=== PATIENT | female | born 1965 | race African-American/Black ===

== ENCOUNTER 2017-02-18 16:10 | Inpatient (IN) | payer OTHER ==
[~2017-02-18] VITALS: Ht 182.9 cm; Wt 123.4 kg
--- NOTE | 2017-02-18 16:27 | NUR ---
PT SETH FROM [facility]. PER REPORT, HD CATH MALFUNCTION. (BLEEDING) NOT DIALYZED TODAY. GOWNED AND PLACED ON MONITOR. STABLE VITALS. AWAITING MD CAPELLAN.
--- NOTE | 2017-02-18 16:28 | NUR ---
VENT DEPENDENT. TRACH, PORTEX 8. AC 12 TV 500 FI02 30% 5 PEEP.
--- NOTE | 2017-02-18 16:29 | NUR ---
DR CARRANZA AT BEDSIDE FOR EVAL.
[2017-02-18 16:41] VITALS: BP 117/63
[2017-02-18 16:52] LABS: BASOPHILS % (AUTO) 0.2 % (0.0-2.0); EOSINOPHILS # (AUTO) 0.3 /CMM (0.0-0.7); HEMATOCRIT 22 % (33-45); HEMOGLOBIN 7.1 g/dL (11.5-14.8); LYMPHOCYTES # (AUTO) 2.4 /CMM (0.8-4.8); LYMPHOCYTES % (AUTO) 14.7 % (20.0-44.0); MEAN CORPUSCULAR HEMOGLOBIN 28 PG (26.0-33.0); MEAN CORPUSCULAR HGB CONC 32 g/dl (31.0-36.0); MEAN CORPUSCULAR VOLUME 86 fL (82-100); MONOCYTES # (AUTO) 0.9 /CMM (0.1-1.30); MONOCYTES % (AUTO) 5.4 % (2.0-12.0); NEUTROPHILS # (AUTO) 12.9 /CMM (1.8-8.9); NEUTROPHILS % (AUTO) 77.7 % (43.0-81.0); PLATELET COUNT (AUTO) 456 /CMM (150-450); RDW COEFFICIENT OF VARIATION 16.2 (11.5-15.0); RED BLOOD CELL COUNT(AUTO) 2.56 MIL/uL (4.0-5.2); WHITE BLOOD COUNT (AUTO) 16.6 K/uL (4.3-11.0)
[2017-02-18] MEDS ORDERED: ASPI81TA2 GT (16:57)
[2017-02-18] MEDS ORDERED: FOLI0.8T23 GT (16:57)
[2017-02-18] MEDS ORDERED: HYDR-4076 GT (16:57)
[2017-02-18] MEDS ORDERED: ACET650S26 GT (16:57)
[2017-02-18] MEDS ORDERED: LORA0.5T GT (16:57)
[2017-02-18] MEDS ORDERED: INSU3INS6 SQ (16:57)
[2017-02-18] MEDS ORDERED: NUT.237L67 GT (16:57)
[2017-02-18] MEDS ORDERED: AMIN30LI4 GT (16:57)
[2017-02-18] MEDS ORDERED: FERR300L GT (16:57)
[2017-02-18] MEDS ORDERED: ERGO50003 GT (16:57)
[2017-02-18] MEDS ORDERED: HEPA10009 SQ (16:57)
[2017-02-18] MEDS ORDERED: LOSA25TA3 GT (16:57)
[2017-02-18] MEDS ORDERED: LORA10TA68 GT (16:57)
[2017-02-18] MEDS ORDERED: METO5SOL2 GT (16:57)
[2017-02-18] MEDS ORDERED: FAMO-131 GT (16:57)
[2017-02-18] MEDS ORDERED: IPRA3AMP IH ×2 (16:57)
[2017-02-18] MEDS ORDERED: INSU100V3 SQ (16:57)
[2017-02-18] MEDS ORDERED: EPOE1VIA7 SQ (16:57)
[2017-02-18] MEDS ORDERED: BLOO-668 IN (16:57)
[2017-02-18] MEDS ORDERED: CALC667T2 GT (16:58)
[2017-02-18 17:06] LABS: ALANINE AMINOTRANSFERASE 22 U/L (12-78); ALBUMIN 2.8 g/dL (3.4-5.0); ALKALINE PHOSPHATASE 111 U/L (46-116); ASPARTATE AMINOTRANSFERASE 15 U/L (15-37); BILIRUBIN,DIRECT 0.1 mg/dL (0.0-0.2); BILIRUBIN,TOTAL 0.3 mg/dL (0.2-1.0); CARBON DIOXIDE 26 mmol/L (21-32); CHLORIDE 97 mmol/L (98-107); CREATININE 3.4 mg/dL (0.6-1.3); GLUCOSE 84 mg/dL (74-106); SODIUM SERUM 133 mmol/L (136-145); TOTAL PROTEIN, SERUM 7.5 g/dL (6.4-8.2); UREA NITROGEN, BLOOD 49 mg/dL (7-18)
[2017-02-18 17:08] LABS: TROPONIN I < 0.017 ng/mL (0.00-0.056)
[2017-02-18 17:16] LABS: CALCIUM, SERUM 13.3 mg/dL (8.5-10.1)
[2017-02-18 17:48] LABS: INR 1.01 (0.87-1.13); PROTHROMBIN TIME 10.8 SECS (9.5-12.7)
[2017-02-18 17:49] LABS: PARTIAL THROMBOPLASTIN TIME > 170 SEC (23-34)
--- NOTE | 2017-02-18 18:08 | NUR ---
CALLED [facility], MANAGER OF MAINTENANCE WAS PAGED. DR CARRANZA ON THE PHONE WITH DR MURRAY.
--- NOTE | 2017-02-18 19:36 | NUR ---
REPORT GIVEN TO ANGELY. PT AWAITING TRANSFER TO FLOOR.
[2017-02-18 19:50] VITALS: BP 118/57
--- NOTE | 2017-02-18 19:50 | NUR ---
RN ADMITTING TEL NOTES PT IS A 51 YR OLD FEMALE ON VENT, AOX2, NONVERBAL, VENT SETTINGS OF AC12,T500, FI2 30% PEEP 5, WELL TOLERATED NO EPISODE OF DISTRESS NOTED, PRODUCTIVE WITH BROWNISH SECRETIONS, AFEBRIL, VS STABLE, DENIES ANY PAIN, WITH GTUBE IN PLACE, PATENT, NO RESIDUAL, WITH RH 20G PATENT FLUSHED UPON ASSESSMENT, WITH BM LARGE X2 YELLOW, KEPT CLEAN AND DRY, WITH MULTIPLE SACRAL AND THIGH PS, PHOTOS TAKEN, WOUND CONSUL ORDERED, WELL PENDING SALE TO [facility]. ALL PT NEEDS WELL SAFETY NEEDS MET UPON ADMISSION AND PROTOCOL FOLLOWED. REPOSITIONED Q2H QS.
[2017-02-18 20:00] VITALS: BP 118/57
[2017-02-18] MEDS ORDERED: RENAL NOVASOURCE 1,000 ML BOTTLE GT PRN (22:30)
[2017-02-19] VITALS (8 sets, daily range): BP systolic 96–118; BP diastolic 44–68
--- NOTE | 2017-02-19 03:21 | NUR ---
2110PM DR MCGREGOR NOTIFIED OF PT'S ADIMISSION, WITH ORDER TO CONT ALL MEDS AND TX FROM SNF WHERE PT CAME FROM AND START GTF ON NOVASOURCE 40ML/HR, PT ADMITTED FOR MALFUNCTION OF HD CATH.
[2017-02-19] MEDS ORDERED: INSULIN REGULAR, HUMAN 100 UNIT/ML 3 ML VIAL SQ PRN ×2 (04:30→09:30)
[2017-02-19] MEDS ORDERED: DEXTROSE 50%-WATER 50 ML DISP.SYRIN IV PRN (04:30)
[2017-02-19] MEDS ORDERED: IPRATROPIUM/ALBUTEROL INHALER NEB PRN (04:30)
[2017-02-19] MEDS ORDERED: IPRATROPIUM/ALBUTEROL INHALER IH PRN (04:30)
--- NOTE | 2017-02-19 06:18 | NUR ---
RN ADMITTING TELE CLOSING NOTES ENDORSED 51 YR OLD FEMALE ON VENT, AOX2, NONVERBAL, VENT SETTINGS OF AC12,T500, FI2 30% PEEP 5, WELL TOLERATED NO EPISODE OF DISTRESS NOTED, PRODUCTIVE WITH BROWNISH SECRETIONS, AFEBRIL, VS STABLE, DENIES ANY PAIN, WITH GTUBE IN PLACE, PATENT, NO RESIDUAL, WITH RH 20G PATENT FLUSHED UPON ASSESSMENT, WITH BM LARGE X2 YELLOW, KEPT CLEAN AND DRY, WITH MULTIPLE SACRAL AND THIGH PS, PHOTOS TAKEN, WOUND CONSUL ORDERED, WELL [employer] MATTRESS. ALL PT NEEDS WELL SAFETY NEEDS MET UPON ADMISSION AND PROTOCOL FOLLOWED. REPOSITIONED Q2H QS. WILL ENDORSE FOR AM CHARGE TO F/U ON EPISODE OF LOOSE STOOL, ADMITTED WITH LOOSE STOOL NO FOOL SMELL, AFEBRIL.
[2017-02-19] MEDS: BLOOD SUGAR DIAGNOSTIC 1 EACH STRIP IN SCH ×4 (06:37→21:06)
--- NOTE | 2017-02-19 07:45 | NUR ---
REPORT RECV'D FROM NOC RN. PT AWAKE. NONVERBAL. VENT SETTINGS AC 12, TV 5, FIO2 30%, PEEP 5. NON LABORED BREATHING. SUCTION NEEDED. HOB ELEVATED. MALFUNCTIONING HD CATH. TELE NSR 80'S. MULTIPLE SACRAL AND THIGH PRESSURE SORES SPECIALTY MATRESS ORDERED AND MEPILEX DRSGS CDI. WBC 11.6. WOUND CARE NURSE NOTIFIED. RH 20G IV PATENT. BED IN LOW LOCKED POSITION. WILL CONT TO MONITOR CLOSELY.
[2017-02-19] MEDS: ALBUTEROL FS 2.5 MG/0.5 ML VIAL.NEB NEB SCH ×3 (08:03→19:53)
[2017-02-19] MEDS: IPRATROPIUM NEB FS 0.5 MG/2.5 ML AMPUL.NEB NEB SCH ×3 (08:03→19:53)
[2017-02-19] MEDS ORDERED: NEPRO VAN 237 ML CAN GT SCH (09:30)
[2017-02-19] MEDS ORDERED: Medication Not On Formulary EA (Ipratropium/Albuterol Sulfate (Duoneb 2.5-0.5 Mg/3 Ml So IH PRN (09:30)
[2017-02-19] MEDS: FERROUS SULFATE UDC 300 MG/5 ML UDC GT SCH (11:13)
[2017-02-19] MEDS: LORATADINE 10 MG TABLET GT SCH (11:14)
[2017-02-19] MEDS: VIT B CMPLX 3/FA/VIT C/BIOTIN 1 TAB TABLET GT SCH (11:14)
[2017-02-19] MEDS: FAMOTIDINE (20 MG) 20 MG TABLET GT SCH (11:14)
[2017-02-19] MEDS: PROSOURCE / PROSTAT (PYXIS) 30 ML UDC GT SCH (11:15)
--- NOTE | 2017-02-19 12:00 | NUR ---
RN NOTES NO ACUTE EVENTS. TELE NSR. HOB ELEVATED. TF RUNNING 40ML/HR NO RESIDUALS. PLACED ON SPECIALTY MATRESS. LINEN CHANGE AND BED BATH PROVIDED. CONTINUE VENT SETTINGS. SUCTIONED X1 THICK YELLOW MODERATE AMT SECRETIONS. HEP SC TO BE ADMIN. BED IN LOW LOCKED POSITION. WILL CONT TO MONITOR CLOSELY.
[2017-02-19] MEDS: POTASSIUM CL. PREMIX PERIPHER. 50 ML IV SCH ×2 (12:56→13:20)
[2017-02-19] MEDS: HEPARIN SODIUM, PORCINE 5000 UNITS/1 ML VIAL SQ SCH ×2 (12:58→21:10)
[2017-02-19] MEDS ORDERED: CALCIUM ACETATE 667 MG TABLET GT SCH (13:00)
[2017-02-19] MEDS ORDERED: Medication Not On Formulary EA (Ipratropium/Albuterol Sulfate (Duoneb 2.5-0.5 Mg/3 Ml So IH SCH (13:30)
[2017-02-19] MEDS ORDERED: EPOETIN ALFA (10,000 UNIT) 10,000 UNIT/ML VIAL SQ PRN (15:00)
[2017-02-19] MEDS: hydrALAZINE HCL 25 MG TABLET GT SCH (16:51)
[2017-02-19] MEDS: LOSARTAN POTASSIUM 25 MG TABLET GT SCH (16:51)
[2017-02-19] MEDS: METOCLOPRAMIDE HCL 10 MG/10 ML UDC GT SCH (16:52)
--- NOTE | 2017-02-19 17:43 | NUR ---
RN NOTES NO CHANGE IN CONDITION SINCE LAST NOTE. TWO SMALL BM SMEARS ON MY SHIFT. TOLERATING TF 40ML/HR NO RESIDUALS. HOB ELEVATED. 3,400ML REMOVED BY DIALYSIS NURSE. HELD BP MEDS PATIENT DIPPED INTO LOW 90'S DURING DIALYSIS. BLOOD SUGARS HAVE BEEN STABLE NEAR 100. VENT SETTING REMAIN UNCHANGED AC 12 TV 5.0 FIO2 30% PEEP 5. POTASSIUM 3.0 REPLETED. TELE NSR. BED IN LOW LOCKED POSITION. WILL CONT TO MONITOR AND ENDORSE TO REPORT TO NOC RN.
--- NOTE | 2017-02-19 19:30 | NUR ---
RN NOTES RECEIVED PT ASLEEP ON BED RESPOMSIVE TO TACTILE STIMULI ABLE TO MOUTH WORDS. WITH TRACH PORTEX 8 CONNECTED TO VENT SETTING AC 12 TV 500 FIO2 30% PEEP 5 TOLERATED WELL SATING 100% TELE MONITOR REVEALS SR HR 80'S. WITH GTF NOVASOURCE RENAL @ 40 CC/HR TOLERATED WELL WITHOUT N.V.D NOTED. IV SITE ON RIGHT HAND G 20 INTACT AND PATENT AND RUC HD CATH INTACT WITH CLEANED DRESSING. WARMTH TO TOUCH SLIGHT FEVER NOTED TEMP 100 DEG. FAHRENHEIT COOLING MEASURES PROVIDED. KEPT PT CLEAN AND COMFORTABLE IN BED. OFFLOADED EXT WITH PILLOWS. REPOSITIONED PATIENT COMFORTABLE. WILL CONTINUE TO MONITOR.
[2017-02-19] MEDS ORDERED: BLOOD SUGAR DIAGNOSTIC 1 EACH STRIP IN SCH (21:00)
[2017-02-19] MEDS: INSULIN DETEMIR 100 UNIT/ML CARTRIDGE SQ SCH (21:19)
--- NOTE | 2017-02-19 21:19 | NUR ---
RN NOTES LEVEMIR 80 UNITS NOT ADMINISTERED DUE TO PATIENT HAD EPISODE OF DROPPING BS TO 80'S IN AM. CONTINUE WITH GTF TOLERATED WELL
[2017-02-20] VITALS (9 sets, daily range): BP systolic 95–127; BP diastolic 47–69
[2017-02-20] MEDS ORDERED: Z GUARD REMEDY 4 OZ OINT TP ONE (00:26)
[2017-02-20] MEDS: RENAL NOVASOURCE 1,000 ML BOTTLE GT PRN (01:55)
[2017-02-20] MEDS: Z GUARD REMEDY 4 OZ OINT TP SCH ×2 (02:00→08:57)
[2017-02-20] MEDS: HYDROGEL DRESSING 90 GM TUBE TP SCH ×2 (02:00→08:56)
[2017-02-20] MEDS: IPRATROPIUM NEB FS 0.5 MG/2.5 ML AMPUL.NEB NEB SCH ×4 (02:04→19:59)
[2017-02-20] MEDS: ALBUTEROL FS 2.5 MG/0.5 ML VIAL.NEB NEB SCH ×4 (02:04→19:59)
[2017-02-20] MEDS: ACETAMINOPHEN 650 MG/20.3 ML UDC GT PRN ×2 (05:34→17:00)
[2017-02-20] MEDS: HEPARIN SODIUM, PORCINE 5000 UNITS/1 ML VIAL SQ SCH ×3 (05:36→22:23)
[2017-02-20] MEDS: BLOOD SUGAR DIAGNOSTIC 1 EACH STRIP IN SCH ×4 (06:45→23:49)
--- NOTE | 2017-02-20 06:45 | NUR ---
RN NOTES PT TMAX 100 DEG FAHRENHEIT COOLING MEASURES RENDERED, PRN TYLENOL FOR MILD PAIN GIVEN ORDERED. ALL DUE MEDICINE GIVEN VIA GT WITHOUT N/V/D. TRACH AND VENT SETTING TOLERATED WELL. INCONTINENT CARE RENDERED. SKIN CARE DONE PHOTO TAKEN FOR ALL SKIN ISSUES. OFFLOADED EXT WITH PILLOWS. KEPT PT CLEAN AND DRY. WILL ENDORSED CONTINUITY OF CARE TO AM NURSE.
[2017-02-20 07:30] LABS: BASOPHILS % (AUTO) 0.2 % (0.0-2.0); EOSINOPHILS # (AUTO) 0.3 /CMM (0.0-0.7); EOSINOPHILS % (AUTO) 1.7 % (0.0-6.0); HEMATOCRIT 22 % (33-45); LYMPHOCYTES # (AUTO) 3.4 /CMM (0.8-4.8); LYMPHOCYTES % (AUTO) 22.3 % (20.0-44.0); MEAN CORPUSCULAR HEMOGLOBIN 28 PG (26.0-33.0); MEAN CORPUSCULAR HGB CONC 33 g/dl (31.0-36.0); MEAN CORPUSCULAR VOLUME 86 fL (82-100); MONOCYTES # (AUTO) 1.3 /CMM (0.1-1.30); MONOCYTES % (AUTO) 8.8 % (2.0-12.0); NEUTROPHILS # (AUTO) 10.1 /CMM (1.8-8.9); PLATELET COUNT (AUTO) 394 /CMM (150-450); RDW COEFFICIENT OF VARIATION 15.9 (11.5-15.0); RED BLOOD CELL COUNT(AUTO) 2.51 MIL/uL (4.0-5.2)
[2017-02-20 08:11] LABS: ALBUMIN 2.8 g/dL (3.4-5.0); BILIRUBIN,TOTAL 0.3 mg/dL (0.2-1.0); CALCIUM, SERUM 11.7 mg/dL (8.5-10.1); CREATININE 3.7 mg/dL (0.6-1.3); MAGNESIUM 2.2 mg/dL (1.8-2.4); PHOSPHORUS 2.3 mg/dL (2.5-4.9); POTASSIUM 3.4 mmol/L (3.5-5.1); TOTAL PROTEIN, SERUM 7.6 g/dL (6.4-8.2)
[2017-02-20] MEDS: hydrALAZINE HCL 25 MG TABLET GT SCH ×2 (08:54→16:54)
[2017-02-20] MEDS: LOSARTAN POTASSIUM 25 MG TABLET GT SCH ×2 (08:54→16:54)
[2017-02-20] MEDS: FERROUS SULFATE UDC 300 MG/5 ML UDC GT SCH (08:55)
[2017-02-20] MEDS: METOCLOPRAMIDE HCL 10 MG/10 ML UDC GT SCH ×2 (08:55→17:01)
[2017-02-20] MEDS: LORATADINE 10 MG TABLET GT SCH (08:56)
[2017-02-20] MEDS: FAMOTIDINE (20 MG) 20 MG TABLET GT SCH (08:56)
[2017-02-20] MEDS: ASPIRIN 81 MG TAB.CHEW GT SCH (08:56)
[2017-02-20] MEDS: VIT B CMPLX 3/FA/VIT C/BIOTIN 1 TAB TABLET GT SCH (08:56)
[2017-02-20] MEDS: PROSOURCE / PROSTAT (PYXIS) 30 ML UDC GT SCH (09:00)
[2017-02-20] MEDS ORDERED: ERGOCALCIFEROL (VITAMIN D 2) 50,000 UNIT CAPSULE GT SCH (09:00)
[2017-02-20] MEDS ORDERED: DEXTROSE 50%-WATER 50 ML DISP.SYRIN IV PRN (11:00)
[2017-02-20] MEDS ORDERED: BLOOD SUGAR DIAGNOSTIC 1 EACH STRIP IN SCH (12:00)
--- NOTE | 2017-02-20 13:45 | NUR ---
RN NOTES CALLED SISTER AND BROTHER AT [facility] [phone] TO OBTAIN CONSENT FOR BLOOD TRANSFUSION, LEFT A MSG NO ANSWER. CONSENT OBTAINED FROM PATIENT FOR BLOOD TRANSFUSION. UNABLE TO SIGN, WITNESSED BY 2 RNS. CHARGE NURSE SOON AWARE
--- NOTE | 2017-02-20 13:48 | NUR ---
WOUND CARE CONSULT: UNABLE TO DO SKIN ASSESSMENT DUE TO PT HAVING DIALYSIS AT THIS TIME. PT ON BARIATRIC BED (BARIMAX ETS AIR). ALL SKIN PROTECTION MEASURES IN PLACE AND DISCUSSED WITH NURSING STAFF. WILL SEE PT PT CONDITION PERMITS. RECOMMEND SURGICAL CONSULT. MD IN AGREEMENT WITH PLAN OF CARE. Addendum: 02/20/17 at 1407 by KARIN PAINTING WNDNU RECOMMENDATIONS FOR WOUND CARE MADE BASED ON PHOTO DOCUMENTATION. DISCUSSED WITH NURSING STAFF.
--- NOTE | 2017-02-20 15:12 | NUR ---
RN NOTES BLOOD TRANSFUSION STARTED WITH HEMODIALYSIS. VS STABLE. WILL CONT TO MONITOR CLOSELY FOR ANY POSSIBLE REACTION
--- NOTE | 2017-02-20 15:19 | NUR ---
RN NOTES SPOKE WITH JACOBS BROTHER, LORENZA GAVE CONSENT FOR BLOOD TRANSFUSION. BOSTON AWARE THAT PATIENT GAVE CONSENT FOR BLOOD TRANSFUSION WELL
[2017-02-20] MEDS ORDERED: ALTEPLASE CATHFLO 2 MG/VIAL IV ONE (15:30)
[2017-02-20] MEDS: INSULIN REGULAR, HUMAN 100 UNIT/ML 3 ML VIAL SQ PRN ×2 (17:35→23:48)
--- NOTE | 2017-02-20 19:59 | NUR ---
PT RCVD ON [facility] VENT WITH NOTED SETTINGS. VENT ALARM WORKING AND AUDIBLE, VENT PLUGGED INTO RED OUTLET. TRACH SECURE IN AND IN PROPER POSITION, CUFF CHECKED ECONOMIC DEVELOPMENT MANAGER. SXN MODERATE AMOUNT OF PALE YELLOW THICK SECRETIONS . BILATERAL BS NOTED. NO RESPIRATORY DISTRESS AT THIS TIME . AMBU BAG AT [facility], WILL CONTINUE TO MONITOR THE PT.
[2017-02-20] MEDS: INSULIN DETEMIR 100 UNIT/ML CARTRIDGE SQ SCH (22:00)
[2017-02-20] MEDS: MUPIROCIN OINT 2% 22 GM TUBE SCH (22:21)
[2017-02-21] VITALS: BP 112/64
[2017-02-21] MEDS: IPRATROPIUM NEB FS 0.5 MG/2.5 ML AMPUL.NEB NEB SCH ×4 (01:25→20:27)
[2017-02-21] MEDS: ALBUTEROL FS 2.5 MG/0.5 ML VIAL.NEB NEB SCH ×4 (01:25→20:27)
[2017-02-21 04:00] VITALS: BP 98/49
[2017-02-21] MEDS: HEPARIN SODIUM, PORCINE 5000 UNITS/1 ML VIAL SQ SCH ×3 (04:58→21:10)
[2017-02-21] MEDS: INSULIN REGULAR, HUMAN 100 UNIT/ML 3 ML VIAL SQ PRN (04:59)
--- NOTE | 2017-02-21 05:00 | NUR ---
MANAGER VIDEO GAMES - REC'D PT.BEDRIDDEN,NONVERBAL, TRACH/VENTED/PEGGED. PT. CAN MOUTH WORDS & IS ALERT-TRACKS WELL. VSS/100.6 TMAX AT START OF SHIFT. COOLING MEASURES STARTED. PT.IS IN ISOLATION FOR MRSA/NARES. 2 COMP. BEDBATHS ADM. FOR [employer]. PT.IS ANURIC, BUT IS DIAPERED DUE TO JUST ALITTLE URINE EXPLELLED. MULTIPLE WOUND ISSUES. PT. HAS RT.HAND PIV/PATENT TO FLUSH & RT.C/W HD CATH=CDI. WOUND CARE PERFORMED Q SHIFT. LEVEMIR NOT GIVEN DUE TO BS'S IN THE 130'S.
[2017-02-21] MEDS: BLOOD SUGAR DIAGNOSTIC 1 EACH STRIP IN SCH ×4 (05:03→23:12)
[2017-02-21 07:41] LABS: CALCIUM, SERUM 11.3 mg/dL (8.5-10.1); MAGNESIUM 2.4 mg/dL (1.8-2.4); PHOSPHORUS 2.5 mg/dL (2.5-4.9); POTASSIUM 3.5 mmol/L (3.5-5.1)
--- NOTE | 2017-02-21 08:00 | NUR ---
ENGAGEMENT ENGINEER INITIAL NOTE RN RECEIVED PT IN BED RESTING NONVERBAL, HOWEVER PT. CAN MOUTH WORDS PT ALERT AND OREINTED X2 . PT IS TRACH/VENTED/PEGGED. COOLING MEASURES IN PLACE DUE TO SLIGHT ELEVATION IN TEMP. PT ON ISOLATION FOR MRSA/NARES. RT.HAND IV PATENT AND INTACT RT C/W HD CATH ALSO C/D/I. RN WILL CONTINUE TO MOONITOR THROUGH SHIFT
[2017-02-21 09:00] VITALS: BP 98/50
[2017-02-21] MEDS: hydrALAZINE HCL 25 MG TABLET GT SCH ×2 (09:00→15:58)
[2017-02-21] MEDS: VIT B CMPLX 3/FA/VIT C/BIOTIN 1 TAB TABLET GT SCH (09:21)
[2017-02-21] MEDS: LOSARTAN POTASSIUM 25 MG TABLET GT SCH ×2 (09:22→15:58)
[2017-02-21] MEDS: FAMOTIDINE (20 MG) 20 MG TABLET GT SCH (09:22)
[2017-02-21] MEDS: ASPIRIN 81 MG TAB.CHEW GT SCH (09:22)
[2017-02-21] MEDS: LORATADINE 10 MG TABLET GT SCH (09:22)
[2017-02-21] MEDS: PROSOURCE / PROSTAT (PYXIS) 30 ML UDC GT SCH (09:23)
[2017-02-21] MEDS: FERROUS SULFATE UDC 300 MG/5 ML UDC GT SCH (09:23)
[2017-02-21] MEDS: METOCLOPRAMIDE HCL 10 MG/10 ML UDC GT SCH ×2 (09:23→16:02)
[2017-02-21] MEDS: Z GUARD REMEDY 4 OZ OINT TP SCH (09:23)
[2017-02-21] MEDS: MUPIROCIN OINT 2% 22 GM TUBE SCH ×2 (09:24→21:09)
[2017-02-21] MEDS: HYDROGEL DRESSING 90 GM TUBE TP SCH (09:24)
[2017-02-21 09:41] LABS: BASOPHILS % (AUTO) 0.2 % (0.0-2.0); EOSINOPHILS # (AUTO) 0.3 /CMM (0.0-0.7); EOSINOPHILS % (AUTO) 1.4 % (0.0-6.0); HEMATOCRIT 25 % (33-45); HEMOGLOBIN 7.9 g/dL (11.5-14.8); LYMPHOCYTES # (AUTO) 5.6 /CMM (0.8-4.8); LYMPHOCYTES % (AUTO) 23.6 % (20.0-44.0); MEAN CORPUSCULAR HEMOGLOBIN 27 PG (26.0-33.0); MEAN CORPUSCULAR HGB CONC 32 g/dl (31.0-36.0); MEAN CORPUSCULAR VOLUME 85 fL (82-100); MONOCYTES # (AUTO) 2.6 /CMM (0.1-1.30); MONOCYTES % (AUTO) 11.2 % (2.0-12.0); NEUTROPHILS % (AUTO) 63.6 % (43.0-81.0); PLATELET COUNT (AUTO) 422 /CMM (150-450); RDW COEFFICIENT OF VARIATION 16.6 (11.5-15.0); RED BLOOD CELL COUNT(AUTO) 2.89 MIL/uL (4.0-5.2); WHITE BLOOD COUNT (AUTO) 23.6 K/uL (4.3-11.0)
[2017-02-21 10:05] LABS: BAND % (MANUAL) 1 % (0.0-5.0); EOSINOPHILS % (MANUAL) 1 % (0-4); LYMPHOCYTES % (MANUAL) 20 % (16-48); MONOCYTES % (MANUAL) 11 % (0-11.0); NEUTROPHILS % (MANUAL) 67 (42-76)
--- NOTE | 2017-02-21 10:21 | NUR ---
WOUND CARE: PT REFUSED ASSESSMENT EXCEPT FOR LEFT INNER THIGH, GROIN EXCORIATED AREAS AND LEFT POSTERIOR THIGH WOUND, STAGE 3 WHICH MEASURED 3CM X 10CM X 0.5CM WITH SMALL AMOUNT OF SEROUS DRAINAGE, NO ODOR. RECOMMENDATIONS MADE FOR WOUND CARE AND SKIN PROTECTION. RECOMMEND SURGICAL CONSULT. ALL SKIN PROTECTION MEASURES IN PLACE. WILL SEE PRN. JACOBO IN AGREEMENT WITH PLAN OF CARE. Addendum: 02/21/17 at 1023 by KARIN PAINTING WNDNU Amended: Links added.
[2017-02-21 12:00] VITALS: BP 92/52
--- NOTE | 2017-02-21 12:36 | NUR ---
RN NOTE RN CONTACTED PHARMACY IN REGARDS TO HEPARIN ADMINISTRATION THAT IS SCHEDULED FOR 1300. PATIENTS LAST PTT ELEVATED AND RN REQUESTING IF THIS ADMINISTRATION SHOULD STILL BE ADMINISTERED. RN AWAITING ORDERS TO GIVE OR HOLD HEPARIN
--- NOTE | 2017-02-21 12:50 | NUR ---
RN NOTE PHARMACY CONTACTED RN IN REGARDS TO HEPARIN ADMINISTRATION STATES IT IS OK TO ADMINISTER 1300 DOSE , RN ACKNOWLEDGED AND ADMINISTERED CHARGE NURSE LAKIA RUBIO
[2017-02-21 16:00] VITALS: BP 94/55
--- NOTE | 2017-02-21 18:47 | NUR ---
CREATIVE ENGAGEMENT DIRECTOR CLOSING NOTES: ALL PT NEEDS WERE ATTENDED AND ANTICIPATED FOR. PT REMAINS IN BED ABLE TO MAKE NEEDS KNOWN VIA MOUTHING WORDS . WITH HOB ELEVATED UP. PT IS VENT/TRACH DEPENDENT AND TOLERATING VENT SETTINGS WELL. NO DISTRESS NOTED AT THIS TIME. PT IS ON G TUBE FEEDING GLYTROL NO RESIDUAL NOTED. CALL LIGHT WITHIN PT'S REACH. BED KEPT IN LOW, LOCKED POSITION, AND SIDE RAILS X 2 UP. RN WILL ENDORSE CONTINUATION OF CARE TO THE PM NURSE
--- NOTE | 2017-02-21 19:30 | NUR ---
RN NOTES RECEIVED THE PATIENT AWAKE ON BED, A/O X1, ABLE TO MOUTH WORDS. ON VENT, AC12, TV500, 30%FIO2, PEEP5, PORTEX8, SATURATING WELL, NO S/S OF RESP DISTRESS. CURRENTLY SINUS TACH ON THE MONITOR, HR 100-110'S. PT IS ANURIC. ON NOVASOURCE GTF @ 40MLS/HR, NO RESIDUALS, TOLERATING WELL. RIGHT CHEST WALL HD CATH INTACT. RIGHT HAND 20G FLUSHED AND PATENT, NO S/S OF INFILTRATION/INFECTION, DRESSING CDI. BED LOW AND LOCKED, SIDERAILS UP, CALL LIGHT WITHIN REACH . WILL MONITOR
[2017-02-21 20:00] VITALS: BP 90/49
[2017-02-21] MEDS: INSULIN DETEMIR 100 UNIT/ML CARTRIDGE SQ SCH (21:10)
--- NOTE | 2017-02-21 21:11 | NUR ---
RN NOTES NON-ADMINISTERED SCHEDULED 80UNITS LEVEMIR. CURRENT BLOOD SUGAR IS 137. PAST SCHEDULED LEVEMIRS HAVE BEEN NON-ADMINISTERED DUE TO BLOOD SUGARS RANGING 80-130 EVEN WITH GTUBE FEEDING. WILL MONITOR
[2017-02-21] MEDS: RENAL NOVASOURCE 1,000 ML BOTTLE GT PRN (21:12)
[2017-02-21] MEDS: ACETAMINOPHEN 650 MG/20.3 ML UDC GT PRN (21:20)
[2017-02-22] VITALS (7 sets, daily range): BP systolic 89–123; BP diastolic 44–79
[2017-02-22] MEDS: IPRATROPIUM NEB FS 0.5 MG/2.5 ML AMPUL.NEB NEB SCH ×4 (01:51→19:39)
[2017-02-22] MEDS: ALBUTEROL FS 2.5 MG/0.5 ML VIAL.NEB NEB SCH ×4 (01:51→19:38)
[2017-02-22] MEDS: BLOOD SUGAR DIAGNOSTIC 1 EACH STRIP IN SCH ×4 (05:09→23:08)
[2017-02-22] MEDS: HEPARIN SODIUM, PORCINE 5000 UNITS/1 ML VIAL SQ SCH ×3 (05:10→20:32)
[2017-02-22] MEDS: INSULIN REGULAR, HUMAN 100 UNIT/ML 3 ML VIAL SQ PRN ×4 (05:11→23:08)
--- NOTE | 2017-02-22 06:30 | NUR ---
RN NOTES PT REMAINS STABLE OF THE MOMENT. ALL DUE MEDS GIVEN, AM CARE PROVIDED. WILL ENDORSE CONTINUITY OF CARE TO AM RN
[2017-02-22] MEDS: METOCLOPRAMIDE HCL 10 MG/10 ML UDC GT SCH ×2 (08:45→17:22)
[2017-02-22] MEDS: FERROUS SULFATE UDC 300 MG/5 ML UDC GT SCH (08:45)
[2017-02-22] MEDS: ASPIRIN 81 MG TAB.CHEW GT SCH (08:45)
[2017-02-22] MEDS: VIT B CMPLX 3/FA/VIT C/BIOTIN 1 TAB TABLET GT SCH (08:45)
[2017-02-22] MEDS: LORATADINE 10 MG TABLET GT SCH (08:46)
[2017-02-22] MEDS: PROSOURCE / PROSTAT (PYXIS) 30 ML UDC GT SCH (08:46)
[2017-02-22] MEDS: HYDROGEL DRESSING 90 GM TUBE TP SCH (08:46)
[2017-02-22] MEDS: FAMOTIDINE (20 MG) 20 MG TABLET GT SCH (08:46)
[2017-02-22] MEDS: MUPIROCIN OINT 2% 22 GM TUBE SCH ×2 (08:46→20:30)
[2017-02-22] MEDS: Z GUARD REMEDY 4 OZ OINT TP SCH (08:46)
[2017-02-22] MEDS: hydrALAZINE HCL 25 MG TABLET GT SCH ×2 (08:47→17:00)
[2017-02-22] MEDS: LOSARTAN POTASSIUM 25 MG TABLET GT SCH ×2 (08:48→17:00)
[2017-02-22] MEDS ORDERED: FEE PK DOSING 1 MIN EA MC ONE ×2 (11:57→12:15)
[2017-02-22] MEDS ORDERED: GENTAMICIN IV ONE (12:30)
[2017-02-22] MEDS ORDERED: D5W IV ONE (12:30)
--- NOTE | 2017-02-22 13:00 | NUR ---
HD cath removed per Dr. Miller. Tip cultured.
[2017-02-22] MEDS ORDERED: VANCOMYCIN 1 GM in IV D5W 250 ML IV ONE (15:00)
--- NOTE | 2017-02-22 15:00 | NUR ---
Patient have watery stool, with foul distinct smell. Stool specimen sent for C-diff.
--- NOTE | 2017-02-22 16:00 | NUR ---
Patient initial 1600 blood pressure borderline low @ 87/44 on the left forearm. Rechecked on the left arm 91/72. Patient awake, mouths words.
--- NOTE | 2017-02-22 20:38 | NUR ---
received pt from day shift, a/o x1, follows simple commands, confused at times, SR, on the vent, lungs congested, no edema, anuric, HD pt, GT to feeding tolerates well, v/s stable, no pain, pt turned and repositioned.
[2017-02-22] MEDS: INSULIN DETEMIR 100 UNIT/ML CARTRIDGE SQ SCH (22:53)
[2017-02-23] VITALS: BP 94/50
[2017-02-23] MEDS: IPRATROPIUM NEB FS 0.5 MG/2.5 ML AMPUL.NEB NEB SCH ×4 (01:10→19:43)
[2017-02-23] MEDS: ALBUTEROL FS 2.5 MG/0.5 ML VIAL.NEB NEB SCH ×4 (01:10→19:43)
[2017-02-23 04:00] VITALS: BP 117/58
[2017-02-23] MEDS: HEPARIN SODIUM, PORCINE 5000 UNITS/1 ML VIAL SQ SCH ×3 (04:05→21:42)
--- NOTE | 2017-02-23 04:11 | NUR ---
pt is resting in the bed, no acute distress overnight, tolerated feeding, v/s stable, no pain, pt cleaned, changed and repositioned q2hrs.
[2017-02-23] MEDS: BLOOD SUGAR DIAGNOSTIC 1 EACH STRIP IN SCH ×3 (05:16→17:27)
[2017-02-23 07:01] LABS: EOSINOPHILS # (AUTO) 0.4 /CMM (0.0-0.7); EOSINOPHILS % (AUTO) 2.3 % (0.0-6.0); HEMATOCRIT 28 % (33-45); LYMPHOCYTES # (AUTO) 2.1 /CMM (0.8-4.8); LYMPHOCYTES % (AUTO) 10.9 % (20.0-44.0); MEAN CORPUSCULAR HEMOGLOBIN 27 PG (26.0-33.0); MEAN CORPUSCULAR HGB CONC 32 g/dl (31.0-36.0); MEAN CORPUSCULAR VOLUME 85 fL (82-100); MONOCYTES # (AUTO) 1.4 /CMM (0.1-1.30); MONOCYTES % (AUTO) 7.2 % (2.0-12.0); NEUTROPHILS # (AUTO) 15.2 /CMM (1.8-8.9); NEUTROPHILS % (AUTO) 79.6 % (43.0-81.0); PLATELET COUNT (AUTO) 433 /CMM (150-450); RDW COEFFICIENT OF VARIATION 15.8 (11.5-15.0); RED BLOOD CELL COUNT(AUTO) 3.29 MIL/uL (4.0-5.2); WHITE BLOOD COUNT (AUTO) 19.1 K/uL (4.3-11.0)
--- NOTE | 2017-02-23 07:05 | NUR ---
RN NOTES RECV'D REPORT FROM NOC JENIFER SMILEY. PT A&OX3. NO DISTRESS AT PRESENT TIME. VENT TRACH ABLE TO VERBALIZE SOMEWHAT. PORTEX #8 AC 12, TV 500, FIO2 30%, PEEP 5. HOB ELEVATED. PEG NO RESIDUALS NOVASOURCE 40ML/HR RUNNING. RUE 20G PIV TKO. LAB GLUCOSE 5:55AM = 47. 0600 FINGERSTICK = 152 AND RECHECKED AT 0730 = 157. PT DENIES SYMPOTMS OF HYPOGLYCEMIA. SPECIALTY BED. WBC 18 IV ABX. ELIQUIS. PENDING REPLACEMENT OF HD CATH. TELE ST 103. MRSA NARES ISOLATION PRECAUTIONS. BED IN LOW LOCKED POSITION. WILL CONT TO MONITOR CLOSELY.
[2017-02-23 07:22] LABS: CREATININE 5.2 mg/dL (0.6-1.3); MAGNESIUM 2.4 mg/dL (1.8-2.4); PHOSPHORUS 2.7 mg/dL (2.5-4.9); POTASSIUM 3.2 mmol/L (3.5-5.1)
[2017-02-23] MEDS: ASPIRIN 81 MG TAB.CHEW GT SCH (09:02)
[2017-02-23] MEDS: FERROUS SULFATE UDC 300 MG/5 ML UDC GT SCH (09:02)
[2017-02-23] MEDS: LORATADINE 10 MG TABLET GT SCH (09:02)
[2017-02-23] MEDS: METOCLOPRAMIDE HCL 10 MG/10 ML UDC GT SCH ×2 (09:02→17:00)
[2017-02-23] MEDS: VIT B CMPLX 3/FA/VIT C/BIOTIN 1 TAB TABLET GT SCH (09:04)
[2017-02-23] MEDS: FAMOTIDINE (20 MG) 20 MG TABLET GT SCH (09:04)
[2017-02-23] MEDS: LOSARTAN POTASSIUM 25 MG TABLET GT SCH ×2 (09:05→17:00)
[2017-02-23] MEDS: hydrALAZINE HCL 25 MG TABLET GT SCH ×2 (09:05→17:00)
[2017-02-23] MEDS: PROSOURCE / PROSTAT (PYXIS) 30 ML UDC GT SCH (09:06)
[2017-02-23] MEDS: MUPIROCIN OINT 2% 22 GM TUBE SCH ×2 (09:06→21:39)
[2017-02-23] MEDS: HYDROGEL DRESSING 90 GM TUBE TP SCH (09:07)
[2017-02-23] MEDS: Z GUARD REMEDY 4 OZ OINT TP SCH (09:07)
[2017-02-23 09:22] VITALS: BP 121/59
[2017-02-23 09:45] LABS: EOSINOPHILS % (MANUAL) 1 % (0-4); LYMPHOCYTES % (MANUAL) 7 % (16-48); MONOCYTES % (MANUAL) 10 % (0-11.0); NEUTROPHILS % (MANUAL) 82 (42-76)
--- NOTE | 2017-02-23 12:00 | NUR ---
RN NOTES PT AWAKE ABLE TO MOUTH SOME WORDS. MOUTH CARE PROVIDED. HOB ELEVATED. PT TURNED RIGHT SIDE. DEEP SUCTION MINIMAL YELLOW/ WHITE THICK SECRETIONS. RUE 20G PIV INTACT PATENT. NO RESIDUALS GT FEED 40ML NOVASOURCE. ISOLATION PRECAUTIONS IN PLACE. BED IN LOW LOCKED POSITION. WILL CONT TO MONITOR CLOSELY.
[2017-02-23] MEDS ORDERED: GENTAMICIN 80 MG in IV D5W 50 ML IV PRN (12:30)
[2017-02-23] MEDS ORDERED: VANCOMYCIN 500 MG in IV D5W 100 ML IV PRN (12:30)
[2017-02-23] MEDS: INSULIN REGULAR, HUMAN 100 UNIT/ML 3 ML VIAL SQ PRN ×2 (12:55→17:30)
[2017-02-23 16:00] VITALS: BP 94/58
--- NOTE | 2017-02-23 16:00 | NUR ---
RN NOTES HYPOTENSIVE SBP 94 HELD HYDRALAZINE AMIODARONE SCHEDULED. PAGED DR. ALCOCER. AWAITING CALLBACK. CN SOON AWARE.
--- NOTE | 2017-02-23 18:00 | NUR ---
RN NOTES PT RESTING COMFORTABLY. TWO CALLS TO . CN SOON AWARE. HOB ELEVATED. TF 40ML/HR. WOUND CARE PROVIDED. BLOOD SUGARS STABLE. RUE 20G PATENT. WILL ENDORSE TO NOC RN. ISO MRSA PRECAUTIONS IN PLACE.
--- NOTE | 2017-02-23 18:27 | NUR ---
RN NOTES MD CALLBACK REGARDING HYPOTENSION. NO NEW ORDERS FROM DR. MCGREGOR.
--- NOTE | 2017-02-23 19:33 | NUR ---
RN INITIAL NOTES RECEIVED PT AWAKE ABLE TO MOUTH SOME WORDS. MOUTH CARE PROVIDED. HOB ELEVATED. PT TURNED RIGHT SIDE. DEEP SUCTION MINIMAL YELLOW/ WHITE THICK SECRETIONS. RUE 20G PIV INTACT PATENT. NO RESIDUALS GT FEED 40ML NOVASOURCE. ISOLATION PRECAUTIONS IN PLACE. BED IN LOW LOCKED POSITION. WILL CONT TO MONITOR CLOSELY
[2017-02-23 20:00] VITALS: BP_SYST 84; BP_SYST 94; BP_DIAS 45; BP_DIAS 56
[2017-02-23] MEDS: INSULIN DETEMIR 100 UNIT/ML CARTRIDGE SQ SCH (21:43)
[2017-02-23] MEDS: LORAZEPAM 0.5 MG TABLET GT PRN (23:11)
[2017-02-23] MEDS: ACETAMINOPHEN 650 MG/20.3 ML UDC GT PRN (23:11)
[2017-02-24] VITALS: BP 90/44
[2017-02-24] MEDS: BLOOD SUGAR DIAGNOSTIC 1 EACH STRIP IN SCH ×5 (00:09→23:32)
[2017-02-24] MEDS: INSULIN REGULAR, HUMAN 100 UNIT/ML 3 ML VIAL SQ PRN ×4 (00:15→23:32)
[2017-02-24] MEDS: IPRATROPIUM NEB FS 0.5 MG/2.5 ML AMPUL.NEB NEB SCH ×4 (01:18→19:49)
[2017-02-24] MEDS: ALBUTEROL FS 2.5 MG/0.5 ML VIAL.NEB NEB SCH ×4 (01:18→19:49)
[2017-02-24 04:00] VITALS: BP 103/52
[2017-02-24] MEDS: HEPARIN SODIUM, PORCINE 5000 UNITS/1 ML VIAL SQ SCH ×3 (04:55→20:32)
[2017-02-24] MEDS: RENAL NOVASOURCE 1,000 ML BOTTLE GT PRN (05:02)
--- NOTE | 2017-02-24 06:20 | NUR ---
RN CLOSING TELE NOTES ENDORSED PT AWAKE ABLE TO MOUTH SOME WORDS. MOUTH CARE PROVIDED. HOB ELEVATED. PT TURNED RIGHT SIDE. DEEP SUCTION MINIMAL YELLOW/ WHITE THICK SECRETIONS. RUE 20G PIV INTACT PATENT. NO RESIDUALS GT FEED 40ML NOVASOURCE. ISOLATION PRECAUTIONS IN PLACE. BED IN LOW LOCKED POSITION. WILL CONT TO MONITOR CLOSELY
[2017-02-24 07:08] LABS: GENTAMICIN,RANDOM 5.5 ug/ml (4.0-8.0)
[2017-02-24 08:00] VITALS: BP 98/57
--- NOTE | 2017-02-24 08:00 | NUR ---
TELE1/RN AM SHIFT INITIAL NOTES RECEIVED PT AWAKE IN BED, NO ACUTE CHANGE OF CONDITION. PT ALERT BUT CONFUSED, MUMBLES WORDS. NO GRIMACING NOTED. ON VENTILATOR RATES SET PRESCRIBED, SATURATING @ 99%, LUNG SOUNDS CLEAR, SUCTIONED FOR AIRWAY CLEARANCE. ON TELE WITH SINUS RHYTHM, HR 99. PT HAS NO HD ACCESS. IV SITE FLUSHED, PATENT WITH NO S/S OF INFECTION. GT FEEDING ON GOING @ 40CC/HR, NO GASTRIC RESIDUAL NOTED, FLUSHED, PATENT. PT IS COMFORTABLE AT THIS TIME. SCHEDULED AM MEDS TO BE GIVEN. CL WITHIN REACHED, SAFETY MAINTAINED AND ISOLATION OBSERVED. ON GOING MONITORING.
[2017-02-24] MEDS: PROSOURCE / PROSTAT (PYXIS) 30 ML UDC GT SCH (08:53)
[2017-02-24] MEDS: VIT B CMPLX 3/FA/VIT C/BIOTIN 1 TAB TABLET GT SCH (08:54)
[2017-02-24] MEDS: FAMOTIDINE (20 MG) 20 MG TABLET GT SCH (08:54)
[2017-02-24] MEDS: METOCLOPRAMIDE HCL 10 MG/10 ML UDC GT SCH ×2 (08:54→18:31)
[2017-02-24] MEDS: LORATADINE 10 MG TABLET GT SCH (08:54)
[2017-02-24] MEDS: ASPIRIN 81 MG TAB.CHEW GT SCH (08:54)
[2017-02-24] MEDS: FERROUS SULFATE UDC 300 MG/5 ML UDC GT SCH (08:54)
[2017-02-24] MEDS: LOSARTAN POTASSIUM 25 MG TABLET GT SCH ×2 (08:55→18:31)
[2017-02-24] MEDS: HYDROGEL DRESSING 90 GM TUBE TP SCH (08:55)
[2017-02-24] MEDS: hydrALAZINE HCL 25 MG TABLET GT SCH ×2 (08:55→18:32)
[2017-02-24] MEDS: Z GUARD REMEDY 4 OZ OINT TP SCH (08:56)
[2017-02-24] MEDS: MUPIROCIN OINT 2% 22 GM TUBE SCH ×2 (08:57→20:31)
[2017-02-24 12:00] VITALS: BP 105/50
[2017-02-24] MEDS ORDERED: VANCOMYCIN 1 GM in IV D5W 250 ML IV ONE (12:00)
--- NOTE | 2017-02-24 12:00 | NUR ---
TELE1/RN NOON ROUNDS NO ACUTE CHANGE OF CONDITION. PT SUCTIONED AND REPOSITIONED. ON GOING MONITORING.
[2017-02-24 16:00] VITALS: BP 100/51
--- NOTE | 2017-02-24 19:45 | NUR ---
TELE1/RN AM SHIFT END NOTES ALL NEEDS MET. NO ACUTE CHANGE OF CONDITION NOTED. PT ENDORSED TO PM NURSE TO CONTINUE CARE. CL WITHIN REACHED, SAFETY MAINTAINED AND ISOLATION OBSERVED.
[2017-02-24 20:00] VITALS: BP 128/108
--- NOTE | 2017-02-24 20:00 | NUR ---
RN INITIAL NOTE; PT ON THE BED AWAKE, MOUTH WORDS , CONFUSE. WITH TRACH CONNECTED TO MECH VENT , SETTING ORDERED . TELE MONITOR SHOWING SR WITH HR 70 . PERIPHERAL IV 20 G IN R HAND INTACT AND PATENT. G TUBE INTACT AND PATENT WITH NOVASOURCE @ 40ML/HR . NO RESIDUAL NOTED, ASPIRATION PRECAUTION APPLIED. PT IS ANURIC , INCONTINENT TO BOWEL . WILL TURN AND REPOSITION Q2H AND NEEDED, BED IN THE LOWEST AND LOCKED POSITION , SAFETY MEASURES APPLIED, WILL CONTINUE TO MONITOR .
[2017-02-24] MEDS: INSULIN DETEMIR 100 UNIT/ML CARTRIDGE SQ SCH (23:30)
[2017-02-25] VITALS (7 sets, daily range): BP systolic 86–101; BP diastolic 48–57
[2017-02-25] MEDS: IPRATROPIUM NEB FS 0.5 MG/2.5 ML AMPUL.NEB NEB SCH ×4 (01:11→19:43)
[2017-02-25] MEDS: ALBUTEROL FS 2.5 MG/0.5 ML VIAL.NEB NEB SCH ×4 (01:11→19:43)
[2017-02-25] MEDS: RENAL NOVASOURCE 1,000 ML BOTTLE GT PRN (04:56)
[2017-02-25] MEDS: HEPARIN SODIUM, PORCINE 5000 UNITS/1 ML VIAL SQ SCH ×3 (04:58→21:13)
[2017-02-25] MEDS: INSULIN REGULAR, HUMAN 100 UNIT/ML 3 ML VIAL SQ PRN ×4 (05:53→23:19)
[2017-02-25] MEDS: BLOOD SUGAR DIAGNOSTIC 1 EACH STRIP IN SCH ×4 (05:56→23:19)
--- NOTE | 2017-02-25 06:37 | NUR ---
RN EOS NOTE; PT REMAINED STABLE DURING THE SHIFT. NO ANY DISTRESS NOTED. G TUBE FEEDING TOLERATED WELL. TOTAL CARE PROVIDED, WOUND DRESSING RENDERED . KEPT CLEAN AND DRY , TURNED AND REPOSITIONED Q2H AND NEEDED. WILL ENDORSE TO NEXT SHIFT RN FOR CONTINUITY OF CARE.
[2017-02-25 06:52] LABS: BASOPHILS % (AUTO) 0.1 % (0.0-2.0); EOSINOPHILS # (AUTO) 0.4 /CMM (0.0-0.7); EOSINOPHILS % (AUTO) 2.2 % (0.0-6.0); HEMATOCRIT 26 % (33-45); HEMOGLOBIN 8.8 g/dL (11.5-14.8); LYMPHOCYTES # (AUTO) 4.6 /CMM (0.8-4.8); LYMPHOCYTES % (AUTO) 24.6 % (20.0-44.0); MEAN CORPUSCULAR HEMOGLOBIN 28 PG (26.0-33.0); MEAN CORPUSCULAR HGB CONC 34 g/dl (31.0-36.0); MEAN CORPUSCULAR VOLUME 85 fL (82-100); MONOCYTES # (AUTO) 1.5 /CMM (0.1-1.30); MONOCYTES % (AUTO) 7.9 % (2.0-12.0); NEUTROPHILS # (AUTO) 12.2 /CMM (1.8-8.9); NEUTROPHILS % (AUTO) 65.2 % (43.0-81.0); PLATELET COUNT (AUTO) 504 /CMM (150-450); RED BLOOD CELL COUNT(AUTO) 3.09 MIL/uL (4.0-5.2); WHITE BLOOD COUNT (AUTO) 18.7 K/uL (4.3-11.0)
[2017-02-25 07:24] LABS: CALCIUM, SERUM 11.6 mg/dL (8.5-10.1); CREATININE 7.4 mg/dL (0.6-1.3); MAGNESIUM 2.6 mg/dL (1.8-2.4); PHOSPHORUS 3.5 mg/dL (2.5-4.9); POTASSIUM 3.7 mmol/L (3.5-5.1)
--- NOTE | 2017-02-25 08:00 | NUR ---
TELE1/RN AM SHIFT INITIAL NOTES RECEIVED PT ASLEEP IN BED, NO ACUTE CHANGE OF CONDITION OR RESPIRATORY DISTRESS. NO GRIMACING NOTED. PT ALERT BUT CONFUSED. VENTILATOR DEPENDENT, RATES SET PRESCRIBED, SATURATING @ 100%, LUNG SOUNDS CLEAR, SUCTIONED FOR AIRWAY CLEARANCE. ON TELE MONITORING, SINUS RHYTHM, HR 84. PT HAS NO HD ACCESS. IV SITE FLUSHED, PATENT WITH NO S/S OF INFECTION. GT FEEDING ON GOING @ 40CC/HR, NO GASTRIC RESIDUAL NOTED, FLUSHED, PATENT. PT IS COMFORTABLE AT THIS TIME. SCHEDULED AM MEDS TO BE GIVEN. CL WITHIN REACHED, SAFETY MAINTAINED AND ISOLATION OBSERVED. ON GOING MONITORING.
[2017-02-25] MEDS: ASPIRIN 81 MG TAB.CHEW GT SCH (08:54)
[2017-02-25] MEDS: VIT B CMPLX 3/FA/VIT C/BIOTIN 1 TAB TABLET GT SCH (08:54)
[2017-02-25] MEDS: FERROUS SULFATE UDC 300 MG/5 ML UDC GT SCH (08:54)
[2017-02-25] MEDS: METOCLOPRAMIDE HCL 10 MG/10 ML UDC GT SCH ×2 (08:54→17:25)
[2017-02-25] MEDS: LORATADINE 10 MG TABLET GT SCH (08:55)
[2017-02-25] MEDS: FAMOTIDINE (20 MG) 20 MG TABLET GT SCH (08:55)
[2017-02-25] MEDS: LOSARTAN POTASSIUM 25 MG TABLET GT SCH ×2 (08:55→17:00)
[2017-02-25] MEDS: hydrALAZINE HCL 25 MG TABLET GT SCH ×2 (08:55→17:00)
[2017-02-25] MEDS: PROSOURCE / PROSTAT (PYXIS) 30 ML UDC GT SCH (08:56)
[2017-02-25] MEDS: MUPIROCIN OINT 2% 22 GM TUBE SCH ×2 (08:56→21:12)
[2017-02-25] MEDS: HYDROGEL DRESSING 90 GM TUBE TP SCH (08:57)
[2017-02-25] MEDS: Z GUARD REMEDY 4 OZ OINT TP SCH (08:57)
--- NOTE | 2017-02-25 15:30 | NUR ---
TELE1/RN CONSENT - HD CATHETER INSERTION CONSENT FOR HD CATHETER INSERTION OBTAINED FROM PT'S SISTER, FILED IN PT'S CHART.
--- NOTE | 2017-02-25 18:00 | NUR ---
TELE1/RN PM ROUNDS PM CARE PROVIDED. NO ACUTE CHANGE OF CONDITION. MONITORING CONTINUED.
--- NOTE | 2017-02-25 19:11 | NUR ---
TELE1/RN AM SHIFT END NOTES ALL NEEDS MET. NO ACUTE CHANGE OF CONDITION NOTED DURING THE SHIFT. PT ENDORSED TO PM NURSE TO CONTINUE CARE. CL WITHIN REACHED AND SAFETY MAINTAINED.
[2017-02-25] MEDS: INSULIN DETEMIR 100 UNIT/ML CARTRIDGE SQ SCH (23:18)
[2017-02-26] VITALS (9 sets, daily range): BP systolic 65–107; BP diastolic 40–50
[2017-02-26] MEDS: IPRATROPIUM NEB FS 0.5 MG/2.5 ML AMPUL.NEB NEB SCH ×4 (01:27→19:41)
[2017-02-26] MEDS: ALBUTEROL FS 2.5 MG/0.5 ML VIAL.NEB NEB SCH ×4 (01:27→19:41)
--- NOTE | 2017-02-26 04:30 | NUR ---
RN NOTE; pt bp noted 65/40 mm of hg, oncall dr NORMA SUAREZ, TALKED TO SHEILA FROM [employer]. PT IS AWAKE ON THE BED. AWAITING CALL BACK .
--- NOTE | 2017-02-26 04:45 | NUR ---
DR MONTOYA CALLED BACK WITH NEW ORDER TO BOLUS 500 ML NS AT THIS TIME , IF STILL LOW AFTER 500 ML THAN REPEAT ONE MORE 500 ML NS , ORDER READ BACK AND CONFORMED, WILL CONTINUE TO MONITOR .
[2017-02-26] MEDS ORDERED: IV NS 0.9% 500 ML BAG IV ONE ×2 (05:00→07:30)
[2017-02-26] MEDS: INSULIN REGULAR, HUMAN 100 UNIT/ML 3 ML VIAL SQ PRN ×3 (05:10→17:55)
[2017-02-26] MEDS: BLOOD SUGAR DIAGNOSTIC 1 EACH STRIP IN SCH ×4 (05:11→23:02)
--- NOTE | 2017-02-26 07:00 | NUR ---
RN NOTE; PTS BP NOTED 89 /40 MM OF HG , PER ORDER WILL GIVE 500 ML NS BOLUS , ENDORSE TO NEXT SHIFT RN FOR CONTINUITY OF CARE.
[2017-02-26 07:08] LABS: INR 0.99 (0.87-1.13); PROTHROMBIN TIME 10.6 SECS (9.5-12.7)
[2017-02-26 07:09] LABS: BASOPHILS % (AUTO) 0.3 % (0.0-2.0); EOSINOPHILS # (AUTO) 0.4 /CMM (0.0-0.7); EOSINOPHILS % (AUTO) 2.3 % (0.0-6.0); HEMATOCRIT 24 % (33-45); HEMOGLOBIN 7.6 g/dL (11.5-14.8); LYMPHOCYTES # (AUTO) 3.3 /CMM (0.8-4.8); LYMPHOCYTES % (AUTO) 20.3 % (20.0-44.0); MEAN CORPUSCULAR HEMOGLOBIN 27 PG (26.0-33.0); MEAN CORPUSCULAR HGB CONC 32 g/dl (31.0-36.0); MEAN CORPUSCULAR VOLUME 85 fL (82-100); MONOCYTES # (AUTO) 1.3 /CMM (0.1-1.30); NEUTROPHILS # (AUTO) 11.1 /CMM (1.8-8.9); NEUTROPHILS % (AUTO) 69.1 % (43.0-81.0); PLATELET COUNT (AUTO) 454 /CMM (150-450); RDW COEFFICIENT OF VARIATION 15.9 (11.5-15.0); RED BLOOD CELL COUNT(AUTO) 2.81 MIL/uL (4.0-5.2)
[2017-02-26 07:20] LABS: GENTAMICIN,RANDOM 3.3 ug/ml (4.0-8.0)
[2017-02-26 07:23] LABS: ALBUMIN 3.2 g/dL (3.4-5.0); BILIRUBIN,TOTAL 0.2 mg/dL (0.2-1.0); CALCIUM, SERUM 11.4 mg/dL (8.5-10.1); MAGNESIUM 2.9 mg/dL (1.8-2.4); PHOSPHORUS 4.1 mg/dL (2.5-4.9); POTASSIUM 3.8 mmol/L (3.5-5.1); TOTAL PROTEIN, SERUM 8.1 g/dL (6.4-8.2)
[2017-02-26] MEDS: HEPARIN SODIUM, PORCINE 5000 UNITS/1 ML VIAL SQ SCH ×2 (07:26→12:15)
[2017-02-26 07:33] LABS: CREATININE 8.4 mg/dL (0.6-1.3)
--- NOTE | 2017-02-26 08:00 | NUR ---
TELE1/RN AM SHIFT INITIAL NOTES RECEIVED PT ASLEEP IN BED, NO GRIMACING NOTED. NO ACUTE CHANGE OF CONDITION OR RESPIRATORY DISTRESS. PT'S BP INCREASED 97/49, HR 94, POST INFUSION OF 500ML OF NS, PT ALERT BUT CONFUSED. VENTILATOR DEPENDENT, RATES SET PRESCRIBED, SATURATING @ 100%, LUNG SOUNDS CLEAR, SUCTIONED FOR AIRWAY CLEARANCE. ON TELE MONITORING, SINUS RHYTHM, IV SITE FLUSHED, PATENT WITH NO S/S OF INFECTION. GT FEEDING ON GOING @ 40CC/HR, NO GASTRIC RESIDUAL NOTED, FLUSHED, PATENT. PT IS COMFORTABLE AT THIS TIME. SCHEDULED AM MEDS TO BE GIVEN. CL WITHIN REACHED, SAFETY MAINTAINED AND ISOLATION OBSERVED. ON GOING MONITORING.
[2017-02-26] MEDS ORDERED: IV NS 0.9% 500 ML IV ONE (08:30)
[2017-02-26] MEDS: RENAL NOVASOURCE 1,000 ML BOTTLE GT PRN (08:57)
[2017-02-26] MEDS: FERROUS SULFATE UDC 300 MG/5 ML UDC GT SCH (08:57)
[2017-02-26] MEDS: METOCLOPRAMIDE HCL 10 MG/10 ML UDC GT SCH ×2 (08:58→17:55)
[2017-02-26] MEDS: FAMOTIDINE (20 MG) 20 MG TABLET GT SCH (08:58)
[2017-02-26] MEDS: ASPIRIN 81 MG TAB.CHEW GT SCH (08:58)
[2017-02-26] MEDS: VIT B CMPLX 3/FA/VIT C/BIOTIN 1 TAB TABLET GT SCH (08:58)
[2017-02-26] MEDS: PROSOURCE / PROSTAT (PYXIS) 30 ML UDC GT SCH (08:58)
[2017-02-26] MEDS: LOSARTAN POTASSIUM 25 MG TABLET GT SCH ×2 (08:59→17:00)
[2017-02-26] MEDS: hydrALAZINE HCL 25 MG TABLET GT SCH ×2 (08:59→17:00)
[2017-02-26] MEDS: MUPIROCIN OINT 2% 22 GM TUBE SCH ×2 (09:00→21:24)
[2017-02-26] MEDS: HYDROGEL DRESSING 90 GM TUBE TP SCH (09:00)
[2017-02-26] MEDS: Z GUARD REMEDY 4 OZ OINT TP SCH (09:01)
[2017-02-26] MEDS: LORATADINE 10 MG TABLET GT SCH (09:09)
[2017-02-26] MEDS: CEFEPIME 1 GM in IV D5W 50 ML IV SCH (10:53)
--- NOTE | 2017-02-26 13:00 | NUR ---
TELE1/RN TEMPORARY HD CATHETER DR. LEE INSERTED THE TEMPORARY HD CATHETER ON THE LEFT UPPER CHEST. PT TOLERATED PROCEDURE. CHEST X=RAY ORDERED TO CONFIRM PLACEMENT. WILL NOTIFY DR. LEE.
[2017-02-26] MEDS: ACETAMINOPHEN 650 MG/20.3 ML UDC GT PRN (14:27)
--- NOTE | 2017-02-26 14:32 | NUR ---
RN NOTES RECEIVED A CALL BACK FROM DR LINDSAY MD GAVE NEW ORDER FOR HYDROCODONE 5/325MG PO Q6H PRN FOR PAIN, ORDERS READ BACK NOTED AND CARRIED OUT
[2017-02-26] MEDS ORDERED: LIDOCAINE 2%-EPI 1:200,000 20 ML VIAL IJ ONE (15:30)
[2017-02-26] MEDS ORDERED: LIDOCAINE 2%-EPI 1:100,000 30 ML VIAL TP ONE (15:30)
--- NOTE | 2017-02-26 19:30 | NUR ---
RESEARCH LABORATORY MANAGER INITIAL NOTE RECEIVED PT IN BED. A/O X1 AND NON-VERBAL. ON MECH VENT WITH SETTINGS WELL TOLERATED AND SATURATING 100%. ISOLATION PRECAUTIONS OBSERVED. IV LADAN MIDLINE #[address], PATENT, AND FLUSHING WELL. LCW HD CATH CLEAN AND IN PLACE. GTUBE CLEAN, INTACT AND FLUSHING WELL WITH NO RESIDUALS NOTED. TELE- SINUS RHYTHM 90'S. CALL LIGHT WITHIN REACH. ASPIRATION PRECAUTIONS. WILL CONTINUE TO MONITOR.
--- NOTE | 2017-02-26 19:58 | NUR ---
TELE1/RN AM SHIFT END NOTES ALL NEEDS MET. NO ACUTE CHANGE OF CONDITION NOTED DURING THE SHIFT. PT ENDORSED TO PM NURSE TO CONTINUE CARE. CL WITHIN REACHED, SAFETY MAINTAINED AND ISOLATION OBSERVED.
[2017-02-26] MEDS: HYDROCODONE/APAP 5/325MG 1 EACH TABLET PO PRN (21:28)
[2017-02-26] MEDS: INSULIN DETEMIR 100 UNIT/ML CARTRIDGE SQ SCH (22:00)
[2017-02-27] VITALS: BP 109/50
[2017-02-27] MEDS: ALBUTEROL FS 2.5 MG/0.5 ML VIAL.NEB NEB SCH ×4 (01:07→20:17)
[2017-02-27] MEDS: IPRATROPIUM NEB FS 0.5 MG/2.5 ML AMPUL.NEB NEB SCH ×4 (01:07→20:17)
[2017-02-27 04:00] VITALS: BP 111/47
[2017-02-27] MEDS: BLOOD SUGAR DIAGNOSTIC 1 EACH STRIP IN SCH ×3 (05:33→17:03)
--- NOTE | 2017-02-27 07:49 | NUR ---
MARKET RISK MANAGER NOTE RECEIVED PT IN BED. A/O X1 AND NON-VERBAL. ON MECH VENT WITH SETTINGS WELL TOLERATED AND SATURATING 100%. ISOLATION PRECAUTIONS OBSERVED. IV LADAN MIDLINE #[address], PATENT, AND FLUSHING WELL. LCW HD CATH CLEAN AND IN PLACE. GTUBE FEEDING ORDERED KEEP HOB ELEVATED AT ALL TIME ,WITH NO RESIDUALS NOTED. TELE- SINUS RHYTHM . CALL LIGHT WITHIN REACH. ASPIRATION PRECAUTIONS. WILL CONTINUE TO MONITOR., RT AT BEDSIDE
--- NOTE | 2017-02-27 07:50 | NUR ---
RELAY MECHANIC CLOSING NOTE PT REMAINED STABLE DURING SHIFT. MOVED PT SAFELY FROM ROOM 101 TO 113-2. NO ACUTE DISTRESS NOTED. CONSENT OBTAINED FOR WOUND DEBRIDEMENT TODAY BY TELEPHONE VERBAL CONSENT WITH ARNIE JACOBS (SISTER). WOUND TREATMENT PERFORMED. KEPT CLEAN AND DRY. REPOSITIONED Q2H. SUCTIONED NEEDED. VENT SETTINGS WELL TOLERATED. ISOLATION PRECAUTIONS OBSERVED. IV SITE CLEAN AND IN PLACE. GTUBE FLUSHING WELL AND CLEAN. NEW HD CATH CLEAN AND INTACT. NO C/O PAIN OR DISCOMFORT NOTED. CALL LIGHT WITHIN REACH. WILL ENDORSE TO NEXT SHIFT FOR CONTINUITY OF CARE.
--- NOTE | 2017-02-27 07:57 | NUR ---
cable television technician note patient in bed , all needs attended with trach to vent setting as ordered . ambu bag on tele monitor sr , with gtube feeding as ordered ,keep gob elevated at all time , bed in lowest and locked position, rt at bedside , rt upper arm mid line in place no s\s infection noted plan of care discussed with patient , will cont to monitor closely
[2017-02-27 08:00] VITALS: BP 101/51
[2017-02-27] MEDS: METOCLOPRAMIDE HCL 10 MG/10 ML UDC GT SCH ×2 (08:18→16:42)
[2017-02-27] MEDS: VIT B CMPLX 3/FA/VIT C/BIOTIN 1 TAB TABLET GT SCH (08:18)
[2017-02-27] MEDS: FERROUS SULFATE UDC 300 MG/5 ML UDC GT SCH (08:18)
[2017-02-27] MEDS: PROSOURCE / PROSTAT (PYXIS) 30 ML UDC GT SCH ×2 (08:18→16:41)
[2017-02-27] MEDS: ASPIRIN 81 MG TAB.CHEW GT SCH (08:19)
[2017-02-27] MEDS: FAMOTIDINE (20 MG) 20 MG TABLET GT SCH (08:20)
[2017-02-27] MEDS: LOSARTAN POTASSIUM 25 MG TABLET GT SCH ×2 (08:20→16:40)
[2017-02-27] MEDS: LORATADINE 10 MG TABLET GT SCH (08:20)
[2017-02-27] MEDS: MUPIROCIN OINT 2% 22 GM TUBE SCH ×2 (08:21→21:21)
[2017-02-27] MEDS: Z GUARD REMEDY 4 OZ OINT TP SCH (08:21)
[2017-02-27] MEDS: HYDROGEL DRESSING 90 GM TUBE TP SCH (08:21)
[2017-02-27] MEDS: hydrALAZINE HCL 25 MG TABLET GT SCH ×2 (08:29→16:40)
[2017-02-27] MEDS: CEFEPIME 1 GM in IV D5W 50 ML IV SCH (09:51)
--- NOTE | 2017-02-27 10:21 | NUR ---
CHIEF OPERATIONS OFFICER NOTE KEEP CLEAN DRY REPOSITION . SPOKE WITH DR DONATO NOTIFIED PER SISTER REQUEST WANT PATIENT TO START EAT PO , DR DONATO STATED NO ST EVAL AT THIS TIME WE DONT HAVE SPEAKING VALVE , WILL CONT TO MONITOR CLOSELY
[2017-02-27 12:00] VITALS: BP 111/48
--- NOTE | 2017-02-27 14:08 | NUR ---
FAT PURIFICATION WORKER NOTE ]PER DIETARY OK TO ORDER PROSTAT AND ZING SULFATE VIA G TUBE
--- NOTE | 2017-02-27 15:20 | NUR ---
SCARF AND ANNEAL OPERATOR NOTE DR MELENDREZ AT BEDSIDE SACRAL DEBRIDEMENT DONE . ESTELA WOUND CLEAN DRY , Addendum: 02/27/17 at 1526 by MADY CHAPARRO RN STARTED ON HD ORDERED, BP 75/33, ALBUMIN GIVEN BY HD NURSE
[2017-02-27] MEDS: ALBUMIN 25% 25 GM in PREMIX 1 EA IV PRN ×2 (15:22→15:39)
[2017-02-27 16:00] VITALS: BP_SYST 85; BP_SYST 86; BP_DIAS 34
--- NOTE | 2017-02-27 16:44 | NUR ---
telegraph repeater mechanic note hold bp meds patient on hd
--- NOTE | 2017-02-27 17:46 | NUR ---
FOREIGN AGENT NOTE HD COMPLETED, REMOVED 3 L OF FLUIDS BP 91/50 , WILL CONT TO MONITOR CLOSELY , KEEP CLEAN DRY , CONT ON G TUBE FEEDING , BLOOD SUGAR 117 MG\DL NO INSULIN COVERAGE WILL BE GIVEN , CALL LIGHT WITHIN REACH
--- NOTE | 2017-02-27 18:28 | NUR ---
HORTICULTURAL SPECIALTY GROWER INSIDE NOTE REPOSITION DONE , KEEP CLEAN DRY WITH TRACH TO VENT SETTING ORDERED TRACH CARE DONE TRACH SUCTION DONE , CALL,LIGHT WITHIN REACH ,WILL CONT TO MONITOR CLOSELY
[2017-02-27] MEDS: RENAL NOVASOURCE 1,000 ML BOTTLE GT PRN (18:32)
--- NOTE | 2017-02-27 19:25 | NUR ---
RN NOTES RECEIVED PT AWAKE ALERT ORIENTED X 1-2 ABLE TO VERBALIZED FEELING AND NEEDS. DENIES PAIN. AFEBRILE. NO ACUTE RESP DISTRESS. TRACH PORTEX 8 CONNECTED TO VENT SETTING AC 12 TV 500 FIO2 30% PEEP 5 TOLERATED WELL. SATING 100% . SR HR 90'S ON TELE MONITOR. WITH GTF NOVASOURCE @ 40 CC/HR INTACT AND PATENT. HOB KEPT ELEVATED WITH ZERO RESIDUAL. IV SITE ON LADAN MIDLINE G 18 INTACT AND PATENT. KEPT PT CLEAN AND DRY. OFFLOADED EXT WITH PILLOWS. WILL CONTINUE TO MONITOR.
[2017-02-27 20:00] VITALS: BP 84/50
[2017-02-27] MEDS: INSULIN DETEMIR 100 UNIT/ML CARTRIDGE SQ SCH (21:18)
[2017-02-28] VITALS: BP_SYST 100; BP_SYST 95; BP_DIAS 52; BP_DIAS 54
[2017-02-28] MEDS: BLOOD SUGAR DIAGNOSTIC 1 EACH STRIP IN SCH ×4 (00:21→18:32)
[2017-02-28] MEDS: INSULIN REGULAR, HUMAN 100 UNIT/ML 3 ML VIAL SQ PRN ×2 (00:23→13:33)
[2017-02-28] MEDS: IPRATROPIUM NEB FS 0.5 MG/2.5 ML AMPUL.NEB NEB SCH ×4 (01:49→19:32)
[2017-02-28] MEDS: ALBUTEROL FS 2.5 MG/0.5 ML VIAL.NEB NEB SCH ×4 (01:49→19:32)
[2017-02-28 04:00] VITALS: BP 86/44
--- NOTE | 2017-02-28 06:56 | NUR ---
RN NOTES PATIENT REMAINED IN STABLE CONDITION. TRACH AND VENT SETTING TOLERATED WELL TELE MONITOR REVEALS SR 90'S. AFEBRILE. HYPOTENSION SBP 80'S TOLERATED WELL, ASYMPTOMATIC. WOUND DRESSING CHANGED, KEPT PT CLEAN AND DRY. NO S/SX FOR HYPO OR HYPERGLYCEMIA. INSULIN GIVEN ORDERED TOLERATED WELL. ENDORSED CONTINUITY OF CARE TO AM NURSE.
--- NOTE | 2017-02-28 07:10 | NUR ---
RN INITIAL NOTE PATIENT RECEIVED IN BED, RESTING. NO S/S OF PAIN OR DISCOMFORT. PATIENT IS SINUS RHYTHM ON TELE MONITOR, HEART RATE IN THE 90'S. PATIENT IS NONVERBAL PATIENT HAS TRACH: PORTEX #8 SATING WELL ON VENT SETTINGS. G-TUBE FLUSHED, PATENT. PLACEMENT VERIFIED. TOLERATING FEEDING WELL. IV SITE FLUSHED, PATENT. PATIENT SCHEDULED FOR HD TODAY. SKIN IS WARM AND DRY TO TOUCH. SAFETY PRECAUTIONS IMPLEMENTED, BED IN LOCKED POSITION WITH TWO SIDE RAILS UP. WILL CONTINUE TO MONITOR CLOSELY.
[2017-02-28 07:21] LABS: BASOPHILS % (AUTO) 0.3 % (0.0-2.0); EOSINOPHILS # (AUTO) 0.3 /CMM (0.0-0.7); EOSINOPHILS % (AUTO) 1.9 % (0.0-6.0); HEMATOCRIT 22 % (33-45); HEMOGLOBIN 7.2 g/dL (11.5-14.8); LYMPHOCYTES # (AUTO) 2.5 /CMM (0.8-4.8); LYMPHOCYTES % (AUTO) 16.4 % (20.0-44.0); MEAN CORPUSCULAR HEMOGLOBIN 28 PG (26.0-33.0); MEAN CORPUSCULAR HGB CONC 33 g/dl (31.0-36.0); MEAN CORPUSCULAR VOLUME 85 fL (82-100); MONOCYTES # (AUTO) 0.9 /CMM (0.1-1.30); NEUTROPHILS # (AUTO) 11.3 /CMM (1.8-8.9); NEUTROPHILS % (AUTO) 75.4 % (43.0-81.0); PLATELET COUNT (AUTO) 386 /CMM (150-450); RDW COEFFICIENT OF VARIATION 15.7 (11.5-15.0)
[2017-02-28 08:00] VITALS: BP 116/55
[2017-02-28 08:04] LABS: CALCIUM, SERUM 10.2 mg/dL (8.5-10.1); CREATININE 6.7 mg/dL (0.6-1.3); MAGNESIUM 2.5 mg/dL (1.8-2.4); PHOSPHORUS 3.9 mg/dL (2.5-4.9); POTASSIUM 3.6 mmol/L (3.5-5.1)
[2017-02-28] MEDS: hydrALAZINE HCL 25 MG TABLET GT SCH ×2 (09:00→17:00)
[2017-02-28] MEDS: LOSARTAN POTASSIUM 25 MG TABLET GT SCH ×2 (09:00→17:00)
[2017-02-28] MEDS: PROSOURCE / PROSTAT (PYXIS) 30 ML UDC GT SCH ×3 (10:27→18:32)
[2017-02-28] MEDS: FERROUS SULFATE UDC 300 MG/5 ML UDC GT SCH (10:27)
[2017-02-28] MEDS: METOCLOPRAMIDE HCL 10 MG/10 ML UDC GT SCH ×2 (10:27→18:32)
[2017-02-28] MEDS: VIT B CMPLX 3/FA/VIT C/BIOTIN 1 TAB TABLET GT SCH (10:28)
[2017-02-28] MEDS: FAMOTIDINE (20 MG) 20 MG TABLET GT SCH (10:28)
[2017-02-28] MEDS: ZINC SULFATE 220 MG CAPSULE PO SCH (10:28)
[2017-02-28] MEDS: ASPIRIN 81 MG TAB.CHEW GT SCH (10:28)
[2017-02-28] MEDS: LORATADINE 10 MG TABLET GT SCH (10:28)
[2017-02-28] MEDS: MUPIROCIN OINT 2% 22 GM TUBE SCH ×2 (10:28→22:29)
[2017-02-28] MEDS: Z GUARD REMEDY 4 OZ OINT TP SCH (10:29)
[2017-02-28] MEDS: HYDROGEL DRESSING 90 GM TUBE TP SCH (10:29)
[2017-02-28] MEDS: CEFEPIME 1 GM in IV D5W 50 ML IV SCH (10:29)
[2017-02-28] MEDS ORDERED: IV NS 0.9% 250 ML BAG IV PRN (11:00)
[2017-02-28] MEDS ORDERED: IV NS 0.9% 250 ML IV ONE (11:30)
[2017-02-28 12:00] VITALS: BP 86/47
[2017-02-28 16:00] VITALS: BP 86/39
--- NOTE | 2017-02-28 19:20 | NUR ---
RN NOTES RECEIVED PT ASLEEP WELL ALERT ORIENTED X 1-2 WHEN AWAKE ABLE TO VERBALIZED FEELING AND NEEDS. WITH CONFUSION NOTED. DENIES PAIN. AFEBRILE. NO ACUTE RESP DISTRESS. TRACH PORTEX 8 CONNECTED TO VENT SETTING AC 12 TV 500 FIO2 30% PEEP 5 TOLERATED WELL. SATING 100% . TELE MONITOR REVEALS SINUS RHYTHM. WITH GTF NOVASOURCE @ 40 CC/HR INTACT AND PATENT. HOB KEPT ELEVATED WITH ZERO RESIDUAL. IV SITE ON LADAN MIDLINE G 18 INTACT AND PATENT. KEPT PT CLEAN AND DRY. OFFLOADED EXT WITH PILLOWS. WILL CONTINUE TO MONITOR.
--- NOTE | 2017-02-28 19:33 | NUR ---
PT RCVD ON MECH VENT WITH NOTED SETTINGS. SUCTION MODERATE AMOUNT OF PALE YELLOW THICK SECRETIONS. ALARM CHECKED AND AUDIBLE,VENT PLUGGED INTO RED OUTLET. BILATERAL BREATH SOUNDS NOTED, NO RESPIRATORY DISTRESS AT THIS TIME . WILL CONTINUE TO MONITOR THE PT.
[2017-02-28 20:00] VITALS: BP 99/48
[2017-02-28] MEDS: INSULIN DETEMIR 100 UNIT/ML CARTRIDGE SQ SCH (22:35)
[2017-03-01] VITALS: BP 100/54
[2017-03-01] MEDS: BLOOD SUGAR DIAGNOSTIC 1 EACH STRIP IN SCH ×5 (00:15→23:16)
[2017-03-01] MEDS: INSULIN REGULAR, HUMAN 100 UNIT/ML 3 ML VIAL SQ PRN (00:17)
[2017-03-01] MEDS: ALBUTEROL FS 2.5 MG/0.5 ML VIAL.NEB NEB SCH ×4 (01:14→19:26)
[2017-03-01] MEDS: IPRATROPIUM NEB FS 0.5 MG/2.5 ML AMPUL.NEB NEB SCH ×4 (01:14→19:26)
[2017-03-01 04:00] VITALS: BP 111/54
[2017-03-01] MEDS: RENAL NOVASOURCE 1,000 ML BOTTLE GT PRN (04:40)
--- NOTE | 2017-03-01 06:32 | NUR ---
RN NOTES PATIENT ASLEEP WELL ON BED. TOLERATED TRACH AND VENT SETTING. INCONTINENT CARE RENDERED. GTF INTACT AND PATENT HOB KEPT ELEVATED WITH ZERO RESIDUAL. IV SITE INTACT AND PATENT. KEPT PT CLEAN AND DRY. ALL DUE MEDICINE ADMINISTERED ORDERED. WOUND DRESSING CHANGED. REDUCED PRESSURE TO BONY PROMINENCE AREA. NO S.S OF HYPO OR HYPERGLYCEMIA. WILL ENDORSED CONTINUITY OF CARE TO AM NURSE.
[2017-03-01 06:41] LABS: BASOPHILS % (AUTO) 0.1 % (0.0-2.0); EOSINOPHILS # (AUTO) 0.3 /CMM (0.0-0.7); EOSINOPHILS % (AUTO) 2.4 % (0.0-6.0); HEMATOCRIT 22 % (33-45); HEMOGLOBIN 7.2 g/dL (11.5-14.8); LYMPHOCYTES # (AUTO) 2.9 /CMM (0.8-4.8); LYMPHOCYTES % (AUTO) 20.5 % (20.0-44.0); MEAN CORPUSCULAR HEMOGLOBIN 28 PG (26.0-33.0); MEAN CORPUSCULAR HGB CONC 32 g/dl (31.0-36.0); MEAN CORPUSCULAR VOLUME 86 fL (82-100); MONOCYTES # (AUTO) 1.1 /CMM (0.1-1.30); MONOCYTES % (AUTO) 7.7 % (2.0-12.0); NEUTROPHILS # (AUTO) 9.9 /CMM (1.8-8.9); NEUTROPHILS % (AUTO) 69.3 % (43.0-81.0); PLATELET COUNT (AUTO) 368 /CMM (150-450); RDW COEFFICIENT OF VARIATION 16.2 (11.5-15.0); RED BLOOD CELL COUNT(AUTO) 2.61 MIL/uL (4.0-5.2); WHITE BLOOD COUNT (AUTO) 14.2 K/uL (4.3-11.0)
[2017-03-01 07:03] LABS: ALBUMIN 3.5 g/dL (3.4-5.0); BILIRUBIN,TOTAL 0.3 mg/dL (0.2-1.0); CALCIUM, SERUM 10.7 mg/dL (8.5-10.1); CREATININE 5.6 mg/dL (0.6-1.3); MAGNESIUM 2.6 mg/dL (1.8-2.4); PHOSPHORUS 4.9 mg/dL (2.5-4.9); POTASSIUM 3.6 mmol/L (3.5-5.1); TOTAL PROTEIN, SERUM 8.3 g/dL (6.4-8.2)
[2017-03-01 08:00] VITALS: BP 129/71
[2017-03-01] MEDS: METOCLOPRAMIDE HCL 10 MG/10 ML UDC GT SCH ×2 (08:37→17:23)
[2017-03-01] MEDS: ZINC SULFATE 220 MG CAPSULE PO SCH (08:38)
[2017-03-01] MEDS: LOSARTAN POTASSIUM 25 MG TABLET GT SCH ×2 (08:38→17:29)
[2017-03-01] MEDS: VIT B CMPLX 3/FA/VIT C/BIOTIN 1 TAB TABLET GT SCH (08:38)
[2017-03-01] MEDS: LORATADINE 10 MG TABLET GT SCH (08:38)
[2017-03-01] MEDS: FERROUS SULFATE UDC 300 MG/5 ML UDC GT SCH (08:38)
[2017-03-01] MEDS: hydrALAZINE HCL 25 MG TABLET GT SCH ×2 (08:38→17:23)
[2017-03-01] MEDS: HYDROGEL DRESSING 90 GM TUBE TP SCH (08:39)
[2017-03-01] MEDS: FAMOTIDINE (20 MG) 20 MG TABLET GT SCH (08:39)
[2017-03-01] MEDS: Z GUARD REMEDY 4 OZ OINT TP SCH (08:40)
[2017-03-01] MEDS: MUPIROCIN OINT 2% 22 GM TUBE SCH ×2 (08:40→20:23)
[2017-03-01] MEDS: ASPIRIN 81 MG TAB.CHEW GT SCH (08:49)
[2017-03-01] MEDS: PROSOURCE / PROSTAT (PYXIS) 30 ML UDC GT SCH ×3 (08:49→17:21)
[2017-03-01] MEDS: CEFEPIME 1 GM in IV D5W 50 ML IV SCH (09:55)
[2017-03-01 12:00] VITALS: BP 128/69
[2017-03-01 16:00] VITALS: BP 126/81
--- NOTE | 2017-03-01 17:30 | NUR ---
UNABLE TO SCAN [place] VERIFIED PT, DOSE, MEDICATION, TIME, ROUTE, AND DOCUMENTATION.
[2017-03-01 20:00] VITALS: BP 108/61
--- NOTE | 2017-03-01 20:09 | NUR ---
received pt from day shift, alert, follows simple commands, confused at times, SR, on the vent, lungs partially congested, some non pitting generalized edema, anuric, GT to feeding tolerates well, v/s stable, no pain, pt turned and repositioned.
[2017-03-01] MEDS: INSULIN DETEMIR 100 UNIT/ML CARTRIDGE SQ SCH (22:57)
[2017-03-02] VITALS: BP 107/50
[2017-03-02] MEDS: ALBUTEROL FS 2.5 MG/0.5 ML VIAL.NEB NEB SCH ×4 (01:02→20:54)
[2017-03-02] MEDS: IPRATROPIUM NEB FS 0.5 MG/2.5 ML AMPUL.NEB NEB SCH ×4 (01:02→20:54)
[2017-03-02 04:00] VITALS: BP 100/48
--- NOTE | 2017-03-02 04:07 | NUR ---
pt is resting in the bed, no acute distress overnight, v/s stable, no pain, pt cleaned, changed and repositioned q2hrs.
[2017-03-02] MEDS: BLOOD SUGAR DIAGNOSTIC 1 EACH STRIP IN SCH ×4 (05:23→23:05)
[2017-03-02 08:00] VITALS: BP 116/59
[2017-03-02] MEDS: FERROUS SULFATE UDC 300 MG/5 ML UDC GT SCH (08:22)
[2017-03-02] MEDS: LOSARTAN POTASSIUM 25 MG TABLET GT SCH ×2 (08:22→16:16)
[2017-03-02] MEDS: VIT B CMPLX 3/FA/VIT C/BIOTIN 1 TAB TABLET GT SCH (08:22)
[2017-03-02] MEDS: ASPIRIN 81 MG TAB.CHEW GT SCH (08:22)
[2017-03-02] MEDS: METOCLOPRAMIDE HCL 10 MG/10 ML UDC GT SCH ×2 (08:22→16:16)
[2017-03-02] MEDS: ZINC SULFATE 220 MG CAPSULE PO SCH (08:22)
[2017-03-02] MEDS: hydrALAZINE HCL 25 MG TABLET GT SCH ×2 (08:22→16:16)
[2017-03-02] MEDS: LORATADINE 10 MG TABLET GT SCH (08:22)
[2017-03-02] MEDS: HYDROGEL DRESSING 90 GM TUBE TP SCH (08:23)
[2017-03-02] MEDS: FAMOTIDINE (20 MG) 20 MG TABLET GT SCH (08:23)
[2017-03-02] MEDS: MUPIROCIN OINT 2% 22 GM TUBE SCH ×2 (08:24→21:26)
[2017-03-02] MEDS: Z GUARD REMEDY 4 OZ OINT TP SCH (08:24)
[2017-03-02] MEDS: PROSOURCE / PROSTAT (PYXIS) 30 ML UDC GT SCH ×3 (08:24→16:17)
[2017-03-02] MEDS: CEFEPIME 1 GM in IV D5W 50 ML IV SCH (08:25)
--- NOTE | 2017-03-02 09:00 | NUR ---
non admin bp meds d/t HD today
[2017-03-02 12:00] VITALS: BP 110/57
[2017-03-02 16:00] VITALS: BP 103/56
--- NOTE | 2017-03-02 19:14 | NUR ---
END OF SHIFT NO CHANGE IN CONDITION. PATIENT NON-VERBAL, FOLLOWS STIMULUS WITH EYES, OCCASIONALLY SMILES, CONSOLABLE. NO NEW SKIN BREAK DOWN. TOLERATING VENT SETTINGS AND TUBE FEEDING. MACI MIDLINE NO COMPLICATIONS. WOUND CARE RENDERED ORDERED. REPOSITIONED Q2H. HANDED OFF REPORT O NIGHT NURSE.
[2017-03-02 20:00] VITALS: BP 100/48
--- NOTE | 2017-03-02 20:00 | NUR ---
telephone station repairer notes received pts on bed awake and responsive , remains on vent ac setting well tolerated , on tele sr on the monitor , all due meds given as ordered , all needs attended too call light within reach , kept pts clean dry and comfortable hob elevated for aspiration precaution suction secretion done and prn , with gt feeding NovaSource at 40cc /hr well tolerated, no residual noted.at 830pm spoke to dr billingsley informing pts to npo at 12mn , for PermCath insertion in am , consent to be obtained , place acall to li and martina brother and sister not answering the phone left message will follow up again later.
[2017-03-02] MEDS: INSULIN DETEMIR 100 UNIT/ML CARTRIDGE SQ SCH (22:00)
[2017-03-02] MEDS: ACETAMINOPHEN 650 MG/20.3 ML UDC GT PRN (23:03)
[2017-03-02] MEDS: INSULIN REGULAR, HUMAN 100 UNIT/ML 3 ML VIAL SQ PRN (23:07)
[2017-03-03] VITALS (7 sets, daily range): BP systolic 98–123; BP diastolic 48–63
--- NOTE | 2017-03-03 | NUR ---
wireless telegrapher notes blood sugar at 12mn is 126 mg/dl no coverage given , Levemir not given d/t pts in npo for 12mn for surgery.pts at this time on gt feeding.
[2017-03-03] MEDS: IPRATROPIUM NEB FS 0.5 MG/2.5 ML AMPUL.NEB NEB SCH ×4 (02:17→20:07)
[2017-03-03] MEDS: ALBUTEROL FS 2.5 MG/0.5 ML VIAL.NEB NEB SCH ×4 (02:17→20:07)
--- NOTE | 2017-03-03 03:20 | NUR ---
television newscast director notes received a call from sister li give consent via phone for PermCath catheter insertion , blood transfusion, and anesthesia , witness by reshma charge nurse.
--- NOTE | 2017-03-03 05:00 | NUR ---
teletype technician notes morning care rendered treatment done , v/s stable afebrile , pts on npo maintained.
[2017-03-03] MEDS: BLOOD SUGAR DIAGNOSTIC 1 EACH STRIP IN SCH ×4 (05:12→23:13)
[2017-03-03] MEDS: INSULIN REGULAR, HUMAN 100 UNIT/ML 3 ML VIAL SQ PRN ×3 (05:13→23:09)
--- NOTE | 2017-03-03 05:30 | NUR ---
teletype mechanic notes blood sugar for 6am is 114mg /dl no coverage given , npo maintained.
[2017-03-03] MEDS ORDERED: HEPARIN SODIUM, PORCINE 1,000 UNIT/ML VIAL ONE (06:56)
[2017-03-03] MEDS ORDERED: LIDOCAINE 1% INJ 50 ML MDV IJ ONE (06:56)
--- NOTE | 2017-03-03 07:11 | NUR ---
telemarketing supervisor notes will endorse to rn day shift for continuity of care.
[2017-03-03] MEDS ORDERED: FENTANYL PF 100MCG/2ML AMPUL ONE (07:43)
--- NOTE | 2017-03-03 09:00 | NUR ---
RN NOTES PATIENT CAME BACK FROM PROCEDURE IN STABLE CONDITION.
[2017-03-03] MEDS: VIT B CMPLX 3/FA/VIT C/BIOTIN 1 TAB TABLET GT SCH (09:48)
[2017-03-03] MEDS: ASPIRIN 81 MG TAB.CHEW GT SCH (09:48)
[2017-03-03] MEDS: FAMOTIDINE (20 MG) 20 MG TABLET GT SCH (09:48)
[2017-03-03] MEDS: FERROUS SULFATE UDC 300 MG/5 ML UDC GT SCH (09:48)
[2017-03-03] MEDS: METOCLOPRAMIDE HCL 10 MG/10 ML UDC GT SCH ×2 (09:48→16:11)
[2017-03-03] MEDS: ZINC SULFATE 220 MG CAPSULE PO SCH (09:48)
[2017-03-03] MEDS: LORATADINE 10 MG TABLET GT SCH (09:48)
[2017-03-03] MEDS: LOSARTAN POTASSIUM 25 MG TABLET GT SCH ×2 (09:49→16:11)
[2017-03-03] MEDS: hydrALAZINE HCL 25 MG TABLET GT SCH ×2 (09:49→16:12)
[2017-03-03] MEDS: PROSOURCE / PROSTAT (PYXIS) 30 ML UDC GT SCH ×3 (09:50→16:11)
[2017-03-03] MEDS: MUPIROCIN OINT 2% 22 GM TUBE SCH ×2 (09:51→20:45)
[2017-03-03] MEDS: HYDROGEL DRESSING 90 GM TUBE TP SCH (09:51)
[2017-03-03] MEDS: CEFEPIME 1 GM in IV D5W 50 ML IV SCH (09:51)
[2017-03-03] MEDS: Z GUARD REMEDY 4 OZ OINT TP SCH (09:51)
[2017-03-03] MEDS: RENAL NOVASOURCE 1,000 ML BOTTLE GT PRN (16:12)
[2017-03-03] MEDS ORDERED: ANESTHESIA TRAY IN PYXIS 1 EA TRAY MC ONE (16:24)
--- NOTE | 2017-03-03 19:01 | NUR ---
RN NOTES PATIENT ENDORSED TO NEXT SHIFT IN STABLE CONDITION WITH BREATHING NORMAL, EVEN AND UNLABORED. NO SOB NOTED. NO ACUTE DISTRESS NOTED. KEPT CLEAN, DRY AND COMFORTABLE. ALL NEEDS ATTENDED. SAFETY MEASURE OBSERVED. CALL LIGHT WITH IN REACH. WILL CONT TO MONITOR.
--- NOTE | 2017-03-03 20:00 | NUR ---
zayda rn notes received pts on bed awake and responsive, on tele sr on the monitor , continue on vent ac settings on the monitor sating 100% no sob no distress noted , all needs attended too , call light within easy reach , v/s stable afebrile. all due meds given as ordered , s/p permacath placement on left chest , no bleeding noted , with gt feeding NovaSource at 40cc/hr well tolerated / no residual noted . hob elevated for aspiration precaution , suction done and prn turned and reposition q 2hrs and prn , bed in locked position safety measures observe , on contact isolation acinetobacter on cath tip, and mrsa nares , precautionary measures observe at all times, will continue to monitor pts.
[2017-03-03] MEDS: INSULIN DETEMIR 100 UNIT/ML CARTRIDGE SQ SCH (23:10)
--- NOTE | 2017-03-03 23:18 | NUR ---
zayda rn notes blood sugar at 11pm is 143 mg/dl Levemir 80 units and 2 units of regular insulin given as ordered , pts on gt feeding ,will continue to monitor.
[2017-03-04] VITALS (12 sets, daily range): BP systolic 85–126; BP diastolic 34–61
[2017-03-04] MEDS: ALBUTEROL FS 2.5 MG/0.5 ML VIAL.NEB NEB SCH ×4 (01:41→20:20)
[2017-03-04] MEDS: IPRATROPIUM NEB FS 0.5 MG/2.5 ML AMPUL.NEB NEB SCH ×4 (01:41→20:20)
--- NOTE | 2017-03-04 04:00 | NUR ---
HECTOR RN NOTES MORNING CARE RENDERED , PTS COMFORTABLE IN BED V/S STABLE AFEBRILE REMAINS ON VENT WELL TOLERATED.
[2017-03-04] MEDS: INSULIN REGULAR, HUMAN 100 UNIT/ML 3 ML VIAL SQ PRN (05:09)
[2017-03-04] MEDS: BLOOD SUGAR DIAGNOSTIC 1 EACH STRIP IN SCH ×3 (05:10→17:36)
--- NOTE | 2017-03-04 05:16 | NUR ---
HECTOR RN NOTES BLOOD SUGAR FOR 6AM IS 143MG/DL 2 UNITS OF REGULAR INSULIN GIVEN PER SLIDING SCALE PTS ON GT FEEDING.
--- NOTE | 2017-03-04 06:36 | NUR ---
HECTOR RN NOTES WILL ENDORSE TO RN DAY SHIFT FOR CONTINUITY OF CARE.
--- NOTE | 2017-03-04 07:30 | NUR ---
RN NOTES RECEIVED PT LAYING IN BED, AWAKE ALERT, EYES OPEN. TRACHE MIDLINE ON MECH VENT SETTINGS PRESCRIBED, SUCTIONED FOR AIRWAY CLEARANCE. SR ON TELE MONITOR, BP 91/40 AT THIS TIME. S/P PERMACATH PLACEMENT YESTERDAY, DRESSING CDI. LADAN MIDLINE NOTED WITH RESISTANCE WHEN FLUSHING. UNABLE TO FLUSH WITH NS. WILL TRY TO REINSERT NEW IV LINE. AND WILL NOTIFY CHARGE AND MUSIC CATALOGUER FOR MIDLINE REINSERTION, REPOSITIONED FOR COMFORT, ISOLATION PRECAUTION OBSERVED, CALL LIGHT WITHIN REACH, WILL CONT TO MONITOR,
--- NOTE | 2017-03-04 07:50 | NUR ---
RN NOTES ATTEMPTED IV LINE INSERTION X2, FAILED. PT IS HARDSTICK.
[2017-03-04 08:05] LABS: BASOPHILS % (AUTO) 0.1 % (0.0-2.0); EOSINOPHILS # (AUTO) 0.4 /CMM (0.0-0.7); EOSINOPHILS % (AUTO) 2.5 % (0.0-6.0); HEMATOCRIT 22 % (33-45); LYMPHOCYTES # (AUTO) 2.5 /CMM (0.8-4.8); LYMPHOCYTES % (AUTO) 18.2 % (20.0-44.0); MEAN CORPUSCULAR HEMOGLOBIN 27 PG (26.0-33.0); MEAN CORPUSCULAR HGB CONC 32 g/dl (31.0-36.0); MEAN CORPUSCULAR VOLUME 85 fL (82-100); MONOCYTES # (AUTO) 0.9 /CMM (0.1-1.30); MONOCYTES % (AUTO) 6.4 % (2.0-12.0); NEUTROPHILS # (AUTO) 10.1 /CMM (1.8-8.9); NEUTROPHILS % (AUTO) 72.8 % (43.0-81.0); PLATELET COUNT (AUTO) 307 /CMM (150-450); RDW COEFFICIENT OF VARIATION 15.6 (11.5-15.0); RED BLOOD CELL COUNT(AUTO) 2.52 MIL/uL (4.0-5.2); WHITE BLOOD COUNT (AUTO) 13.8 K/uL (4.3-11.0)
[2017-03-04 08:11] LABS: HEMOGLOBIN 6.9 g/dL (11.5-14.8)
[2017-03-04] MEDS: hydrALAZINE HCL 25 MG TABLET GT SCH ×2 (08:26→16:50)
[2017-03-04] MEDS: LOSARTAN POTASSIUM 25 MG TABLET GT SCH ×2 (08:26→16:50)
[2017-03-04 08:34] LABS: CALCIUM, SERUM 11.4 mg/dL (8.5-10.1); MAGNESIUM 2.5 mg/dL (1.8-2.4); PHOSPHORUS 5.6 mg/dL (2.5-4.9)
[2017-03-04 08:39] LABS: POTASSIUM 3.4 mmol/L (3.5-5.1)
[2017-03-04] MEDS: METOCLOPRAMIDE HCL 10 MG/10 ML UDC GT SCH ×2 (09:05→17:36)
[2017-03-04] MEDS: VIT B CMPLX 3/FA/VIT C/BIOTIN 1 TAB TABLET GT SCH (09:05)
[2017-03-04] MEDS: ZINC SULFATE 220 MG CAPSULE PO SCH (09:05)
[2017-03-04] MEDS: FERROUS SULFATE UDC 300 MG/5 ML UDC GT SCH (09:05)
[2017-03-04] MEDS: FAMOTIDINE (20 MG) 20 MG TABLET GT SCH (09:05)
[2017-03-04] MEDS: HYDROGEL DRESSING 90 GM TUBE TP SCH (09:06)
[2017-03-04] MEDS: ASPIRIN 81 MG TAB.CHEW GT SCH (09:06)
[2017-03-04] MEDS: LORATADINE 10 MG TABLET GT SCH (09:06)
[2017-03-04] MEDS: PROSOURCE / PROSTAT (PYXIS) 30 ML UDC GT SCH ×3 (09:08→17:36)
[2017-03-04] MEDS: MUPIROCIN OINT 2% 22 GM TUBE SCH ×2 (09:08→21:16)
[2017-03-04] MEDS: Z GUARD REMEDY 4 OZ OINT TP SCH (09:08)
[2017-03-04] MEDS: CEFEPIME 1 GM in IV D5W 50 ML IV SCH ×2 (09:10→14:24)
[2017-03-04 09:34] LABS: EOSINOPHILS % (MANUAL) 3 % (0-4); LYMPHOCYTES % (MANUAL) 18 % (16-48); MONOCYTES % (MANUAL) 7 % (0-11.0); NEUTROPHILS % (MANUAL) 72 (42-76)
--- NOTE | 2017-03-04 11:23 | NUR ---
RN NOTES CALLED [facility] TO REPORT HEMOGLOBIN LEVEL OF 6.9, DR SHOES HAND SEWER WAS PAGED, AWAITING FOR CALL BACK
--- NOTE | 2017-03-04 13:00 | NUR ---
RN NOTES SPOKE WITH DR PHILLIPS, REPORTED HEMOGLOBIN OF 6.9 TODAY, PER DR PHILLIPS GIVE I UNIT PRBC ORDERS READ BACK NOTED AND CARRIED OUT
--- NOTE | 2017-03-04 19:15 | NUR ---
RN INITIAL NOTES RECEIVED PATIENT IN BED, AWAKE AND ALERT, ABLE TO VERBALIZE BASIC NEEDS WITH PROMPTING NEEDED. PATIENT DENIES ANY PAIN AND DISCOMFORT AT THIS TIME. NO DISTRESS. ON MECH VENT, TOLERATING CURRENT SETTINGS WELL, AIRWAY SUCTIONED NEEDED. TRACH, C/D/I, MIDLINE. SR ON TELE WITH HR IN THE 90s. GTF ORDERED, NO GASTRIC RESIDUAL NOTED, HOB ELEVATED. NOTED WITH LADAN MIDLINE, SL, FLUSHED AND PATENT, NO BLOOD RETURN NOTED. NOTED WITH LEFT SVC PERM-A-CATH, TEMPORARY HD ACCESS, WITH DRESSING DRY AND INTACT. ALSO WITH RIGHT SVC PERM-A-CATH WITH INTACT AND DRY DRESSING THAT WAS INSERTED ON 03/03/17. PATIENT IS TURNED AND REPOSITIONED. SAFETY AND COMFORT ENSURED. BED IN LOW AND LOCKED POSITION. CALL LIGHT IN REACH. WILL MONITOR.
[2017-03-04] MEDS: INSULIN DETEMIR 100 UNIT/ML CARTRIDGE SQ SCH (21:16)
--- NOTE | 2017-03-04 22:15 | NUR ---
RN NOTES PATIENT'S BS CHECKED AND NOTED TO BE 112. PATIENT WITH ORDER FOR INSULIN DETEMIR 80u SQ, NON-ADMINISTERED AT THIS TIME. PATIENT CONT ON GTF ORDERED, NO INTOLERANCE NOTED. WILL MONITOR.
[2017-03-05] VITALS: BP 112/47
[2017-03-05] MEDS: BLOOD SUGAR DIAGNOSTIC 1 EACH STRIP IN SCH ×4 (00:25→18:18)
--- NOTE | 2017-03-05 00:30 | NUR ---
RN NOTES PATIENT BS CHECKED AND NOTED TO BE 119, NO INSULIN GIVEN PER SLIDING SCALE. CONTINUOUS ON GTF ORDERED. PATIENT WITH NO CHANGES IN LOC.
[2017-03-05] MEDS: IPRATROPIUM NEB FS 0.5 MG/2.5 ML AMPUL.NEB NEB SCH ×4 (01:38→20:13)
[2017-03-05] MEDS: ALBUTEROL FS 2.5 MG/0.5 ML VIAL.NEB NEB SCH ×4 (01:38→20:13)
--- NOTE | 2017-03-05 03:58 | NUR ---
RN NOTES PROVIDED PATIENT WITH BEDBATH. PATIENT TOLERATED AM CARE WELL, NO DISTRESS. WOUND TREATMENT DONE ORDERED. TRACH CARE DONE, ORAL CARE RENDERED. PATIENT TURNED AND REPOSITIONED. SAFETY AND COMFORT ENSURED.
[2017-03-05 04:00] VITALS: BP 106/60
[2017-03-05] MEDS: RENAL NOVASOURCE 1,000 ML BOTTLE GT PRN (05:35)
--- NOTE | 2017-03-05 07:01 | NUR ---
RN CLOSING NOTES PATIENT WITH NO ACUTE CHANGE IN CONDITION OBSERVED OVERNIGHT. REMAINS SR ON TELE MONITOR. TOLERATED MECH VENT SETTINGS, AIRWAY SUCTIONED PRN AND KEPT PATENT. GTF TOLERATED, FLUSHED AND KEPT PATENT. AM LABS DRAWN. PATIENT'S NEEDS ANTICIPATED AND MET. SAFETY AND COMFORT ENSURED. BED IN LOW AND LOCKED POSITION. PATIENT TURNED AND REPOSITIONED [id number] AND PRN. WILL ENDORSE ACCORDINGLY FOR CONTINUITY OF CARE.
[2017-03-05 07:02] LABS: BASOPHILS % (AUTO) 0.2 % (0.0-2.0); EOSINOPHILS # (AUTO) 0.3 /CMM (0.0-0.7); EOSINOPHILS % (AUTO) 2.3 % (0.0-6.0); HEMATOCRIT 24 % (33-45); LYMPHOCYTES # (AUTO) 2.3 /CMM (0.8-4.8); LYMPHOCYTES % (AUTO) 18.6 % (20.0-44.0); MEAN CORPUSCULAR HEMOGLOBIN 29 PG (26.0-33.0); MEAN CORPUSCULAR HGB CONC 34 g/dl (31.0-36.0); MEAN CORPUSCULAR VOLUME 85 fL (82-100); MONOCYTES # (AUTO) 0.9 /CMM (0.1-1.30); NEUTROPHILS # (AUTO) 8.9 /CMM (1.8-8.9); NEUTROPHILS % (AUTO) 71.9 % (43.0-81.0); PLATELET COUNT (AUTO) 282 /CMM (150-450); RDW COEFFICIENT OF VARIATION 15.7 (11.5-15.0); RED BLOOD CELL COUNT(AUTO) 2.79 MIL/uL (4.0-5.2); WHITE BLOOD COUNT (AUTO) 12.4 K/uL (4.3-11.0)
--- NOTE | 2017-03-05 07:20 | NUR ---
RN OPEN NOTES RECEIVED REPORT FROM POSTAL SERVICE CLERK. WILL CONTINUE TO MONITOR AND ASSESS PATIENT THROUGHOUT MY SHIFT
[2017-03-05 07:22] LABS: CALCIUM, SERUM 11.6 mg/dL (8.5-10.1); MAGNESIUM 2.3 mg/dL (1.8-2.4); PHOSPHORUS 4.6 mg/dL (2.5-4.9); POTASSIUM 3.3 mmol/L (3.5-5.1)
[2017-03-05 08:00] VITALS: BP 121/68
[2017-03-05] MEDS: PROSOURCE / PROSTAT (PYXIS) 30 ML UDC GT SCH ×3 (09:45→18:09)
[2017-03-05] MEDS: CEFEPIME 1 GM in IV D5W 50 ML IV SCH (09:45)
[2017-03-05] MEDS: ZINC SULFATE 220 MG CAPSULE PO SCH (09:46)
[2017-03-05] MEDS: METOCLOPRAMIDE HCL 10 MG/10 ML UDC GT SCH ×2 (09:46→18:09)
[2017-03-05] MEDS: ASPIRIN 81 MG TAB.CHEW GT SCH (09:46)
[2017-03-05] MEDS: FERROUS SULFATE UDC 300 MG/5 ML UDC GT SCH (09:46)
[2017-03-05] MEDS: FAMOTIDINE (20 MG) 20 MG TABLET GT SCH (09:46)
[2017-03-05] MEDS: VIT B CMPLX 3/FA/VIT C/BIOTIN 1 TAB TABLET GT SCH (09:47)
[2017-03-05] MEDS: LORATADINE 10 MG TABLET GT SCH (09:47)
[2017-03-05] MEDS: LOSARTAN POTASSIUM 25 MG TABLET GT SCH ×2 (09:48→17:00)
[2017-03-05] MEDS: hydrALAZINE HCL 25 MG TABLET GT SCH ×2 (09:48→17:00)
[2017-03-05] MEDS: Z GUARD REMEDY 4 OZ OINT TP SCH (09:58)
[2017-03-05] MEDS: HYDROGEL DRESSING 90 GM TUBE TP SCH (09:58)
[2017-03-05] MEDS: MUPIROCIN OINT 2% 22 GM TUBE SCH ×2 (09:58→21:43)
--- NOTE | 2017-03-05 10:23 | NUR ---
Patient received trached on mechanical vent. Breath sounds equal bilateral. Breathing tx given as ordered and tolerated well. No adverse reactions noted. Vent plugged into red outlet and alarms set and functioning. Ambu bag at the bed side.
[2017-03-05 12:00] VITALS: BP 108/64
[2017-03-05 16:00] VITALS: BP 106/64
[2017-03-05 20:00] VITALS: BP 115/47
--- NOTE | 2017-03-05 20:03 | NUR ---
CLOSING RN NOTES PT. IS IN BED A&OX1, CONFUSED. NO SOB, UNLABORED AND EVEN BREATHING. NO S/S OF ACUTE DISTRESS. IV ACCESS IS INTACT AND PATENT. G TUBE IS FLUSHED AND INTACT. LUZ DEPENDANT TOLERATED WELL. BED IS IN LOWEST POSITION, LOCKED, 2 SIDE RAILS UP, AND CALL LIGHT WITHIN REACH. PT. KEPT DRY AND CLEAN, ALL NURSING CARE ANTICIPATED, AND WILL ENDORSE TO ENTRY SPECIALISTS NURSE.
[2017-03-05] MEDS: INSULIN DETEMIR 100 UNIT/ML CARTRIDGE SQ SCH (21:44)
[2017-03-06] VITALS: BP 102/55
[2017-03-06] MEDS: BLOOD SUGAR DIAGNOSTIC 1 EACH STRIP IN SCH ×5 (01:08→23:34)
[2017-03-06] MEDS: INSULIN REGULAR, HUMAN 100 UNIT/ML 3 ML VIAL SQ PRN ×2 (01:16→05:25)
[2017-03-06] MEDS: ALBUTEROL FS 2.5 MG/0.5 ML VIAL.NEB NEB SCH ×4 (01:24→19:17)
[2017-03-06] MEDS: IPRATROPIUM NEB FS 0.5 MG/2.5 ML AMPUL.NEB NEB SCH ×4 (01:24→19:17)
[2017-03-06 04:00] VITALS: BP_SYST 119; BP_DIAS 38; BP_DIAS 63
--- NOTE | 2017-03-06 07:28 | NUR ---
REMOTE SENSING ENGINEER CLOSING NOTES NO SIGNIFICANT CHANGES OVERNIGHT. NO RESPIRATORY DISTRESS NOTED. TOLERATING VENT SETTINGS AC 12, VT 500, FIO2 30%, PEEP 5. TRACH CARE DONE. DENIES SOB. DENIES PAIN OR DISCOMFORT. TOLERATING GTF, NO RESIDUAL NOTED. KEPT CLEAN AND DRY. TURNED AND REPOSITIONED Q2 AND PRN. WOUND TX DONE ORDERED. HOB ELEVATED. SIDE RAILS UP AND LOCKED. BED KEPT AT LOWEST POSITION. CONTINUITY OF CARE ENDORSED TO AM NURSE.
[2017-03-06 08:00] VITALS: BP 109/43
[2017-03-06] MEDS: hydrALAZINE HCL 25 MG TABLET GT SCH ×2 (09:00→17:00)
[2017-03-06] MEDS: LOSARTAN POTASSIUM 25 MG TABLET GT SCH ×2 (09:00→17:00)
[2017-03-06] MEDS: RENAL NOVASOURCE 1,000 ML BOTTLE GT PRN (09:53)
[2017-03-06] MEDS: CEFEPIME 1 GM in IV D5W 50 ML IV SCH (09:54)
[2017-03-06] MEDS: ZINC SULFATE 220 MG CAPSULE PO SCH (09:55)
[2017-03-06] MEDS: ASPIRIN 81 MG TAB.CHEW GT SCH (09:57)
[2017-03-06] MEDS: FAMOTIDINE (20 MG) 20 MG TABLET GT SCH (09:57)
[2017-03-06] MEDS: VIT B CMPLX 3/FA/VIT C/BIOTIN 1 TAB TABLET GT SCH (09:57)
[2017-03-06] MEDS: LORATADINE 10 MG TABLET GT SCH (09:57)
[2017-03-06] MEDS: PROSOURCE / PROSTAT (PYXIS) 30 ML UDC GT SCH ×3 (09:57→17:43)
[2017-03-06] MEDS: FERROUS SULFATE UDC 300 MG/5 ML UDC GT SCH (09:57)
[2017-03-06] MEDS: METOCLOPRAMIDE HCL 10 MG/10 ML UDC GT SCH ×2 (09:58→17:43)
[2017-03-06] MEDS: Z GUARD REMEDY 4 OZ OINT TP SCH (09:59)
[2017-03-06] MEDS: HYDROGEL DRESSING 90 GM TUBE TP SCH (09:59)
[2017-03-06] MEDS: MUPIROCIN OINT 2% 22 GM TUBE SCH ×2 (10:00→21:38)
[2017-03-06 11:02] LABS: HEMOGLOBIN 7.5 g/dL (11.5-14.8)
[2017-03-06 12:00] VITALS: BP 109/59
[2017-03-06 16:00] VITALS: BP 98/54
--- NOTE | 2017-03-06 19:30 | NUR ---
SENIOR CLINICAL STUDY MANAGER NOTES: RECEIVED PT. IN BED AWAKE ALERT AND ORIENTED X 1 NONVERBAL BUT ABLE TO NOD YES/NO. W/ TRACH PROTEX # 8 MIDLINE W/ PRESCRIBED VENT SETTING TOLERATING WELL. SUCTION X 1 FOR AIRWAY CLEARANCE. ON TELE MONITOR W/ SR @ 90. PT NOTED W/ LT AND RT. PERMA CATH . DRESSING C/D/I. LADAN MIDLINE PATENT AND INTACT NOTED W/ GOOD BLOOD RETURN. FREE FROM ANY S/S OF INFECTION. BED LEFT IN LOWEST AND LOCKED POSITION. CALL LIGHT LEFT W/ IN REACH. WILL CONTINUE TO MONITOR.
[2017-03-06 20:00] VITALS: BP 119/62
[2017-03-06] MEDS: HYDROCODONE/APAP 5/325MG 1 EACH TABLET PO PRN (21:31)
[2017-03-06] MEDS: INSULIN DETEMIR 100 UNIT/ML CARTRIDGE SQ SCH (21:32)
[2017-03-07] VITALS: BP 117/63
[2017-03-07] MEDS: IPRATROPIUM NEB FS 0.5 MG/2.5 ML AMPUL.NEB NEB SCH ×4 (01:19→20:21)
[2017-03-07] MEDS: ALBUTEROL FS 2.5 MG/0.5 ML VIAL.NEB NEB SCH ×4 (01:20→20:21)
[2017-03-07 04:00] VITALS: BP 126/63
[2017-03-07] MEDS: BLOOD SUGAR DIAGNOSTIC 1 EACH STRIP IN SCH ×4 (05:30→23:42)
[2017-03-07] MEDS: RENAL NOVASOURCE 1,000 ML BOTTLE GT PRN (05:45)
--- NOTE | 2017-03-07 06:00 | NUR ---
TRUCK DOCK MATERIAL MOVER NOTES: NO ACUTE CHANGES THROUGHOUT THE SHIFT. PT. REMAINS ON MECHANICAL VENT TOLERATING WELL. WILL ENDORSE PT. TO AM SHIFT FOR CONTINUITY OF CARE.
--- NOTE | 2017-03-07 07:00 | NUR ---
CAP CUTTER NOTES: RECEIVED PT. ON BED, A/Ox1, NONVERBAL, VENT TRACH DEPENDENT , TRACH CARE DONE, TOLERATING CURRENT VENT SETTING WELL. SUCTION X 1 FOR AIRWAY CLEARANCE DONE , ON TELE SR IN 70'S , R CW AND LEFT CW PERMA CATH SITE CDI, R UA MIDLINE PATENT AND INTACT, BED LOCKED AND IN LOWEST POSITION , CALL LIGHT WITHIN EASY REACH , WILL CONTINUE TO MONITOR PT CLSOELY AND NOTIFY MD FOR ANY SIGNIFICANT CHANGES .
[2017-03-07 08:00] VITALS: BP 140/60
[2017-03-07] MEDS: MUPIROCIN OINT 2% 22 GM TUBE SCH ×2 (08:11→20:17)
[2017-03-07] MEDS: HYDROGEL DRESSING 90 GM TUBE TP SCH (08:11)
[2017-03-07] MEDS: Z GUARD REMEDY 4 OZ OINT TP SCH (08:11)
[2017-03-07] MEDS: FERROUS SULFATE UDC 300 MG/5 ML UDC GT SCH (08:14)
[2017-03-07] MEDS: hydrALAZINE HCL 25 MG TABLET GT SCH ×2 (08:14→17:02)
[2017-03-07] MEDS: ASPIRIN 81 MG TAB.CHEW GT SCH (08:14)
[2017-03-07] MEDS: VIT B CMPLX 3/FA/VIT C/BIOTIN 1 TAB TABLET GT SCH (08:14)
[2017-03-07] MEDS: FAMOTIDINE (20 MG) 20 MG TABLET GT SCH (08:14)
[2017-03-07] MEDS: METOCLOPRAMIDE HCL 10 MG/10 ML UDC GT SCH ×2 (08:14→17:01)
[2017-03-07] MEDS: LORATADINE 10 MG TABLET GT SCH (08:14)
[2017-03-07] MEDS: PROSOURCE / PROSTAT (PYXIS) 30 ML UDC GT SCH ×3 (08:16→17:02)
[2017-03-07] MEDS: LOSARTAN POTASSIUM 25 MG TABLET GT SCH ×2 (08:16→17:01)
[2017-03-07] MEDS: ZINC SULFATE 220 MG CAPSULE PO SCH (08:52)
--- NOTE | 2017-03-07 09:11 | NUR ---
Patient on vent. as ordered. Vent plugged into red outlet and alarms set and functioning. Ambu bag at the bed side. Breath sounds equal bilateral. Suctioned as needed. Breathing tx done as ordered and tolerated well. No adverse reactions noted.
[2017-03-07] MEDS: CEFEPIME 1 GM in IV D5W 50 ML IV SCH (10:05)
[2017-03-07 12:00] VITALS: BP 117/70
--- NOTE | 2017-03-07 12:00 | NUR ---
RN NOTES TRACH SUCTION DONE x1, O2 SAT 100%, VSS STABLE , TOLERATING TF WELL, NO RESIDUAL NOTED ,CONTINUE TO MONITOR .
[2017-03-07 16:00] VITALS: BP 117/61
--- NOTE | 2017-03-07 18:27 | NUR ---
RN NOTES PT MEDICATED PER MD ORDER , TOLERATING TF WELL, SR UP x3, CALL LIGHT WITHIN EASY REACH, BED LOCKED AND IN LOWEST POSITION . NO SIGNIFICANT CHANGES NOTED ON THIS SHIFT . WILL ENDORSE TO CINDER SNAPPER RN FOR RICA.
[2017-03-07 20:00] VITALS: BP 107/52
[2017-03-07] MEDS: HYDROCODONE/APAP 5/325MG 1 EACH TABLET PO PRN (20:17)
[2017-03-07] MEDS: INSULIN DETEMIR 100 UNIT/ML CARTRIDGE SQ SCH (22:00)
--- NOTE | 2017-03-07 23:44 | NUR ---
MED NOTE: Corbin FLORENCE HELD PT POC GLUCOSE 107. WILL CONTINUE TO MONITOR.
[2017-03-08] VITALS (7 sets, daily range): BP systolic 92–126; BP diastolic 38–62
[2017-03-08] MEDS: ALBUTEROL FS 2.5 MG/0.5 ML VIAL.NEB NEB SCH ×4 (01:04→20:01)
[2017-03-08] MEDS: IPRATROPIUM NEB FS 0.5 MG/2.5 ML AMPUL.NEB NEB SCH ×4 (01:04→20:01)
[2017-03-08] MEDS: HYDROCODONE/APAP 5/325MG 1 EACH TABLET PO PRN ×3 (03:12→16:25)
[2017-03-08] MEDS: RENAL NOVASOURCE 1,000 ML BOTTLE GT PRN (03:12)
[2017-03-08] MEDS: BLOOD SUGAR DIAGNOSTIC 1 EACH STRIP IN SCH ×4 (05:28→23:58)
--- NOTE | 2017-03-08 08:00 | NUR ---
NON-ADMIN BP MEDS D/T HD PLAN TODAY. BP 126/62, HR 90.
[2017-03-08] MEDS: HYDROGEL DRESSING 90 GM TUBE TP SCH (08:36)
[2017-03-08] MEDS: METOCLOPRAMIDE HCL 10 MG/10 ML UDC GT SCH ×2 (08:37→16:24)
[2017-03-08] MEDS: LORATADINE 10 MG TABLET GT SCH (08:37)
[2017-03-08] MEDS: ASPIRIN 81 MG TAB.CHEW GT SCH (08:37)
[2017-03-08] MEDS: Z GUARD REMEDY 4 OZ OINT TP SCH (08:37)
[2017-03-08] MEDS: FAMOTIDINE (20 MG) 20 MG TABLET GT SCH (08:37)
[2017-03-08] MEDS: VIT B CMPLX 3/FA/VIT C/BIOTIN 1 TAB TABLET GT SCH (08:37)
[2017-03-08] MEDS: ZINC SULFATE 220 MG CAPSULE PO SCH (08:37)
[2017-03-08] MEDS: FERROUS SULFATE UDC 300 MG/5 ML UDC GT SCH (08:37)
[2017-03-08] MEDS: PROSOURCE / PROSTAT (PYXIS) 30 ML UDC GT SCH ×3 (08:38→16:23)
[2017-03-08] MEDS: hydrALAZINE HCL 25 MG TABLET GT SCH ×2 (08:38→16:25)
[2017-03-08] MEDS: MUPIROCIN OINT 2% 22 GM TUBE SCH ×2 (08:38→21:35)
[2017-03-08] MEDS: LOSARTAN POTASSIUM 25 MG TABLET GT SCH ×2 (08:38→16:25)
[2017-03-08] MEDS: CEFEPIME 1 GM in IV D5W 50 ML IV SCH (09:26)
--- NOTE | 2017-03-08 09:39 | NUR ---
RN NOTE PATIENT IS YELLING HER NEPHEW'S NAME AND SQUIRMING IN BED. WHEN ASKED IF SHE HAS PAIN SHE SAID YES, UNABLE TO LOCATE, UNABLE TO SCALE. PAIN MEDICATION GIVEN. WILL REASSESS. REPOSITIONED, CHANGED DIAPER WITH 1 LARGE BM. PROVIDED NURSING COMFORT MEASURES, PATIENT IS CONSOLABLE. VS STABLE.
[2017-03-08] MEDS: LORAZEPAM 0.5 MG TABLET GT PRN ×2 (14:31→22:13)
[2017-03-08] MEDS: ALBUMIN 25% 25 GM in PREMIX 1 EA IV PRN (14:37)
--- NOTE | 2017-03-08 14:59 | NUR ---
RN NOTE PATIENT RESTLESS DURING DIALYSIS. ATIVAN ADMINISTERED. MONITORING CLOSELY.
[2017-03-08] MEDS ORDERED: ALTEPLASE CATHFLO 2 MG/VIAL IV ONE (15:30)
--- NOTE | 2017-03-08 19:46 | NUR ---
COMPUTER OPERATIONS SPECIALIST INITIAL NOTE PT RECEIVED IN NO ACUTE DISTRESS AT THIS TIME. PT IS ON VENT/TRACH TOLERATING WELL. ON TELE WITH SR. FEEDING THYROUGH PEG IS NOVASOURCE @40CC/HR. BILATERAL CHEST WALL HD CATH, AND LADAN MIDLINE. COMFORT AND SAFETY MEASURES TO BE ENSURED. WILL CONTINUE TO MONITOR FOR CHANGES.
[2017-03-08] MEDS: INSULIN DETEMIR 100 UNIT/ML CARTRIDGE SQ SCH (21:33)
[2017-03-09] VITALS (7 sets, daily range): BP systolic 91–130; BP diastolic 41–72
[2017-03-09] MEDS: ALBUTEROL FS 2.5 MG/0.5 ML VIAL.NEB NEB SCH ×4 (01:59→20:04)
[2017-03-09] MEDS: IPRATROPIUM NEB FS 0.5 MG/2.5 ML AMPUL.NEB NEB SCH ×4 (01:59→20:04)
[2017-03-09] MEDS: BLOOD SUGAR DIAGNOSTIC 1 EACH STRIP IN SCH ×3 (05:31→17:26)
--- NOTE | 2017-03-09 06:52 | NUR ---
BUDGET TECHNICIAN CLOSING NOTE ALL DUE MEDICATIONS GIVEN. ALL WOUND CARE DONE ORDERED. PT REMAINS IN STABLE CONDITION. WILL ENDORSE CARE TO AM NURSE.
--- NOTE | 2017-03-09 07:30 | NUR ---
RN NOTES RECEIVED PATIENT IN BED ON [place] VENT WITH BREATHING NORMAL, EVEN AND UNLABORED. NO SOB NOTED. NO ACUTE DISTRESS NOTED. VENT SETTING REVIEWED AND VERIFIED, TOLERATED WELL, AFEBRILE. TELE MONITOR REVEALS SR, HR 79. LADAN MIDLINE IS PATENT AND INTACT, HD CATH IS INTACT, ON GT FEED NOVASOURCE @ 40CC/HR, TOLERATED WELL. NO RESIDUAL NOTED. ASPIRATION TAKEN. HOB ELEVATED. KEPT CLEAN, DRY AND COMFORTABLE. ALL NEEDS ATTENDED. CALL LIGHT WITH IN REACH. WILL CONT TO MONITOR.
[2017-03-09] MEDS: VIT B CMPLX 3/FA/VIT C/BIOTIN 1 TAB TABLET GT SCH (10:24)
[2017-03-09] MEDS: FERROUS SULFATE UDC 300 MG/5 ML UDC GT SCH (10:24)
[2017-03-09] MEDS: LORATADINE 10 MG TABLET GT SCH (10:24)
[2017-03-09] MEDS: LOSARTAN POTASSIUM 25 MG TABLET GT SCH ×2 (10:25→17:23)
[2017-03-09] MEDS: FAMOTIDINE (20 MG) 20 MG TABLET GT SCH (10:25)
[2017-03-09] MEDS: hydrALAZINE HCL 25 MG TABLET GT SCH ×2 (10:25→17:23)
[2017-03-09] MEDS: ASPIRIN 81 MG TAB.CHEW GT SCH (10:25)
[2017-03-09] MEDS: Z GUARD REMEDY 4 OZ OINT TP SCH (10:26)
[2017-03-09] MEDS: MUPIROCIN OINT 2% 22 GM TUBE SCH ×2 (10:27→20:51)
[2017-03-09] MEDS: HYDROGEL DRESSING 90 GM TUBE TP SCH (10:27)
[2017-03-09] MEDS: ZINC SULFATE 220 MG CAPSULE PO SCH (10:31)
[2017-03-09] MEDS: METOCLOPRAMIDE HCL 10 MG/10 ML UDC GT SCH ×2 (10:31→17:22)
[2017-03-09] MEDS: LORAZEPAM 0.5 MG TABLET GT PRN (10:31)
[2017-03-09] MEDS: CEFEPIME 1 GM in IV D5W 50 ML IV SCH (10:32)
[2017-03-09] MEDS: PROSOURCE / PROSTAT (PYXIS) 30 ML UDC GT SCH ×3 (10:40→17:23)
[2017-03-09] MEDS: INSULIN REGULAR, HUMAN 100 UNIT/ML 3 ML VIAL SQ PRN ×2 (12:57→17:31)
--- NOTE | 2017-03-09 19:33 | NUR ---
RN NOTES: PATIENT ENDORSED TO NEXT SHIFT IN STABLE CONDITION WITH BREATHING NORMAL EVEN AND UNLABORED. NO SOB NOTED. NO ACUTE DISTRESS NOTED. KEPT CLEAN DRY AND COMFORTABLE. ALL NEEDS ATTENDED. SAFETY MEASURES OBSERVED. CALL LIGHT WITH IN REACH. WILL CONTINUE TO MONITOR.
--- NOTE | 2017-03-09 21:57 | NUR ---
RN NOTES RECEIVED PATIENT AWAKE IN BED, NOTED WITH EYE TRACKING. VERBALLY ABLE TO COMMUNICATE NEEDS. NO RESPIRATORY DISTRESS. BREATHING EVEN AND UNLABORED. VENT SETTING WELL TOLERATED. GTUBE IN PLACE, FEEDING TOLERATING WELL. NO PHYSICAL MANIFESTATION OF PAIN OR DISCOMFORT. KEPT CLEAN AND DRY. WILL CONTINUE TO MONITOR.
[2017-03-09] MEDS: INSULIN DETEMIR 100 UNIT/ML CARTRIDGE SQ SCH (22:00)
--- NOTE | 2017-03-09 22:41 | NUR ---
RN NOTES BLOOD SUGAR 95MG/DL. LEVEMIR 80 UNITS FOR 2200 NOT ADMINISTERED DUE TO LOW SUGAR
[2017-03-10] VITALS: BP 92/35
[2017-03-10] MEDS: INSULIN REGULAR, HUMAN 100 UNIT/ML 3 ML VIAL SQ PRN ×3 (01:21→23:13)
[2017-03-10] MEDS: IPRATROPIUM NEB FS 0.5 MG/2.5 ML AMPUL.NEB NEB SCH ×4 (02:04→19:47)
[2017-03-10] MEDS: ALBUTEROL FS 2.5 MG/0.5 ML VIAL.NEB NEB SCH ×4 (02:05→19:47)
[2017-03-10 04:00] VITALS: BP 112/39
[2017-03-10] MEDS: BLOOD SUGAR DIAGNOSTIC 1 EACH STRIP IN SCH ×5 (06:47→23:10)
--- NOTE | 2017-03-10 07:10 | NUR ---
MONITORING ANALYST NOTE: RECEIVED PATIENT AWAKE IN BED, A&OX2 WITH CONFUSION, DENIES PAIN. ON MECHANICAL VENT, TOLERATING SETTINGS. RESPIRATIONS EVEN AND UNLABORED WITH NO SOB NOTED. ON TELE MONITOR WITH HR 95. LADAN MIDLINE IS PATENT AND INTACT. HD CATH IS INTACT. GT FEED NOVASOURCE @ 40CC/HR. NO RESIDUAL NOTED. HOB ELEVATED, BED LOW, LOCKED, CALL LIGHT WITHIN REACH. WILL CONT TO MONITOR.
--- NOTE | 2017-03-10 07:13 | NUR ---
RN NOTES PATIENT IN BED, NO DISTRESS NOTED. NO COMPLAINT OF PAIN OR DISCOMFORT. GTUBE IN PLACE, FEEDING WELL TOLERATED. NO SIGNIFICANT CHANGE OF CONDITION. WILL ENDORSE TO AM SHIFT FOR CONTINUITY OF CARE.
[2017-03-10 07:35] LABS: CALCIUM, SERUM 12.3 mg/dL (8.5-10.1); CREATININE 6.9 mg/dL (0.6-1.3); MAGNESIUM 2.6 mg/dL (1.8-2.4); PHOSPHORUS 5.3 mg/dL (2.5-4.9); POTASSIUM 3.3 mmol/L (3.5-5.1)
[2017-03-10 07:37] LABS: BASOPHILS % (AUTO) 0.4 % (0.0-2.0); EOSINOPHILS # (AUTO) 0.3 /CMM (0.0-0.7); EOSINOPHILS % (AUTO) 2.5 % (0.0-6.0); HEMATOCRIT 24 % (33-45); HEMOGLOBIN 7.7 g/dL (11.5-14.8); LYMPHOCYTES # (AUTO) 3.1 /CMM (0.8-4.8); LYMPHOCYTES % (AUTO) 23.9 % (20.0-44.0); MEAN CORPUSCULAR HEMOGLOBIN 28 PG (26.0-33.0); MEAN CORPUSCULAR HGB CONC 32 g/dl (31.0-36.0); MEAN CORPUSCULAR VOLUME 86 fL (82-100); MONOCYTES # (AUTO) 1.2 /CMM (0.1-1.30); MONOCYTES % (AUTO) 9.5 % (2.0-12.0); NEUTROPHILS # (AUTO) 8.2 /CMM (1.8-8.9); NEUTROPHILS % (AUTO) 63.7 % (43.0-81.0); PLATELET COUNT (AUTO) 301 /CMM (150-450); RDW COEFFICIENT OF VARIATION 15.5 (11.5-15.0); WHITE BLOOD COUNT (AUTO) 12.9 K/uL (4.3-11.0)
[2017-03-10 08:00] VITALS: BP 106/41
[2017-03-10] MEDS: MUPIROCIN OINT 2% 22 GM TUBE SCH ×2 (09:00→20:18)
[2017-03-10] MEDS: LOSARTAN POTASSIUM 25 MG TABLET GT SCH ×2 (09:00→18:00)
[2017-03-10] MEDS: Z GUARD REMEDY 4 OZ OINT TP SCH (09:00)
[2017-03-10] MEDS: hydrALAZINE HCL 25 MG TABLET GT SCH ×2 (09:00→18:00)
[2017-03-10] MEDS: PROSOURCE / PROSTAT (PYXIS) 30 ML UDC GT SCH ×3 (09:00→17:59)
--- NOTE | 2017-03-10 10:05 | NUR ---
PAYMENT SPECIALIST NOTE: DIALYSIS NURSE AT BEDSIDE.
[2017-03-10 12:00] VITALS: BP 95/47
[2017-03-10] MEDS: FERROUS SULFATE UDC 300 MG/5 ML UDC GT SCH (13:13)
[2017-03-10] MEDS: FAMOTIDINE (20 MG) 20 MG TABLET GT SCH (13:13)
[2017-03-10] MEDS: CEFEPIME 1 GM in IV D5W 50 ML IV SCH (13:13)
[2017-03-10] MEDS: ZINC SULFATE 220 MG CAPSULE PO SCH (13:13)
[2017-03-10] MEDS: METOCLOPRAMIDE HCL 10 MG/10 ML UDC GT SCH ×2 (13:13→18:00)
[2017-03-10] MEDS: LORATADINE 10 MG TABLET GT SCH (13:13)
[2017-03-10] MEDS: VIT B CMPLX 3/FA/VIT C/BIOTIN 1 TAB TABLET GT SCH (13:13)
[2017-03-10] MEDS: ASPIRIN 81 MG TAB.CHEW GT SCH (13:14)
[2017-03-10] MEDS: HYDROGEL DRESSING 90 GM TUBE TP SCH (13:18)
[2017-03-10] MEDS: LORAZEPAM 0.5 MG TABLET GT PRN (15:41)
[2017-03-10 16:00] VITALS: BP 117/58
[2017-03-10] MEDS: RENAL NOVASOURCE 1,000 ML BOTTLE GT PRN (16:28)
[2017-03-10] MEDS: ACETAMINOPHEN 650 MG/20.3 ML UDC GT PRN (18:03)
--- NOTE | 2017-03-10 19:00 | NUR ---
FIRE WATCHER NOTE: NO ACUTE CHANGES DURING SHIFT. TOLERATING MECHANICAL VENT SETTINGS. ON TELE MONITOR. GT FEEDINGS TOLERATED. ORDERS CARRIED OUT. HOB ELEVATED, BED LOW, LOCKED WITH CALL LIGHT WITHIN REACH. WILL ENDORSE TO PROPERTY ECONOMIST NURSE FOR RICA.
[2017-03-10 20:00] VITALS: BP 93/49
[2017-03-10] MEDS: HYDROCODONE/APAP 5/325MG 1 EACH TABLET PO PRN (20:17)
[2017-03-10] MEDS: INSULIN DETEMIR 100 UNIT/ML CARTRIDGE SQ SCH (23:13)
[2017-03-11] VITALS: BP 108/57
[2017-03-11] MEDS: IPRATROPIUM NEB FS 0.5 MG/2.5 ML AMPUL.NEB NEB SCH ×4 (01:25→19:26)
[2017-03-11] MEDS: ALBUTEROL FS 2.5 MG/0.5 ML VIAL.NEB NEB SCH ×4 (01:25→19:26)
[2017-03-11] MEDS: HYDROCODONE/APAP 5/325MG 1 EACH TABLET PO PRN ×3 (03:30→18:08)
[2017-03-11 04:00] VITALS: BP 110/63
[2017-03-11] MEDS: BLOOD SUGAR DIAGNOSTIC 1 EACH STRIP IN SCH ×4 (05:22→23:03)
[2017-03-11] MEDS: INSULIN REGULAR, HUMAN 100 UNIT/ML 3 ML VIAL SQ PRN ×3 (05:24→23:06)
--- NOTE | 2017-03-11 07:00 | NUR ---
GEAR HOBBER SET UP OPERATOR NOTE: RECEIVED PATIENT RESTING IN BED. ON MECHANICAL VENT, TOLERATING SETTINGS. RESPIRATIONS EVEN AND UNLABORED WITH NO SOB NOTED. ON TELE MONITOR WITH HR 87. LADAN MIDLINE IS PATENT AND INTACT. HD CATH IS INTACT. GT FEED NOVASOURCE @ 40CC/HR. HOB ELEVATED, BED LOW, LOCKED, CALL LIGHT WITHIN REACH. WILL CONT TO MONITOR.
[2017-03-11 08:00] VITALS: BP 102/52
[2017-03-11] MEDS: ASPIRIN 81 MG TAB.CHEW GT SCH (08:23)
[2017-03-11] MEDS: FERROUS SULFATE UDC 300 MG/5 ML UDC GT SCH (08:23)
[2017-03-11] MEDS: VIT B CMPLX 3/FA/VIT C/BIOTIN 1 TAB TABLET GT SCH (08:23)
[2017-03-11] MEDS: METOCLOPRAMIDE HCL 10 MG/10 ML UDC GT SCH ×2 (08:23→18:08)
[2017-03-11] MEDS: hydrALAZINE HCL 25 MG TABLET GT SCH ×2 (08:23→18:08)
[2017-03-11] MEDS: LORATADINE 10 MG TABLET GT SCH (08:23)
[2017-03-11] MEDS: ZINC SULFATE 220 MG CAPSULE PO SCH (08:24)
[2017-03-11] MEDS: LOSARTAN POTASSIUM 25 MG TABLET GT SCH ×2 (08:24→18:09)
[2017-03-11] MEDS: FAMOTIDINE (20 MG) 20 MG TABLET GT SCH (08:24)
[2017-03-11] MEDS: PROSOURCE / PROSTAT (PYXIS) 30 ML UDC GT SCH ×3 (08:27→18:09)
[2017-03-11] MEDS: Z GUARD REMEDY 4 OZ OINT TP SCH (08:34)
[2017-03-11] MEDS: MUPIROCIN OINT 2% 22 GM TUBE SCH ×2 (08:34→21:11)
[2017-03-11] MEDS: HYDROGEL DRESSING 90 GM TUBE TP SCH ×2 (08:34→10:15)
--- NOTE | 2017-03-11 08:45 | NUR ---
DYNAMICS AX DEVELOPER NOTE: CALLED PHARMACY FOR MORE HYDROGEL.
[2017-03-11] MEDS: LORAZEPAM 0.5 MG TABLET GT PRN (10:15)
[2017-03-11] MEDS: CEFEPIME 1 GM in IV D5W 50 ML IV SCH (10:20)
[2017-03-11] MEDS ORDERED: IV NS 0.9% 250 ML BAG IV ONE (10:30)
[2017-03-11 12:00] VITALS: BP 106/45
[2017-03-11 16:00] VITALS: BP 116/54
--- NOTE | 2017-03-11 19:00 | NUR ---
PST SPECIALIST NOTE: NO ACUTE CHANGES DURING SHIFT. PATIENT ON MECHANICAL VENT AND TOLERATING SETTINGS. GT PATENT AND INTACT. ON TELE MONITOR. LADAN MIDLINE PATENT AND INTACT. HD CATH INTACT. ORDERS CARRIED OUT. HOB ELEVATED, BED LOW, LOCKED, CALL LIGHT WITHIN REACH. WILL ENDORSE TO DIGITAL COMMUNICATIONS MANAGER NURSE FOR RICA.
[2017-03-11 20:00] VITALS: BP 104/45
[2017-03-11] MEDS: RENAL NOVASOURCE 1,000 ML BOTTLE GT PRN (21:10)
[2017-03-11] MEDS: INSULIN DETEMIR 100 UNIT/ML CARTRIDGE SQ SCH (22:00)
[2017-03-12] VITALS (7 sets, daily range): BP systolic 91–111; BP diastolic 36–55
[2017-03-12] MEDS: ACETAMINOPHEN 650 MG/20.3 ML UDC GT PRN (00:15)
[2017-03-12] MEDS: ALBUTEROL FS 2.5 MG/0.5 ML VIAL.NEB NEB SCH ×4 (01:19→19:53)
[2017-03-12] MEDS: IPRATROPIUM NEB FS 0.5 MG/2.5 ML AMPUL.NEB NEB SCH ×4 (01:19→19:53)
[2017-03-12] MEDS: HYDROCODONE/APAP 5/325MG 1 EACH TABLET PO PRN ×3 (03:08→15:37)
[2017-03-12] MEDS: BLOOD SUGAR DIAGNOSTIC 1 EACH STRIP IN SCH ×3 (05:06→18:58)
[2017-03-12] MEDS: INSULIN REGULAR, HUMAN 100 UNIT/ML 3 ML VIAL SQ PRN (05:08)
--- NOTE | 2017-03-12 07:44 | NUR ---
PLANER OFFBEARER NOTE: RECEIVED PATIENT RESTING IN BED. ON MECHANICAL VENT, TOLERATING SETTINGS. RESPIRATIONS EVEN AND UNLABORED WITH NO SOB NOTED. ON TELE MONITOR WITH HR 87. LADAN MIDLINE IS PATENT AND INTACT. HD CATH IS INTACT. GT FEED NOVASOURCE @ 40CC/HR. HOB ELEVATED, BED LOW, LOCKED, CALL LIGHT WITHIN REACH. WILL CONT TO MONITOR.
[2017-03-12] MEDS: ZINC SULFATE 220 MG CAPSULE PO SCH (08:13)
[2017-03-12] MEDS: METOCLOPRAMIDE HCL 10 MG/10 ML UDC GT SCH ×2 (08:13→17:35)
[2017-03-12] MEDS: hydrALAZINE HCL 25 MG TABLET GT SCH ×2 (08:13→17:35)
[2017-03-12] MEDS: VIT B CMPLX 3/FA/VIT C/BIOTIN 1 TAB TABLET GT SCH (08:14)
[2017-03-12] MEDS: LORAZEPAM 0.5 MG TABLET GT PRN ×2 (08:14→15:37)
[2017-03-12] MEDS: LOSARTAN POTASSIUM 25 MG TABLET GT SCH ×2 (08:14→17:35)
[2017-03-12] MEDS: FAMOTIDINE (20 MG) 20 MG TABLET GT SCH (08:14)
[2017-03-12] MEDS: PROSOURCE / PROSTAT (PYXIS) 30 ML UDC GT SCH ×3 (08:15→17:35)
[2017-03-12] MEDS: ASPIRIN 81 MG TAB.CHEW GT SCH (08:15)
[2017-03-12] MEDS: LORATADINE 10 MG TABLET GT SCH (08:15)
[2017-03-12] MEDS: FERROUS SULFATE UDC 300 MG/5 ML UDC GT SCH (08:15)
[2017-03-12] MEDS: Z GUARD REMEDY 4 OZ OINT TP SCH (09:00)
[2017-03-12] MEDS: MUPIROCIN OINT 2% 22 GM TUBE SCH ×2 (09:00→21:37)
[2017-03-12] MEDS: CEFEPIME 1 GM in IV D5W 50 ML IV SCH (10:51)
--- NOTE | 2017-03-12 19:46 | NUR ---
RN INITIAL NOTE RECEIVED PT IN NO ACUTE DISTRESS IN BED. PT IS A/O X 1. PT IS ON MECHANICAL VENT VIA TRACH, TRACH SITE IS CLEAN DRY AND INTACT. PT TOLERATING VENT SETTING WELL. PT HAS GTUBE THAT IS CLEAN DRY INTACT AND PATENT WITH NOVASOURCE @ 40ML/HR AND TOLERATING WELL WITH 0 RESIDUAL. PT HAS R SUBCLAVIAN PERMA CATH THAT IS CLEAN, DRY AND INTACT. PT HAS LADAN MIDLINE THAT IS CLEAN DRY INTACT WITH SALINE FLUSH. PT HAS L SUBCLAVIAN HD CATH THAT IS CURRENTLY NOT WORKING, BUT IS CLEAN DRY AND INTACT. BED IN LOW LOCK POSITION WITH RIALS UP X 2. CALL LIGHT WITHIN REACH AND ALL SAFETY MEASURES ENSURED AND CARRIED OUT. WILL CONTINUE TO MONITOR PT.
[2017-03-12] MEDS: INSULIN DETEMIR 100 UNIT/ML CARTRIDGE SQ SCH (21:40)
[2017-03-13] VITALS: BP 87/46
[2017-03-13] MEDS: INSULIN REGULAR, HUMAN 100 UNIT/ML 3 ML VIAL SQ PRN ×2 (00:29→17:36)
[2017-03-13] MEDS: BLOOD SUGAR DIAGNOSTIC 1 EACH STRIP IN SCH ×4 (00:30→17:31)
[2017-03-13] MEDS: HYDROCODONE/APAP 5/325MG 1 EACH TABLET PO PRN (01:29)
[2017-03-13] MEDS: LORAZEPAM 0.5 MG TABLET GT PRN ×2 (01:29→09:23)
[2017-03-13] MEDS: IPRATROPIUM NEB FS 0.5 MG/2.5 ML AMPUL.NEB NEB SCH ×4 (01:34→19:33)
[2017-03-13] MEDS: ALBUTEROL FS 2.5 MG/0.5 ML VIAL.NEB NEB SCH ×4 (01:35→19:33)
[2017-03-13 04:00] VITALS: BP 105/55
--- NOTE | 2017-03-13 06:38 | NUR ---
RN CLOSING NOTE PT REMAINS IN NO ACUTE DISTRESS IN BED. PT DID NOT HAVE ANY SIGNIFICANT CHANGE IN CONDITION DURING SHIFT. PT TOLERATED VENT SETTING WELL. ALL NEEDS MET, ALL ORDERS CARRIED OUT. WILL ENDORSE CARE TO AM RN FOR CONTINUITY OF CARE.
[2017-03-13 08:00] VITALS: BP 91/40
--- NOTE | 2017-03-13 08:00 | NUR ---
HECTOR/RN INITIAL NOTES,AM RECEIVED REPORT, PT IN BED IN NO ACUTE DISTRESS. PT IS A/O X 1. PT IS ON MECHANICAL VENT, SETTINGS ORDERED BY MD. PT TOLERATING VENT WELL, NO ACUTE DISTRESS NOTED. GTUBE CLEAN DRY INTACT AND PATENT WITH NOVASOURCE @ 40ML/HR AND TOLERATING WELL WITH 0 RESIDUAL. PT HAS R SUBCLAVIAN PERMA CATH AND LADAN MIDLINE, CLEAN DRY INTACT. PT HAS L SUBCLAVIAN HD CATH THAT IS CURRENTLY NOT WORKING, BUT IS CLEAN DRY AND INTACT. ALL NEEDS WILL BE ATTENDED TO, SAFETY MEASURES TAKEN, BED IN LOW POSITION, SIDE RAILS UP, CALL LIGHT WITHIN REACH. WILL CONTINUE CARE
[2017-03-13] MEDS: hydrALAZINE HCL 25 MG TABLET GT SCH ×2 (09:00→17:00)
[2017-03-13] MEDS: LOSARTAN POTASSIUM 25 MG TABLET GT SCH ×2 (09:00→17:00)
[2017-03-13] MEDS: METOCLOPRAMIDE HCL 10 MG/10 ML UDC GT SCH ×2 (09:22→17:30)
[2017-03-13] MEDS: ZINC SULFATE 220 MG CAPSULE PO SCH (09:22)
[2017-03-13] MEDS: FERROUS SULFATE UDC 300 MG/5 ML UDC GT SCH (09:22)
[2017-03-13] MEDS: VIT B CMPLX 3/FA/VIT C/BIOTIN 1 TAB TABLET GT SCH (09:22)
[2017-03-13] MEDS: ASPIRIN 81 MG TAB.CHEW GT SCH (09:23)
[2017-03-13] MEDS: LORATADINE 10 MG TABLET GT SCH (09:23)
[2017-03-13] MEDS: FAMOTIDINE (20 MG) 20 MG TABLET GT SCH (09:23)
[2017-03-13] MEDS: PROSOURCE / PROSTAT (PYXIS) 30 ML UDC GT SCH ×3 (09:24→17:30)
[2017-03-13] MEDS: HYDROGEL DRESSING 90 GM TUBE TP SCH (09:25)
[2017-03-13] MEDS: MUPIROCIN OINT 2% 22 GM TUBE SCH (09:26)
[2017-03-13] MEDS: Z GUARD REMEDY 4 OZ OINT TP SCH (09:26)
[2017-03-13] MEDS: CEFEPIME 1 GM in IV D5W 50 ML IV SCH (10:16)
[2017-03-13 12:00] VITALS: BP 103/54
[2017-03-13 16:00] VITALS: BP 92/50
--- NOTE | 2017-03-13 19:19 | NUR ---
ICU/RN ENDING NOTES,AM REPORT ENDORSED TO NIGHT NURSE FOR CONTINUATION OF CARE. PT ON VENT SETTINGS ORDERED BY MD, NO ACUTE DISTRESS NOTED. POSSIBLE D/C TODAY, HOWEVER NO TIME OR ROOM GIVEN. ALL NEEDS MET, PT BATHE, SKIN CARE/WOUND CARE DONE, LINENS CHANGED. PHOTOS IN CHART. TUBE FEED INFUSING ORDERED, NO RESIDUAL, TOLERATING WELL.BED IN LOW POSITION, SIDE RAILS UP, CALL LIGHT WITHIN REACH, ALL NEEDS MET. WILL CONTINUE CARE.
--- NOTE | 2017-03-13 19:30 | NUR ---
MARINE CARGO INSPECTOR INITIAL NOTES RECEIVE PATIENT AWAKE A/OX1, VENT DEPENDENT. DENIES PAIN OR DISCOMFORT. NO RESPIRATORY DISTRESS. WITH VENT SETTING AC 12, VT 500, FIO2 30%, PEEP 5. TRACH C/D/I. ON TELE MONITOR ST 100. WITH RIGHT AND LEFT CHEST WALL PERMA CATH INTACT. LADAN MIDLINE PATENT AND INTACT. TOLERATING GTF, NO RESIDUAL NOTED. HOB ELEVATED. SIDE RAILS UP AND LOCKED. BED KEPT AT LOWEST POSITION. PER REPORT PATIENT TO BE DISCHARGED TO [facility], PER CHARGE SOON, TRANSPORT WILL ARRIVE AT 2029. WILL CONTINUE TO MONITOR.
--- NOTE | 2017-03-13 20:23 | NUR ---
REPORT GIVEN TO [facility] NURSE EMILIE. PER EMILIE, KEEP MIDLINE IN PLACE. WAITING FOR TRANSPORT.
[2017-03-13 20:36] VITALS: BP 114/65
--- NOTE | 2017-03-13 20:55 | NUR ---
SALES AND EVENTS COORDINATOR CLOSING NOTES PATIENT TRANSFERRED VIA GURNEY WITH [facility], PATIENT IN STABLE CONDITION. NO RESPIRATORY DISTRESS NOTED. MIDLINE LEFT IN PLACE PER REQUEST OF THE FACILITY. NAME BAND REMOVED. TELE BOX REMOVED. ALL DISCHARGE FORMS GIVEN TO DIRECTOR OF CAREER SERVICES.
[2017-04-08] MEDS ORDERED: ALBUT2 NEB (09:01)
[2017-04-08] MEDS ORDERED: ALLA266C2 TP (09:01)
[2017-04-08] MEDS ORDERED: Renal Novasource GT (09:01)
[2017-04-08] MEDS ORDERED: RXVAN XX (09:01)
== END 2017-03-13 22:00 | DRG 951 ==
LOC: ER 16:12 → TELE1 18:55 → TELE-TD 03-03 10:16 → TELE1 03-04 09:54
PROVIDERS: ADMIT Internal Medicine; ATTEND Internal Medicine
PROC: 5A1955Z Respiratory Ventilation, Greater than 96 Consecutive Hours (ICD-10-PCS; principal; 2017-02-18)
PROC: 0KBP0ZZ Excision of Left Hip Muscle, Open Approach (ICD-10-PCS; principal; 2017-02-18)
PROC: 5A1D70Z Performance of Urinary Filtration, Intermittent, Less than 6 Hours Per Day (ICD-10-PCS; 2017-02-19)
PROC: 30233N1 Transfusion of Nonautologous Red Blood Cells into Peripheral Vein, Percutaneous Approach (ICD-10-PCS; 2017-02-20)
PROC: 05H533Z Insertion of Infusion Device into Right Subclavian Vein, Percutaneous Approach (ICD-10-PCS; 2017-02-26)
PROC: B546ZZA Ultrasonography of Right Subclavian Vein, Guidance (ICD-10-PCS; 2017-02-26)
PROC: 0JHD3XZ Insertion of Tunneled Vascular Access Device into Right Upper Arm Subcutaneous Tissue and Fascia, Percutaneous Approach (ICD-10-PCS; 2017-03-03)
PROC: 05HS33Z Insertion of Infusion Device into Left Vertebral Vein, Percutaneous Approach (ICD-10-PCS; 2017-03-03)
PROC: 05H533Z Insertion of Infusion Device into Right Subclavian Vein, Percutaneous Approach (ICD-10-PCS; 2017-03-04)
PROC: B546ZZA Ultrasonography of Right Subclavian Vein, Guidance (ICD-10-PCS; 2017-03-04)
DX: T82.7XXA Infection and inflammatory reaction due to other cardiac and vascular devices, implants and grafts, initial encounter (principal); R65.20 Severe sepsis without septic shock; G93.40 Encephalopathy, unspecified; A41.9 Sepsis, unspecified organism; L89.324 Pressure ulcer of left buttock, stage 4; L89.894 Pressure ulcer of other site, stage 4; Z99.11 Dependence on respirator [ventilator] status; J96.10 Chronic respiratory failure, unspecified whether with hypoxia or hypercapnia; E11.22 Type 2 diabetes mellitus with diabetic chronic kidney disease; Z93.0 Tracheostomy status; N18.6 End stage renal disease; I12.0 Hypertensive chronic kidney disease with stage 5 chronic kidney disease or end stage renal disease; T82.41XA Breakdown (mechanical) of vascular dialysis catheter, initial encounter; Z99.2 Dependence on renal dialysis; Y84.9 Medical procedure, unspecified as the cause of abnormal reaction of the patient, or of later complication, without mention of misadventure at the time of the procedure; Y92.129 Unspecified place in nursing home as the place of occurrence of the external cause; Y71.2 Prosthetic and other implants, materials and accessory cardiovascular devices associated with adverse incidents; R13.10 Dysphagia, unspecified; E83.52 Hypercalcemia; D64.9 Anemia, unspecified; Z79.82 Long term (current) use of aspirin; Z79.899 Other long term (current) drug therapy; E66.01 Morbid (severe) obesity due to excess calories; Z68.36 Body mass index [BMI] 36.0-36.9, adult
CPT/HCPCS: 31720; 36415; 36569; 71010-TC; 80048-TC; 80053-TC; 80076-TC; 80170-TC; 80202-TC; 82962-TC; 83735-TC; 84100-TC; 84484-TC; 85025-TC; 85027-TC; 85610-TC; 85730-TC; 86850-TC; 86921-TC; 87040-TC; 87070-TC; 87081-TC; 87186-TC; 90935-TC; 94002-TC; 94003-TC; 94760-TC; 94762-TC; 99082-TC; A4216; A4606; A6248; A6253; A6402; A6403; A7526; C1750; J0692; J0885; J1580; J1644; J1815; J2405; J2704; J2997; J3010; J3370; J3480; J3490; J7030; J7040; J7050; J7060; J8597; P9016-BL; P9047; Z7610

== ENCOUNTER 2017-03-22 13:47 | Emergency (ER) | payer OTHER ==
[~2017-03-22] VITALS: Ht 180.3 cm; Wt 113.4 kg
--- NOTE | 2017-03-22 13:45 | NUR ---
PT REC'D TRACHED ON PORTEX SZ 8 [facility]. NOTED VENT SETTING GIVEN FROM TRANSPORT RT. CRM MARKETING ANALYST CUFF PRESSURE NOTED. NO RESP DISTRESS NOTED. SX'D MOD AMT OF WHITE SECRETIONS. VENT PLUGGED INTO RED OUTLET. ALARMS ARE SET AND AUDIBLE PER POLICY. AMBU BEDSIDE, WILL CONTINUE TO MONITOR Addendum: 03/22/17 at 1443 by HOLLY DUARTE RT Amended: Links added.
[~2017-03-22 13:47] MED LIST: ACET650S26 GT; AMIN30LI4 GT; ASPI81TA2 GT; BLOO-668 IN; CALC667T2 GT; EPOE1VIA7 SQ; ERGO50003 GT; FAMO-131 GT; FERR300L GT; FOLI0.8T23 GT; HEPA10009 SQ; HYDR-4076 GT; INSU100V3 SQ; INSU3INS6 SQ; IPRA3AMP IH; LORA0.5T GT; LORA10TA68 GT; LOSA25TA3 GT; METO5SOL2 GT; NUT.237L67 GT
--- NOTE | 2017-03-22 13:47 | NUR ---
BIB EMS FROM [facility] FOR LOW HEMOGLOBIN OF 6.6. NAD NOTED. PT AAOX3, ON VENTILATOR. RT AT BEDSIDE. VSS. PENDING EVAL.
[2017-03-22 14:26] LABS: CALCIUM, SERUM 12.2 mg/dL (8.5-10.1); POTASSIUM 3.3 mmol/L (3.5-5.1)
[2017-03-22 14:30] LABS: INR 0.94 (0.87-1.13); PROTHROMBIN TIME 9.8 SECS (9.5-12.7)
[2017-03-22 14:31] LABS: ALBUMIN 3.3 g/dL (3.4-5.0); BILIRUBIN,DIRECT 0.1 mg/dL (0.0-0.2); BILIRUBIN,TOTAL 0.3 mg/dL (0.2-1.0)
[2017-03-22 14:32] LABS: BASOPHILS # (AUTO) 0.1 /CMM (0.0-0.2); BASOPHILS % (AUTO) 0.4 % (0.0-2.0); EOSINOPHILS # (AUTO) 0.2 /CMM (0.0-0.7); EOSINOPHILS % (AUTO) 1.7 % (0.0-6.0); HEMATOCRIT 23 % (33-45); HEMOGLOBIN 7.5 g/dL (11.5-14.8); LYMPHOCYTES # (AUTO) 3.3 /CMM (0.8-4.8); LYMPHOCYTES % (AUTO) 22.5 % (20.0-44.0); MEAN CORPUSCULAR HEMOGLOBIN 28 PG (26.0-33.0); MEAN CORPUSCULAR HGB CONC 33 g/dl (31.0-36.0); MEAN CORPUSCULAR VOLUME 86 fL (82-100); MONOCYTES # (AUTO) 1.1 /CMM (0.1-1.30); MONOCYTES % (AUTO) 7.3 % (2.0-12.0); NEUTROPHILS % (AUTO) 68.1 % (43.0-81.0); PLATELET COUNT (AUTO) 353 /CMM (150-450); RDW COEFFICIENT OF VARIATION 15.7 (11.5-15.0); RED BLOOD CELL COUNT(AUTO) 2.66 MIL/uL (4.0-5.2); WHITE BLOOD COUNT (AUTO) 14.7 K/uL (4.3-11.0)
[2017-03-22 15:09] VITALS: BP 107/61
--- NOTE | 2017-03-22 15:13 | NUR ---
CALLED [facility] FOR TRANSPORT BACK TO [facility] - ETA 45 MIN (1600) - TRIP #[id number]
== END 2017-03-22 16:44 | disposition home or self-care (01) ==
LOC: ER 13:49
DX: D64.9 Anemia, unspecified (principal); I12.0 Hypertensive chronic kidney disease with stage 5 chronic kidney disease or end stage renal disease; N18.6 End stage renal disease; E11.22 Type 2 diabetes mellitus with diabetic chronic kidney disease; J96.10 Chronic respiratory failure, unspecified whether with hypoxia or hypercapnia; Z99.2 Dependence on renal dialysis; Z79.4 Long term (current) use of insulin; Z79.82 Long term (current) use of aspirin
CPT/HCPCS: 36415; 71010; 80048; 80076; 85025; 85730; 86850; 93005; 99285; A4606; Z7610

== ENCOUNTER 2017-03-24 16:44 | Inpatient (IN) | payer OTHER ==
[~2017-03-24] VITALS: Ht 172.7 cm; Wt 121.6 kg
[2017-03-24 16:50] VITALS: BP 89/51
--- NOTE | 2017-03-24 16:55 | NUR ---
AAOX3, [facility] FROM [facility]: ABNORMAL LABS. Hgb=6.8; Hct=22.1. SKIN IS WARM AND DRY. RESP IS EVEN AND UNLABORED WITH NAD NOTED. PLACED ON MONITOR. WILL CONTINUOUSLY MONITOR THE PATIENT. AWAITING MD FOR EVAL.
--- NOTE | 2017-03-24 17:01 | NUR ---
RT PT BROUGHT INTO ER VIA AMBULANCE. PT RECEIVED TRACHED WITH A PORTEX 8 ON THE VENT WITH NOTED SETTINGS. PT IS AWAKE AND ALERT. PT PLACED ON HOSPITAL VENT WITH NOTED SETTINGS BY TRANSPORT RT. VENT ALARMS ARE SET AND AUDIBLE WITH BVM BY BEDSIDE. INTERNAL CORROSION SPECIALIST CUFF PRESSURE NOTED. VENT IS PLUGGED INTO RED OUTLET. NO RESPIRATORY DISTRESS NOTED AT THIS TIME, WILL CONTINUE TO MONITOR. Addendum: 03/24/17 at 1702 by LISA CHAUHAN RT Amended: Links added.
[2017-03-24 17:23] LABS: CALCIUM, SERUM 11.7 mg/dL (8.5-10.1); CREATININE 4.8 mg/dL (0.6-1.3); POTASSIUM 3.5 mmol/L (3.5-5.1)
[2017-03-24 17:27] LABS: PROTHROMBIN TIME 10.4 SECS (9.5-12.7)
[2017-03-24] MEDS ORDERED: IV NS 0.9% 1,000 ML BAG IV ONE (17:30)
[2017-03-24 17:33] LABS: ALBUMIN 3.2 g/dL (3.4-5.0); BILIRUBIN,DIRECT 0.1 mg/dL (0.0-0.2); BILIRUBIN,TOTAL 0.2 mg/dL (0.2-1.0); TOTAL PROTEIN, SERUM 8.1 g/dL (6.4-8.2)
[2017-03-24 17:37] LABS: IRON, SERUM 42 ug/dl (50-175); TOTAL IRON BINDING CAPACITY 155 ug/dl (250-450)
[2017-03-24] MEDS ORDERED: INSU100I26 SQ (17:59)
[2017-03-24] MEDS ORDERED: INSU100I19 SQ (17:59)
[2017-03-24] MEDS ORDERED: HYDR-3326 GT ×2 (17:59)
[2017-03-24] MEDS ORDERED: ZINC220C8 GT (17:59)
[2017-03-24 18:21] LABS: BASOPHILS % (AUTO) 0.1 % (0.0-2.0); EOSINOPHILS # (AUTO) 0.3 /CMM (0.0-0.7); EOSINOPHILS % (AUTO) 2.3 % (0.0-6.0); HEMATOCRIT 21 % (33-45); LYMPHOCYTES % (AUTO) 14.1 % (20.0-44.0); MEAN CORPUSCULAR HEMOGLOBIN 28 PG (26.0-33.0); MEAN CORPUSCULAR HGB CONC 33 g/dl (31.0-36.0); MEAN CORPUSCULAR VOLUME 86 fL (82-100); MONOCYTES # (AUTO) 1.1 /CMM (0.1-1.30); MONOCYTES % (AUTO) 7.7 % (2.0-12.0); NEUTROPHILS # (AUTO) 10.5 /CMM (1.8-8.9); NEUTROPHILS % (AUTO) 75.8 % (43.0-81.0); PLATELET COUNT (AUTO) 326 /CMM (150-450); RDW COEFFICIENT OF VARIATION 16.3 (11.5-15.0); RED BLOOD CELL COUNT(AUTO) 2.46 MIL/uL (4.0-5.2); WHITE BLOOD COUNT (AUTO) 13.9 K/uL (4.3-11.0)
[2017-03-24 18:22] LABS: FERRITIN 505 ng/mL (8-388)
[2017-03-24] MEDS ORDERED: diphenhydrAMINE HCL 50 MG/ML VIAL IV ONE (18:30)
[2017-03-24 18:44] LABS: HEMOGLOBIN 6.9 g/dL (11.5-14.8)
[2017-03-24] MEDS ORDERED: diphenhydrAMINE HCL 50 MG/ML VIAL ONE (18:55)
--- NOTE | 2017-03-24 19:17 | NUR ---
CALLED [facility], DR MAJOR WAS PAGED.
--- NOTE | 2017-03-24 19:18 | NUR ---
ASSUMED CARE, REPORT RECIEVED FROM AM JOHN SZYMANSKI. PT SCREAMING C/O ITCING IN THE BUTT. ER AWARE. PT ON VENT, VET SETTINGS: AC-12, TV-500, FIO2-40%, PEEP-5. PT ON CARDIAC MONITORING, CONTINUOUS POX. WILL CONTINUE TO MONITOR PT CLOSELY.
--- NOTE | 2017-03-24 19:25 | NUR ---
REPORT GIVEN TO ED, OPERATIONS CONTROLLER NURSE FOR RICA.
[2017-03-24 20:00] VITALS: BP 115/65
--- NOTE | 2017-03-24 20:10 | NUR ---
CALLED [facility] RE-PAGED DR MAJOR.
--- NOTE | 2017-03-24 20:18 | NUR ---
ER MD SPOKE TO DR. MAJOR REGARDING PT ADMISSION. WILL CALL FOR REPORT.
--- NOTE | 2017-03-24 20:25 | NUR ---
REPORT CALLED TELE 1 BALJIT MARKS. WILL TRANSPORT PT VIA ACLS PROTOCOL.
--- NOTE | 2017-03-24 20:25 | NUR ---
RECEIVED REPORT FROM ER NURSE ED.
[2017-03-24 20:45] VITALS: BP 92/43
[2017-03-24 20:45] LABS: LYMPHOCYTES % (MANUAL) 20 % (16-48); MONOCYTES % (MANUAL) 6 % (0-11.0); NEUTROPHILS % (MANUAL) 74 (42-76)
--- NOTE | 2017-03-24 20:45 | NUR ---
PUBLIC HEALTH DIETITIAN INITIAL NOTES RECEIVED PATIENT VIA GURNEY FROM ER. PATIENT A/OX1. PATIENT VENT DEPENDENT, ABLE TO MAKE NEEDS KNOWN. DENIES PAIN OR DISCOMFORT. NO RESPIRATORY DISTRESS NOTED. WITH VENT SETTINGS AC 12, TV 500, FIO2 40%, PEEP 5, SPO2 100%. TRACH C/D/I. ON TELE MONITOR 76. PATIENT PLACED IN BED COMFORTABLY. BODY ASSESSMENT DONE. WITH GT PATENT AND INTACT. NOTED WITH LCW HD CATH INTACT. NOTED WITH ORDERS FOR 1UNIT PRBC, WILL CALL FOR CONSENT. HOB ELEVATED. SIDE RAILS UP AND LOCKED. BED KEPT AT LOWEST POSITION. CALL LIGHT KEPT WITHIN EASY REACH. WILL CONTINUE TO MONITOR.
--- NOTE | 2017-03-24 21:15 | NUR ---
CALLED BROTHER ARNIE FOR BLOOD CONSENT. WAITING FOR CALL BACK
--- NOTE | 2017-03-24 21:35 | NUR ---
BROTHER BOSTON CALLED FOR BLOOD CONSENT. WAITING FOR CALL BACK.
--- NOTE | 2017-03-24 21:42 | NUR ---
RECEIVED TELEPHONE CONSENT FROM BROTHER BOSTON JACOBS FOR BLOOD TRANSFUSION, VERIFIED BY
[2017-03-24] MEDS ORDERED: DEXTROSE 50%-WATER 50 ML DISP.SYRIN IV PRN (22:00)
[2017-03-25] VITALS (11 sets, daily range): BP systolic 81–111; BP diastolic 38–51
[2017-03-25] MEDS: BLOOD SUGAR DIAGNOSTIC 1 EACH STRIP IN SCH ×4 (00:01→18:17)
[2017-03-25] MEDS: RENAL NOVASOURCE 1,000 ML BOTTLE GT PRN (00:13)
--- NOTE | 2017-03-25 01:45 | NUR ---
NO BLOOD TRANSFUSION REACTION AFTER FIRST 15 MINS OF TRANSFUSION. WILL CONTINUE TO MONITOR.
[2017-03-25 06:37] LABS: BASOPHILS % (AUTO) 0.3 % (0.0-2.0); EOSINOPHILS # (AUTO) 0.3 /CMM (0.0-0.7); EOSINOPHILS % (AUTO) 2.3 % (0.0-6.0); HEMATOCRIT 23 % (33-45); HEMOGLOBIN 7.3 g/dL (11.5-14.8); LYMPHOCYTES # (AUTO) 2.5 /CMM (0.8-4.8); LYMPHOCYTES % (AUTO) 19.2 % (20.0-44.0); MEAN CORPUSCULAR HEMOGLOBIN 28 PG (26.0-33.0); MEAN CORPUSCULAR HGB CONC 32 g/dl (31.0-36.0); MEAN CORPUSCULAR VOLUME 87 fL (82-100); MONOCYTES # (AUTO) 1.1 /CMM (0.1-1.30); MONOCYTES % (AUTO) 8.7 % (2.0-12.0); NEUTROPHILS # (AUTO) 9.1 /CMM (1.8-8.9); NEUTROPHILS % (AUTO) 69.5 % (43.0-81.0); PLATELET COUNT (AUTO) 328 /CMM (150-450); RDW COEFFICIENT OF VARIATION 15.8 (11.5-15.0); WHITE BLOOD COUNT (AUTO) 13.1 K/uL (4.3-11.0)
[2017-03-25 06:44] LABS: CALCIUM, SERUM 11.1 mg/dL (8.5-10.1); CREATININE 5.5 mg/dL (0.6-1.3); POTASSIUM 3.3 mmol/L (3.5-5.1)
--- NOTE | 2017-03-25 07:00 | NUR ---
PROFESSIONAL ATHLETE NOTE: RECEIVED PATIENT AWAKE IN BED, A&OX1, DENIES PAIN. TRACH VENT DEPENDENT AND TOLERATING VENT SETTINGS. ON TELE MONITOR WITH SR 71. LEFT THUMB IV 22G PATENT AND INTACT. GT PATENT AND INTACT. LCW HD CATH INTACT. HOB ELEVATED, BED LOW, LOCKED, X2 SIDE RAILS UP AND CALL LIGHT WITHIN REACH. WILL CONT TO MONITOR.
--- NOTE | 2017-03-25 07:47 | NUR ---
CHINESE HERBALIST CLOSING NOTES PATIENT SLEPT THROUGH THE NIGHT. NO SIGNIFICANT CHANGES OVERNIGHT. ONE UNIT PRBC WAS GIVEN, WITH NO ADVERSE EFFECTS. NO RESPIRATORY DISTRESS NOTED. TOLERATED VENT SETTINGS, SPO2 100%. SR ON TELE MONITOR. TOLERATED GTF. KEPT CLEAN AND DRY. TURNED AND REPOSITIONED Q2 AND PRN. BED KEPT AT LOWEST POSITION. CALL LIGHT KEPT WITHIN EASY REACH. CONTINUITY OF CARE ENDORSED TO AM NURSE.
[2017-03-25] MEDS: hydrALAZINE HCL 25 MG TABLET GT SCH ×2 (10:00→16:46)
[2017-03-25] MEDS: LOSARTAN POTASSIUM 25 MG TABLET GT SCH ×2 (10:00→16:45)
[2017-03-25] MEDS ORDERED: INSULIN REGULAR, HUMAN 100 UNIT/ML 3 ML VIAL SQ PRN (10:00)
[2017-03-25] MEDS ORDERED: NEPRO VAN 237 ML CAN GT SCH (10:00)
[2017-03-25] MEDS ORDERED: ACETAMINOPHEN 650 MG/20.3 ML UDC GT PRN (10:00)
--- NOTE | 2017-03-25 10:12 | NUR ---
PRINT ROOM WORKER NOTE: DIALYSIS NURSE AT BEDSIDE. LAB RESULTS REVIEWED.
[2017-03-25] MEDS ORDERED: ALBUTEROL FS 2.5 MG/3 ML VIAL.NEB NEB PRN (11:00)
[2017-03-25] MEDS ORDERED: IPRATROPIUM NEB FS 0.5 MG/2.5 ML AMPUL.NEB NEB PRN (11:00)
[2017-03-25] MEDS: IPRATROPIUM NEB FS 0.5 MG/2.5 ML AMPUL.NEB NEB SCH ×3 (11:00→20:32)
[2017-03-25] MEDS ORDERED: BLOOD SUGAR DIAGNOSTIC 1 EACH STRIP IN SCH (12:00)
[2017-03-25] MEDS: ALBUTEROL FS 2.5 MG/3 ML VIAL.NEB NEB SCH ×2 (13:30→20:32)
[2017-03-25] MEDS: ZINC SULFATE 220 MG CAPSULE GT SCH (14:44)
[2017-03-25] MEDS: VIT B CMPLX 3/FA/VIT C/BIOTIN 1 TAB TABLET PO SCH (14:44)
[2017-03-25] MEDS: METOCLOPRAMIDE HCL 10 MG/10 ML UDC GT SCH ×2 (14:45→16:44)
[2017-03-25] MEDS: PROSOURCE / PROSTAT (PYXIS) 30 ML UDC GT SCH ×2 (14:45→16:45)
[2017-03-25] MEDS: LORATADINE 10 MG TABLET GT SCH (14:45)
[2017-03-25] MEDS: ASPIRIN 81 MG TAB.CHEW GT SCH (14:45)
[2017-03-25] MEDS: HYDROCODONE/APAP 5/325MG 1 EACH TABLET GT SCH ×2 (14:45→21:56)
[2017-03-25] MEDS: FERROUS SULFATE UDC 300 MG/5 ML UDC GT SCH (14:45)
[2017-03-25] MEDS: LORAZEPAM 0.5 MG TABLET GT PRN (16:43)
[2017-03-25] MEDS: EPOETIN ALFA (10,000 UNIT) 10,000 UNIT/ML VIAL SQ PRN (18:20)
--- NOTE | 2017-03-25 20:20 | NUR ---
RN INITIAL TELE NOTE: RECEIVED PATIENT AWAKE IN BED, A&OX1-2 DENIES PAIN. TRACH VENT DEPENDENT AND TOLERATING VENT SETTINGS. ON TELE MONITOR WITH SR 70'S. LEFT THUMB IV 22G, LADAN MIDLINE 18 G PATENT AND INTACT. GT PATENT AND INTACT, TURNED OFF BY AM SHIFT NURSE, SCHEDULED Q18H. LCW HD CATH INTACT. HOB ELEVATED, BED LOW, LOCKED, X2 SIDE RAILS UP AND CALL LIGHT WITHIN REACH. WILL CONT TO MONITOR.
[2017-03-25] MEDS: INSULIN DETEMIR 100 UNIT/ML CARTRIDGE SQ SCH (22:00)
--- NOTE | 2017-03-25 22:04 | NUR ---
DOMINGO NOT GIVEN BS 87.
[2017-03-26] VITALS: BP 91/49
[2017-03-26] MEDS: BLOOD SUGAR DIAGNOSTIC 1 EACH STRIP IN SCH ×4 (00:24→17:44)
[2017-03-26] MEDS: RENAL NOVASOURCE 1,000 ML BOTTLE GT PRN ×2 (00:26→20:00)
[2017-03-26] MEDS: ALBUTEROL FS 2.5 MG/3 ML VIAL.NEB NEB SCH ×4 (01:17→19:50)
[2017-03-26] MEDS: IPRATROPIUM NEB FS 0.5 MG/2.5 ML AMPUL.NEB NEB SCH ×4 (01:17→19:51)
[2017-03-26 04:00] VITALS: BP 101/59
[2017-03-26] MEDS: FAMOTIDINE (20 MG) 20 MG TABLET GT SCH (05:39)
--- NOTE | 2017-03-26 06:11 | NUR ---
RN MS [id number] NOTES ENDORSED PATIENT ASLEEP IN BED WITH NO RESPIRATORY DISTRESS OR SHORTNESS OF BREATH. BREATHING EVEN AND UNLABORED. ALERT AND ORIENTED WITH CONFUSION. VERBALLY ABLE TO COMMUNICATE NEEDS. NO COMPLAINT OF PAIN OF THIS TIME. ON O2 @3LPM VIA NASAL CANNULA TOLERATING WELL, ENDORSED BY AM SHIFT NURSE THAT PT WAS NOTED WITH RASH ON ABD, BI-LAT LEGS AND ARMS, CONSUL ORDERED, PT APPEARS COMFORTABLE AT THIS TIME, AFEBRILE. FC PATENT AND INTACT DRAINING CLEAR YELLOW WITH NO FOUL ODOR URINE. KEPT CLEAN AND DRY.
[2017-03-26 08:00] VITALS: BP 92/67
[2017-03-26] MEDS: LORATADINE 10 MG TABLET GT SCH (08:45)
[2017-03-26] MEDS: HYDROCODONE/APAP 5/325MG 1 EACH TABLET GT SCH ×2 (08:45→20:01)
[2017-03-26] MEDS: FERROUS SULFATE UDC 300 MG/5 ML UDC GT SCH (08:45)
[2017-03-26] MEDS: VIT B CMPLX 3/FA/VIT C/BIOTIN 1 TAB TABLET PO SCH (08:45)
[2017-03-26] MEDS: ASPIRIN 81 MG TAB.CHEW GT SCH (08:45)
[2017-03-26] MEDS: ZINC SULFATE 220 MG CAPSULE GT SCH (08:45)
[2017-03-26] MEDS: METOCLOPRAMIDE HCL 10 MG/10 ML UDC GT SCH ×2 (08:45→17:44)
[2017-03-26] MEDS: hydrALAZINE HCL 25 MG TABLET GT SCH ×2 (08:46→17:00)
[2017-03-26] MEDS: LOSARTAN POTASSIUM 25 MG TABLET GT SCH ×2 (08:46→17:00)
[2017-03-26] MEDS: PROSOURCE / PROSTAT (PYXIS) 30 ML UDC GT SCH ×3 (08:48→17:44)
[2017-03-26] MEDS: LORAZEPAM 0.5 MG TABLET GT PRN ×2 (11:46→20:01)
[2017-03-26] MEDS: INSULIN REGULAR, HUMAN 100 UNIT/ML 3 ML VIAL SQ PRN (11:46)
[2017-03-26 12:00] VITALS: BP 94/42
[2017-03-26] MEDS ORDERED: EPOETIN ALFA (10,000 UNIT) 10,000 UNIT/ML VIAL IV ONE (13:30)
[2017-03-26 14:11] LABS: HEMOGLOBIN 6.9 g/dL (11.5-14.8)
--- NOTE | 2017-03-26 15:00 | NUR ---
Received critical lab value of low h/h 6.9. Informed Dr. Miller and asked if transfusion needed. Proceed with Epogen only and repeat AM labs with a stool OB
[2017-03-26] MEDS ORDERED: SILVER NITRATE APPLICATOR 1 EA BOX TP ONE (15:30)
[2017-03-26] MEDS ORDERED: LIDOCAINE 2%-EPI 1:100,000 30 ML VIAL TP ONE (15:30)
[2017-03-26 16:00] VITALS: BP_SYST 92; BP_SYST 93; BP_DIAS 46; BP_DIAS 57
--- NOTE | 2017-03-26 16:57 | NUR ---
Unable to establish patient orientation or sound judgement, on and off confusion. 1st Attempt to reach Jorge Jones (Sister) [phone] for wound debridement consent. Blank consent in the chart. Voice message left, waiting for call back
[2017-03-26] MEDS: DAKINS QUARTER STRENGTH (0.125%) 480 ML BOTTLE TOP SCH (17:44)
--- NOTE | 2017-03-26 17:52 | NUR ---
Received a call back from Jorge Jones. She refused to give a consent at the moment for a wound debridement. She reported a recent debridement done at the group home. Called [facility] [phone], confirmed last debridement done 03/20/2017. will inform Marie AYERS
[2017-03-26 20:00] VITALS: BP 91/68
[2017-03-26] MEDS: INSULIN DETEMIR 100 UNIT/ML CARTRIDGE SQ SCH (21:45)
--- NOTE | 2017-03-26 21:57 | NUR ---
RN:TELE: PT RECEIVED IN BED WITH HD FINISHED. 3 LITERS REMOVED. PT ALERT, SOMEWHAT COOPERATIVE BUT RESTLESS AT TIMES. PT TALKS OVER THE VENT FREQUENTLY CAUSING VENT TO ALARM. ATTEMPTED TO RECOMMEND RELAXATION TECHNIQUES TO PT WITH OUT SUCCESS. SCHEDULED NORCO GIVEN ALONG WITH PRN ATIVAN. PT NOW APPEARS TO BE COMFORTABLE. H/H REMAINS LOW DESPITE TX OF ONE UNIT OF PRBC. PER PREVIOUS SHIFT YESENIA, HE CLARIFIED WITH MD SPECIFICALLY REGARDING H/H AND IF BLOOD TRANSFUSION WAS TO BE ORDER FOR TODAY. WRITTEN COMMUNICATION WITH DR MAJOR VERIFIED STATING THAT NO BLOOD TX WOULD BE ORDERED TODAY AND THAT THE NURSE IS TO ADMIN EPOGEN, COLLECT STOOL OB AND PERFORM H/H IN AM. VERIFIED WITH NURSE YESENIA ORDER IN EMR FOR BLOOD TX PLACED TODAY BY DR MAJOR, BUT NURSE STATED THAT NO TX WAS TO BE GIVEN TODAY WHICH WAS VERIFIED WITH HIS CONVERSATION WITH THIS MD. WILL FOLLOW UP WITH MD AND LABS IN AM. PM LONG ACTING INSULIN HELD DUE TO LARGE DOSE AND BLOOD SUGAR 117. VSS. WILL CONTINUE TO MONITOR CLOSELY.
[2017-03-27] VITALS (12 sets, daily range): BP systolic 86–112; BP diastolic 48–59
[2017-03-27] MEDS: BLOOD SUGAR DIAGNOSTIC 1 EACH STRIP IN SCH ×4 (00:19→17:32)
[2017-03-27] MEDS: ALBUTEROL FS 2.5 MG/3 ML VIAL.NEB NEB SCH ×4 (01:26→19:49)
[2017-03-27] MEDS: IPRATROPIUM NEB FS 0.5 MG/2.5 ML AMPUL.NEB NEB SCH ×4 (01:26→19:49)
[2017-03-27] MEDS: diphenhydrAMINE HCL ELIX 25 MG/10 ML UDC GT PRN ×3 (02:09→16:54)
[2017-03-27] MEDS: HYDROCODONE/APAP 5/325MG 1 EACH TABLET GT PRN ×2 (02:10→16:55)
[2017-03-27] MEDS: FAMOTIDINE (20 MG) 20 MG TABLET GT SCH (05:31)
--- NOTE | 2017-03-27 05:52 | NUR ---
RN:TELE: PT NOW RESTING COMFORTABLY AFTER BED BATH, WOUND CARE AND PAIN MANAGEMENT. WILL ENDORSE TO ONCOMING SHIFT TO VERIFY PARAMETERS FOR BLOOD TX AND TO D/X WITH MD REGARDING RECENT WOUND DEBRIDEMENT PER PT SISTER. NO OVERT BLEEDING NOTED. STOOL FOR OB SENT TO LAB ARE ORDERED MY MD. VSS. WILL ENDORSE CARE TO ONCOMING SHIFT.
--- NOTE | 2017-03-27 07:00 | NUR ---
initial rn note received pt in bed, awake, a/o x1, able to make needs known, able to follow commands, pt is on [facility] vent. portex #8 ac 12 tv 500 fio2 40% peep 5, sating well, no s/s of resp.distress or sob noted at this time, pt is on tele monitor showing sr in 80's, no /co of chest pain or discomfort at this time, pt has gtube feeding running novasource @ 65ml/hr, tolerating well, no residuals noted at this time, pt has sary midline,sl, l thumb #22g,sl c/d/i/patent, flushing well. no s/s of infection/ infiltration noted at this time, pt is noted with multiple skin issues, treatments ack, will be carried out, all safety measures in place at all times, call light within easy reach, will monitor pt closely for changes
[2017-03-27 07:33] LABS: CALCIUM, SERUM 11.1 mg/dL (8.5-10.1); CREATININE 4.6 mg/dL (0.6-1.3); MAGNESIUM 2.3 mg/dL (1.8-2.4); PHOSPHORUS 3.8 mg/dL (2.5-4.9); POTASSIUM 3.6 mmol/L (3.5-5.1)
[2017-03-27 07:40] LABS: BASOPHILS % (AUTO) 0.3 % (0.0-2.0); EOSINOPHILS # (AUTO) 0.3 /CMM (0.0-0.7); EOSINOPHILS % (AUTO) 1.9 % (0.0-6.0); HEMATOCRIT 24 % (33-45); HEMOGLOBIN 7.6 g/dL (11.5-14.8); LYMPHOCYTES # (AUTO) 2.7 /CMM (0.8-4.8); LYMPHOCYTES % (AUTO) 19.2 % (20.0-44.0); MEAN CORPUSCULAR HEMOGLOBIN 28 PG (26.0-33.0); MEAN CORPUSCULAR HGB CONC 32 g/dl (31.0-36.0); MEAN CORPUSCULAR VOLUME 87 fL (82-100); MONOCYTES % (AUTO) 6.7 % (2.0-12.0); NEUTROPHILS # (AUTO) 10.2 /CMM (1.8-8.9); NEUTROPHILS % (AUTO) 71.9 % (43.0-81.0); PLATELET COUNT (AUTO) 368 /CMM (150-450); RDW COEFFICIENT OF VARIATION 16.3 (11.5-15.0); RED BLOOD CELL COUNT(AUTO) 2.73 MIL/uL (4.0-5.2); WHITE BLOOD COUNT (AUTO) 14.3 K/uL (4.3-11.0)
[2017-03-27] MEDS: HYDROCODONE/APAP 5/325MG 1 EACH TABLET GT SCH ×2 (08:40→21:07)
[2017-03-27] MEDS: PROSOURCE / PROSTAT (PYXIS) 30 ML UDC GT SCH ×3 (08:40→16:54)
[2017-03-27] MEDS: FERROUS SULFATE UDC 300 MG/5 ML UDC GT SCH (08:40)
[2017-03-27] MEDS: ASPIRIN 81 MG TAB.CHEW GT SCH (08:40)
[2017-03-27] MEDS: LORATADINE 10 MG TABLET GT SCH (08:40)
[2017-03-27] MEDS: VIT B CMPLX 3/FA/VIT C/BIOTIN 1 TAB TABLET PO SCH (08:40)
[2017-03-27] MEDS: METOCLOPRAMIDE HCL 10 MG/10 ML UDC GT SCH ×2 (08:40→16:54)
[2017-03-27] MEDS: ZINC SULFATE 220 MG CAPSULE GT SCH (08:40)
[2017-03-27] MEDS: hydrALAZINE HCL 25 MG TABLET GT SCH ×2 (08:44→16:17)
[2017-03-27] MEDS: LOSARTAN POTASSIUM 25 MG TABLET GT SCH ×2 (08:44→16:17)
[2017-03-27] MEDS: DAKINS QUARTER STRENGTH (0.125%) 480 ML BOTTLE TOP SCH (08:45)
--- NOTE | 2017-03-27 10:21 | NUR ---
HECTOR BERGERON RN AT BEDSIDE. PT WILL BE RECEIVING HD AT THIS TIME Addendum: 03/27/17 at 1021 by ROSALIND MONTENEGRO RN WRONG ENTRY
--- NOTE | 2017-03-27 11:00 | NUR ---
rn note dr. dockery at bedside. aware of all labs and test results.
--- NOTE | 2017-03-27 11:15 | NUR ---
WOUND CARE CONSULT WOUND CARE RECEIVED WOUND CONSULT FOR PATIENT. SURGICAL TEAM IN PLACE, WOUND CARE WILL DEFER TO SURGICAL TEAM AT THIS TIME INCLUDING ALL TREATMENT ORDERS. RECOMMEND USE OF Z GUARD FOR SKIN/MOISTURE MANAGEMENT, RECOMMEND TURNING SCHED Q 2 HOURS AND HEEL FLOATING AND OFF LOADING. BARIMAX 2 BED WITH ETS AIR IN PLACE FOR TREATMENT PATIENT WT 270LBS. ALL DISCUSSED WITH NURSING STAFF. WILL SEE PRN.
--- NOTE | 2017-03-27 12:00 | NUR ---
rn note called sister brock for consent for debridement, consent received dr. brown at bedside, performing debridement
[2017-03-27] MEDS: LORAZEPAM 0.5 MG TABLET GT PRN (12:11)
--- NOTE | 2017-03-27 12:45 | NUR ---
RN NOTE DR. STEWARD MADE ROUNDS, ALL NEW ORDERS ACK AND WILL BE CARRIED OUT
[2017-03-27 13:45] LABS: THYROID STIMULATING HORMONE 3.022 uIU/mL (0.358-3.74); URIC ACID 4.2 mg/dL (2.6-7.2)
--- NOTE | 2017-03-27 14:43 | NUR ---
rn note 1 unit of prbc infusing, vvs stable, will monitor per protocol
--- NOTE | 2017-03-27 16:22 | NUR ---
rn note 1unit prbc transfused, vvs, pt tolerated well, no s/s of reaction.
[2017-03-27] MEDS: RENAL NOVASOURCE 1,000 ML BOTTLE GT PRN (16:55)
--- NOTE | 2017-03-27 18:23 | NUR ---
rn closing note pt was kept clean and dry, all orders carried out, all medications given, report will be given to pm rn for leon
--- NOTE | 2017-03-27 19:30 | NUR ---
RN INITIAL NOTES RECEIVED PATIENT IN BED, AWAKE, ALERT AND ORIENTED X 2, ABLE TO VERBALIZE NEEDS, SPEAKS OVER TRACH. TRACH MIDLINE AND INTACT, ON MECHANICAL VENT AT PRESCRIBED SETTINGS, TOLERATING WELL, NO NOTED SOB OR S/S OF RESPIRATORY DISTRESS. ON TELEMETRY MONITORING, REVEALING SR HR 80S AT THIS TIME. RIGHT CHEST WALL HD CATH DRESSING CLEAN AND DRY, NO ACUTE BLEEDING NOTED. LADAN MIDLINE PATENT AND INTACT, FLUSHED WITH NS. GT PATENT AND INTACT, TUBE FEEDINGS PRESCRIBED, NO GASTRIC RESIDUALS AT THIS TIME. ON BARIMAXX BED. CALL LIGHT LEFT WITHIN EASY REACH, BED IN LOWEST AND LOCKED POSITION. WILL CONTINUE TO CLOSELY MONITOR
--- NOTE | 2017-03-27 21:00 | NUR ---
RN NOTES 2099: BS = 149 0000: BS = 104 RECHECKED BLOOD SUGAR AGAIN AT 399 SINCE SIGNIFICANT DROP NOTED FROM [id number]. BS @ 399 = 152. WILL MONITOR CLOSELY
[2017-03-27] MEDS: INSULIN DETEMIR 100 UNIT/ML CARTRIDGE SQ SCH (21:12)
[2017-03-28] VITALS: BP 104/52
[2017-03-28] MEDS: BLOOD SUGAR DIAGNOSTIC 1 EACH STRIP IN SCH ×4 (00:46→17:11)
[2017-03-28] MEDS: IPRATROPIUM NEB FS 0.5 MG/2.5 ML AMPUL.NEB NEB SCH ×4 (02:09→19:17)
[2017-03-28] MEDS: ALBUTEROL FS 2.5 MG/3 ML VIAL.NEB NEB SCH ×4 (02:10→19:17)
[2017-03-28 04:00] VITALS: BP 109/54
[2017-03-28] MEDS: RENAL NOVASOURCE 1,000 ML BOTTLE GT PRN (06:01)
[2017-03-28] MEDS: FAMOTIDINE (20 MG) 20 MG TABLET GT SCH (06:07)
[2017-03-28 06:34] LABS: BASOPHILS # (AUTO) 0.1 /CMM (0.0-0.2); BASOPHILS % (AUTO) 0.4 % (0.0-2.0); EOSINOPHILS # (AUTO) 0.3 /CMM (0.0-0.7); EOSINOPHILS % (AUTO) 1.9 % (0.0-6.0); HEMATOCRIT 23 % (33-45); HEMOGLOBIN 7.8 g/dL (11.5-14.8); LYMPHOCYTES # (AUTO) 3.1 /CMM (0.8-4.8); LYMPHOCYTES % (AUTO) 19.9 % (20.0-44.0); MEAN CORPUSCULAR HEMOGLOBIN 29 PG (26.0-33.0); MEAN CORPUSCULAR HGB CONC 34 g/dl (31.0-36.0); MEAN CORPUSCULAR VOLUME 87 fL (82-100); MONOCYTES # (AUTO) 1.1 /CMM (0.1-1.30); MONOCYTES % (AUTO) 6.9 % (2.0-12.0); NEUTROPHILS # (AUTO) 11.1 /CMM (1.8-8.9); NEUTROPHILS % (AUTO) 70.9 % (43.0-81.0); PLATELET COUNT (AUTO) 369 /CMM (150-450); RDW COEFFICIENT OF VARIATION 15.4 (11.5-15.0); RED BLOOD CELL COUNT(AUTO) 2.66 MIL/uL (4.0-5.2); WHITE BLOOD COUNT (AUTO) 15.7 K/uL (4.3-11.0)
[2017-03-28 06:43] LABS: CALCIUM, SERUM 11.9 mg/dL (8.5-10.1); MAGNESIUM 2.5 mg/dL (1.8-2.4); PHOSPHORUS 3.7 mg/dL (2.5-4.9); POTASSIUM 3.4 mmol/L (3.5-5.1)
--- NOTE | 2017-03-28 07:52 | NUR ---
RN NOTES RECEIVED PATIENT IN BED, AWAKE, ALERT AND ORIENTED X 2, ABLE TO VERBALIZE NEEDS, SPEAKS OVER TRACH. , ON MECHANICAL VENT AT PRESCRIBED SETTINGS, TOLERATING WELL, NO NOTED SOB OR S/S OF RESPIRATORY DISTRESS. ON TELEMETRY MONITORING, REVEALING SR HR 84 AT THIS TIME. RIGHT CHEST WALL HD CATH DRESSING CLEAN AND DRY, NO ACUTE BLEEDING NOTED. LADAN MIDLINE PATENT AND INTACT, FLUSHED WITH NS. GT PATENT AND INTACT, TUBE FEEDINGS PRESCRIBED, NO GASTRIC RESIDUALS AT THIS TIME. ON BARIMAXX BED. CALL LIGHT LEFT WITHIN EASY REACH, BED IN LOWEST AND LOCKED POSITION. WILL CONTINUE TO CLOSELY MONITOR,PLAN OF CARE DISCUSSED WITH PATIENT
[2017-03-28 08:00] VITALS: BP 112/76
[2017-03-28] MEDS: hydrALAZINE HCL 25 MG TABLET GT SCH ×2 (09:00→16:27)
[2017-03-28] MEDS: LOSARTAN POTASSIUM 25 MG TABLET GT SCH ×2 (09:00→16:27)
[2017-03-28] MEDS: VIT B CMPLX 3/FA/VIT C/BIOTIN 1 TAB TABLET PO SCH (09:31)
[2017-03-28] MEDS: FERROUS SULFATE UDC 300 MG/5 ML UDC GT SCH (09:31)
[2017-03-28] MEDS: ZINC SULFATE 220 MG CAPSULE GT SCH (09:31)
[2017-03-28] MEDS: METOCLOPRAMIDE HCL 10 MG/10 ML UDC GT SCH ×2 (09:31→16:27)
[2017-03-28] MEDS: LORATADINE 10 MG TABLET GT SCH (09:31)
[2017-03-28] MEDS: HYDROCODONE/APAP 5/325MG 1 EACH TABLET GT SCH ×2 (09:32→21:28)
[2017-03-28] MEDS: ASPIRIN 81 MG TAB.CHEW GT SCH (09:32)
[2017-03-28] MEDS: DAKINS QUARTER STRENGTH (0.125%) 480 ML BOTTLE TOP SCH (09:33)
[2017-03-28] MEDS: PROSOURCE / PROSTAT (PYXIS) 30 ML UDC GT SCH ×3 (09:33→16:27)
--- NOTE | 2017-03-28 09:47 | NUR ---
STITCHER STANDARD MACHINE NOTE HD STARTED ORDERED ALL NEEDS ATTENDED ,WILL CONT TO MONITOR CLOSELY Addendum: 03/28/17 at 1616 by MADY CHAPARRO RN HOLD BP MEDS PATIENT ON HD AT THIS TIME ON 914
[2017-03-28 12:00] VITALS: BP 97/54
--- NOTE | 2017-03-28 12:30 | NUR ---
STOCK REPAIRER NOTE HD COMPLETED 1.6 L OF FLUIDS REMOVED .HD NURSE AWARE THAT K 3.4 MAG 2.5 ,STATED WILL ADJUST VIA HD
[2017-03-28] MEDS: VITAMINS A AND D 56.7 GM TUBE TP PRN (13:16)
[2017-03-28 13:19] LABS: CANCER AG, 125 17.7 U/mL (0.0-38.1); CANCER AG, 15-3 15.1 U/mL (0.0-25.0)
[2017-03-28] MEDS: EPOETIN ALFA (10,000 UNIT) 10,000 UNIT/ML VIAL SQ PRN (13:25)
--- NOTE | 2017-03-28 14:52 | NUR ---
PASSENGER BOOKING CLERK NOTE SPOKE WITH DR PHILLIPS NOTIFIED THAT HD DONE TODAY AND K 3.4 MAG 2.5 NO NEW ORDER GIVEN AT THIS TIME ALSO AWARE THAT WBC 15.7 WILL CONT TO MONITOR CLOSELY
[2017-03-28] MEDS ORDERED: EPOETIN ALFA (10,000 UNIT) 10,000 UNIT/ML VIAL SQ ONE (15:00)
[2017-03-28] MEDS: LORAZEPAM 0.5 MG TABLET GT PRN (15:22)
[2017-03-28 16:00] VITALS: BP 103/54
--- NOTE | 2017-03-28 16:48 | NUR ---
FEEDER OPERATOR AUTOMATIC NOTE WITH AGITATED , ATIVAN 0.25 MG VIA G TUBE GIVEN ORDERED ,WILL CONT TO MONITOR ACCORDANTLY
--- NOTE | 2017-03-28 18:39 | NUR ---
ARCHITECTURAL SALES CONSULTANT NOTE PATIENT IN BED , CONT ON G TUBE FEEDING ORDERED TOLERATED WELL , KEEP HOB ELEVATED AT ALL TIME , NOT IN DISTRESS, WILL CONT TO MONITOR CLOSELY
[2017-03-28 20:00] VITALS: BP 101/47
--- NOTE | 2017-03-28 20:00 | NUR ---
MANAGER INTERNATIONAL - NOTES - RECEIVED PATIENT IN BED, AWAKE, ALERT AND ORIENTED X 3, ABLE TO VERBALIZE NEEDS, SPEAKS OVER TRACH. ON MECHANICAL VENT AT PRESCRIBED SETTINGS, TOLERATING WELL, NO NOTED SOB OR S/S OF RESPIRATORY DISTRESS. ON TELEMETRY MONITORING, REVEALING SR. RIGHT CHEST WALL HD CATH DRESSING CLEAN AND DRY, NO ACUTE BLEEDING NOTED. LADAN MIDLINE PATENT AND INTACT, FLUSHED WITH NS. GT PATENT AND INTACT, TUBE FEEDINGS PRESCRIBED, NO GASTRIC RESIDUALS AT THIS TIME. ON BARIMAXX BED. CALL LIGHT LEFT WITHIN EASY REACH, BED IN LOWEST AND LOCKED POSITION. WILL CONTINUE TO CLOSELY MONITOR,PLAN OF CARE DISCUSSED WITH PATIENT
[2017-03-28] MEDS: INSULIN DETEMIR 100 UNIT/ML CARTRIDGE SQ SCH (21:42)
[2017-03-29] VITALS (7 sets, daily range): BP systolic 92–114; BP diastolic 48–54
[2017-03-29] MEDS: BLOOD SUGAR DIAGNOSTIC 1 EACH STRIP IN SCH ×5 (00:33→23:35)
[2017-03-29] MEDS: ALBUTEROL FS 2.5 MG/3 ML VIAL.NEB NEB SCH ×4 (01:51→19:30)
[2017-03-29] MEDS: IPRATROPIUM NEB FS 0.5 MG/2.5 ML AMPUL.NEB NEB SCH ×4 (01:52→19:30)
[2017-03-29] MEDS: RENAL NOVASOURCE 1,000 ML BOTTLE GT PRN ×2 (04:31→15:42)
[2017-03-29] MEDS: FAMOTIDINE (20 MG) 20 MG TABLET GT SCH (05:33)
[2017-03-29 06:23] LABS: BASOPHILS % (AUTO) 0.2 % (0.0-2.0); EOSINOPHILS # (AUTO) 0.3 /CMM (0.0-0.7); EOSINOPHILS % (AUTO) 1.9 % (0.0-6.0); HEMATOCRIT 23 % (33-45); HEMOGLOBIN 7.6 g/dL (11.5-14.8); LYMPHOCYTES # (AUTO) 2.8 /CMM (0.8-4.8); LYMPHOCYTES % (AUTO) 19.2 % (20.0-44.0); MEAN CORPUSCULAR HEMOGLOBIN 30 PG (26.0-33.0); MEAN CORPUSCULAR HGB CONC 34 g/dl (31.0-36.0); MEAN CORPUSCULAR VOLUME 88 fL (82-100); MONOCYTES # (AUTO) 1.1 /CMM (0.1-1.30); MONOCYTES % (AUTO) 7.3 % (2.0-12.0); NEUTROPHILS # (AUTO) 10.3 /CMM (1.8-8.9); NEUTROPHILS % (AUTO) 71.4 % (43.0-81.0); PLATELET COUNT (AUTO) 373 /CMM (150-450); RED BLOOD CELL COUNT(AUTO) 2.56 MIL/uL (4.0-5.2); WHITE BLOOD COUNT (AUTO) 14.4 K/uL (4.3-11.0)
--- NOTE | 2017-03-29 07:30 | NUR ---
ICU REGISTERED NURSE AM NOTES - RECEIVED PATIENT IN BED, AWAKE, ALERT AND ORIENTED X 3, ABLE TO VERBALIZE NEEDS, SPEAKS OVER TRACH. PORTEX #[address], MECHANICAL VENT AT PRESCRIBED SETTINGS, TOLERATING WELL, NO SOB/DISTRESS, TELEMETRY READS SR W/ PVC HR 75, RIGHT CHEST WALL HD CATH CDI, DRESSING, LADAN MIDLINE FLUSHES WELL, SITE CLEAR, CDI DRESSING, GTF ONGOING, NOVASOURCE 65 ML/HR, 0 RESIDUAL, ON BARIMAXX BED. CALL LIGHT LEFT WITHIN EASY REACH, BED IN LOWEST AND LOCKED POSITION. WILL CONTINUE TO MONITOR,POC DISCUSSED, WILL CONT TO MONITOR.
[2017-03-29] MEDS: hydrALAZINE HCL 25 MG TABLET GT SCH ×2 (09:00→16:12)
[2017-03-29] MEDS: LOSARTAN POTASSIUM 25 MG TABLET GT SCH ×2 (09:00→16:13)
[2017-03-29] MEDS: ZINC SULFATE 220 MG CAPSULE GT SCH (09:19)
[2017-03-29] MEDS: FERROUS SULFATE UDC 300 MG/5 ML UDC GT SCH (09:19)
[2017-03-29] MEDS: HYDROCODONE/APAP 5/325MG 1 EACH TABLET GT SCH ×2 (09:19→21:33)
[2017-03-29] MEDS: METOCLOPRAMIDE HCL 10 MG/10 ML UDC GT SCH ×2 (09:19→16:52)
[2017-03-29] MEDS: ASPIRIN 81 MG TAB.CHEW GT SCH (09:19)
[2017-03-29] MEDS: LORATADINE 10 MG TABLET GT SCH (09:19)
[2017-03-29] MEDS: VIT B CMPLX 3/FA/VIT C/BIOTIN 1 TAB TABLET PO SCH (09:19)
[2017-03-29] MEDS: PROSOURCE / PROSTAT (PYXIS) 30 ML UDC GT SCH ×3 (09:19→16:53)
[2017-03-29] MEDS: DAKINS QUARTER STRENGTH (0.125%) 480 ML BOTTLE TOP SCH (09:21)
--- NOTE | 2017-03-29 09:30 | NUR ---
LEATHER LEVELER NOTES ADMINISTERED DUE MEDS.
--- NOTE | 2017-03-29 11:27 | NUR ---
DEMAND PLANNING MANAGER NOTES ACCUCHECK. BS = 145 MG/DL. NO INSULIN COVERAGE GIVEN.
[2017-03-29] MEDS: LORAZEPAM 0.5 MG TABLET GT PRN (11:37)
--- NOTE | 2017-03-29 17:00 | NUR ---
SENIOR TECHNICAL ANALYST NOTES ACCUCHECK. BS = 137 MG/DL. NO INSULIN COVERAGE.
--- NOTE | 2017-03-29 17:38 | NUR ---
SUPERVISOR PAPER MACHINE NOTES LEFT BUTTOCK WOUND SPECIMEN FOR CULTURE AND GS COLLECTED AND CALLED IN TO LAB. SPOKE WITH PARRISH.
--- NOTE | 2017-03-29 18:19 | NUR ---
REFINERY OPERATOR CRUDE UNIT CLOSING NOTES - PATIENT IN BED, RESTING, AWAKE, ALERT AND ORIENTED X 3, ABLE TO VERBALIZE NEEDS, SPEAKS OVER TRACH. PORTEX #[address], MECHANICAL VENT AT PRESCRIBED SETTINGS, TOLERATING WELL, NO SOB/DISTRESS, TELEMETRY READS SR W/ PVC HR 76, RIGHT CHEST WALL HD CATH CDI, DRESSING, LADAN MIDLINE FLUSHES WELL, CDI DRESSING, SITE CLEAR, L THUMB IV ACCESS, IN PLACE. FLUSHES WELL, SITE CLEAR. GTF ONGOING, NOVASOURCE 65 ML/HR, 0 RESIDUAL, ON BARIMAXX BED. CALL LIGHT LEFT WITHIN EASY REACH, BED IN LOWEST AND LOCKED POSITION. NO OTHER SIGNIFICANT CHANGE IN CONDITION. PM CARE DONE. PRESCRIBED WOUND TREATMENT DONE. WILL ENDORSE TO NEXT SHIFT FOR RICA.
[2017-03-29] MEDS: INSULIN DETEMIR 100 UNIT/ML CARTRIDGE SQ SCH (23:37)
[2017-03-30] VITALS (8 sets, daily range): BP systolic 99–137; BP diastolic 43–74
[2017-03-30] MEDS: ALBUTEROL FS 2.5 MG/3 ML VIAL.NEB NEB SCH ×5 (00:57→19:40)
[2017-03-30] MEDS: IPRATROPIUM NEB FS 0.5 MG/2.5 ML AMPUL.NEB NEB SCH ×5 (00:57→19:40)
[2017-03-30] MEDS: HYDROCODONE/APAP 5/325MG 1 EACH TABLET GT PRN ×2 (02:24→14:47)
[2017-03-30] MEDS: BLOOD SUGAR DIAGNOSTIC 1 EACH STRIP IN SCH ×4 (05:44→23:02)
[2017-03-30] MEDS: FAMOTIDINE (20 MG) 20 MG TABLET GT SCH (05:45)
--- NOTE | 2017-03-30 07:24 | NUR ---
RN NOTES RECEIVED PT IN STABLE CONDITION, CHRONIC VENT TRACH DEPENDENT, A&01-2, ABLE TO SPEAK OVER VENT TO VERBALIZE NEEDS. LADAN MIDLINE DRESSING DRY AND INTAC, NO IVF. NOVASOURE RUNNING AT 65ML/HR, RESIDUAL OF 5ML, TOLERATING WELL. BED LOCKED AND IN LOWEST POSITION, SIDE RAILS UPX3, CALL LIGHT WITHIN REACH, WILL CONT TO MONITOR.
[2017-03-30 07:33] LABS: BASOPHILS % (AUTO) 0.2 % (0.0-2.0); EOSINOPHILS # (AUTO) 0.3 /CMM (0.0-0.7); EOSINOPHILS % (AUTO) 2.3 % (0.0-6.0); HEMATOCRIT 25 % (33-45); HEMOGLOBIN 8.3 g/dL (11.5-14.8); LYMPHOCYTES # (AUTO) 2.4 /CMM (0.8-4.8); LYMPHOCYTES % (AUTO) 16.3 % (20.0-44.0); MEAN CORPUSCULAR HEMOGLOBIN 29 PG (26.0-33.0); MEAN CORPUSCULAR HGB CONC 34 g/dl (31.0-36.0); MEAN CORPUSCULAR VOLUME 88 fL (82-100); MONOCYTES # (AUTO) 0.8 /CMM (0.1-1.30); MONOCYTES % (AUTO) 5.2 % (2.0-12.0); NEUTROPHILS # (AUTO) 11.3 /CMM (1.8-8.9); PLATELET COUNT (AUTO) 368 /CMM (150-450); RDW COEFFICIENT OF VARIATION 15.9 (11.5-15.0); RED BLOOD CELL COUNT(AUTO) 2.81 MIL/uL (4.0-5.2); WHITE BLOOD COUNT (AUTO) 14.8 K/uL (4.3-11.0)
[2017-03-30 08:01] LABS: CALCIUM, SERUM 12.6 mg/dL (8.5-10.1); CREATININE 6.8 mg/dL (0.6-1.3); MAGNESIUM 2.6 mg/dL (1.8-2.4); POTASSIUM 4.1 mmol/L (3.5-5.1)
[2017-03-30] MEDS: LOSARTAN POTASSIUM 25 MG TABLET GT SCH ×2 (08:19→16:23)
[2017-03-30] MEDS: VIT B CMPLX 3/FA/VIT C/BIOTIN 1 TAB TABLET PO SCH (08:19)
[2017-03-30] MEDS: METOCLOPRAMIDE HCL 10 MG/10 ML UDC GT SCH ×2 (08:19→16:22)
[2017-03-30] MEDS: LORATADINE 10 MG TABLET GT SCH (08:19)
[2017-03-30] MEDS: ASPIRIN 81 MG TAB.CHEW GT SCH (08:19)
[2017-03-30] MEDS: FERROUS SULFATE UDC 300 MG/5 ML UDC GT SCH (08:19)
[2017-03-30] MEDS: ZINC SULFATE 220 MG CAPSULE GT SCH (08:19)
[2017-03-30] MEDS: HYDROCODONE/APAP 5/325MG 1 EACH TABLET GT SCH ×2 (08:20→21:11)
[2017-03-30] MEDS: DAKINS QUARTER STRENGTH (0.125%) 480 ML BOTTLE TOP SCH (08:21)
[2017-03-30] MEDS: hydrALAZINE HCL 25 MG TABLET GT SCH ×2 (08:21→16:23)
[2017-03-30] MEDS: PROSOURCE / PROSTAT (PYXIS) 30 ML UDC GT SCH ×3 (08:23→16:22)
[2017-03-30] MEDS: RENAL NOVASOURCE 1,000 ML BOTTLE GT PRN (09:54)
[2017-03-30] MEDS: LORAZEPAM 0.5 MG TABLET GT PRN (10:25)
[2017-03-30] MEDS ORDERED: EPOETIN ALFA (10,000 UNIT) 10,000 UNIT/ML VIAL SQ ONE (11:00)
--- NOTE | 2017-03-30 11:00 | NUR ---
RN NOTES PT EXTREMELY AGITATED YELLING AND THROWING LEGS OVER EDGE OF BED, WILL ADMINISTER ATIVAN.
[2017-03-30] MEDS: INSULIN REGULAR, HUMAN 100 UNIT/ML 3 ML VIAL SQ PRN ×2 (13:08→17:22)
--- NOTE | 2017-03-30 18:28 | NUR ---
RN NOTES PT RESTING IN BED MORE CALM AT THIS TIME. TOLERATING VENT SETTINGS, NO SOB OR DISTRESS NOTED. TOLERATING GTUBE FEEDING. NO SIGNIFICANT CHANGES THROUGHOUT THE SHIFT, REMAINED IN STABLE CONDITION. CALL LIGHT WITHIN REACH, SIDE RAILS UPX3, WILL ENDORSE TO ONCOMING SHIFT.
[2017-03-30] MEDS ORDERED: RENAL NOVASOURCE 1,000 ML BOTTLE GT PRN (19:30)
[2017-03-30] MEDS: INSULIN DETEMIR 100 UNIT/ML CARTRIDGE SQ SCH (22:00)
--- NOTE | 2017-03-30 23:08 | NUR ---
MED NOTE: 2200 DOMINGO HELD POC GLUCOSE 126.
[2017-03-31] VITALS (7 sets, daily range): BP systolic 87–116; BP diastolic 44–64
[2017-03-31] MEDS: IPRATROPIUM NEB FS 0.5 MG/2.5 ML AMPUL.NEB NEB SCH ×4 (00:55→19:59)
[2017-03-31] MEDS: ALBUTEROL FS 2.5 MG/3 ML VIAL.NEB NEB SCH ×4 (00:55→19:59)
[2017-03-31] MEDS: BLOOD SUGAR DIAGNOSTIC 1 EACH STRIP IN SCH ×3 (05:33→17:42)
[2017-03-31] MEDS: FAMOTIDINE (20 MG) 20 MG TABLET GT SCH (05:35)
[2017-03-31 07:20] LABS: BASOPHILS % (AUTO) 0.3 % (0.0-2.0); EOSINOPHILS # (AUTO) 0.4 /CMM (0.0-0.7); EOSINOPHILS % (AUTO) 3.2 % (0.0-6.0); HEMATOCRIT 25 % (33-45); HEMOGLOBIN 8.2 g/dL (11.5-14.8); LYMPHOCYTES # (AUTO) 2.4 /CMM (0.8-4.8); LYMPHOCYTES % (AUTO) 17.1 % (20.0-44.0); MEAN CORPUSCULAR HEMOGLOBIN 29 PG (26.0-33.0); MEAN CORPUSCULAR HGB CONC 33 g/dl (31.0-36.0); MEAN CORPUSCULAR VOLUME 87 fL (82-100); MONOCYTES # (AUTO) 0.8 /CMM (0.1-1.30); MONOCYTES % (AUTO) 5.9 % (2.0-12.0); NEUTROPHILS # (AUTO) 10.3 /CMM (1.8-8.9); NEUTROPHILS % (AUTO) 73.5 % (43.0-81.0); PLATELET COUNT (AUTO) 366 /CMM (150-450); RDW COEFFICIENT OF VARIATION 15.7 (11.5-15.0); RED BLOOD CELL COUNT(AUTO) 2.84 MIL/uL (4.0-5.2)
--- NOTE | 2017-03-31 08:00 | NUR ---
TELE1/RN AM SHIFT INITIAL NOTES RECEIVED PT ASLEEP IN BED. NO ACUTE CHANGE OF CONDITION NOTED. PT ALERT BUT CONFUSED. VENT DEPENDENT SATURATING @ 100%, LUNG SOUNDS CLEAR. ON TELE WITH SINUS RHYTHM WITH HR 86. IV SITE FLUSHED, PATENT WITH NO S/S OF INFECTION. GTF ON GOING @ 45CC/HR, NO GASTRIC RESIDUAL NOTED, FLUSHED, PATENT. PT IS COMFORTABLE. SCHEDULED AM MEDS TO BE GIVEN. CL WITHIN REACHED AND SAFETY MAINTAINED. ON GOING MONITORING.
[2017-03-31] MEDS: LORATADINE 10 MG TABLET GT SCH (09:46)
[2017-03-31] MEDS: LOSARTAN POTASSIUM 25 MG TABLET GT SCH ×2 (09:46→17:00)
[2017-03-31] MEDS: hydrALAZINE HCL 25 MG TABLET GT SCH ×2 (09:46→17:00)
[2017-03-31] MEDS: ASPIRIN 81 MG TAB.CHEW GT SCH (09:46)
[2017-03-31] MEDS: ZINC SULFATE 220 MG CAPSULE GT SCH (09:47)
[2017-03-31] MEDS: FERROUS SULFATE UDC 300 MG/5 ML UDC GT SCH (09:47)
[2017-03-31] MEDS: VIT B CMPLX 3/FA/VIT C/BIOTIN 1 TAB TABLET PO SCH (09:47)
[2017-03-31] MEDS: DAKINS QUARTER STRENGTH (0.125%) 480 ML BOTTLE TOP SCH (09:47)
[2017-03-31] MEDS: PROSOURCE / PROSTAT (PYXIS) 30 ML UDC GT SCH ×3 (09:47→17:00)
[2017-03-31] MEDS: HYDROCODONE/APAP 5/325MG 1 EACH TABLET GT SCH ×2 (09:47→21:09)
[2017-03-31] MEDS: METOCLOPRAMIDE HCL 10 MG/10 ML UDC GT SCH ×2 (09:47→17:00)
[2017-03-31] MEDS: RENAL NOVASOURCE 1,000 ML BOTTLE GT PRN (11:38)
--- NOTE | 2017-03-31 12:00 | NUR ---
TELE1/RN NOON ROUNDS PT SUCTIONED AND REPOSITIONED, NO CHANGE OF CONDITION. MONITORING CONTINUED.
[2017-03-31] MEDS ORDERED: FEE PK DOSING 1 MIN EA MC ONE (17:23)
[2017-03-31] MEDS ORDERED: VANCOMYCIN 1 GM in IV D5W 250 ML IV PRN (18:00)
[2017-03-31] MEDS ORDERED: VANCOMYCIN 1 GM in IV D5W 250 ML IV ONE (18:04)
[2017-03-31] MEDS ORDERED: IV NS 0.9% 250 ML IV ONE (18:30)
--- NOTE | 2017-03-31 19:25 | NUR ---
TELE1/RN NOON ROUNDS PT SUCTIONED AND REPOSITIONED, NO CHANGE OF CONDITION. MONITORING CONTINUED. Addendum: 03/31/17 at 1926 by FRANSISCO SEPULVEDA RN ERROR: DOCUMENTED IN WRONG TIME
--- NOTE | 2017-03-31 19:25 | NUR ---
TELE1/RN AM SHIFT END NOTES NO ACUTE CHANGE OF CONDITION NOTED DURING THE SHIFT. NEEDS MET. PT ENDORSED TO PM NURSE TO CONTINUE CARE. CL WITHIN REACHED AND SAFETY MAINTAINED.
--- NOTE | 2017-03-31 20:28 | NUR ---
SERVICE LOSS CONTROL CONSULTANT INITIAL NOTES RECEIVED PT ASLEEP IN BED. NO ACUTE CHANGE OF CONDITION NOTED. PT ALERT BUT CONFUSED. VENT DEPENDENT SATURATING @ 100%, LUNG SOUNDS CLEAR. ON TELE WITH SINUS RHYTHM WITH HR 80'S. IV SITE FLUSHED, PATENT WITH NO S/S OF INFECTION. GTF ON GOING @ 45CC/HR, NO GASTRIC RESIDUAL NOTED, FLUSHED, PATENT. PT IS COMFORTABLE. SCHEDULED AM MEDS TO BE GIVEN. CL WITHIN REACHED AND SAFETY MAINTAINED. ON GOING MONITORING.
[2017-03-31] MEDS: PIPERACILLIN /TAZOBACTAM 2.25 G in IV D5W 50 ML IV SCH (20:37)
[2017-03-31] MEDS: INSULIN DETEMIR 100 UNIT/ML CARTRIDGE SQ SCH (21:17)
[2017-04-01] VITALS (8 sets, daily range): BP systolic 95–110; BP diastolic 44–72
[2017-04-01] MEDS: BLOOD SUGAR DIAGNOSTIC 1 EACH STRIP IN SCH ×4 (00:21→17:28)
[2017-04-01] MEDS: IPRATROPIUM NEB FS 0.5 MG/2.5 ML AMPUL.NEB NEB SCH ×2 (01:45→19:17)
[2017-04-01] MEDS: ALBUTEROL FS 2.5 MG/3 ML VIAL.NEB NEB SCH ×2 (01:46→19:17)
[2017-04-01] MEDS: PIPERACILLIN /TAZOBACTAM 2.25 G in IV D5W 50 ML IV SCH ×3 (05:29→17:29)
[2017-04-01] MEDS: FAMOTIDINE (20 MG) 20 MG TABLET GT SCH (05:42)
--- NOTE | 2017-04-01 06:37 | NUR ---
BUSINESS APPLICATIONS ANALYST CLOSING NOTES ENDORSED PT ASLEEP IN BED. NO ACUTE CHANGE OF CONDITION NOTED. PT ALERT BUT CONFUSED. VENT DEPENDENT SATURATING @ 100%, LUNG SOUNDS CLEAR. ON TELE WITH SINUS RHYTHM WITH HR 80'S. IV SITE FLUSHED, PATENT WITH NO S/S OF INFECTION. GTF ON GOING @ 45CC/HR, NO GASTRIC RESIDUAL NOTED, FLUSHED, PATENT. PT IS COMFORTABLE. SCHEDULED AM MEDS TO BE GIVEN. CL WITHIN REACHED AND SAFETY MAINTAINED. ON GOING MONITORING
--- NOTE | 2017-04-01 07:10 | NUR ---
RN INITIAL NOTES: REC'D PT AWAKE ON BED, NOT IN ANY DISTRESS, A/O X1-2 W/ CONFUSION. ON MECH VENT VIA TRACH, SATURATING 100%. ON TELEMONITOR, SR. HAS PEG PATENT & INTACT, ON NOVASOURCE X 45 CC/HR INFUSING WELL, NO RESIDUAL NOTED UPON CHECKING. HAS R CW HD CATH INTACT. HAS 2 IV ACCESS: LADAN MIDLINE AND L THUMB G22, FLUSHING WELL, NO S/SX OF INFECTION/INFILTRATION NOTED. PROVIDED COMFORT & SAFETY MEASURES. BED KEPT LOW & IN LOCKED POS. CALL LIGHT PLACED W/IN REACH. PT SCHED FOR HD TODAY. WILL CONTINUE TO MONITOR AND ATTEND PT NEEDS.
[2017-04-01 07:50] LABS: BASOPHILS % (AUTO) 0.1 % (0.0-2.0); EOSINOPHILS # (AUTO) 0.5 /CMM (0.0-0.7); EOSINOPHILS % (AUTO) 2.9 % (0.0-6.0); HEMATOCRIT 24 % (33-45); HEMOGLOBIN 7.6 g/dL (11.5-14.8); LYMPHOCYTES # (AUTO) 2.8 /CMM (0.8-4.8); LYMPHOCYTES % (AUTO) 15.8 % (20.0-44.0); MEAN CORPUSCULAR HEMOGLOBIN 28 PG (26.0-33.0); MEAN CORPUSCULAR HGB CONC 32 g/dl (31.0-36.0); MEAN CORPUSCULAR VOLUME 88 fL (82-100); MONOCYTES # (AUTO) 0.9 /CMM (0.1-1.30); MONOCYTES % (AUTO) 5.3 % (2.0-12.0); NEUTROPHILS # (AUTO) 13.6 /CMM (1.8-8.9); NEUTROPHILS % (AUTO) 75.9 % (43.0-81.0); PLATELET COUNT (AUTO) 371 /CMM (150-450); RDW COEFFICIENT OF VARIATION 15.9 (11.5-15.0); RED BLOOD CELL COUNT(AUTO) 2.71 MIL/uL (4.0-5.2); WHITE BLOOD COUNT (AUTO) 17.9 K/uL (4.3-11.0)
[2017-04-01 07:52] LABS: CALCIUM, SERUM 12.2 mg/dL (8.5-10.1); CREATININE 7.3 mg/dL (0.6-1.3); MAGNESIUM 2.6 mg/dL (1.8-2.4); PHOSPHORUS 4.3 mg/dL (2.5-4.9); POTASSIUM 4.6 mmol/L (3.5-5.1)
[2017-04-01] MEDS: ZINC SULFATE 220 MG CAPSULE GT SCH (08:46)
[2017-04-01] MEDS: METOCLOPRAMIDE HCL 10 MG/10 ML UDC GT SCH ×2 (08:46→17:29)
[2017-04-01] MEDS: FERROUS SULFATE UDC 300 MG/5 ML UDC GT SCH (08:46)
[2017-04-01] MEDS: VIT B CMPLX 3/FA/VIT C/BIOTIN 1 TAB TABLET PO SCH (08:47)
[2017-04-01] MEDS: ASPIRIN 81 MG TAB.CHEW GT SCH (08:47)
[2017-04-01] MEDS: LORATADINE 10 MG TABLET GT SCH (08:47)
[2017-04-01] MEDS: LORAZEPAM 0.5 MG TABLET GT PRN (08:47)
[2017-04-01] MEDS: HYDROCODONE/APAP 5/325MG 1 EACH TABLET GT SCH ×2 (08:47→21:16)
[2017-04-01] MEDS: PROSOURCE / PROSTAT (PYXIS) 30 ML UDC GT SCH ×3 (08:48→17:29)
[2017-04-01] MEDS: DAKINS QUARTER STRENGTH (0.125%) 480 ML BOTTLE TOP SCH (08:48)
[2017-04-01] MEDS: Z GUARD REMEDY 2 OZ OINT TP PRN (08:49)
[2017-04-01] MEDS: VITAMINS A AND D 56.7 GM TUBE TP PRN (08:49)
[2017-04-01] MEDS: hydrALAZINE HCL 25 MG TABLET GT SCH ×2 (09:00→17:00)
[2017-04-01] MEDS: LOSARTAN POTASSIUM 25 MG TABLET GT SCH ×2 (09:00→17:00)
[2017-04-01] MEDS: INSULIN REGULAR, HUMAN 100 UNIT/ML 3 ML VIAL SQ PRN ×2 (11:49→17:29)
[2017-04-01] MEDS: EPOETIN ALFA (10,000 UNIT) 10,000 UNIT/ML VIAL SQ PRN (11:57)
[2017-04-01] MEDS: VANCOMYCIN 500 MG in IV D5W 100 ML IV PRN (13:15)
[2017-04-01] MEDS: RENAL NOVASOURCE 1,000 ML BOTTLE GT PRN (15:54)
--- NOTE | 2017-04-01 18:43 | NUR ---
RN CLOSING NOTES: NO ACUTE CHANGES NOTED W/IN SHIFT. PT TOLERATED MECH VENT SETTINGS VIA TRACH, SATURATING 100%. SECRETIONS SUCTIONED. ON TELEMONITOR, STILL SR. PEG KEPT PATENT & INTACT, TUBE FEEDING TOLERATED WELL, NO RESIDUAL NOTED W/IN SHIFT. R CW HD CATH KEPT IN PLACE AND INTACT. 2 IV ACCESS: LADAN MIDLINE AND L THUMB G22, KEPT PATENT & INTACT W/ NO S/SX OF INFECTION/INFILTRATION NOTED. WOUND CARE DONE. TURNED AND REPOSITIONED Q2H. PT KEPT WELL RESTED. NEEDS ATTENDED. BED KEPT LOW & IN LOCKED POS. CALL LIGHT PLACED W/IN REACH. HD TOLERATED WELL, NO OUTPUT TAKEN. WILL ENDORSE TO PM RN FOR RICA.
--- NOTE | 2017-04-01 19:52 | NUR ---
ACCOUNTING CLERK INITIAL NOTES RECEIVED PT ASLEEP IN BED. NO ACUTE CHANGE OF CONDITION NOTED. PT ALERT BUT CONFUSED. VENT DEPENDENT SATURATING @ 100%, LUNG SOUNDS CLEAR. ON TELE WITH SINUS RHYTHM WITH HR 80'S. IV SITE FLUSHED, PATENT WITH NO S/S OF INFECTION. GTF ON GOING @ 45CC/HR, NO GASTRIC RESIDUAL NOTED, FLUSHED, PATENT, S/P HD, NO O/P TAKEN OUT, I WILL CONT TO MONITOR. PT IS COMFORTABLE. SCHEDULED AM MEDS TO BE GIVEN. CL WITHIN REACHED AND SAFETY MAINTAINED. ON GOING MONITORING.
[2017-04-01] MEDS: INSULIN DETEMIR 100 UNIT/ML CARTRIDGE SQ SCH (21:28)
[2017-04-02] VITALS (7 sets, daily range): BP systolic 95–114; BP diastolic 40–59
[2017-04-02] MEDS: BLOOD SUGAR DIAGNOSTIC 1 EACH STRIP IN SCH ×4 (00:47→18:03)
[2017-04-02] MEDS: IPRATROPIUM NEB FS 0.5 MG/2.5 ML AMPUL.NEB NEB SCH ×4 (00:54→19:59)
[2017-04-02] MEDS: ALBUTEROL FS 2.5 MG/3 ML VIAL.NEB NEB SCH ×4 (00:54→19:59)
[2017-04-02] MEDS: PIPERACILLIN /TAZOBACTAM 2.25 G in IV D5W 50 ML IV SCH ×2 (01:16→10:30)
[2017-04-02] MEDS: FAMOTIDINE (20 MG) 20 MG TABLET GT SCH (05:04)
[2017-04-02] MEDS: INSULIN REGULAR, HUMAN 100 UNIT/ML 3 ML VIAL SQ PRN (05:08)
--- NOTE | 2017-04-02 06:29 | NUR ---
PURCHASING ANALYST CLOSING NOTES ENDORSED PT ASLEEP IN BED. NO ACUTE CHANGE OF CONDITION NOTED. PT ALERT WITH EPISODE OF CONFUSION. VENT DEPENDENT SATURATING @ 100%, LUNG SOUNDS CLEAR. ON TELE WITH SINUS RHYTHM WITH HR 80'S. IV SITE FLUSHED, PATENT WITH NO S/S OF INFECTION. GTF ON GOING @ 45CC/HR, NO GASTRIC RESIDUAL NOTED, FLUSHED, PATENT, S/P HD, NO O/P TAKEN OUT, I WILL CONT TO MONITOR. PT IS COMFORTABLE. SCHEDULED AM MEDS TO BE GIVEN. CL WITHIN REACHED AND SAFETY MAINTAINED. ON GOING MONITORING.
[2017-04-02 07:18] LABS: BASOPHILS % (AUTO) 0.1 % (0.0-2.0); EOSINOPHILS # (AUTO) 0.3 /CMM (0.0-0.7); EOSINOPHILS % (AUTO) 2.1 % (0.0-6.0); HEMATOCRIT 22 % (33-45); HEMOGLOBIN 7.2 g/dL (11.5-14.8); LYMPHOCYTES % (AUTO) 21.1 % (20.0-44.0); MEAN CORPUSCULAR HEMOGLOBIN 29 PG (26.0-33.0); MEAN CORPUSCULAR HGB CONC 33 g/dl (31.0-36.0); MEAN CORPUSCULAR VOLUME 87 fL (82-100); MONOCYTES # (AUTO) 0.8 /CMM (0.1-1.30); MONOCYTES % (AUTO) 5.7 % (2.0-12.0); NEUTROPHILS # (AUTO) 10.2 /CMM (1.8-8.9); PLATELET COUNT (AUTO) 340 /CMM (150-450); RDW COEFFICIENT OF VARIATION 16.3 (11.5-15.0); RED BLOOD CELL COUNT(AUTO) 2.52 MIL/uL (4.0-5.2); WHITE BLOOD COUNT (AUTO) 14.4 K/uL (4.3-11.0)
[2017-04-02 07:23] LABS: CALCIUM, SERUM 11.9 mg/dL (8.5-10.1); POTASSIUM 4.5 mmol/L (3.5-5.1)
[2017-04-02] MEDS: ASPIRIN 81 MG TAB.CHEW GT SCH (08:33)
[2017-04-02] MEDS: ZINC SULFATE 220 MG CAPSULE GT SCH (08:33)
[2017-04-02] MEDS: VIT B CMPLX 3/FA/VIT C/BIOTIN 1 TAB TABLET PO SCH (08:33)
[2017-04-02] MEDS: LORATADINE 10 MG TABLET GT SCH (08:33)
[2017-04-02] MEDS: PROSOURCE / PROSTAT (PYXIS) 30 ML UDC GT SCH ×3 (08:33→18:03)
[2017-04-02] MEDS: HYDROCODONE/APAP 5/325MG 1 EACH TABLET GT SCH ×2 (08:35→21:16)
[2017-04-02] MEDS: FERROUS SULFATE UDC 300 MG/5 ML UDC GT SCH (08:36)
[2017-04-02] MEDS: DAKINS QUARTER STRENGTH (0.125%) 480 ML BOTTLE TOP SCH (08:36)
[2017-04-02] MEDS: METOCLOPRAMIDE HCL 10 MG/10 ML UDC GT SCH ×2 (08:36→18:02)
[2017-04-02] MEDS: LOSARTAN POTASSIUM 25 MG TABLET GT SCH ×2 (08:37→18:02)
[2017-04-02] MEDS: hydrALAZINE HCL 25 MG TABLET GT SCH ×2 (08:37→18:03)
[2017-04-02] MEDS: RENAL NOVASOURCE 1,000 ML BOTTLE GT PRN (18:07)
--- NOTE | 2017-04-02 19:10 | NUR ---
PT IS NOT READY PER RN. TRY TOMORROW MORNING.
--- NOTE | 2017-04-02 19:30 | NUR ---
ARTILLERY OFFICER INITIAL NOTES RECEIVED PATIENT IN BED, AWAKE, ALERT AND ORIENTED X2, WITH PERIODS OF CONFUSION. TRACH MIDLINE AND INTACT, ON MECHANICAL VENTILATOR AT PRESCRIBED SETTINGS, TOLERATING WELL, FREE FROM ANY S/S OF RESPIRATORY DISTRESS, SATURATING @ 100%. ON TELEMETRY MONITORING, REVEALING SINUS RHYTHM WITH HR 80'S. LADAN MIDLINE FLUSHED, PATENT WITH NO S/S OF PHLEBITIS OR INFILTRATION, LEFT THUMB IV REMOVED WITH CANNULA INTACT. GTF ON GOING @ PRESCRIBED RATE, NO GASTRIC RESIDUAL NOTED, FLUSHED, PATENT. RIGHT CHEST WALL HD CATH DRESSING CLEAN AND DRY, NO BLEEDING NOTED. 1 UNIT OF PRBCs TO BE GIVEN, PENDING CONSENT. CALL LIGHT LEFT WITHIN EASY REACH, BED IN LOWEST AND LOCKED POSITION, HOB KEPT ELEVATED FOR ASPIRATION PRECAUTIONS. WILL CONTINUE TO CLOSELY MONITOR THE PATIENT.
--- NOTE | 2017-04-02 19:40 | NUR ---
RN NOTES CONSENT FOR BLOOD TRANSFUSION OBTAINED BY NURSE BEKA, WITNESSED BY MYSELF. PATIENT GIVES VERBAL CONSENT, BUT IS UNABLE TO WRITE/SIGN.
[2017-04-02] MEDS: INSULIN DETEMIR 100 UNIT/ML CARTRIDGE SQ SCH (21:20)
[2017-04-03] VITALS (10 sets, daily range): BP systolic 91–114; BP diastolic 38–72
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
[2017-04-03] MEDS: BLOOD SUGAR DIAGNOSTIC 1 EACH STRIP IN SCH ×5 (00:03→23:34)
[2017-04-03] MEDS: ALBUTEROL FS 2.5 MG/3 ML VIAL.NEB NEB SCH ×4 (01:49→19:49)
[2017-04-03] MEDS: IPRATROPIUM NEB FS 0.5 MG/2.5 ML AMPUL.NEB NEB SCH ×4 (01:49→19:49)
--- NOTE | 2017-04-03 03:24 | NUR ---
RN NOTES - BLOOD TRANSFUSION PATIENT S/P 1 UNIT OF PRBCs, TOLERATED TRANSFUSION WELL, NO ADVERSE EFFECTS NOTED. WILL CONTINUE TO CLOSELY MONITOR THE PATIENT
[2017-04-03] MEDS: FAMOTIDINE (20 MG) 20 MG TABLET GT SCH (05:36)
[2017-04-03] MEDS: HYDROCODONE/APAP 5/325MG 1 EACH TABLET GT PRN (05:36)
--- NOTE | 2017-04-03 05:45 | NUR ---
RN NOTES PATIENT SCREAMING THAT SHE IS IN PAIN. NORCO 5/325 ADMINISTERED. WILL CONTINUE TO CLOSELY MONITOR
[2017-04-03 07:00] LABS: EOSINOPHILS # (AUTO) 0.4 /CMM (0.0-0.7); EOSINOPHILS % (AUTO) 2.5 % (0.0-6.0); HEMATOCRIT 26 % (33-45); HEMOGLOBIN 8.6 g/dL (11.5-14.8); LYMPHOCYTES # (AUTO) 3.5 /CMM (0.8-4.8); LYMPHOCYTES % (AUTO) 22.8 % (20.0-44.0); MEAN CORPUSCULAR HEMOGLOBIN 29 PG (26.0-33.0); MEAN CORPUSCULAR HGB CONC 34 g/dl (31.0-36.0); MEAN CORPUSCULAR VOLUME 87 fL (82-100); MONOCYTES # (AUTO) 0.9 /CMM (0.1-1.30); MONOCYTES % (AUTO) 5.6 % (2.0-12.0); NEUTROPHILS # (AUTO) 10.6 /CMM (1.8-8.9); NEUTROPHILS % (AUTO) 69.1 % (43.0-81.0); PLATELET COUNT (AUTO) 344 /CMM (150-450); RDW COEFFICIENT OF VARIATION 15.7 (11.5-15.0); RED BLOOD CELL COUNT(AUTO) 2.95 MIL/uL (4.0-5.2); WHITE BLOOD COUNT (AUTO) 15.3 K/uL (4.3-11.0)
--- NOTE | 2017-04-03 07:00 | NUR ---
RN CLOSING NOTES PATIENT IN BED, SLEEPING AT THIS TIME. WILL ENDORSE THE PATIENT TO THE AM SHIFT NURSE FOR RICA
[2017-04-03 07:22] LABS: CALCIUM, SERUM 12.2 mg/dL (8.5-10.1); MAGNESIUM 2.9 mg/dL (1.8-2.4); PHOSPHORUS 5.4 mg/dL (2.5-4.9); POTASSIUM 4.4 mmol/L (3.5-5.1)
[2017-04-03 07:24] LABS: CREATININE 8.1 mg/dL (0.6-1.3)
--- NOTE | 2017-04-03 08:16 | NUR ---
WOUND CARE CONSULT: PT SEEN FOR LEFT BUTTOCK POSSIBLE SKIN TEAR. PT NOTED TO HAVE STAGE 4 ULCER WITH TWO OPEN AREAS, PRESENT ON ADMISSION WITH SCARRING TO SURROUNDING AREA. SLIGHT IRRITATION OF SCAR NOTED. Z GUARD IN USE FOR SKIN PROTECTION. DEFER TO SURGICAL TEAM FOR WOUND TREATMENT PLAN. PT ON BARIMAX BED. ALL SKIN PROTECTION MEASURES IN PLACE. WILL SEE PRElba JACOBO IN AGREEMENT WITH PLAN OF CARE.
[2017-04-03] MEDS: LOSARTAN POTASSIUM 25 MG TABLET GT SCH ×2 (09:00→16:20)
[2017-04-03] MEDS: hydrALAZINE HCL 25 MG TABLET GT SCH ×2 (09:00→16:19)
[2017-04-03] MEDS: LORATADINE 10 MG TABLET GT SCH (11:37)
[2017-04-03] MEDS: HYDROCODONE/APAP 5/325MG 1 EACH TABLET GT SCH ×2 (11:38→20:37)
[2017-04-03] MEDS: PROSOURCE / PROSTAT (PYXIS) 30 ML UDC GT SCH ×3 (11:38→17:24)
[2017-04-03] MEDS: FERROUS SULFATE UDC 300 MG/5 ML UDC GT SCH (11:39)
[2017-04-03] MEDS: METOCLOPRAMIDE HCL 10 MG/10 ML UDC GT SCH ×2 (11:39→17:24)
[2017-04-03] MEDS: ASPIRIN 81 MG TAB.CHEW GT SCH (11:39)
[2017-04-03] MEDS: DAKINS QUARTER STRENGTH (0.125%) 480 ML BOTTLE TOP SCH (11:40)
[2017-04-03] MEDS: ZINC SULFATE 220 MG CAPSULE GT SCH (11:44)
[2017-04-03] MEDS: VIT B CMPLX 3/FA/VIT C/BIOTIN 1 TAB TABLET PO SCH (11:44)
[2017-04-03] MEDS: EPOETIN ALFA (10,000 UNIT) 10,000 UNIT/ML VIAL SQ PRN (14:27)
[2017-04-03] MEDS: RENAL NOVASOURCE 1,000 ML BOTTLE GT PRN (17:24)
[2017-04-03] MEDS: VANCOMYCIN 500 MG in IV D5W 100 ML IV PRN (17:32)
[2017-04-03] MEDS: INSULIN DETEMIR 100 UNIT/ML CARTRIDGE SQ SCH (23:36)
--- NOTE | 2017-04-03 23:37 | NUR ---
MED NOTE: 2200 NAMAN HELD. PT POC GLUCOSE 124.
[2017-04-04] VITALS: BP 105/46
[2017-04-04] MEDS: IPRATROPIUM NEB FS 0.5 MG/2.5 ML AMPUL.NEB NEB SCH ×4 (02:01→20:11)
[2017-04-04] MEDS: ALBUTEROL FS 2.5 MG/3 ML VIAL.NEB NEB SCH ×4 (02:01→20:11)
[2017-04-04 04:00] VITALS: BP 98/42
[2017-04-04] MEDS: HYDROCODONE/APAP 5/325MG 1 EACH TABLET GT PRN (04:25)
[2017-04-04] MEDS: BLOOD SUGAR DIAGNOSTIC 1 EACH STRIP IN SCH ×3 (05:36→18:17)
[2017-04-04] MEDS: FAMOTIDINE (20 MG) 20 MG TABLET GT SCH (05:36)
[2017-04-04 08:00] VITALS: BP 98/53
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
--- NOTE | 2017-04-04 09:42 | NUR ---
Patient refused am labwork.
[2017-04-04 12:00] VITALS: BP_SYST 112; BP_SYST 128; BP_DIAS 59
[2017-04-04] MEDS: METOCLOPRAMIDE HCL 10 MG/10 ML UDC GT SCH ×2 (12:15→18:19)
[2017-04-04] MEDS: ASPIRIN 81 MG TAB.CHEW GT SCH (12:16)
[2017-04-04] MEDS: LOSARTAN POTASSIUM 25 MG TABLET GT SCH ×2 (12:16→17:00)
[2017-04-04] MEDS: VIT B CMPLX 3/FA/VIT C/BIOTIN 1 TAB TABLET PO SCH (12:16)
[2017-04-04] MEDS: hydrALAZINE HCL 25 MG TABLET GT SCH ×2 (12:17→17:00)
[2017-04-04] MEDS: LORATADINE 10 MG TABLET GT SCH (12:17)
[2017-04-04] MEDS: Z GUARD REMEDY 2 OZ OINT TP PRN (12:20)
[2017-04-04] MEDS: DAKINS QUARTER STRENGTH (0.125%) 480 ML BOTTLE TOP SCH (12:20)
[2017-04-04] MEDS: ZINC SULFATE 220 MG CAPSULE GT SCH (12:21)
[2017-04-04] MEDS: HYDROCODONE/APAP 5/325MG 1 EACH TABLET GT SCH ×2 (12:30→21:31)
[2017-04-04] MEDS: PROSOURCE / PROSTAT (PYXIS) 30 ML UDC GT SCH ×3 (12:35→18:18)
[2017-04-04] MEDS: FERROUS SULFATE UDC 300 MG/5 ML UDC GT SCH (12:35)
[2017-04-04] MEDS: diphenhydrAMINE HCL ELIX 25 MG/10 ML UDC GT PRN (15:06)
[2017-04-04] MEDS: LORAZEPAM 0.5 MG TABLET GT PRN (15:06)
[2017-04-04 16:00] VITALS: BP 105/37
--- NOTE | 2017-04-04 19:05 | NUR ---
RN OPENING NOTES REPORT RECEIVED FROM AM RN. PATIENT A/A/O X1-2, W/ INTERMITTENT CONFUSION & ANXIETY, BUT ABLE TO MAKE SOME NEEDS KNOWN. TRACH INTACT W/ VENT SETTINGS AC 12, TV 500, FIO2 40%, PEEP 5. NO RESPIRATORY DISTRESS NOTED. ON TELE SINUS RHYTHM W/ PULSES PRESENT. G-TUBE INTACT & FLUSHING WELL W/ GTF NOVASOURCE @ 45 ML/HR, NO RESIDUAL NOTED. RIGHT UPPER ARM MIDLINE INTACT & PATENT W/ DRESSING CDI, ON SALINE LOCK. RIGHT CHEST WALL HD CATH INTACT W/ DRESSING CDI. DENIES ANY PAIN OR DISCOMFORT @ THIS TIME. SAFETY MEASURES IN PLACE, BED LOCKED IN LOWEST POSITION, CALL LIGHT WITHIN REACH. CONTACT ISOLATION PRECAUTIONS IN PLACE. WILL CONTINUE TO MONITOR.
--- NOTE | 2017-04-04 19:20 | NUR ---
Handoff report to night nurse.
[2017-04-04 20:00] VITALS: BP 109/58
[2017-04-04] MEDS: INSULIN DETEMIR 100 UNIT/ML CARTRIDGE SQ SCH (21:37)
[2017-04-05] VITALS (7 sets, daily range): BP systolic 96–130; BP diastolic 49–76
[2017-04-05] MEDS: INSULIN REGULAR, HUMAN 100 UNIT/ML 3 ML VIAL SQ PRN ×3 (00:10→23:19)
[2017-04-05] MEDS: BLOOD SUGAR DIAGNOSTIC 1 EACH STRIP IN SCH ×5 (00:10→23:18)
[2017-04-05] MEDS: IPRATROPIUM NEB FS 0.5 MG/2.5 ML AMPUL.NEB NEB SCH ×4 (01:30→19:15)
[2017-04-05] MEDS: ALBUTEROL FS 2.5 MG/3 ML VIAL.NEB NEB SCH ×4 (01:30→19:15)
[2017-04-05] MEDS: FAMOTIDINE (20 MG) 20 MG TABLET GT SCH (06:13)
[2017-04-05 07:06] LABS: BASOPHILS % (AUTO) 0.1 % (0.0-2.0); EOSINOPHILS # (AUTO) 0.3 /CMM (0.0-0.7); EOSINOPHILS % (AUTO) 2.1 % (0.0-6.0); HEMATOCRIT 25 % (33-45); HEMOGLOBIN 8.3 g/dL (11.5-14.8); LYMPHOCYTES # (AUTO) 2.8 /CMM (0.8-4.8); LYMPHOCYTES % (AUTO) 20.1 % (20.0-44.0); MEAN CORPUSCULAR HEMOGLOBIN 29 PG (26.0-33.0); MEAN CORPUSCULAR HGB CONC 33 g/dl (31.0-36.0); MEAN CORPUSCULAR VOLUME 86 fL (82-100); MONOCYTES # (AUTO) 0.7 /CMM (0.1-1.30); MONOCYTES % (AUTO) 4.9 % (2.0-12.0); NEUTROPHILS # (AUTO) 10.1 /CMM (1.8-8.9); NEUTROPHILS % (AUTO) 72.8 % (43.0-81.0); PLATELET COUNT (AUTO) 334 /CMM (150-450); RDW COEFFICIENT OF VARIATION 15.4 (11.5-15.0); RED BLOOD CELL COUNT(AUTO) 2.87 MIL/uL (4.0-5.2); WHITE BLOOD COUNT (AUTO) 13.9 K/uL (4.3-11.0)
[2017-04-05 07:21] LABS: CALCIUM, SERUM 11.7 mg/dL (8.5-10.1)
[2017-04-05 07:23] LABS: CREATININE 8.2 mg/dL (0.6-1.3)
[2017-04-05] MEDS: FERROUS SULFATE UDC 300 MG/5 ML UDC GT SCH (08:49)
[2017-04-05] MEDS: VIT B CMPLX 3/FA/VIT C/BIOTIN 1 TAB TABLET PO SCH (08:49)
[2017-04-05] MEDS: LORATADINE 10 MG TABLET GT SCH (08:49)
[2017-04-05] MEDS: ASPIRIN 81 MG TAB.CHEW GT SCH (08:49)
[2017-04-05] MEDS: METOCLOPRAMIDE HCL 10 MG/10 ML UDC GT SCH ×2 (08:49→17:04)
[2017-04-05] MEDS: ZINC SULFATE 220 MG CAPSULE GT SCH (08:49)
[2017-04-05] MEDS: LOSARTAN POTASSIUM 25 MG TABLET GT SCH ×2 (08:50→17:05)
[2017-04-05] MEDS: hydrALAZINE HCL 25 MG TABLET GT SCH ×2 (08:50→17:04)
[2017-04-05] MEDS: HYDROCODONE/APAP 5/325MG 1 EACH TABLET GT SCH ×2 (08:51→21:21)
[2017-04-05] MEDS: PROSOURCE / PROSTAT (PYXIS) 30 ML UDC GT SCH ×3 (08:51→17:05)
[2017-04-05] MEDS: DAKINS QUARTER STRENGTH (0.125%) 480 ML BOTTLE TOP SCH (09:00)
[2017-04-05] MEDS ORDERED: IV NS 0.9% 500 ML IV ONE (11:00)
--- NOTE | 2017-04-05 19:05 | NUR ---
RN OPENING NOTES REPORT RECEIVED FROM AM RN. PATIENT A/A/O X1-2, W/ INTERMITTENT CONFUSION & ANXIETY, BUT ABLE TO MAKE SOME NEEDS KNOWN. TRACH INTACT W/ VENT SETTINGS AC 12, TV 500, FIO2 40%, PEEP 5. NO RESPIRATORY DISTRESS NOTED. ON TELE SINUS RHYTHM W/ PULSES PRESENT. G-TUBE INTACT & FLUSHING WELL W/ GTF NOVASOURCE @ 45 ML/HR, NO RESIDUAL NOTED. HOB ELEVATED. RIGHT UPPER ARM MIDLINE INTACT & PATENT W/ DRESSING CDI, ON TKO. RIGHT CHEST WALL HD CATH INTACT W/ DRESSING CDI. DENIES ANY PAIN OR DISCOMFORT @ THIS TIME. SAFETY MEASURES IN PLACE W/ BED LOCKED & IN LOWEST POSITION, CALL LIGHT WITHIN REACH. CONTACT ISOLATION PRECAUTIONS IN PLACE. WILL CONTINUE TO MONITOR.
[2017-04-05] MEDS: INSULIN DETEMIR 100 UNIT/ML CARTRIDGE SQ SCH (21:22)
[2017-04-05] MEDS: RENAL NOVASOURCE 1,000 ML BOTTLE GT PRN (23:19)
[2017-04-06] VITALS: BP 95/51
[2017-04-06] MEDS: IPRATROPIUM NEB FS 0.5 MG/2.5 ML AMPUL.NEB NEB SCH ×4 (01:16→19:56)
[2017-04-06] MEDS: ALBUTEROL FS 2.5 MG/3 ML VIAL.NEB NEB SCH ×4 (01:17→19:57)
[2017-04-06 04:00] VITALS: BP 113/56
[2017-04-06] MEDS: FAMOTIDINE (20 MG) 20 MG TABLET GT SCH (06:05)
[2017-04-06] MEDS: BLOOD SUGAR DIAGNOSTIC 1 EACH STRIP IN SCH ×3 (06:07→17:08)
[2017-04-06] MEDS: INSULIN REGULAR, HUMAN 100 UNIT/ML 3 ML VIAL SQ PRN (06:27)
[2017-04-06 06:56] LABS: BASOPHILS % (AUTO) 0.2 % (0.0-2.0); EOSINOPHILS # (AUTO) 0.2 /CMM (0.0-0.7); EOSINOPHILS % (AUTO) 1.9 % (0.0-6.0); HEMATOCRIT 25 % (33-45); HEMOGLOBIN 8.5 g/dL (11.5-14.8); LYMPHOCYTES # (AUTO) 2.3 /CMM (0.8-4.8); LYMPHOCYTES % (AUTO) 19.3 % (20.0-44.0); MEAN CORPUSCULAR HEMOGLOBIN 29 PG (26.0-33.0); MEAN CORPUSCULAR HGB CONC 34 g/dl (31.0-36.0); MEAN CORPUSCULAR VOLUME 86 fL (82-100); MONOCYTES # (AUTO) 0.5 /CMM (0.1-1.30); MONOCYTES % (AUTO) 4.4 % (2.0-12.0); NEUTROPHILS % (AUTO) 74.2 % (43.0-81.0); PLATELET COUNT (AUTO) 345 /CMM (150-450); RDW COEFFICIENT OF VARIATION 15.8 (11.5-15.0); RED BLOOD CELL COUNT(AUTO) 2.94 MIL/uL (4.0-5.2); WHITE BLOOD COUNT (AUTO) 12.2 K/uL (4.3-11.0)
[2017-04-06 07:07] LABS: CALCIUM, SERUM 11.6 mg/dL (8.5-10.1); MAGNESIUM 2.7 mg/dL (1.8-2.4); PHOSPHORUS 5.9 mg/dL (2.5-4.9)
--- NOTE | 2017-04-06 07:50 | NUR ---
BOX TRUCK WASHER NOTES PT IN BED, AWAKE, ALERT, ABLE TO MAKE NEEDS KNOWN, DENIES PAIN, NOT IN DISTRESS, VENT IN PLACE, GT FEEDING INFUSING WELL, CALL LIGHT WITHIN REACH, KEPT OPAL POLISHER BED, ISOLATION PRECAUTIONS OBSERVED.
[2017-04-06 07:53] LABS: CREATININE 9.3 mg/dL (0.6-1.3)
[2017-04-06 08:00] VITALS: BP 113/56
[2017-04-06] MEDS: hydrALAZINE HCL 25 MG TABLET GT SCH ×2 (09:00→16:47)
[2017-04-06] MEDS: LOSARTAN POTASSIUM 25 MG TABLET GT SCH ×2 (09:00→16:49)
--- NOTE | 2017-04-06 09:00 | NUR ---
PUBLICATION SPECIALIST NOTES BP MEDS HELD, PT WILL HAVE DIALYSIS TODAY.
[2017-04-06] MEDS: FERROUS SULFATE UDC 300 MG/5 ML UDC GT SCH (09:17)
[2017-04-06] MEDS: PROSOURCE / PROSTAT (PYXIS) 30 ML UDC GT SCH ×3 (09:17→16:56)
[2017-04-06] MEDS: ASPIRIN 81 MG TAB.CHEW GT SCH (09:18)
[2017-04-06] MEDS: VIT B CMPLX 3/FA/VIT C/BIOTIN 1 TAB TABLET PO SCH (09:18)
[2017-04-06] MEDS: METOCLOPRAMIDE HCL 10 MG/10 ML UDC GT SCH ×2 (09:18→16:56)
[2017-04-06] MEDS: ZINC SULFATE 220 MG CAPSULE GT SCH (09:18)
[2017-04-06] MEDS: LORATADINE 10 MG TABLET GT SCH (09:18)
[2017-04-06] MEDS: HYDROCODONE/APAP 5/325MG 1 EACH TABLET GT SCH ×2 (09:19→21:08)
[2017-04-06] MEDS: DAKINS QUARTER STRENGTH (0.125%) 480 ML BOTTLE TOP SCH (09:20)
[2017-04-06 12:00] VITALS: BP 108/47
--- NOTE | 2017-04-06 12:38 | NUR ---
TRACTOR MECHANIC HELPER NOTES PT IN BED, RESTING, NO COMPLAINT OF PAIN, RESPIRATIONS NORMAL, TRACH CARE DONE, WOUND CARE PROVIDED, TURNED AND REPOSITIONED Q2 HRS, BLOOD SUGAR CHECKED ORDERED, PLAN OF CARE EXPLAINED TO PT, VERBALIZED UNDERSTANDING, CALL LIGHT WITHIN REACH, TOLERATING GT FEEDING WELL.
[2017-04-06 16:00] VITALS: BP 97/49
[2017-04-06] MEDS: VANCOMYCIN 500 MG in IV D5W 100 ML IV PRN (16:56)
--- NOTE | 2017-04-06 18:06 | NUR ---
TEXTILE ENGINEER NOTES PT IN BED, AWAKE, ALERT, WATCHING TV, DENIES PAIN, NOT IN DISTRESS, COMPLETED DIALYSIS TODAY, VITAL SIGNS STABLE, TOLERATED WELL, DUE MEDS GIVEN ORDERED, BLOOD SUGAR CHECKED, NO S/S OF HYPO/HYPERGLYCEMIA NOTED, CALL LIGHT WITHIN REACH, KEPT WARM AND COMFORTABLE IN BED.
--- NOTE | 2017-04-06 19:59 | NUR ---
TECHNOLOGY RECRUITER NOTES RECEIVED PT IN BED, AWAKE, ALERT, WATCHING TV, DENIES PAIN, NOT IN DISTRESS, S/P DIALYSIS TODAY, VITAL SIGNS STABLE, TOLERATED WELL, DUE MEDS GIVEN TO BE GIVEN ORDERED, PT KEPT CLEAN AND DRY, CALL LIGHT WITHIN REACH, KEPT WARM AND COMFORTABLE IN BED.
[2017-04-06 20:00] VITALS: BP 119/64
[2017-04-06] MEDS: INSULIN DETEMIR 100 UNIT/ML CARTRIDGE SQ SCH (21:14)
--- NOTE | 2017-04-06 21:15 | NUR ---
2200 BS 120 DOMINGO HELD BS TRENDING LOWER, WILL CONT TO MONITOR, @ 0000 BS.
[2017-04-07] VITALS: BP 112/73
[2017-04-07] MEDS: BLOOD SUGAR DIAGNOSTIC 1 EACH STRIP IN SCH ×5 (00:52→23:39)
[2017-04-07] MEDS: IPRATROPIUM NEB FS 0.5 MG/2.5 ML AMPUL.NEB NEB SCH ×4 (01:31→20:04)
[2017-04-07] MEDS: ALBUTEROL FS 2.5 MG/3 ML VIAL.NEB NEB SCH ×4 (01:31→20:04)
[2017-04-07] MEDS: RENAL NOVASOURCE 1,000 ML BOTTLE GT PRN (02:54)
[2017-04-07 04:00] VITALS: BP_SYST 119; BP_SYST 125; BP_DIAS 53; BP_DIAS 63
[2017-04-07] MEDS: FAMOTIDINE (20 MG) 20 MG TABLET GT SCH (05:43)
--- NOTE | 2017-04-07 06:29 | NUR ---
MACHINE SPLITTER CLOSING NOTES ENDORSED PT IN BED, AWAKE, ALERT, ASLEEP, DENIES PAIN, NOT IN DISTRESS, S/P DIALYSIS 04/06/17, VITAL SIGNS STABLE, TOLERATED WELL, DUE MEDS GIVEN TO BE GIVEN ORDERED, PT KEPT CLEAN AND DRY, CALL LIGHT WITHIN REACH, KEPT WARM AND COMFORTABLE IN BED.
[2017-04-07 06:53] LABS: BASOPHILS % (AUTO) 0.1 % (0.0-2.0); EOSINOPHILS # (AUTO) 0.2 /CMM (0.0-0.7); HEMATOCRIT 26 % (33-45); HEMOGLOBIN 8.6 g/dL (11.5-14.8); LYMPHOCYTES # (AUTO) 2.1 /CMM (0.8-4.8); LYMPHOCYTES % (AUTO) 18.1 % (20.0-44.0); MEAN CORPUSCULAR HEMOGLOBIN 29 PG (26.0-33.0); MEAN CORPUSCULAR HGB CONC 33 g/dl (31.0-36.0); MEAN CORPUSCULAR VOLUME 86 fL (82-100); MONOCYTES # (AUTO) 0.6 /CMM (0.1-1.30); NEUTROPHILS # (AUTO) 8.8 /CMM (1.8-8.9); NEUTROPHILS % (AUTO) 74.8 % (43.0-81.0); PLATELET COUNT (AUTO) 361 /CMM (150-450); RDW COEFFICIENT OF VARIATION 15.5 (11.5-15.0); RED BLOOD CELL COUNT(AUTO) 3.01 MIL/uL (4.0-5.2); WHITE BLOOD COUNT (AUTO) 11.8 K/uL (4.3-11.0)
--- NOTE | 2017-04-07 07:30 | NUR ---
RN NOTES PATIENT ALERT AND ORIENTED, TOLERATING VENT SETTINGS WELL, NO S/SX OF DISTRESS AT THIS TIME, TURNED AND REPOSITION, KEPT COMFORTABLE, GTF ONGOING AND TOLERATING WELL, HOB ELEVATED AT ALL TIMES, CALL LIGHT WITHIN REACH, SAFETY MEASURES IN PLACED, WILL CONTINUE TO MONITOR.
[2017-04-07 08:00] VITALS: BP 117/77
--- NOTE | 2017-04-07 08:40 | NUR ---
RN NOTES PATIENT STARTED ON HEMODIALYSIS.
[2017-04-07] MEDS: LOSARTAN POTASSIUM 25 MG TABLET GT SCH ×2 (09:00→16:44)
[2017-04-07] MEDS: hydrALAZINE HCL 25 MG TABLET GT SCH ×2 (09:00→16:43)
[2017-04-07] MEDS: LORATADINE 10 MG TABLET GT SCH (09:46)
[2017-04-07] MEDS: VIT B CMPLX 3/FA/VIT C/BIOTIN 1 TAB TABLET PO SCH (09:46)
[2017-04-07] MEDS: ASPIRIN 81 MG TAB.CHEW GT SCH (09:46)
[2017-04-07] MEDS: ZINC SULFATE 220 MG CAPSULE GT SCH (09:47)
[2017-04-07] MEDS: METOCLOPRAMIDE HCL 10 MG/10 ML UDC GT SCH ×2 (09:47→16:43)
[2017-04-07] MEDS: FERROUS SULFATE UDC 300 MG/5 ML UDC GT SCH (09:47)
[2017-04-07] MEDS: PROSOURCE / PROSTAT (PYXIS) 30 ML UDC GT SCH ×3 (09:47→16:44)
[2017-04-07] MEDS: DAKINS QUARTER STRENGTH (0.125%) 480 ML BOTTLE TOP SCH (09:47)
[2017-04-07] MEDS: HYDROCODONE/APAP 5/325MG 1 EACH TABLET GT SCH ×2 (09:47→22:09)
[2017-04-07] MEDS: Z GUARD REMEDY 2 OZ OINT TP PRN (11:41)
[2017-04-07 12:00] VITALS: BP 122/71
[2017-04-07] MEDS: INSULIN REGULAR, HUMAN 100 UNIT/ML 3 ML VIAL SQ PRN (12:09)
[2017-04-07] MEDS: diphenhydrAMINE HCL ELIX 25 MG/10 ML UDC GT PRN (12:10)
[2017-04-07] MEDS: VANCOMYCIN 500 MG in IV D5W 100 ML IV PRN (12:14)
--- NOTE | 2017-04-07 12:14 | NUR ---
RN NOTES VANCO TROUGH 21 HIGH, PER PHARMACIST, HOLD VANCO FOR TODAY.
[2017-04-07] MEDS: EPOETIN ALFA (10,000 UNIT) 10,000 UNIT/ML VIAL SQ PRN (14:43)
[2017-04-07 16:00] VITALS: BP 119/53
[2017-04-07] MEDS: NYSTATIN (PYXIS) 500,000 UNIT/5 ML ORAL.SUSP PO SCH (17:36)
--- NOTE | 2017-04-07 18:37 | NUR ---
RN NOTES PATIENT ALERT AND ORIENTED X3, ABLE TO VERBALIZE NEEDS, HOB ELEVATED AT ALL TIMES, TURNED AND REPOSITIONED EVERY 2 HOURS AND PRN, WOUND TREATMENT RENDERED, SKIN CARE PROVIDED, KEPT SKIN CLEAN AND DRY, GTF ONGOING AND TOLERATING WELL, NO S/SX OF DISTRESS AT THIS TIME, CALL LIGHT WITHIN REACH, SAFETY MEASURES IN PLACED, WILL ENDORSE TO [employer] OFFIC[employer] FOR [employer].
[2017-04-07 20:00] VITALS: BP 107/68
[2017-04-07] MEDS: INSULIN DETEMIR 100 UNIT/ML CARTRIDGE SQ SCH (22:33)
[2017-04-08] VITALS (7 sets, daily range): BP systolic 98–127; BP diastolic 53–70
[2017-04-08] MEDS: ALBUTEROL FS 2.5 MG/3 ML VIAL.NEB NEB SCH ×4 (01:27→19:51)
[2017-04-08] MEDS: IPRATROPIUM NEB FS 0.5 MG/2.5 ML AMPUL.NEB NEB SCH ×4 (01:27→19:51)
[2017-04-08] MEDS: FAMOTIDINE (20 MG) 20 MG TABLET GT SCH (05:32)
[2017-04-08] MEDS: BLOOD SUGAR DIAGNOSTIC 1 EACH STRIP IN SCH ×3 (05:33→17:27)
[2017-04-08] MEDS: RENAL NOVASOURCE 1,000 ML BOTTLE GT PRN (05:34)
--- NOTE | 2017-04-08 06:14 | NUR ---
[employer] PROGRAM MANAGER CLOSING NOTES ENDORSED PT IN BED, AWAKE, ALERT, DENIES PAIN, NOT IN DISTRESS, S/P DIALYSIS 04/07/17, VITAL SIGNS STABLE, TOLERATED WELL, DUE MEDS GIVEN TO BE GIVEN ORDERED, PT KEPT CLEAN AND DRY, CALL LIGHT WITHIN REACH, KEPT WARM AND COMFORTABLE IN BED
[2017-04-08 06:36] LABS: BASOPHILS % (AUTO) 0.3 % (0.0-2.0); EOSINOPHILS # (AUTO) 0.2 /CMM (0.0-0.7); HEMATOCRIT 27 % (33-45); HEMOGLOBIN 8.8 g/dL (11.5-14.8); LYMPHOCYTES % (AUTO) 20.5 % (20.0-44.0); MEAN CORPUSCULAR HEMOGLOBIN 29 PG (26.0-33.0); MEAN CORPUSCULAR HGB CONC 33 g/dl (31.0-36.0); MEAN CORPUSCULAR VOLUME 86 fL (82-100); MONOCYTES # (AUTO) 0.5 /CMM (0.1-1.30); MONOCYTES % (AUTO) 5.1 % (2.0-12.0); NEUTROPHILS # (AUTO) 7.1 /CMM (1.8-8.9); NEUTROPHILS % (AUTO) 72.1 % (43.0-81.0); PLATELET COUNT (AUTO) 359 /CMM (150-450); RDW COEFFICIENT OF VARIATION 15.9 (11.5-15.0); RED BLOOD CELL COUNT(AUTO) 3.07 MIL/uL (4.0-5.2); WHITE BLOOD COUNT (AUTO) 9.8 K/uL (4.3-11.0)
--- NOTE | 2017-04-08 07:30 | NUR ---
MAINTENANCE CHIEF INITIAL NOTES RECEIVED PT IN BED, AWAKE, ALERT, DENIES PAIN, NOT IN DISTRESS, S/P DIALYSIS 04/07/17, VITAL SIGNS STABLE, TOLERATED WELL, DUE MEDS GIVEN TO BE GIVEN ORDERED, PT KEPT CLEAN AND DRY, CALL LIGHT WITHIN REACH, KEPT WARM AND COMFORTABLE IN BED.
[2017-04-08] MEDS: DAKINS QUARTER STRENGTH (0.125%) 480 ML BOTTLE TOP SCH (09:00)
[2017-04-08] MEDS: PROSOURCE / PROSTAT (PYXIS) 30 ML UDC GT SCH ×3 (09:00→17:26)
[2017-04-08] MEDS: LORATADINE 10 MG TABLET GT SCH (09:00)
[2017-04-08] MEDS ORDERED: ALLA266C2 TP (09:01)
[2017-04-08] MEDS ORDERED: ALBUT2 NEB (09:01)
[2017-04-08] MEDS ORDERED: RXVAN XX (09:01)
[2017-04-08] MEDS ORDERED: Renal Novasource GT (09:01)
--- NOTE | 2017-04-08 09:34 | NUR ---
CHANCE JONES NOTIFIED REGARDING DISCHARGE,FAXED INFO TO [facility] PER YISSEL CHARGE NURSE NO ROOM, WILL CONTINUE TO FF.UP.
[2017-04-08] MEDS: ZINC SULFATE 220 MG CAPSULE GT SCH (09:43)
[2017-04-08] MEDS: VIT B CMPLX 3/FA/VIT C/BIOTIN 1 TAB TABLET PO SCH (09:43)
[2017-04-08] MEDS: METOCLOPRAMIDE HCL 10 MG/10 ML UDC GT SCH ×2 (09:44→17:27)
[2017-04-08] MEDS: LOSARTAN POTASSIUM 25 MG TABLET GT SCH ×2 (09:44→17:27)
[2017-04-08] MEDS: hydrALAZINE HCL 25 MG TABLET GT SCH ×2 (09:44→17:27)
[2017-04-08] MEDS: NYSTATIN (PYXIS) 500,000 UNIT/5 ML ORAL.SUSP PO SCH ×3 (09:44→17:27)
[2017-04-08] MEDS: ASPIRIN 81 MG TAB.CHEW GT SCH (09:44)
[2017-04-08] MEDS: FERROUS SULFATE UDC 300 MG/5 ML UDC GT SCH (09:45)
[2017-04-08] MEDS: HYDROCODONE/APAP 5/325MG 1 EACH TABLET GT SCH ×2 (09:45→21:51)
--- NOTE | 2017-04-08 13:10 | NUR ---
RN NOTES: REC'D REPORT FROM BALJIT WHITE FOR RICA. PT NOT IN ANY DISTRESS, A/O X 2. ON MECH VENT VIA TRACH, SATURATING 100%. ON TELEMONITOR, SR. HAS PEG PATENT & INTACT, ON CONT TUBE FEEDING AT 45 CC/HR INFUSING WELL. HAS LADAN MIDLINE, SL AND R CW HD CATH INTACT AND IN PLACE. PROVIDED COMFORT & SAFETY MEASURES. CALL LIGHT PLACED W/IN REACH. ISOLATION PREC OBSERVED. BED KEPT LOW & IN LOCKED POS. WILL CONTINUE TO MONITOR AND ATTEND PT NEEDS.
[2017-04-08] MEDS: INSULIN REGULAR, HUMAN 100 UNIT/ML 3 ML VIAL SQ PRN ×2 (13:33→17:30)
--- NOTE | 2017-04-08 19:01 | NUR ---
RN CLOSING NOTES: NO ACUTE CHANGES NOTED W/IN SHIFT. PT TOLERATED MECH VENT SETTINGS VIA TRACH, SATURATING 100%. SECRETIONS SUCTIONED. ON TELEMONITOR, STILL SR. PEG KEPT PATENT & INTACT, TUBE FEEDING TOLERATED WELL, NO RESIDUAL NOTED W/IN SHIFT. R CW HD CATH KEPT IN PLACE AND INTACT. LADAN MIDLINE KEPT PATENT & INTACT W/ NO S/SX OF INFECTION/INFILTRATION NOTED. WOUND CARE DONE. TURNED AND REPOSITIONED Q2H. PT KEPT WELL RESTED. NEEDS ATTENDED. BED KEPT LOW & IN LOCKED POS. CALL LIGHT PLACED W/IN REACH. ORDER FOR DC BACK TO SNF BUT PER CM CARLA, NO BED AVAILABLE AT THIS TIME. WILL ENDORSE TO PM RN FOR RICA.
--- NOTE | 2017-04-08 20:37 | NUR ---
AGRICULTURAL TECHNICAL OFFICER INITIAL NOTES: REC'D REPORT FROM AM, RN FOR RICA. PT NOT IN ANY DISTRESS, A/O X 2. ON MECH VENT VIA TRACH, SATURATING 100%. ON TELEMONITOR, SR. HAS PEG PATENT & INTACT, ON CONT TUBE FEEDING AT 45 CC/HR INFUSING WELL. HAS LADAN MIDLINE, SL AND R CW HD CATH INTACT AND IN PLACE. PROVIDED COMFORT & SAFETY MEASURES. CALL LIGHT PLACED W/IN REACH. ISOLATION PREC OBSERVED. BED KEPT LOW & IN LOCKED POS. WILL CONTINUE TO MONITOR AND ATTEND PT NEEDS.
[2017-04-08] MEDS: INSULIN DETEMIR 100 UNIT/ML CARTRIDGE SQ SCH (22:00)
--- NOTE | 2017-04-08 22:25 | NUR ---
2200 DOMINGO NOT GIVEN BS 105, TRENDING LOW, WILL CHECK @ 0000.
[2017-04-09] VITALS (7 sets, daily range): BP systolic 118–143; BP diastolic 64–81
[2017-04-09] MEDS: BLOOD SUGAR DIAGNOSTIC 1 EACH STRIP IN SCH ×4 (00:19→17:32)
[2017-04-09] MEDS: ALBUTEROL FS 2.5 MG/3 ML VIAL.NEB NEB SCH ×4 (01:55→19:56)
[2017-04-09] MEDS: IPRATROPIUM NEB FS 0.5 MG/2.5 ML AMPUL.NEB NEB SCH ×4 (01:55→19:55)
[2017-04-09] MEDS: RENAL NOVASOURCE 1,000 ML BOTTLE GT PRN (04:09)
[2017-04-09] MEDS: FAMOTIDINE (20 MG) 20 MG TABLET GT SCH (05:13)
--- NOTE | 2017-04-09 06:02 | NUR ---
RESPIRATORY CARE ASSISTANT CLOSING NOTES: ENDORSED REPORT TO BALJIT GODOY FOR RICA. PT NOT IN ANY DISTRESS, A/O X 2. ON MECH VENT VIA TRACH, SATURATING 100%. ON TELEMONITOR, SR. HAS PEG PATENT & INTACT, ON CONT TUBE FEEDING AT 45 CC/HR INFUSING WELL. HAS LADAN MIDLINE, SL AND R CW HD CATH INTACT AND IN PLACE. PROVIDED COMFORT & SAFETY MEASURES. CALL LIGHT PLACED W/IN REACH. ISOLATION PREC OBSERVED. BED KEPT LOW & IN LOCKED POS. WILL CONTINUE TO MONITOR AND ATTEND PT NEEDS
[2017-04-09 06:55] LABS: BASOPHILS % (AUTO) 0.4 % (0.0-2.0); EOSINOPHILS # (AUTO) 0.3 /CMM (0.0-0.7); EOSINOPHILS % (AUTO) 2.5 % (0.0-6.0); HEMATOCRIT 25 % (33-45); HEMOGLOBIN 8.4 g/dL (11.5-14.8); LYMPHOCYTES # (AUTO) 2.3 /CMM (0.8-4.8); LYMPHOCYTES % (AUTO) 21.5 % (20.0-44.0); MEAN CORPUSCULAR HEMOGLOBIN 29 PG (26.0-33.0); MEAN CORPUSCULAR HGB CONC 34 g/dl (31.0-36.0); MEAN CORPUSCULAR VOLUME 86 fL (82-100); MONOCYTES # (AUTO) 0.5 /CMM (0.1-1.30); NEUTROPHILS # (AUTO) 7.7 /CMM (1.8-8.9); NEUTROPHILS % (AUTO) 70.6 % (43.0-81.0); PLATELET COUNT (AUTO) 367 /CMM (150-450); RDW COEFFICIENT OF VARIATION 15.7 (11.5-15.0); RED BLOOD CELL COUNT(AUTO) 2.92 MIL/uL (4.0-5.2); WHITE BLOOD COUNT (AUTO) 10.9 K/uL (4.3-11.0)
--- NOTE | 2017-04-09 07:30 | NUR ---
ASSIGNMENT MANAGER OPENING RECEIVED PATIENT RESTING WELL A/OX2 NO S/S SOB, DIFFICULTY BREATHING OR PAIN AT THIS TIME. VENT SETTINGS ORDERED WITH PATIENT TOLERATING WELL. HOB ELEVATED FOR ASPIRATION PRECAUTIONS. TUBE FEEDING RUNNING ORDERED. BED LOWERED AND LOCKED, [id number] FOR SAFETY AND WILL ROUND Q2H OR LESS PER NEEDS. TELE NSR.
[2017-04-09] MEDS: Z GUARD REMEDY 2 OZ OINT TP PRN ×2 (08:58→16:37)
[2017-04-09] MEDS: PROSOURCE / PROSTAT (PYXIS) 30 ML UDC GT SCH ×3 (08:58→16:36)
[2017-04-09] MEDS: ASPIRIN 81 MG TAB.CHEW GT SCH (09:00)
[2017-04-09] MEDS: LORATADINE 10 MG TABLET GT SCH (09:00)
[2017-04-09] MEDS: LOSARTAN POTASSIUM 25 MG TABLET GT SCH ×2 (09:00→16:35)
[2017-04-09] MEDS: VIT B CMPLX 3/FA/VIT C/BIOTIN 1 TAB TABLET PO SCH (09:01)
[2017-04-09] MEDS: hydrALAZINE HCL 25 MG TABLET GT SCH ×2 (09:01→16:36)
[2017-04-09] MEDS: NYSTATIN (PYXIS) 500,000 UNIT/5 ML ORAL.SUSP PO SCH ×3 (09:01→16:36)
[2017-04-09] MEDS: HYDROCODONE/APAP 5/325MG 1 EACH TABLET GT SCH ×2 (09:01→21:20)
[2017-04-09] MEDS: FERROUS SULFATE UDC 300 MG/5 ML UDC GT SCH (09:01)
[2017-04-09] MEDS: METOCLOPRAMIDE HCL 10 MG/10 ML UDC GT SCH ×2 (09:01→16:36)
[2017-04-09] MEDS: ZINC SULFATE 220 MG CAPSULE GT SCH (09:01)
[2017-04-09] MEDS: DAKINS QUARTER STRENGTH (0.125%) 480 ML BOTTLE TOP SCH (09:05)
--- NOTE | 2017-04-09 19:06 | NUR ---
CUTTER AND EDGE TRIMMER CLOSING PATIENT STABLE NO COMPLICATIONS NOTED. ALL DUE MEDS GIVEN AND ALL NEEDS MET. PATIENT REPOSITIONED FOR INCREASED COMFORT. BED LOWERED AND LOCKED, RAILS UPX3 FOR SAFETY AND CARE ENDORSED TO RN FOR RICA
--- NOTE | 2017-04-09 19:30 | NUR ---
RN INITIAL NOTES REPORT RECEIVED FROM AM RN. PATIENT A/A/O X1-2, W/ INTERMITTENT CONFUSION & ANXIETY, BUT ABLE TO MAKE SOME NEEDS KNOWN VERBALLY. TRACH MIDLINE AND INTACT WITH VENT AT PRESCRIBED SETTINGS, TOLERATING WELL, NO RESPIRATORY DISTRESS NOTED. ON TELEMETRY MONITORING, REVEALING SINUS RHYTHM. GT PATENT AND INTACT, FLUSHING WELL W/ GTF NOVASOURCE @ 45 ML/HR, NO RESIDUAL NOTED. HOB ELEVATED. RIGHT UPPER ARM MIDLINE INTACT & PATENT W/ DRESSING CDI, ON TKO. RIGHT CHEST WALL HD CATH INTACT W/ DRESSING CDI. DENIES ANY PAIN OR DISCOMFORT @ THIS TIME. SAFETY MEASURES IN PLACE W/ BARIMAXX BED, LOCKED & IN LOWEST POSITION, CALL LIGHT WITHIN REACH. CONTACT ISOLATION PRECAUTIONS OBSERVED. WILL CONTINUE TO MONITOR.
[2017-04-09] MEDS: INSULIN DETEMIR 100 UNIT/ML CARTRIDGE SQ SCH (21:21)
[2017-04-10] VITALS: BP 113/59
[2017-04-10] MEDS: BLOOD SUGAR DIAGNOSTIC 1 EACH STRIP IN SCH ×5 (00:44→23:18)
[2017-04-10] MEDS: ALBUTEROL FS 2.5 MG/3 ML VIAL.NEB NEB SCH ×4 (01:53→19:54)
[2017-04-10] MEDS: IPRATROPIUM NEB FS 0.5 MG/2.5 ML AMPUL.NEB NEB SCH ×4 (01:53→19:54)
[2017-04-10 04:00] VITALS: BP 102/52
[2017-04-10] MEDS: RENAL NOVASOURCE 1,000 ML BOTTLE GT PRN (04:40)
[2017-04-10] MEDS: FAMOTIDINE (20 MG) 20 MG TABLET GT SCH (05:54)
[2017-04-10 06:42] LABS: BASOPHILS % (AUTO) 0.2 % (0.0-2.0); EOSINOPHILS # (AUTO) 0.2 /CMM (0.0-0.7); EOSINOPHILS % (AUTO) 1.5 % (0.0-6.0); HEMATOCRIT 26 % (33-45); HEMOGLOBIN 8.6 g/dL (11.5-14.8); LYMPHOCYTES # (AUTO) 2.8 /CMM (0.8-4.8); LYMPHOCYTES % (AUTO) 22.6 % (20.0-44.0); MEAN CORPUSCULAR HEMOGLOBIN 28 PG (26.0-33.0); MEAN CORPUSCULAR HGB CONC 33 g/dl (31.0-36.0); MEAN CORPUSCULAR VOLUME 86 fL (82-100); MONOCYTES # (AUTO) 0.6 /CMM (0.1-1.30); MONOCYTES % (AUTO) 4.9 % (2.0-12.0); NEUTROPHILS # (AUTO) 8.8 /CMM (1.8-8.9); NEUTROPHILS % (AUTO) 70.8 % (43.0-81.0); PLATELET COUNT (AUTO) 373 /CMM (150-450); RDW COEFFICIENT OF VARIATION 16.1 (11.5-15.0); RED BLOOD CELL COUNT(AUTO) 3.05 MIL/uL (4.0-5.2); WHITE BLOOD COUNT (AUTO) 12.5 K/uL (4.3-11.0)
--- NOTE | 2017-04-10 07:00 | NUR ---
RN CLOSING NOTES PATIENT RESTING COMFORTABLY IN BED, WOUNDS DOCUMENTED PER PROTOCOL, CONTINUES ON MECHANICAL VENT. WILL ENDORSE THE PATIENT TO THE AM SHIFT NURSE FOR RICA
--- NOTE | 2017-04-10 07:05 | NUR ---
RN NOTES RECEIVED PT ON BED, A/Ox1, ABLE TO MAKE SOME NEEDS KNOWN VERBALLY.VENT/ TRACH DEPENDENT , TRACH MIDLINE AND INTACT , TOLERATING CURRENT VENT SETTING WELL, NO SOB NOTED , ON TELE SR HR IN 80'S , GT PATENT AND INTACT, FLUSHING WELL W/ GTF NOVASOURCE @ 45 ML/HR, NO RESIDUAL NOTED. HOB ELEVATED. RIGHT UPPER ARM MIDLINE AND RIGHT CHEST WALL HD CATH SITES CDI, SR UP x3, CALL LIGHT WITHIN EASY REACH, BED LOCKED & IN LOWEST POSITION, CONTACT ISOLATION PRECAUTIONS OBSERVED. WILL CONTINUE TO MONITOR PT CLOSELY .
[2017-04-10 08:00] VITALS: BP 128/62
[2017-04-10] MEDS: METOCLOPRAMIDE HCL 10 MG/10 ML UDC GT SCH ×2 (08:58→17:39)
[2017-04-10] MEDS: FERROUS SULFATE UDC 300 MG/5 ML UDC GT SCH (08:58)
[2017-04-10] MEDS: HYDROCODONE/APAP 5/325MG 1 EACH TABLET GT SCH ×2 (08:59→22:12)
[2017-04-10] MEDS: ZINC SULFATE 220 MG CAPSULE GT SCH (08:59)
[2017-04-10] MEDS: LORATADINE 10 MG TABLET GT SCH (08:59)
[2017-04-10] MEDS: ASPIRIN 81 MG TAB.CHEW GT SCH (08:59)
[2017-04-10] MEDS: hydrALAZINE HCL 25 MG TABLET GT SCH ×2 (09:00→17:00)
[2017-04-10] MEDS: VIT B CMPLX 3/FA/VIT C/BIOTIN 1 TAB TABLET PO SCH (09:00)
[2017-04-10] MEDS: LOSARTAN POTASSIUM 25 MG TABLET GT SCH ×2 (09:01→17:40)
[2017-04-10] MEDS: Z GUARD REMEDY 2 OZ OINT TP PRN (09:02)
[2017-04-10] MEDS: DAKINS QUARTER STRENGTH (0.125%) 480 ML BOTTLE TOP SCH (09:02)
[2017-04-10] MEDS: PROSOURCE / PROSTAT (PYXIS) 30 ML UDC GT SCH ×3 (09:05→17:41)
[2017-04-10] MEDS: NYSTATIN (PYXIS) 500,000 UNIT/5 ML ORAL.SUSP PO SCH ×3 (09:06→17:41)
[2017-04-10] MEDS ORDERED: ALBUMIN 25% 25 GM in PREMIX 1 EA IV ONE (11:30)
[2017-04-10 12:00] VITALS: BP 106/48
--- NOTE | 2017-04-10 14:00 | NUR ---
RN NOTES PHARMACY NOTIFIED REGARDING THE VANCO TROUGH THAT NEEDS TO BE DONE , SPOKEN TO ANEL Pagan
[2017-04-10] MEDS: HYDROCODONE/APAP 5/325MG 1 EACH TABLET GT PRN (14:21)
[2017-04-10] MEDS: LORAZEPAM 0.5 MG TABLET GT PRN (14:21)
--- NOTE | 2017-04-10 15:08 | NUR ---
RN NOTES PT ALREADY HAS RECEIVED HD TODAY AND UNABLE TO GET ACCURATE VANCO LEVEL . SPOKEN TO ANEL PHARMACIST AND ANEL STATED IT IS OK TO GIVE VANCO IV POST HD WITHOUT THE VANCO LEVEL TODAY .
[2017-04-10 16:00] VITALS: BP 101/51
--- NOTE | 2017-04-10 18:00 | NUR ---
RN NOTES TRACH SUCTIONING DONE , PT STABLE , NO DISTRESS NOTED, TOLERATING TF WELL, NO RESIDUAL NOTED , R UPPER ARM MIDLINE CDI, SACRAL WOUND CULTURE SENT TO LAB, SR UP x3, CALL LIGHT WITHIN EASY REACH. WILL ENDORSE TO FOREIGN LANGUAGE TEACHER NURSE FOR RICA .
[2017-04-10] MEDS: VANCOMYCIN 500 MG in IV D5W 100 ML IV PRN (18:20)
--- NOTE | 2017-04-10 19:15 | NUR ---
RN OPEN NOTES RECEIVED PATIENT AWAKE IN BED. A/O X2. NO SIGNS OF DISTRESS OR DISCOMFORT. BREATHING EVEN AND UNLABORED. ON [facility] VENT WITH SETTINGS ORDERED. HAS G-TUBE INTACT, WITH FEEDING RUNNING, TOLERATING WELL. LADAN MIDLINE, PATENT AND INTACT, NO SIGNS OF REDNESS OR INFILTRATION. RCW HD CATH INTACT. S/P HD TODAY WITH 1.5L OUTPUT. BED IN LOW LOCKED POSITION WITH SIDE RAILS X3. CALL LIGHT WITHIN REACH. WILL CONTINUE TO MONITOR. Addendum: 04/10/17 at 2032 by ANDRIY ARMENTA RN ON TELE MONITORING WITH SR 84 NOTED.
[2017-04-10 20:00] VITALS: BP 110/65
[2017-04-10] MEDS: INSULIN DETEMIR 100 UNIT/ML CARTRIDGE SQ SCH (22:00)
[2017-04-11] VITALS (7 sets, daily range): BP systolic 89–122; BP diastolic 51–75
[2017-04-11] MEDS: ALBUTEROL FS 2.5 MG/3 ML VIAL.NEB NEB SCH ×4 (01:49→20:06)
[2017-04-11] MEDS: IPRATROPIUM NEB FS 0.5 MG/2.5 ML AMPUL.NEB NEB SCH ×4 (01:49→20:06)
[2017-04-11] MEDS: FAMOTIDINE (20 MG) 20 MG TABLET GT SCH (05:49)
[2017-04-11] MEDS: RENAL NOVASOURCE 1,000 ML BOTTLE GT PRN (05:49)
[2017-04-11] MEDS: BLOOD SUGAR DIAGNOSTIC 1 EACH STRIP IN SCH ×4 (06:11→23:52)
--- NOTE | 2017-04-11 06:57 | NUR ---
RN CLOSING NOTES PATIENT AWAKE IN BED. A/O X2. NO SIGNS OF DISTRESS OR DISCOMFORT. BREATHING EVEN AND UNLABORED. ON MECH VENT WITH SETTINGS ORDERED. ON TELE MONITORING WITH SR 70 NOTED. HAS G-TUBE INTACT, WITH FEEDING RUNNING, TOLERATING WELL. LADAN MIDLINE, PATENT AND INTACT, NO SIGNS OF REDNESS OR INFILTRATION. RCW HD CATH INTACT. ALL NEEDS MET. NO SIGNIFICANT CHANGES THROUGH THE NIGHT. PATIENT KEPT CLEAN DRY AND COMFORTABLE. WOUND CARE RENDERED. REPOSITIONED Q2H. BED IN LOW LOCKED POSITION WITH SIDE RAILS X3. CALL LIGHT WITHIN REACH. WILL ENDORSE TO AM SHIFT FOR RICA.
--- NOTE | 2017-04-11 07:05 | NUR ---
RN NOTES RECEIVED PATIENT ON BED, A/O X2. VENT/ TRACH DEPENDENT , TRACH CARE AND TRACH SUCTIONING DONE, TOLERATING CURRENT VENT SETTING WELL, NO DISTRESS NOTED , NOVASOURCE AT 45CC/HR RUNNING VIA GT , NO RESIDUAL NOTED, R UA MIDLINE AND R CW HD CATH SITES CDI, PT REFUSED AM LABS AT THIS TIME , EDUCATED PT REGARDING THE IMPORTANCE OF GETTING THE BLOOD WORK DONE THIS AM , PT STATED IT IS OK TO GET BLOOD DRAWING DONE THIS AM , LAB NOTIFIED. BED LOCKED AND IN LOWEST POSITION WITH SIDE RAILS X3. CALL LIGHT WITHIN EASY REACH. WILL CONTINUE TO MONITOR.
[2017-04-11 07:55] LABS: BASOPHILS % (AUTO) 0.3 % (0.0-2.0); EOSINOPHILS # (AUTO) 0.3 /CMM (0.0-0.7); EOSINOPHILS % (AUTO) 1.9 % (0.0-6.0); HEMATOCRIT 27 % (33-45); HEMOGLOBIN 8.9 g/dL (11.5-14.8); LYMPHOCYTES # (AUTO) 2.3 /CMM (0.8-4.8); LYMPHOCYTES % (AUTO) 16.7 % (20.0-44.0); MEAN CORPUSCULAR HEMOGLOBIN 29 PG (26.0-33.0); MEAN CORPUSCULAR HGB CONC 33 g/dl (31.0-36.0); MEAN CORPUSCULAR VOLUME 87 fL (82-100); MONOCYTES # (AUTO) 0.6 /CMM (0.1-1.30); MONOCYTES % (AUTO) 4.3 % (2.0-12.0); NEUTROPHILS # (AUTO) 10.6 /CMM (1.8-8.9); NEUTROPHILS % (AUTO) 76.8 % (43.0-81.0); PLATELET COUNT (AUTO) 384 /CMM (150-450); RDW COEFFICIENT OF VARIATION 15.6 (11.5-15.0); WHITE BLOOD COUNT (AUTO) 13.8 K/uL (4.3-11.0)
[2017-04-11] MEDS: METOCLOPRAMIDE HCL 10 MG/10 ML UDC GT SCH ×2 (08:43→17:15)
[2017-04-11] MEDS: NYSTATIN (PYXIS) 500,000 UNIT/5 ML ORAL.SUSP PO SCH ×3 (08:43→17:15)
[2017-04-11] MEDS: ZINC SULFATE 220 MG CAPSULE GT SCH (08:43)
[2017-04-11] MEDS: FERROUS SULFATE UDC 300 MG/5 ML UDC GT SCH (08:43)
[2017-04-11] MEDS: HYDROCODONE/APAP 5/325MG 1 EACH TABLET GT SCH ×2 (08:43→21:15)
[2017-04-11] MEDS: ASPIRIN 81 MG TAB.CHEW GT SCH (08:44)
[2017-04-11] MEDS: LOSARTAN POTASSIUM 25 MG TABLET GT SCH ×2 (08:44→17:00)
[2017-04-11] MEDS: LORATADINE 10 MG TABLET GT SCH (08:44)
[2017-04-11] MEDS: hydrALAZINE HCL 25 MG TABLET GT SCH ×2 (08:44→17:00)
[2017-04-11] MEDS: VIT B CMPLX 3/FA/VIT C/BIOTIN 1 TAB TABLET PO SCH (08:48)
[2017-04-11] MEDS: LORAZEPAM 0.5 MG TABLET GT PRN (08:48)
[2017-04-11] MEDS: DAKINS QUARTER STRENGTH (0.125%) 480 ML BOTTLE TOP SCH (08:49)
[2017-04-11] MEDS: PROSOURCE / PROSTAT (PYXIS) 30 ML UDC GT SCH ×3 (09:28→17:18)
--- NOTE | 2017-04-11 12:00 | NUR ---
RN NOTES TRACH SUCTIONING DONE ,SEMIFORMED STOOL x1
--- NOTE | 2017-04-11 18:38 | NUR ---
RN NOTES TRACH SUCTIONING DONE , TOLERATING TF WELL , NO RESIDUAL NOTED, R UPPER ARM MIDLINE CDI, SR UP x3, CALL LIGHT WITHIN EASY REACH, WILL ENDORSE TO DIRECTOR POST NURSE FOR RICA
[2017-04-11] MEDS: INSULIN DETEMIR 100 UNIT/ML CARTRIDGE SQ SCH (23:54)
[2017-04-12] VITALS: BP 111/58
[2017-04-12] MEDS: ALBUTEROL FS 2.5 MG/3 ML VIAL.NEB NEB SCH ×4 (01:33→20:25)
[2017-04-12] MEDS: IPRATROPIUM NEB FS 0.5 MG/2.5 ML AMPUL.NEB NEB SCH ×4 (01:34→20:25)
[2017-04-12 04:00] VITALS: BP 101/48
[2017-04-12] MEDS: HYDROCODONE/APAP 5/325MG 1 EACH TABLET GT PRN (05:37)
[2017-04-12] MEDS: RENAL NOVASOURCE 1,000 ML BOTTLE GT PRN (05:37)
[2017-04-12] MEDS: FAMOTIDINE (20 MG) 20 MG TABLET GT SCH (05:37)
[2017-04-12] MEDS: BLOOD SUGAR DIAGNOSTIC 1 EACH STRIP IN SCH ×4 (05:38→23:04)
[2017-04-12] MEDS: INSULIN REGULAR, HUMAN 100 UNIT/ML 3 ML VIAL SQ PRN (05:41)
[2017-04-12 07:21] LABS: BASOPHILS % (AUTO) 0.2 % (0.0-2.0); EOSINOPHILS # (AUTO) 0.2 /CMM (0.0-0.7); EOSINOPHILS % (AUTO) 1.4 % (0.0-6.0); HEMATOCRIT 26 % (33-45); HEMOGLOBIN 8.9 g/dL (11.5-14.8); LYMPHOCYTES # (AUTO) 2.3 /CMM (0.8-4.8); LYMPHOCYTES % (AUTO) 18.1 % (20.0-44.0); MEAN CORPUSCULAR HEMOGLOBIN 29 PG (26.0-33.0); MEAN CORPUSCULAR HGB CONC 34 g/dl (31.0-36.0); MEAN CORPUSCULAR VOLUME 87 fL (82-100); MONOCYTES # (AUTO) 0.6 /CMM (0.1-1.30); MONOCYTES % (AUTO) 4.4 % (2.0-12.0); NEUTROPHILS # (AUTO) 9.5 /CMM (1.8-8.9); NEUTROPHILS % (AUTO) 75.9 % (43.0-81.0); PLATELET COUNT (AUTO) 371 /CMM (150-450); RDW COEFFICIENT OF VARIATION 15.9 (11.5-15.0); RED BLOOD CELL COUNT(AUTO) 3.05 MIL/uL (4.0-5.2); WHITE BLOOD COUNT (AUTO) 12.6 K/uL (4.3-11.0)
[2017-04-12 08:00] VITALS: BP 125/68
[2017-04-12] MEDS: NYSTATIN (PYXIS) 500,000 UNIT/5 ML ORAL.SUSP PO SCH ×3 (09:14→18:03)
[2017-04-12] MEDS: HYDROCODONE/APAP 5/325MG 1 EACH TABLET GT SCH ×2 (09:15→20:55)
[2017-04-12] MEDS: LORATADINE 10 MG TABLET GT SCH (09:15)
[2017-04-12] MEDS: METOCLOPRAMIDE HCL 10 MG/10 ML UDC GT SCH ×2 (09:15→18:02)
[2017-04-12] MEDS: ZINC SULFATE 220 MG CAPSULE GT SCH (09:15)
[2017-04-12] MEDS: VIT B CMPLX 3/FA/VIT C/BIOTIN 1 TAB TABLET PO SCH (09:15)
[2017-04-12] MEDS: ASPIRIN 81 MG TAB.CHEW GT SCH (09:15)
[2017-04-12] MEDS: FERROUS SULFATE UDC 300 MG/5 ML UDC GT SCH (09:16)
[2017-04-12] MEDS: LOSARTAN POTASSIUM 25 MG TABLET GT SCH ×2 (09:16→17:00)
[2017-04-12] MEDS: hydrALAZINE HCL 25 MG TABLET GT SCH ×2 (09:16→17:00)
[2017-04-12] MEDS: DAKINS QUARTER STRENGTH (0.125%) 480 ML BOTTLE TOP SCH (09:19)
[2017-04-12] MEDS: PROSOURCE / PROSTAT (PYXIS) 30 ML UDC GT SCH ×3 (09:49→18:02)
[2017-04-12 12:00] VITALS: BP_SYST 125; BP_SYST 99; BP_DIAS 60; BP_DIAS 68
[2017-04-12] MEDS: VANCOMYCIN 500 MG in IV D5W 100 ML IV PRN (14:00)
--- NOTE | 2017-04-12 14:00 | NUR ---
RN NOTE; DIALYSIS DONE BY DIALYSIS NURSE , 1 LTR OUTPUT . WILL CONTINUE OT MONITOR.
[2017-04-12 16:00] VITALS: BP_SYST 104; BP_SYST 99; BP_DIAS 54; BP_DIAS 60
--- NOTE | 2017-04-12 16:40 | NUR ---
RN NOTE; ADVERTISING DISPATCH CLERKS SUPERVISOR ON THE CASE FOR THE [facility] BED AVAILABILITY . DISCHARGE HELD AT THIS TIME .
--- NOTE | 2017-04-12 19:30 | NUR ---
ART INSTRUCTOR INITIAL NOTE RECEIVED PT IN BED SLEEPING. A/O X2 AND EASILY AROUSABLE TO NAME AND TOUCH. ON MECH VENT WITH SETTINGS WELL TOLERATED AND SATURATING 100%. NO SOB NOTED AT THIS TIME.HOB ELEVATED AND ON ASPIRATION PRECAUTIONS. TELE-SR 92. ISOLATION PRECAUTIONS OBSERVED. IV LADAN MIDLINE CLEAN, PATENT AND FLUSHING WELL. RCW HD CATH CLEAN, DRY AND IN PLACE. GTUBE FEEDING WELL TOLERATED AND FLUSHING WELL WITHOUT RESIDUALS NOTED. CALL LIGHT WITHIN REACH. WILL CONTINUE TO MONITOR.
--- NOTE | 2017-04-12 19:56 | NUR ---
RN EOS NOTE; PT REMAINED STABLE DURING THE SHIFT. NO ANY DISTRESS NOTED, ALL DUE MEDS TOLERATED WELL. ENDORSE TO NEXT SHIFT RN FOR CONTINUITY OF CARE.
[2017-04-12 20:00] VITALS: BP 117/61
[2017-04-12] MEDS: INSULIN DETEMIR 100 UNIT/ML CARTRIDGE SQ SCH (22:49)
[2017-04-13] VITALS: BP 125/70
[2017-04-13] MEDS: ALBUTEROL FS 2.5 MG/3 ML VIAL.NEB NEB SCH ×4 (02:21→19:21)
[2017-04-13] MEDS: IPRATROPIUM NEB FS 0.5 MG/2.5 ML AMPUL.NEB NEB SCH ×4 (02:21→19:21)
[2017-04-13 04:00] VITALS: BP 115/61
[2017-04-13] MEDS: BLOOD SUGAR DIAGNOSTIC 1 EACH STRIP IN SCH ×4 (06:04→23:02)
[2017-04-13] MEDS: FAMOTIDINE (20 MG) 20 MG TABLET GT SCH (06:04)
[2017-04-13] MEDS: RENAL NOVASOURCE 1,000 ML BOTTLE GT PRN (06:17)
--- NOTE | 2017-04-13 07:05 | NUR ---
RN NOTE RECEIVED PT ON BED, A/O X2 , MAKES HER NEEDS KNOWN , VENT/TRACH DEPENDENT , TOLERATING CURRENT VENT SETTING WELL, NO SOB NOTED, HOB ELEVATED AND ON ASPIRATION PRECAUTIONS. ON TELE SR IN 80'S ISOLATION PRECAUTIONS OBSERVED. NOVASOURCE AT 45CC/HR RUNNING VIA GT , NO RESIDUAL NOTED, IV R UA MIDLINE CLEAN, PATENT AND FLUSHING WELL. R CW HD CATH CLEAN, DRY AND IN PLACE. BED LOCKED AND IN LOWEST POSITION , SR UP x3, CALL LIGHT WITHIN REACH. WILL CONTINUE TO MONITOR.
[2017-04-13 07:15] LABS: BASOPHILS % (AUTO) 0.2 % (0.0-2.0); EOSINOPHILS # (AUTO) 0.2 /CMM (0.0-0.7); EOSINOPHILS % (AUTO) 1.9 % (0.0-6.0); HEMATOCRIT 26 % (33-45); HEMOGLOBIN 8.7 g/dL (11.5-14.8); LYMPHOCYTES # (AUTO) 2.1 /CMM (0.8-4.8); LYMPHOCYTES % (AUTO) 17.7 % (20.0-44.0); MEAN CORPUSCULAR HEMOGLOBIN 29 PG (26.0-33.0); MEAN CORPUSCULAR HGB CONC 34 g/dl (31.0-36.0); MEAN CORPUSCULAR VOLUME 86 fL (82-100); MONOCYTES # (AUTO) 0.6 /CMM (0.1-1.30); MONOCYTES % (AUTO) 5.5 % (2.0-12.0); NEUTROPHILS # (AUTO) 8.8 /CMM (1.8-8.9); NEUTROPHILS % (AUTO) 74.7 % (43.0-81.0); PLATELET COUNT (AUTO) 359 /CMM (150-450); RDW COEFFICIENT OF VARIATION 15.9 (11.5-15.0); RED BLOOD CELL COUNT(AUTO) 3.01 MIL/uL (4.0-5.2); WHITE BLOOD COUNT (AUTO) 11.7 K/uL (4.3-11.0)
--- NOTE | 2017-04-13 07:35 | NUR ---
IMPORT/EXPORT AGENT CLOSING NOTE PT REMAINED STABLE DURING SHIFT. VENT SETTINGS WELL TOLERATED. NO SOB NOTED. NO C/O PAIN OR DISCOMFORT. REPOSITIONED Q2H. ISOLATION PRECAUTIONS OBSERVED. HOB ELEVATED. ASPIRATION PRECAUTIONS MAINTAINED. GTUBE IN PLACE AND FLUSHING WELL. IV INTACT AND PATENT. WOUND TREATMENT PERFORMED ORDERED AND WELL TOLERATED. KEPT CLEAN AND DRY. CALL LIGHT WITHIN REACH. WILL ENDORSE TO NEXT SHIFT FOR RICA.
--- NOTE | 2017-04-13 07:36 | NUR ---
RT PATIENT REC'D TRACHED ON [facility] VENT WITH SETTINGS SET BY TOLERATED WELL. VENT ALARMS CHECKED + AUDIBLE. TRACH SECURE AND IN PROPER POSITION. CUFF CHECKED UNDERWRITING SALES REPRESENTATIVE. PATIENT SUCTIONED WITH SMALL/MOD AMT PALE SEMITHICK SECRETIONS. B/S DIM COARSE. PATIENT APPEARS COMFORTABLE AND IN NO DISTRESS AT THIS TIME. VENT PLUGGED INTO RED OUTLET. AMBU BAG AT [facility]. CONT CURRENT PLAN OF RESP CARE. Addendum: 04/13/17 at 0832 by SOLO BUTLER RT Amended: Links added.
[2017-04-13 08:00] VITALS: BP 146/77
[2017-04-13] MEDS: VIT B CMPLX 3/FA/VIT C/BIOTIN 1 TAB TABLET PO SCH (08:20)
[2017-04-13] MEDS: FERROUS SULFATE UDC 300 MG/5 ML UDC GT SCH (08:20)
[2017-04-13] MEDS: LORATADINE 10 MG TABLET GT SCH (08:20)
[2017-04-13] MEDS: METOCLOPRAMIDE HCL 10 MG/10 ML UDC GT SCH ×2 (08:20→16:40)
[2017-04-13] MEDS: hydrALAZINE HCL 25 MG TABLET GT SCH ×2 (08:20→16:40)
[2017-04-13] MEDS: ZINC SULFATE 220 MG CAPSULE GT SCH (08:20)
[2017-04-13] MEDS: ASPIRIN 81 MG TAB.CHEW GT SCH (08:21)
[2017-04-13] MEDS: HYDROCODONE/APAP 5/325MG 1 EACH TABLET GT SCH ×2 (08:21→21:07)
[2017-04-13] MEDS: LOSARTAN POTASSIUM 25 MG TABLET GT SCH ×2 (08:22→16:39)
[2017-04-13] MEDS: PROSOURCE / PROSTAT (PYXIS) 30 ML UDC GT SCH ×3 (08:22→16:40)
[2017-04-13] MEDS: DAKINS QUARTER STRENGTH (0.125%) 480 ML BOTTLE TOP SCH (08:23)
[2017-04-13] MEDS: NYSTATIN (PYXIS) 500,000 UNIT/5 ML ORAL.SUSP PO SCH ×3 (08:45→16:39)
[2017-04-13 12:00] VITALS: BP_SYST 89; BP_SYST 92; BP_DIAS 40; BP_DIAS 42
--- NOTE | 2017-04-13 12:00 | NUR ---
RN NOTES TRACH SUCTIONING DONE , VSS STABLE , TOLERATING TF WELL , NO RESIDUAL NOTED . CONTINUE TO MONITOR
[2017-04-13 16:00] VITALS: BP 101/49
[2017-04-13] MEDS: HYDROCODONE/APAP 5/325MG 1 EACH TABLET GT PRN (17:38)
--- NOTE | 2017-04-13 18:26 | NUR ---
RN NOTES PT AT REST , NO DISTRESS NOTED, VSS STABLE , SR UP x3, CALL LIGHT WITHIN EASY REACH, WILL ENDORSE TO MAINTENANCE GROUNDSKEEPER NURSE FOR RICA .
--- NOTE | 2017-04-13 19:30 | NUR ---
WATCH COMMANDER INITIAL NOTE RECEIVED PT IN BED AWAKE. A/O X2, ABLE TO MAKE NEEDS KNOWN, NOTED WITH EPISODES OF ANXIOUSNESS AND YELLING OUT. ON MECH VENT WITH SETTINGS WELL TOLERATED AND SATURATING 100%. NO SOB NOTED AT THIS TIME. HOB ELEVATED AND ON ASPIRATION PRECAUTIONS. TELE-SR 95. ISOLATION PRECAUTIONS OBSERVED. IV LADAN MIDLINE CLEAN, PATENT AND FLUSHING WELL. RCW HD CATH CLEAN, DRY AND IN PLACE. GTUBE FEEDING WELL TOLERATED AND FLUSHING WELL WITHOUT RESIDUALS NOTED. CALL LIGHT WITHIN REACH. WILL CONTINUE TO MONITOR.
[2017-04-13 20:00] VITALS: BP 108/59
[2017-04-13] MEDS: INSULIN DETEMIR 100 UNIT/ML CARTRIDGE SQ SCH (22:00)
[2017-04-14] VITALS: BP 100/55
[2017-04-14] MEDS: IPRATROPIUM NEB FS 0.5 MG/2.5 ML AMPUL.NEB NEB SCH ×4 (01:07→19:43)
[2017-04-14] MEDS: ALBUTEROL FS 2.5 MG/3 ML VIAL.NEB NEB SCH ×4 (01:07→19:43)
[2017-04-14] MEDS: LORAZEPAM 0.5 MG TABLET GT PRN ×3 (02:10→21:27)
[2017-04-14 04:00] VITALS: BP 119/71
[2017-04-14] MEDS: BLOOD SUGAR DIAGNOSTIC 1 EACH STRIP IN SCH ×4 (05:43→23:11)
[2017-04-14] MEDS: FAMOTIDINE (20 MG) 20 MG TABLET GT SCH (05:44)
[2017-04-14] MEDS: RENAL NOVASOURCE 1,000 ML BOTTLE GT PRN (05:47)
--- NOTE | 2017-04-14 07:15 | NUR ---
RN INITIAL NOTE PATIENT RECEIVED AWAKE, ASLEEP, EASILY AROUSED. NO S/S OF PAIN OR DISCOMFORT. PATIENT HAS TRACH: PORTEX #8, TOLERATING VENT SETTINGS WELL. NO S/S OF RESPIRATORY DISTRESS OR SOB. SINUS RHYTHM ON TELE MONITOR. SKIN IS WARM AND DRY TO TOUCH. IV SITE FLUSHED, PATENT. GTUBE FLUSHED, PATENT, PLACEMENT VERIFIED. TOLERATING FEEDING WELL. SAFETY PRECAUTIONS IMPLEMENTED. BED IN LOCKED, LOW POSITION WITH TWO SIDE RAILS UP. CALL LIGHT AND BELONGINGS WITHIN EASY REACH. WILL CONTINUE TO MONITOR.
[2017-04-14 07:33] LABS: BASOPHILS % (AUTO) 0.2 % (0.0-2.0); EOSINOPHILS # (AUTO) 0.3 /CMM (0.0-0.7); EOSINOPHILS % (AUTO) 2.4 % (0.0-6.0); HEMATOCRIT 27 % (33-45); HEMOGLOBIN 8.9 g/dL (11.5-14.8); LYMPHOCYTES # (AUTO) 2.3 /CMM (0.8-4.8); LYMPHOCYTES % (AUTO) 18.6 % (20.0-44.0); MEAN CORPUSCULAR HEMOGLOBIN 29 PG (26.0-33.0); MEAN CORPUSCULAR HGB CONC 33 g/dl (31.0-36.0); MEAN CORPUSCULAR VOLUME 87 fL (82-100); MONOCYTES # (AUTO) 0.6 /CMM (0.1-1.30); MONOCYTES % (AUTO) 5.2 % (2.0-12.0); NEUTROPHILS # (AUTO) 8.9 /CMM (1.8-8.9); NEUTROPHILS % (AUTO) 73.6 % (43.0-81.0); PLATELET COUNT (AUTO) 351 /CMM (150-450); RDW COEFFICIENT OF VARIATION 16.1 (11.5-15.0); RED BLOOD CELL COUNT(AUTO) 3.09 MIL/uL (4.0-5.2); WHITE BLOOD COUNT (AUTO) 12.1 K/uL (4.3-11.0)
[2017-04-14 08:00] VITALS: BP 124/73
[2017-04-14] MEDS: FERROUS SULFATE UDC 300 MG/5 ML UDC GT SCH (09:11)
[2017-04-14] MEDS: METOCLOPRAMIDE HCL 10 MG/10 ML UDC GT SCH ×2 (09:12→17:40)
[2017-04-14] MEDS: ASPIRIN 81 MG TAB.CHEW GT SCH (09:13)
[2017-04-14] MEDS: LOSARTAN POTASSIUM 25 MG TABLET GT SCH ×2 (09:13→17:40)
[2017-04-14] MEDS: HYDROCODONE/APAP 5/325MG 1 EACH TABLET GT SCH ×2 (09:14→21:28)
[2017-04-14] MEDS: PROSOURCE / PROSTAT (PYXIS) 30 ML UDC GT SCH ×3 (09:15→17:40)
[2017-04-14] MEDS: DAKINS QUARTER STRENGTH (0.125%) 480 ML BOTTLE TOP SCH (09:15)
[2017-04-14] MEDS: VIT B CMPLX 3/FA/VIT C/BIOTIN 1 TAB TABLET PO SCH (09:15)
[2017-04-14] MEDS: ZINC SULFATE 220 MG CAPSULE GT SCH (09:15)
[2017-04-14] MEDS: hydrALAZINE HCL 25 MG TABLET GT SCH ×2 (09:15→17:40)
[2017-04-14] MEDS: NYSTATIN (PYXIS) 500,000 UNIT/5 ML ORAL.SUSP PO SCH ×3 (09:15→17:40)
[2017-04-14] MEDS: LORATADINE 10 MG TABLET GT SCH (09:15)
[2017-04-14 12:00] VITALS: BP 117/71
[2017-04-14] MEDS: HYDROCODONE/APAP 5/325MG 1 EACH TABLET GT PRN (15:50)
[2017-04-14] MEDS: diphenhydrAMINE HCL ELIX 25 MG/10 ML UDC GT PRN (15:50)
[2017-04-14 16:00] VITALS: BP 127/70
--- NOTE | 2017-04-14 19:18 | NUR ---
RN CLOSING NOTE ALL MD ORDERS CARRIED OUT. PATIENTS NEEDS ANTICIPATED. PATIENT REMAINED STABLE DURING SHIFT. WILL GIVE REPORT TO PM RN FOR RICA
--- NOTE | 2017-04-14 19:50 | NUR ---
SAFETY SCIENTIST INITIAL NOTE PT RECEIVED IN NO ACUTE DISTRESS. PT IS AWAKE AND ALERT X 3. ON TELE WITH SR. LAST HD WAS ON 04/14 WITH 2L OUT. PT HAS A PATENT GT THAT FLUSHES WELL RUNNING GTF. PT HAS A LADAN MIDLEIN THAT IS CLEAN DRY AND INTACT WELL A RCW HD CATH. COMFORT AND SAFETY MEASURES TO BE ENSURED DURING THE SHIFT. WILL CONTINUE TO MONITOR FOR ANY CHANGES.
[2017-04-14 20:00] VITALS: BP 100/51
[2017-04-14] MEDS: INSULIN DETEMIR 100 UNIT/ML CARTRIDGE SQ SCH (21:27)
[2017-04-15] VITALS: BP 95/53
[2017-04-15] MEDS: ALBUTEROL FS 2.5 MG/3 ML VIAL.NEB NEB SCH ×4 (01:50→20:14)
[2017-04-15] MEDS: IPRATROPIUM NEB FS 0.5 MG/2.5 ML AMPUL.NEB NEB SCH ×4 (01:59→20:14)
[2017-04-15 04:00] VITALS: BP_SYST 112; BP_SYST 125; BP_DIAS 64; BP_DIAS 70
[2017-04-15] MEDS: BLOOD SUGAR DIAGNOSTIC 1 EACH STRIP IN SCH ×4 (05:23→23:03)
[2017-04-15] MEDS: FAMOTIDINE (20 MG) 20 MG TABLET GT SCH (05:30)
--- NOTE | 2017-04-15 06:26 | NUR ---
HOSPICE SOCIAL WORKER CLOSING NOTE PT REMAINS IN NO ACUTE DISTRESS AT THIS TIME. VENT SETTINGS WELL TOLERATED. NO SOB NOTED. NO C/O PAIN OR DISCOMFORT. REPOSITIONED Q2H. ISOLATION PRECAUTIONS OBSERVED. HOB ELEVATED. ASPIRATION PRECAUTIONS MAINTAINED. GTUBE IN PLACE AND FLUSHING WELL. IV INTACT AND PATENT. WOUND TREATMENT PERFORMED ORDERED AND WELL TOLERATED. KEPT CLEAN AND DRY. CALL LIGHT WITHIN REACH. WILL ENDORSE CARE TO AM NURSE.
--- NOTE | 2017-04-15 07:05 | NUR ---
RN INITIAL NOTE PATIENT RECEIVED IN BED, SLEEPING, EASILY AROUSED. ABLE TO MAKE NEEDS KNOWN. NO S/S OF PAIN OR DISCOMFORT. SINUS RHYTHM ON TELE MONITOR. PATIENT HAS TRACH: PORTEX #8, TOLERATING VENT SETTINGS WELL. NO S/S OF RESPIRATORY DISTRESS OR SOB. GTUBE FLUSHED, PATENT, PLACEMENT VERIFIED. TOLERATING FEEDING WELL. IV SITE FLUSHED, PATENT. SKIN IS WARM AND DRY TO TOUCH. SAFETY PRECAUTIONS IMPLEMENTED. BED IN LOCKED, LOW POSITION WITH TWO SIDE RAILS UP. WILL CONTINUE TO MONITOR CLOSELY.
[2017-04-15 07:46] LABS: EOSINOPHILS # (AUTO) 0.2 /CMM (0.0-0.7); EOSINOPHILS % (AUTO) 1.7 % (0.0-6.0); HEMATOCRIT 26 % (33-45); HEMOGLOBIN 8.5 g/dL (11.5-14.8); LYMPHOCYTES # (AUTO) 1.9 /CMM (0.8-4.8); LYMPHOCYTES % (AUTO) 14.3 % (20.0-44.0); MEAN CORPUSCULAR HEMOGLOBIN 28 PG (26.0-33.0); MEAN CORPUSCULAR HGB CONC 33 g/dl (31.0-36.0); MEAN CORPUSCULAR VOLUME 86 fL (82-100); MONOCYTES # (AUTO) 0.7 /CMM (0.1-1.30); MONOCYTES % (AUTO) 4.9 % (2.0-12.0); NEUTROPHILS # (AUTO) 10.7 /CMM (1.8-8.9); NEUTROPHILS % (AUTO) 79.1 % (43.0-81.0); PLATELET COUNT (AUTO) 335 /CMM (150-450); RED BLOOD CELL COUNT(AUTO) 3.01 MIL/uL (4.0-5.2); WHITE BLOOD COUNT (AUTO) 13.6 K/uL (4.3-11.0)
[2017-04-15 08:00] VITALS: BP_SYST 112; BP_SYST 125; BP_DIAS 57; BP_DIAS 70
[2017-04-15] MEDS: LORATADINE 10 MG TABLET GT SCH (09:00)
[2017-04-15] MEDS: VIT B CMPLX 3/FA/VIT C/BIOTIN 1 TAB TABLET PO SCH (09:00)
[2017-04-15] MEDS: hydrALAZINE HCL 25 MG TABLET GT SCH ×2 (09:00→17:00)
[2017-04-15] MEDS: HYDROCODONE/APAP 5/325MG 1 EACH TABLET GT SCH ×2 (09:00→21:14)
[2017-04-15] MEDS: FERROUS SULFATE UDC 300 MG/5 ML UDC GT SCH (09:00)
[2017-04-15] MEDS: PROSOURCE / PROSTAT (PYXIS) 30 ML UDC GT SCH ×3 (09:00→17:37)
[2017-04-15] MEDS: ZINC SULFATE 220 MG CAPSULE GT SCH (09:00)
[2017-04-15] MEDS: METOCLOPRAMIDE HCL 10 MG/10 ML UDC GT SCH ×2 (09:00→17:37)
[2017-04-15] MEDS: NYSTATIN (PYXIS) 500,000 UNIT/5 ML ORAL.SUSP PO SCH ×3 (09:00→17:37)
[2017-04-15] MEDS: DAKINS QUARTER STRENGTH (0.125%) 480 ML BOTTLE TOP SCH (09:00)
[2017-04-15] MEDS: ASPIRIN 81 MG TAB.CHEW GT SCH (09:00)
[2017-04-15] MEDS: LOSARTAN POTASSIUM 25 MG TABLET GT SCH ×2 (09:01→17:00)
[2017-04-15 12:00] VITALS: BP 95/45
[2017-04-15 16:00] VITALS: BP 112/64
--- NOTE | 2017-04-15 18:58 | NUR ---
RN CLOSING NOTE ALL MD ORDERS CARRIED OUT. PATIENTS NEEDS ANTICIPATED. PATIENT KEPT CLEAN AND DRY. SAFETY PRECAUTIONS IN PLACE AT ALL TIMES. WILL GIVE REPORT TO PM RN FOR RICA.
--- NOTE | 2017-04-15 19:10 | NUR ---
RN OPENING NOTES REPORT RECEIVED FROM LAZARO Garber RN. PATIENT A/A/O X3, W/ INTERMITTENT ANXIETY, BUT ABLE TO MAKE SOME NEEDS KNOWN. TRACH INTACT W/ VENT SETTINGS AC 12, TV 500, FIO2 30%, PEEP 5. NO RESPIRATORY DISTRESS NOTED. ON TELE SINUS RHYTHM IN THE 80S. G-TUBE INTACT & FLUSHING WELL W/ GTF NOVASOURCE @ 45 ML/HR, NO RESIDUAL NOTED @ THIS TIME. HOB ELEVATED. RIGHT UPPER ARM MIDLINE INTACT & PATENT W/ DRESSING CDI, ON TKO. RIGHT CHEST WALL HD CATH INTACT W/ DRESSING CDI. DENIES ANY PAIN OR DISCOMFORT @ THIS TIME. SAFETY MEASURES IN PLACE W/ SIDE RAILS UP, BED LOCKED & IN LOWEST POSITION & CALL LIGHT WITHIN REACH. CONTACT ISOLATION PRECAUTIONS MAINTAINED. WILL CONTINUE TO MONITOR.
[2017-04-15 20:00] VITALS: BP 101/52
[2017-04-15] MEDS: INSULIN DETEMIR 100 UNIT/ML CARTRIDGE SQ SCH (21:14)
[2017-04-15] MEDS: INSULIN REGULAR, HUMAN 100 UNIT/ML 3 ML VIAL SQ PRN (23:04)
[2017-04-16] VITALS: BP 96/46
--- NOTE | 2017-04-16 00:11 | NUR ---
WARES SORTER NOTES REPORT GIVEN TO RV RN FOR RICA.
--- NOTE | 2017-04-16 00:12 | NUR ---
RN NOTES RECEIVED PATIENT IN BED WITH EYES CLOSED; AROUSABLE. NO ACUTE DISTRESS NOTED. VENT SETTING ORDERED. WILL CONTINUE TO MONITOR.
[2017-04-16] MEDS: IPRATROPIUM NEB FS 0.5 MG/2.5 ML AMPUL.NEB NEB SCH ×4 (01:10→20:00)
[2017-04-16] MEDS: ALBUTEROL FS 2.5 MG/3 ML VIAL.NEB NEB SCH ×4 (01:10→20:00)
[2017-04-16 04:00] VITALS: BP 115/61
[2017-04-16] MEDS: FAMOTIDINE (20 MG) 20 MG TABLET GT SCH (05:49)
[2017-04-16] MEDS: BLOOD SUGAR DIAGNOSTIC 1 EACH STRIP IN SCH ×5 (05:49→23:02)
--- NOTE | 2017-04-16 06:28 | NUR ---
RN NOTES PATIENT ASLEEP, EASILY AROUSABLE. RESPIRATIONS EVEN. NOS SIGNS OF PAIN NOTED. SUCTIONED PRN. NO SYMPTOMS OF HYPER/HYPOGLYCEMIA. DUE MEDS GIVEN WITH NO ASE NOTED. NEEDS ATTENDED. SAFETY PRECAUTIONS AND COMFORT MEASURES IN PLACE. WILL GIVE REPORT TO DAY SHIFT FOR CONTINUITY OF CARE.
--- NOTE | 2017-04-16 07:29 | NUR ---
MOLDING TECHNICIAN NOTES PATIENT A/A/O X3, W/ INTERMITTENT ANXIETY, BUT ABLE TO MAKE SOME NEEDS KNOWN. TRACH INTACT W/ VENT SETTINGS AC 12, TV 500, FIO2 30%, PEEP 5. AMBU BAG AT BEDSIDE NO RESPIRATORY DISTRESS NOTED. ON TELE SINUS RHYTHM . W/ GTF NOVASOURCE @ 45 ML/HR, NO RESIDUAL NOTED @ THIS TIME. HOB ELEVATED. RIGHT UPPER ARM MIDLINE INTACT & PATENT W/ DRESSING CDI, ON TKO. RIGHT CHEST WALL HD CATH INTACT W/ DRESSING CDI. DENIES ANY PAIN OR DISCOMFORT @ THIS TIME. SAFETY MEASURES IN PLACE W/ SIDE RAILS UP, BED LOCKED & IN LOWEST POSITION & CALL LIGHT WITHIN REACH.WILL CONT TO MONITOR CLOSELY
[2017-04-16 08:00] VITALS: BP 120/80
[2017-04-16] MEDS: ZINC SULFATE 220 MG CAPSULE GT SCH (08:08)
[2017-04-16] MEDS: LORATADINE 10 MG TABLET GT SCH (08:08)
[2017-04-16] MEDS: METOCLOPRAMIDE HCL 10 MG/10 ML UDC GT SCH ×2 (08:08→16:40)
[2017-04-16] MEDS: NYSTATIN (PYXIS) 500,000 UNIT/5 ML ORAL.SUSP PO SCH ×3 (08:08→16:40)
[2017-04-16] MEDS: FERROUS SULFATE UDC 300 MG/5 ML UDC GT SCH (08:08)
[2017-04-16] MEDS: VIT B CMPLX 3/FA/VIT C/BIOTIN 1 TAB TABLET PO SCH (08:09)
[2017-04-16] MEDS: HYDROCODONE/APAP 5/325MG 1 EACH TABLET GT SCH ×2 (08:09→20:41)
[2017-04-16] MEDS: hydrALAZINE HCL 25 MG TABLET GT SCH ×2 (08:09→16:42)
[2017-04-16] MEDS: PROSOURCE / PROSTAT (PYXIS) 30 ML UDC GT SCH ×3 (08:10→16:40)
[2017-04-16] MEDS: ASPIRIN 81 MG TAB.CHEW GT SCH (08:10)
[2017-04-16] MEDS: LOSARTAN POTASSIUM 25 MG TABLET GT SCH ×2 (08:10→16:41)
[2017-04-16] MEDS: DAKINS QUARTER STRENGTH (0.125%) 480 ML BOTTLE TOP SCH (08:11)
[2017-04-16 08:51] LABS: BASOPHILS % (AUTO) 0.3 % (0.0-2.0); EOSINOPHILS # (AUTO) 0.2 /CMM (0.0-0.7); HEMATOCRIT 25 % (33-45); HEMOGLOBIN 8.2 g/dL (11.5-14.8); LYMPHOCYTES # (AUTO) 2.8 /CMM (0.8-4.8); LYMPHOCYTES % (AUTO) 22.7 % (20.0-44.0); MEAN CORPUSCULAR HEMOGLOBIN 28 PG (26.0-33.0); MEAN CORPUSCULAR HGB CONC 33 g/dl (31.0-36.0); MEAN CORPUSCULAR VOLUME 86 fL (82-100); MONOCYTES # (AUTO) 0.6 /CMM (0.1-1.30); NEUTROPHILS # (AUTO) 8.6 /CMM (1.8-8.9); PLATELET COUNT (AUTO) 317 /CMM (150-450); RDW COEFFICIENT OF VARIATION 15.9 (11.5-15.0); RED BLOOD CELL COUNT(AUTO) 2.93 MIL/uL (4.0-5.2); WHITE BLOOD COUNT (AUTO) 12.3 K/uL (4.3-11.0)
--- NOTE | 2017-04-16 10:38 | NUR ---
ROOFING TECHNICIAN NOTE SPOKE WITH DR PHILLIPS NOTIFYED THAT HG 8.2,NO NEW ORDER GIVEN
[2017-04-16 12:00] VITALS: BP 88/38
[2017-04-16 12:10] LABS: POTASSIUM 4.4 mmol/L (3.5-5.1)
--- NOTE | 2017-04-16 12:14 | NUR ---
ROVING MARKER NOTE ON HD AT THIS TIME
[2017-04-16 12:15] LABS: CREATININE 8.8 mg/dL (0.6-1.3)
[2017-04-16] MEDS: EPOETIN ALFA (10,000 UNIT) 10,000 UNIT/ML VIAL SQ PRN (13:25)
--- NOTE | 2017-04-16 15:08 | NUR ---
telecommunications consultant note hd competed 2.5 bp 100/58
[2017-04-16 16:00] VITALS: BP 101/70
--- NOTE | 2017-04-16 16:27 | NUR ---
SENIOR HARDWARE DESIGN ENGINEER NOTE RT UPPER ARM MID LINE IS LEAKING, NEW ONE ON RT UPPER ARM INSERTED VIRY 18 BY MARTITA SMILEY
[2017-04-16] MEDS: RENAL NOVASOURCE 1,000 ML BOTTLE GT PRN (16:40)
--- NOTE | 2017-04-16 17:41 | NUR ---
TELE, RNREJIOTE CALLED TO PHARMACY NOTICED THAT UNABLE TO SCAN INSULIN LABEL, ITS BROKEN ,STATED THAT WILL BRING NEW ONE SOON, WILL F\U
[2017-04-16] MEDS: FLUCONAZOLE (100 MG) 100 MG TABLET GT SCH (18:12)
--- NOTE | 2017-04-16 18:19 | NUR ---
CERAMIC PLATER NOTE CONT ON VENT SETTING ORDERED, KEEP CLEAN DRY , ALL NEEDS ATTENDED ,NOT IN ACUTE DISTRESS
--- NOTE | 2017-04-16 19:30 | NUR ---
PHARMACEUTICAL PLANT OPERATOR INITIAL NOTE PT RECEIVED AWAKE IN BED. A/O X 2-3 WITH EPISODES ANXIETY AND RESTLESSNESS. ON MECH VENT WITH SETTINGS WELL TOLERATED AND SATURATING 100%. TELE- SR 70'S. IV MACI MIDLINE #18 CLEAN, DRY, PATENT AND FLUSHING WELL. RCW HD CATH CLEAN AND IN PLACE. GTUBE FEEDING WELL TOLERATED WITHOUT RESIDUALS NOTED. GTUBE SITE CLEAN, DRY AND NO S/SX OF INFECTION NOTED. HOB ELEVATED. ON ASPIRATION PRECAUTIONS. CALL LIGHT WITHIN REACH. WILL CONTINUE TO MONITOR.
[2017-04-16 20:00] VITALS: BP 121/65
[2017-04-16] MEDS: INSULIN DETEMIR 100 UNIT/ML CARTRIDGE SQ SCH ×2 (22:00→23:01)
[2017-04-17] VITALS: BP 117/67
[2017-04-17] MEDS: ALBUTEROL FS 2.5 MG/3 ML VIAL.NEB NEB SCH ×4 (02:43→20:12)
[2017-04-17] MEDS: IPRATROPIUM NEB FS 0.5 MG/2.5 ML AMPUL.NEB NEB SCH ×4 (02:43→20:12)
[2017-04-17 04:00] VITALS: BP 111/69
[2017-04-17] MEDS: BLOOD SUGAR DIAGNOSTIC 1 EACH STRIP IN SCH ×4 (05:54→23:50)
[2017-04-17] MEDS: FAMOTIDINE (20 MG) 20 MG TABLET GT SCH (05:55)
--- NOTE | 2017-04-17 06:36 | NUR ---
MAIL AGENT CLOSING NOTE PT REMAINED STABLE DURING SHIFT. VENT SETTINGS WELL TOLERATED. NO SOB NOTED. NO C/O PAIN OR DISCOMFORT. REPOSITIONED Q2H. HOB ELEVATED. ASPIRATION PRECAUTIONS MAINTAINED. GTUBE IN PLACE AND FLUSHING WELL. IV INTACT AND PATENT. WOUND TREATMENT PERFORMED ORDERED AND WELL TOLERATED. KEPT CLEAN AND DRY. PT REFUSED LEVEMIR 80 UNITS AT 2200, SAYING HER SUGAR IS FINE AND SHE DOESN'T NEED COVERAGE, ALSO STATING "THE DOCTOR TOLD ME NO COVERAGE UNLESS BLOOD SUGAR IS ABOVE 150MG/DL". I EXPLAINED TO PT THE DIFFERENCE BETWEEN LEVEMIR AND REGULAR INSULIN AND PT STILL REFUSED LEVEMIR. CALL LIGHT WITHIN REACH. WILL ENDORSE TO NEXT SHIFT FOR RICA.
[2017-04-17 07:20] LABS: BASOPHILS % (AUTO) 0.2 % (0.0-2.0); EOSINOPHILS # (AUTO) 0.1 /CMM (0.0-0.7); EOSINOPHILS % (AUTO) 0.8 % (0.0-6.0); HEMATOCRIT 26 % (33-45); HEMOGLOBIN 8.5 g/dL (11.5-14.8); LYMPHOCYTES # (AUTO) 2.7 /CMM (0.8-4.8); LYMPHOCYTES % (AUTO) 20.3 % (20.0-44.0); MEAN CORPUSCULAR HEMOGLOBIN 28 PG (26.0-33.0); MEAN CORPUSCULAR HGB CONC 33 g/dl (31.0-36.0); MEAN CORPUSCULAR VOLUME 85 fL (82-100); MONOCYTES # (AUTO) 0.7 /CMM (0.1-1.30); MONOCYTES % (AUTO) 5.5 % (2.0-12.0); NEUTROPHILS # (AUTO) 9.6 /CMM (1.8-8.9); NEUTROPHILS % (AUTO) 73.2 % (43.0-81.0); PLATELET COUNT (AUTO) 305 /CMM (150-450); RDW COEFFICIENT OF VARIATION 15.7 (11.5-15.0); WHITE BLOOD COUNT (AUTO) 13.1 K/uL (4.3-11.0)
--- NOTE | 2017-04-17 07:49 | NUR ---
BRACE MAKER NOTES PATIENT IN BED RESTING NO SOB OR ACUTE DISTRESS NOTED. PATIENT ALERT, ORIENTED X3. PATIENT VENT DEPENDENT, VENT SETTINGS NOTED. PATIENT WITH LEFT UPPER ARM MIDLINE INTACT, PATENT. BED IN LOW LOCKED POSITION. CALL LIGHT WITHIN REACH WILL CONTINUE TO MONITOR.
[2017-04-17] MEDS: FERROUS SULFATE UDC 300 MG/5 ML UDC GT SCH (08:15)
[2017-04-17] MEDS: ZINC SULFATE 220 MG CAPSULE GT SCH (08:20)
[2017-04-17] MEDS: METOCLOPRAMIDE HCL 10 MG/10 ML UDC GT SCH ×2 (08:20→17:31)
[2017-04-17] MEDS: VIT B CMPLX 3/FA/VIT C/BIOTIN 1 TAB TABLET PO SCH (08:21)
[2017-04-17] MEDS: HYDROCODONE/APAP 5/325MG 1 EACH TABLET GT SCH ×2 (08:21→21:17)
[2017-04-17] MEDS: LORATADINE 10 MG TABLET GT SCH (08:21)
[2017-04-17] MEDS: FLUCONAZOLE (100 MG) 100 MG TABLET GT SCH (08:21)
[2017-04-17] MEDS: ASPIRIN 81 MG TAB.CHEW GT SCH (08:21)
[2017-04-17] MEDS: hydrALAZINE HCL 25 MG TABLET GT SCH ×2 (08:22→17:32)
[2017-04-17] MEDS: LOSARTAN POTASSIUM 25 MG TABLET GT SCH ×2 (08:22→17:31)
[2017-04-17] MEDS: DAKINS QUARTER STRENGTH (0.125%) 480 ML BOTTLE TOP SCH (08:23)
[2017-04-17] MEDS: PROSOURCE / PROSTAT (PYXIS) 30 ML UDC GT SCH ×3 (08:25→17:32)
[2017-04-17] MEDS: NYSTATIN (PYXIS) 500,000 UNIT/5 ML ORAL.SUSP PO SCH ×3 (08:29→17:25)
--- NOTE | 2017-04-17 13:00 | NUR ---
LEAD PAINTER NOTES PATIENT SEEN AND EVALUATED BY DR. PHILLIPS ORDERS NOTED AND CARRIED OUT.
[2017-04-17 16:00] VITALS: BP 114/67
--- NOTE | 2017-04-17 19:18 | NUR ---
SHIRT FOLDING MACHINE OPERATOR NOTES PATIENT IN BED RESTING NO SOB OR ACUTE DISTRESS NOTED. PATIENT VENT DEPENDENT, VENT SETTINGS NOTED. MIDLINE INTACT PATENT. ALL DUE MEDICATIONS ADMINISTERED ALL NEEDS MET WILL ENDORSE CARE TO PM SHIFT.
--- NOTE | 2017-04-17 19:49 | NUR ---
PSYCHIATRIST INITIAL NOTE PT RECEIVED IN NO ACUTE DISTRESS. PT IS AWAKE AND ALERT X 3. ON TELE WITH SR. LAST HD WAS ON 04/14 WITH 2L OUT. PT HAS A PATENT GT THAT FLUSHES WELL RUNNING GTF. PT HAS A LADAN MIDLINE THAT IS CLEAN DRY AND INTACT WELL A RCW HD CATH. COMFORT AND SAFETY MEASURES TO BE ENSURED DURING THE SHIFT. WILL CONTINUE TO MONITOR FOR ANY CHANGES.
[2017-04-17 20:00] VITALS: BP 98/46
[2017-04-17] MEDS: INSULIN DETEMIR 100 UNIT/ML CARTRIDGE SQ SCH (21:19)
[2017-04-18] VITALS: BP 95/48
[2017-04-18] MEDS: ALBUTEROL FS 2.5 MG/3 ML VIAL.NEB NEB SCH ×4 (02:23→20:09)
[2017-04-18] MEDS: IPRATROPIUM NEB FS 0.5 MG/2.5 ML AMPUL.NEB NEB SCH ×4 (02:23→20:09)
[2017-04-18 04:00] VITALS: BP 115/77
[2017-04-18] MEDS: BLOOD SUGAR DIAGNOSTIC 1 EACH STRIP IN SCH ×3 (05:19→17:26)
[2017-04-18] MEDS: FAMOTIDINE (20 MG) 20 MG TABLET GT SCH (05:30)
--- NOTE | 2017-04-18 05:45 | NUR ---
UNIVERSAL WORKER ASSISTED LIVING CLOSING NOTE PT IS IN NO DISTRESS. COMFORTABLE IN BED TOLERATING LUZ/TRACH. ALL DUE MEDICATIONS WERE GIVEN AND TOLERATED ORDERED. VITALS WNL. SR ON THE TELE. WILL ENDORSE CARE TO AM NURSE.
[2017-04-18] MEDS: RENAL NOVASOURCE 1,000 ML BOTTLE GT PRN (05:48)
[2017-04-18 07:06] LABS: BASOPHILS % (AUTO) 0.2 % (0.0-2.0); EOSINOPHILS # (AUTO) 0.2 /CMM (0.0-0.7); EOSINOPHILS % (AUTO) 1.7 % (0.0-6.0); HEMATOCRIT 26 % (33-45); HEMOGLOBIN 8.6 g/dL (11.5-14.8); LYMPHOCYTES # (AUTO) 2.2 /CMM (0.8-4.8); MEAN CORPUSCULAR HEMOGLOBIN 28 PG (26.0-33.0); MEAN CORPUSCULAR HGB CONC 33 g/dl (31.0-36.0); MEAN CORPUSCULAR VOLUME 85 fL (82-100); MONOCYTES # (AUTO) 0.7 /CMM (0.1-1.30); MONOCYTES % (AUTO) 6.4 % (2.0-12.0); NEUTROPHILS # (AUTO) 7.9 /CMM (1.8-8.9); NEUTROPHILS % (AUTO) 71.7 % (43.0-81.0); PLATELET COUNT (AUTO) 291 /CMM (150-450); RDW COEFFICIENT OF VARIATION 15.6 (11.5-15.0); RED BLOOD CELL COUNT(AUTO) 3.04 MIL/uL (4.0-5.2)
[2017-04-18 08:00] VITALS: BP 114/63
[2017-04-18] MEDS: LORATADINE 10 MG TABLET GT SCH (09:00)
[2017-04-18] MEDS: ZINC SULFATE 220 MG CAPSULE GT SCH (09:00)
[2017-04-18] MEDS: FLUCONAZOLE (100 MG) 100 MG TABLET GT SCH (09:00)
[2017-04-18] MEDS: ASPIRIN 81 MG TAB.CHEW GT SCH (09:00)
[2017-04-18] MEDS: DAKINS QUARTER STRENGTH (0.125%) 480 ML BOTTLE TOP SCH (09:00)
[2017-04-18] MEDS: HYDROCODONE/APAP 5/325MG 1 EACH TABLET GT SCH ×2 (09:00→22:22)
[2017-04-18] MEDS: PROSOURCE / PROSTAT (PYXIS) 30 ML UDC GT SCH ×3 (09:00→16:23)
[2017-04-18] MEDS: NYSTATIN (PYXIS) 500,000 UNIT/5 ML ORAL.SUSP PO SCH ×3 (09:00→16:23)
[2017-04-18] MEDS: LOSARTAN POTASSIUM 25 MG TABLET GT SCH ×2 (09:00→16:10)
[2017-04-18] MEDS: METOCLOPRAMIDE HCL 10 MG/10 ML UDC GT SCH ×2 (09:00→16:23)
[2017-04-18] MEDS: FERROUS SULFATE UDC 300 MG/5 ML UDC GT SCH (09:00)
[2017-04-18] MEDS: VIT B CMPLX 3/FA/VIT C/BIOTIN 1 TAB TABLET PO SCH (09:00)
[2017-04-18] MEDS: hydrALAZINE HCL 25 MG TABLET GT SCH ×2 (09:00→16:10)
[2017-04-18 12:00] VITALS: BP_SYST 100; BP_SYST 88; BP_DIAS 47
[2017-04-18 16:00] VITALS: BP 100/55
[2017-04-18] MEDS: EPOETIN ALFA (10,000 UNIT) 10,000 UNIT/ML VIAL SQ PRN (18:17)
[2017-04-18 20:00] VITALS: BP 102/55
--- NOTE | 2017-04-18 20:00 | NUR ---
RN NOTES - TELE - PT RECEIVED IN NO ACUTE DISTRESS. PT IS AWAKE AND ALERT X 3. ON TELE WITH SR. LAST HD WAS ON 04/17 WITH 1.8L OUT. PT HAS A PATENT GT THAT FLUSHES WELL RUNNING GTF. PT HAS A LADAN MIDLINE THAT IS CLEAN DRY AND INTACT WELL A RCW HD CATH. COMFORT AND SAFETY MEASURES TO BE ENSURED DURING THE SHIFT. WILL CONTINUE TO MONITOR FOR ANY CHANGES.
[2017-04-18] MEDS: INSULIN DETEMIR 100 UNIT/ML CARTRIDGE SQ SCH (22:00)
[2017-04-19] VITALS: BP 107/61
[2017-04-19] MEDS: BLOOD SUGAR DIAGNOSTIC 1 EACH STRIP IN SCH ×4 (00:15→17:38)
[2017-04-19] MEDS: IPRATROPIUM NEB FS 0.5 MG/2.5 ML AMPUL.NEB NEB SCH ×3 (02:27→12:59)
[2017-04-19] MEDS: ALBUTEROL FS 2.5 MG/3 ML VIAL.NEB NEB SCH ×3 (02:28→12:59)
[2017-04-19 04:00] VITALS: BP 109/59
[2017-04-19] MEDS: RENAL NOVASOURCE 1,000 ML BOTTLE GT PRN (05:22)
[2017-04-19] MEDS: FAMOTIDINE (20 MG) 20 MG TABLET GT SCH (06:40)
[2017-04-19 07:30] LABS: BASOPHILS % (AUTO) 0.3 % (0.0-2.0); EOSINOPHILS # (AUTO) 0.2 /CMM (0.0-0.7); EOSINOPHILS % (AUTO) 2.1 % (0.0-6.0); HEMATOCRIT 28 % (33-45); LYMPHOCYTES # (AUTO) 2.3 /CMM (0.8-4.8); LYMPHOCYTES % (AUTO) 22.5 % (20.0-44.0); MEAN CORPUSCULAR HEMOGLOBIN 28 PG (26.0-33.0); MEAN CORPUSCULAR HGB CONC 32 g/dl (31.0-36.0); MEAN CORPUSCULAR VOLUME 86 fL (82-100); MONOCYTES # (AUTO) 0.8 /CMM (0.1-1.30); NEUTROPHILS # (AUTO) 6.9 /CMM (1.8-8.9); NEUTROPHILS % (AUTO) 67.1 % (43.0-81.0); PLATELET COUNT (AUTO) 308 /CMM (150-450); RDW COEFFICIENT OF VARIATION 15.4 (11.5-15.0); RED BLOOD CELL COUNT(AUTO) 3.22 MIL/uL (4.0-5.2); WHITE BLOOD COUNT (AUTO) 10.3 K/uL (4.3-11.0)
[2017-04-19 08:00] VITALS: BP 112/68
[2017-04-19] MEDS: ZINC SULFATE 220 MG CAPSULE GT SCH (08:30)
[2017-04-19] MEDS: FLUCONAZOLE (100 MG) 100 MG TABLET GT SCH (08:30)
[2017-04-19] MEDS: VIT B CMPLX 3/FA/VIT C/BIOTIN 1 TAB TABLET PO SCH (08:30)
[2017-04-19] MEDS: ASPIRIN 81 MG TAB.CHEW GT SCH (08:30)
[2017-04-19] MEDS: LORATADINE 10 MG TABLET GT SCH (08:30)
[2017-04-19] MEDS: HYDROCODONE/APAP 5/325MG 1 EACH TABLET GT SCH (08:31)
[2017-04-19] MEDS: NYSTATIN (PYXIS) 500,000 UNIT/5 ML ORAL.SUSP PO SCH ×3 (08:31→17:37)
[2017-04-19] MEDS: hydrALAZINE HCL 25 MG TABLET GT SCH ×2 (08:31→17:37)
[2017-04-19] MEDS: METOCLOPRAMIDE HCL 10 MG/10 ML UDC GT SCH ×2 (08:31→17:37)
[2017-04-19] MEDS: LOSARTAN POTASSIUM 25 MG TABLET GT SCH ×2 (08:31→17:37)
[2017-04-19] MEDS: FERROUS SULFATE UDC 300 MG/5 ML UDC GT SCH (08:31)
[2017-04-19] MEDS: DAKINS QUARTER STRENGTH (0.125%) 480 ML BOTTLE TOP SCH (08:32)
[2017-04-19] MEDS: PROSOURCE / PROSTAT (PYXIS) 30 ML UDC GT SCH ×3 (08:32→17:38)
--- NOTE | 2017-04-19 09:36 | NUR ---
MEDICAL RESEARCH TECH INITIAL NOTE RN RECEIVED FROM RN JOB DUE TO CHANGE IN ASSIGNMENT. PT IN NO ACUTE DISTRESS NOTED ABLE TO MAKE NEEDS KNOWN . PT IS AWAKE AND ALERT X 3-4. ON TELE WITH SR. PT GT PATENT CLEAN DRY AND INTACT CURRENTLY RUNNING GTF. PT HAS A LADAN MIDLINE THAT IS CLEAN DRY AND INTACT WELL A RCW HD CATH. COMFORT AND SAFETY MEASURES TO BE ENSURED DURING THE SHIFT. WILL CONTINUE TO MONITOR FOR ANY CHANGES THROUGHOUT THE DAY .
--- NOTE | 2017-04-19 11:20 | NUR ---
RN NOTE PATIENT DISCHARGE INFORMATION REVIEWED AND DISCHARGE INFORMATION CALLED AND DISCUSSED WITH KISHAN MOCTEZUMA POST ACUTE . RN SPOKE WITH SHWETA SMILEY, SHE STATES SHE IS UNABLE TO TAKE THE PATIENT AT 1PM. MANUFACTURING QUALITY ENGINEER NARDA NOTIFIED VIA TEXT AND [facility] TRANSFERRED TO SPEAK WITH NARDA IN REGARDS TO THE ISSUE
--- NOTE | 2017-04-19 11:23 | NUR ---
PATIENT REQUESTED TO BE PLACED ON PMV WITH TRACH CUFF COMPLETELY DEFLATED. PATIENT WAS ON PMV FOR 5 MINUTES AND THEN REQUESTED TO BE TAKEN OFF. PMV TAKEN OFF, TRACH CUFF INFLATED, AND VENT CONNECTED. AUTO SERVICER DONE. PATIENT TOLERATING WELL. WILL CONTINUE TO MONITOR.
[2017-04-19 12:00] VITALS: BP 129/75
[2017-04-19 16:00] VITALS: BP 124/68
[2017-04-19] MEDS ORDERED: HYDROGEL DRESSING 90 GM TUBE TP SCH (16:30)
[2017-04-19 17:37] VITALS: BP 124/68
--- NOTE | 2017-04-19 17:45 | NUR ---
TEACHER DANCING CLOSING/DISCHARGE NOTE PT IS IN NO DISTRESS. COMFORTABLE IN BED TOLERATING LUZ/TRACH. ALL DUE MEDICATIONS WERE GIVEN AND TOLERATED ORDERED. VITALS WNL. SR ON THE TELE. REPORT GIVEN TO EMS PATIENT IS STABLE AT THIS TIME AND RT IS AT BEDSIDE FOR TRANSFER. RN WILL CONTINUE TO FOLLOW UNTIL DISCHARGE PATIENT IV IN PLACE DUE TO NO DC ORDERS
== END 2017-04-19 18:06 | DRG 951 ==
LOC: ER 16:45 → TELE1 20:48
PROVIDERS: ADMIT Internal Medicine Nephrology; ATTEND Internal Medicine Nephrology
DX: I12.0 Hypertensive chronic kidney disease with stage 5 chronic kidney disease or end stage renal disease (principal); Z99.11 Dependence on respirator [ventilator] status; G93.40 Encephalopathy, unspecified; L89.154 Pressure ulcer of sacral region, stage 4; L89.324 Pressure ulcer of left buttock, stage 4; J96.11 Chronic respiratory failure with hypoxia; E11.22 Type 2 diabetes mellitus with diabetic chronic kidney disease; Z93.0 Tracheostomy status; N18.6 End stage renal disease; D63.1 Anemia in chronic kidney disease; D72.829 Elevated white blood cell count, unspecified; B37.0 Candidal stomatitis; E83.52 Hypercalcemia; F41.9 Anxiety disorder, unspecified; L60.3 Nail dystrophy; Z79.4 Long term (current) use of insulin; Z86.73 Personal history of transient ischemic attack (TIA), and cerebral infarction without residual deficits; Z99.2 Dependence on renal dialysis; Z93.1 Gastrostomy status; E66.01 Morbid (severe) obesity due to excess calories; Z68.41 Body mass index [BMI] 40.0-44.9, adult; S90.415A Abrasion, left lesser toe(s), initial encounter; X58.XXXA Exposure to other specified factors, initial encounter; Y93.9 Activity, unspecified; Y92.129 Unspecified place in nursing home as the place of occurrence of the external cause; I95.9 Hypotension, unspecified; Z79.899 Other long term (current) drug therapy
CPT/HCPCS: 31720; 36415; 36569; 72220-TC; 73110; 80048-TC; 80076-TC; 80202-TC; 82272-TC; 82306; 82728-TC; 82746; 82962-TC; 83010; 83540-TC; 83615-TC; 83735-TC; 84100-TC; 84443-TC; 84550-TC; 85025-TC; 85027-TC; 85045-TC; 85652-TC; 85730-TC; 86300; 86301; 86304; 86850-TC; 86921-TC; 87040-TC; 87070-TC; 87081-TC; 87186-TC; 90935-TC; 94003-TC; 94760-TC; 94762-TC; 99082-TC; A4216; A4606; A6248; A6253; A6402; A6403; J0885; J1200; J1815; J2543; J3370; J3490; J7030; J7050; J7060; J8597; P9016-BL; P9047; Q0163; Z7610

== ENCOUNTER 2017-06-29 13:15 | Inpatient (IN) | payer OTHER ==
[~2017-06-29] VITALS: Ht 172.7 cm; Wt 131.1 kg
[~2017-06-29 13:15] MED LIST changes: +ALBUT2 NEB; +ALLA266C2 TP; +ASPI-1169 GT; -ASPI81TA2 GT; -CALC667T2 GT; -EPOE1VIA7 SQ; -ERGO50003 GT; -HEPA10009 SQ; +HYDR-3326 GT; +INSU100I26 SQ; -INSU3INS6 SQ; +RXVAN XX; +Renal Novasource GT; +ZINC220C8 GT
--- NOTE | 2017-06-29 13:20 | NUR ---
BIB PA C/O ABDOMINAL PAIN TO G-TUBE SITE X 2 WEEKS. PATIENT IS A/OX 3, BREATHING VIA TRACH ON COOL AEROSOL. PATIENT IS BEDBOUND. VITALS STABLE. G-TUBE IN TACT. VITALS STABLE. SAFETY AND COMFORT MEASURES IN PLACE. AWAITING MD ORDERS.
--- NOTE | 2017-06-29 13:35 | NUR ---
SCIENTIFIC RECRUITER AT BEDSIDE.
--- NOTE | 2017-06-29 13:45 | NUR ---
IV INSERTION ATTEMPTED NUMEROUS TIMES WITH NO SUCCESS. CHARGE NURSE INFORMED, MIDLINE NURSE CALLED FOR MIDLINE INSERTION.
[2017-06-29] MEDS ORDERED: CALC667T2 GT (13:52)
[2017-06-29] MEDS ORDERED: ARGI1POW13 GT (13:52)
[2017-06-29] MEDS ORDERED: DIPH25CA6 GT (13:52)
--- NOTE | 2017-06-29 13:55 | NUR ---
PATIENT IS DIALYSIS PATIENT, STRAIGHT CATH ATTEMPTED FOR URINE COLLECTION. NO URINE AT THIS TIME, WILL MONITOR.
[2017-06-29 14:13] LABS: BASOPHILS % (AUTO) 0.1 % (0.0-2.0); EOSINOPHILS % (AUTO) 0.1 % (0.0-6.0); HEMATOCRIT 31 % (33-45); LYMPHOCYTES # (AUTO) 2.3 /CMM (0.8-4.8); MEAN CORPUSCULAR HEMOGLOBIN 27 PG (26.0-33.0); MEAN CORPUSCULAR HGB CONC 32 g/dl (31.0-36.0); MEAN CORPUSCULAR VOLUME 82 fL (82-100); MONOCYTES # (AUTO) 0.7 /CMM (0.1-1.30); MONOCYTES % (AUTO) 3.4 % (2.0-12.0); NEUTROPHILS % (AUTO) 85.4 % (43.0-81.0); PLATELET COUNT (AUTO) 386 /CMM (150-450); RDW COEFFICIENT OF VARIATION 17.7 (11.5-15.0); RED BLOOD CELL COUNT(AUTO) 3.76 MIL/uL (4.0-5.2)
[2017-06-29 14:17] LABS: CALCIUM, SERUM 10.7 mg/dL (8.5-10.1); CREATININE 5.4 mg/dL (0.6-1.3); POTASSIUM 4.9 mmol/L (3.5-5.1)
[2017-06-29 14:23] LABS: ALBUMIN 3.1 g/dL (3.4-5.0); BILIRUBIN,DIRECT 0.3 mg/dL (0.0-0.2); BILIRUBIN,TOTAL 0.6 mg/dL (0.2-1.0); TOTAL PROTEIN, SERUM 8.7 g/dL (6.4-8.2)
--- NOTE | 2017-06-29 14:25 | NUR ---
arch support technician at bedside.
[2017-06-29] MEDS ORDERED: IV NS 0.9% 1,000 ML BAG IV ONE (14:30)
[2017-06-29 14:32] LABS: TROPONIN I < 0.017 ng/mL (0.00-0.056)
[2017-06-29 14:33] LABS: INR 1.09 (0.85-1.15)
--- NOTE | 2017-06-29 14:40 | NUR ---
DR. FERRER INFORMED PATIENT HAS DE ANDA CATH IN PLACE OF G -TUBE, WHICH WAS PULLED OUT EARLIER TODAY. STATED TO LEAVE DE ANDA IN AT THIS TIME.
[2017-06-29 14:59] LABS: BAND % (MANUAL) 4 % (0.0-5.0); LYMPHOCYTES % (MANUAL) 17 % (16-48); MONOCYTES % (MANUAL) 5 % (0-11.0); NEUTROPHILS % (MANUAL) 74 (42-76)
[2017-06-29] MEDS ORDERED: PIPERACILLIN /TAZOBACTAM 3.375 G in IV D5W 50 ML IV ONE (15:30)
--- NOTE | 2017-06-29 15:52 | NUR ---
Cheryl [facility] CENTERJolie
--- NOTE | 2017-06-29 16:32 | NUR ---
PATIENT TAKEN TO CT VIA STRETCHER .
--- NOTE | 2017-06-29 16:45 | NUR ---
PATIENT RETURNED FROM CT IN STABLE CONDITION.
--- NOTE | 2017-06-29 18:05 | NUR ---
REPORT GIVEN TO BALJIT TIJERINA FOR RICA UPON ADMISSION.
--- NOTE | 2017-06-29 19:04 | NUR ---
TELERN NOTES. RECEIVED ENDORSEMENT FROM ER, REPORT SHEET FILLED, SUPPLIED TO CHARGE AND NIGHT NURSE. PT NOT ON [place], ENDORSED TO NIGHT NURSE.
--- NOTE | 2017-06-29 19:25 | NUR ---
VETERINARY BACTERIOLOGIST NOTE PATIENT TRANSFERRED FROM ED VIA GURNEY, BEDSIDE REPORT RECEIVED FROM ED NURSE. PATIENT NOTED TO BE ALERT AND ORIENTED X 3 WITH FORGETFULNESS, ABLE TO MAKE NEEDS KNOWN, VERBALLY RESPONSIVE, BREATHING EVEN AND UNLABORED, NO SOB, O2 SAT @ 100% IN RA WITH A CAPPED TRACH AT THIS TIME. ORIENTED PT TO FACILITY, ROOM, AND ADMISSION PROCESS, PATIENT VERBALIZED UNDERSTANDING. RT INFORMED OF PATIENT'S ADMISSION. PAGED MD FOR ADMISSION ORDERS. AWAITING FOR CALL BACK.
--- NOTE | 2017-06-29 19:30 | NUR ---
PATIENT TRANSPORTED TO [facility] VIA ACLS PROTOCOL, LILLIANA SMILEY TO PROVIDE RICA.
[2017-06-29 20:00] VITALS: BP 108/50
[2017-06-29] MEDS ORDERED: FEE PK DOSING 1 MIN EA MC ONE (20:25)
--- NOTE | 2017-06-29 20:50 | NUR ---
RN NOTE RECEIVED ADMISSION ORDERS FROM [facility] BE[employer] CLEANER MD, DR. MONTOYA. ALL ORDERS NOTED AND CARRIED OUT.
[2017-06-29] MEDS ORDERED: VANCOMYCIN 1 GM in IV D5W 250 ML IV ONE (21:00)
[2017-06-29] MEDS ORDERED: PIPERACILLIN /TAZOBACTAM 2.25 G in IV D5W 50 ML IV SCH (21:00)
[2017-06-29] MEDS ORDERED: ACETAMINOPHEN SUSP 80 MG/0.8 ML BOTTLE PO PRN (21:30)
[2017-06-29] MEDS ORDERED: DEXTROSE 50%-WATER 50 ML DISP.SYRIN IV PRN ×2 (21:30)
[2017-06-29] MEDS ORDERED: BLOOD SUGAR DIAGNOSTIC 1 EACH STRIP IN SCH (21:30)
[2017-06-29] MEDS ORDERED: INSULIN GLARGINE, 100 UNIT/ML CARTRIDGE SQ SCH (22:00)
[2017-06-29] MEDS ORDERED: HYDROCODONE/APAP 5/325MG 1 EACH TABLET ONE (22:04)
[2017-06-29] MEDS: HYDROCODONE/APAP 5/325MG 1 EACH TABLET PO PRN (22:10)
[2017-06-29] MEDS: BLOOD SUGAR DIAGNOSTIC 1 EACH STRIP IN SCH (22:11)
--- NOTE | 2017-06-29 23:05 | NUR ---
RN NOTE PATIENT INFORMED THAT WE NEED TO INSERT NG TUBE BUT PATIENT REFUSED, EXPLAINED RISKS TO PATIENT MULTIPLE TIMES BUT PATIENT CONTINUES TO REFUSE. WILL CONTINUE TO MONITOR.
[2017-06-29] MEDS: PIPERACILLIN /TAZOBACTAM 2.25 G in IV D5W 50 ML IV SCH (23:32)
[2017-06-30] VITALS (40 sets, daily range): BP systolic 75–110; BP diastolic 39–62
[2017-06-30] MEDS ORDERED: IPRATROPIUM NEB FS 0.5 MG/2.5 ML AMPUL.NEB ONE (01:07)
[2017-06-30] MEDS ORDERED: ALBUTEROL FS 2.5 MG/3 ML VIAL.NEB ONE (01:07)
[2017-06-30] MEDS: ALBUTEROL FS 2.5 MG/3 ML VIAL.NEB NEB SCH ×4 (01:16→19:28)
[2017-06-30] MEDS: IPRATROPIUM NEB FS 0.5 MG/2.5 ML AMPUL.NEB NEB SCH ×4 (01:16→19:28)
[2017-06-30] MEDS ORDERED: ACETAMINOPHEN 650 MG/20.3 ML UDC ONE (01:51)
[2017-06-30] MEDS ORDERED: RENAL NOVASOURCE 1,000 ML BOTTLE NG PRN (02:00)
--- NOTE | 2017-06-30 02:35 | NUR ---
RN NOTE SPOKE WITH PATIENT TO INSERT NG TUBE, PATIENT REFUSED, EXPLAINED TO PATIENT THAT NG TUBE FEEDING WILL TAKE THE PLACE OF G-TUBE FEEDING, PATIENT AGREED. ATTEMPTED TO INSERT NG TUBE BUT WAS UNABLE TO DUE TO PATIENT KEPT ON COUGHING WHILE NG TUBE WAS BEING INSERTED. AFTER ATTEMPT, PATIENT REFUSED AND INSISTED THAT SHE CAN EAT AND THAT SHE DOESN'T WANT THE NG TUBE TO BE INSERTED ANYMORE. EXPLAINED RISKS AND BENEFITS TO PATIENT BUT PATIENT CONTINUED TO REFUSE. WILL CONTINUE TO MONITOR.
[2017-06-30] MEDS ORDERED: ACETAMINOPHEN SUSP 80 MG/0.8 ML BOTTLE PO PRN (03:30)
--- NOTE | 2017-06-30 05:10 | NUR ---
RN NOTE PATIENT NOTED TO HAVE LOW BP @ 75/42 , HR = 115, TEMP = 100.0 F, 02 SAT = 98%, IN NO ACUTE DISTRESS. CALLED MD. AWAITING FOR CALL BACK.
--- NOTE | 2017-06-30 05:15 | NUR ---
RN NOTE ]RAPID RESPONSE TEAM CALLED.
--- NOTE | 2017-06-30 05:17 | NUR ---
RN NOTE RECEIVED CALL BACK FROM DR. MONTOYA WITH NEW ORDER OF 1VF NS 500 ML BOLUS X 1 DOSE. ALL ORDERS NOTED AND CARRIED OUT.
[2017-06-30] MEDS ORDERED: IV NS 0.9% 500 ML IV ONE ×2 (05:30→15:00)
--- NOTE | 2017-06-30 05:55 | NUR ---
RN NOTE IVF NS 500 ML BOLUS DOSE GIVEN. PATIENT CONTINUES TO HAVE LOW BP = 77/41, TEMP 98.4, HR = 105 BPM, RR:18, O2 SAT: 99%, 0/[address] MONTOYA PAGED. AWAITING FOR CALL BACK.
--- NOTE | 2017-06-30 06:15 | NUR ---
RN NOTE RECEIVED CALL BACK FROM DR. MONTOYA, WITH NEW ORDER OF IVF NS 1000ML BOLUS X 1, TRANSFER PATIENT TO ICU AND TO START LEVOPHED PER PROTOCOL. ALL ORDERS NOTED AND CARRIED OUT. PATIENT COMFORTABLE IN BED, NO SOB, NO C/O PAIN, IN NO ACUTE DISTRESS.
[2017-06-30] MEDS ORDERED: IV NS 0.9% 1,000 ML IV PRN (06:30)
[2017-06-30 07:12] LABS: BASOPHILS % (AUTO) 0.1 % (0.0-2.0); EOSINOPHILS % (AUTO) 0.1 % (0.0-6.0); HEMATOCRIT 24 % (33-45); HEMOGLOBIN 7.9 g/dL (11.5-14.8); LYMPHOCYTES # (AUTO) 1.9 /CMM (0.8-4.8); LYMPHOCYTES % (AUTO) 8.9 % (20.0-44.0); MEAN CORPUSCULAR HEMOGLOBIN 27 PG (26.0-33.0); MEAN CORPUSCULAR HGB CONC 33 g/dl (31.0-36.0); MEAN CORPUSCULAR VOLUME 83 fL (82-100); MONOCYTES % (AUTO) 4.8 % (2.0-12.0); NEUTROPHILS # (AUTO) 18.3 /CMM (1.8-8.9); NEUTROPHILS % (AUTO) 86.1 % (43.0-81.0); PLATELET COUNT (AUTO) 333 /CMM (150-450); RDW COEFFICIENT OF VARIATION 19.1 (11.5-15.0); WHITE BLOOD COUNT (AUTO) 21.3 K/uL (4.3-11.0)
--- NOTE | 2017-06-30 07:13 | NUR ---
RN NOTE REPORT GIVEN TO LANDON ICU NURSE FOR CONTINUITY OF CARE.
[2017-06-30 07:21] LABS: CALCIUM, SERUM 9.7 mg/dL (8.5-10.1); CREATININE 6.7 mg/dL (0.6-1.3); MAGNESIUM 1.9 mg/dL (1.8-2.4); PHOSPHORUS 3.2 mg/dL (2.5-4.9); POTASSIUM 5.2 mmol/L (3.5-5.1)
--- NOTE | 2017-06-30 07:40 | NUR ---
ICU/RN - Notes Received pt from Telemetry due to low BP. Current BP at this time is 110/48 with HR 107. 1L ND bolus still infusing at this time, will reassess BP once bolus finished. Pt alert and oriented x2-3. Reorientated patient to time/date. Trach collar to cool aerosol O2 at 8lpm. Respirations are even and unlabored. No s/s of pain or discomfort. Safety and comfort measures in place. Will continue to monitor pt closely.
[2017-06-30] MEDS ORDERED: ACETAMINOPHEN 650 MG/20.3 ML UDC GT PRN ×2 (08:00→11:00)
[2017-06-30] MEDS ORDERED: NOREPINEPHRINE 16 MG in IV D5W 500 ML IV PRN (08:00)
[2017-06-30] MEDS: BLOOD SUGAR DIAGNOSTIC 1 EACH STRIP IN SCH ×4 (08:18→21:44)
[2017-06-30] MEDS: PANTOPRAZOLE 40 MG VIAL IV SCH (08:20)
[2017-06-30] MEDS: PIPERACILLIN /TAZOBACTAM 2.25 G in IV D5W 50 ML IV SCH ×2 (08:42→15:25)
[2017-06-30] MEDS: HYDROCODONE/APAP 5/325MG 1 EACH TABLET PO PRN ×2 (08:57→19:49)
--- NOTE | 2017-06-30 08:57 | NUR ---
ICU/RN - Notes Pt complains of abdominal pain 'g-tube site', requesting for pain medication. Administered [place] 5/325 1 tab as ordered. Pt able to swallow medication whole while cut in half. No s/s of aspiration noted.
[2017-06-30] MEDS ORDERED: VANCOMYCIN 500 MG in IV D5W 100 ML IV PRN (09:00)
--- NOTE | 2017-06-30 09:18 | NUR ---
WOUND CARE CONSULT: PT PRESENTS WITH STAGE 4 ULCER TO LEFT BUTTOCK AND HEALING WOUND TO LEFT ABDOMEN (PREVIOUS PEG SITE) PRESENT ON ADMISSION. RECOMMEND SURGICAL CONSULT. RECOMMENDATIONS MADE FOR SKIN PROTECTION AND WOUND CARE. DISCUSSED WITH NURSING STAFF. BARIMAX BED ORDERED. ALL SKIN PROTECTION MEASURES IN PLACE. WILL SEE PRN. JACOBO IN AGREEMENT WITH PLAN OF CARE. Addendum: 06/30/17 at 1241 by KARIN PAINTING WNDNU Amended: Links added.
[2017-06-30] MEDS ORDERED: Z GUARD REMEDY 2 OZ OINT TP PRN ×2 (09:30→11:00)
[2017-06-30] MEDS ORDERED: HYDROGEL DRESSING 90 GM TUBE TP PRN (09:30)
--- NOTE | 2017-06-30 09:44 | NUR ---
ICU/RN - Notes Dr Chan at bedside for evaluation. Per MD, okay to not insert NG tube for tube feeds, and trial pureed diet (Pt has been on pureed diet at [facility] for 1 month - per pt). Blood pressure optimal at this time, per MD no need for PICC line insertion, will order Midodrine for hypotension.
[2017-06-30] MEDS: HYDROGEL DRESSING 90 GM TUBE TP SCH (10:03)
[2017-06-30] MEDS: Z GUARD REMEDY 2 OZ OINT TP SCH (10:05)
[2017-06-30] MEDS: MIDODRINE HCL (5MG) 5 MG TABLET PO SCH ×2 (10:47→22:39)
[2017-06-30] MEDS ORDERED: diphenhydrAMINE HCL 25 MG CAPSULE PO PRN (11:00)
[2017-06-30] MEDS ORDERED: ONDANSETRON HCL/PF 4 MG/2 ML VIAL IV PRN (11:00)
[2017-06-30] MEDS ORDERED: HYDROCODONE/APAP 5/325MG 1 EACH TABLET GT PRN (11:00)
[2017-06-30] MEDS ORDERED: IPRATROPIUM NEB FS 0.5 MG/2.5 ML AMPUL.NEB NEB PRN (11:30)
[2017-06-30] MEDS: CALCIUM ACETATE 667 MG TABLET PO SCH ×2 (12:48→16:18)
[2017-06-30] MEDS ORDERED: ALBUTEROL FS 2.5 MG/3 ML VIAL.NEB NEB PRN (13:30)
--- NOTE | 2017-06-30 14:50 | NUR ---
ICU/RN - Notes Dr Chan made aware that pt's sBP intermittently goes to 80's and current BP 77/44, although patient asymptomatic awake and alert. Received orders to give 500 mL NS bolus. Will carry out.
--- NOTE | 2017-06-30 16:00 | NUR ---
ICU/RN - Notes Pt's BP 94/45 post bolus. Pt in no acute distress.
[2017-06-30] MEDS: hydrALAZINE HCL 25 MG TABLET PO SCH (16:08)
[2017-06-30] MEDS: LACTOBACILLUS RHAMNOSUS GG 1 EACH CAP.SPRINK PO SCH (16:18)
--- NOTE | 2017-06-30 18:31 | NUR ---
Patient is trach/vent dependent, resides at [facility] [phone]. She is totally dependent with adl's, bedfast most of the time. She is on HD 3x/week every TTH[facility] at [facility] [phone]. Current plan is to dc back to sub-acute facility once discharge. Addendum: 06/30/17 at 1832 by LOREN BARRON RN Amended: Links added.
[2017-06-30] MEDS: LORAZEPAM 0.5 MG TABLET PO PRN (19:49)
--- NOTE | 2017-06-30 20:05 | NUR ---
CHIPPER DF RECEIVED PT TO ROOM #262. PT A/OX4 PT ANXIOUS,AGITATED. PT C/O PAIN AT GT SITE TO MID ABDOMEN(PT HAD DISLODGED GT WHICH HAS BEEN REMOVED SITE COVERED WITH MEPILEX C/D/I.)PT ANXIOUS C/O SHE IS UNABLE TO RELAX AND FEELS AGITATED. PT YELLING HELP ME, HELP ME. EMOTIONAL SUPPORT PROVIDED PT MEDICATED WITH ATIVAN 0.5MG PO AND 1 TAB NORCO PO. INTERVENTION EFFECTIVE PT LESS ANXIOUS AND STATES" I FEEL MUCH BETTER" VSS NAD NOTED.
[2017-06-30] MEDS: MEROPENEM 500 MG in IV NS 0.9% 50 ML IV SCH (21:35)
[2017-06-30] MEDS: INSULIN GLARGINE, 100 UNIT/ML CARTRIDGE SQ SCH (21:44)
[2017-06-30] MEDS ORDERED: INSULIN GLARGINE, 100 UNIT/ML CARTRIDGE SQ SCH (22:00)
--- NOTE | 2017-06-30 22:05 | NUR ---
MATERIALS ASSISTANT DF PT WITH ACCU CHECK OF 117 PT REFUSING LANTUS 30 UNIT. PT STATING"I DONT INSULIN I DID NOT EACH THAT MUCH AND I DONT WANT LOW BLOOD SUGAR"
[2017-07-01] VITALS (60 sets, daily range): BP systolic 64–135; BP diastolic 28–83
--- NOTE | 2017-07-01 01:15 | NUR ---
DECORATIVE GREENS CUTTER DF PT BP OF 73/42 RECYCLED REPOSITIONED PT AND BP CUFF BP OF 86/50 PT ASYMPTOMATIC A/OX4. WILL CONTINUE TO MONITOR.
[2017-07-01] MEDS: IPRATROPIUM NEB FS 0.5 MG/2.5 ML AMPUL.NEB NEB SCH ×4 (01:27→19:50)
[2017-07-01] MEDS: ALBUTEROL FS 2.5 MG/3 ML VIAL.NEB NEB SCH ×4 (01:27→19:50)
--- NOTE | 2017-07-01 03:12 | NUR ---
INFORMATION SYSTEMS PROJECT MANAGER DF DURING AM CARE PT BECAME MORE ANXIOUS WITH RR OF 25-35 O2 SAT DECREASED TO 55-65% PT ON T PIECE TO TRACH FIO2 0F 40%. FIO2 INCREASED TO 100% PT BREATHING ASSISTED WITH AMBU BAG WITH MULTIPLE RT,S AT BEDSIDE. PT HAS STRONG PALPABLE PULSE RATE OF 135-155BPM. PT PLACED ON VENT AC MODE WITH SETTINGS OF AC18 TV600 100%FIO2 WITH PEEP OF 5. PLAN TO OBTAIN ABG [id number] MINUTES. PT WAS RESPONSIVE PRIOR TO RESPIRATORY ARREST A/OX4 PT WAS CONVERSING C/O PAIN/ANXIETY AND SOB. PT UNRESPONSIVE,LETHARGIC, WITHDRAWS TO TACTILE STIMULI. PT NSR RATE OF 111BPM BP OF 101/48. WAITING FOR ABG RESULTS WILL CONTACT MD/PULMONARY. STAT LABS ORDERED PT HD PT. Addendum: 07/01/17 at 0610 by KASSIDY VICENTE RN ACCU CHECK OF 113
--- NOTE | 2017-07-01 03:49 | NUR ---
TRAINING DEVELOPMENT MANAGER DF PT NOW AWAKE A/OX4 BACK TO BASELINE NEURO STATUS, FOLLOWING COMMANDS,CONVERSING, NO ACUTE DISTRESS NOTED. PRIOR TO RESPIRATORY DISTRESS PT REQUESTED NORCO/ATIVAN MEDS WASTED WITNESSED BY BUDGET CLERK ED T.
[2017-07-01 04:03] LABS: ABG BASE EXCESS -5.5 mmol/L; ABG OXYGEN SATURATION 99.4 % (92.0-98.5); ABG PCO2 38.5 mmHg (35.0-45.0); ABG PH 7.331 (7.350-7.450); ABG PO2 315.6 mmHg (75.0-100.0); AaDO2 358.9 mmHg; COHb 0.3 % (0.5-1.5); MetHb 0.9 % (0.0-1.5); O2Hb 98.2 % (94.0-97.0); PEEP,BG 5 cm H2O; VENT MODE, BG AC 18; VT, ABG 600 mL
--- NOTE | 2017-07-01 04:10 | NUR ---
CUSHION GUM APPLICATOR DF ABG RESULTED VALUE OF 7.33/PCO2 38.5/PO2 315/HCO3 19.9/ PT FIO2 DECREASED FROM 100% TO 40%.POC PT WILL REMAIN ON VENT UNTIL AM SHIFT. PT VERBALIZES UNDERSTANDING OF POC. NO CHANGES IN PT,S PRESENT BASELINE BEHAVIOR.
--- NOTE | 2017-07-01 04:39 | NUR ---
SECURITY NURSE DF PT WITH DECREASED BLOOD PRESSURES OF @0400 OF 75/39, 71/34, 66/37, 76/34, 68/31,64/32,66/31,74/35 BP CUFF REPOSITIONED. PT REPOSITIONED BP READINGS ACCURATE PT DROWSY.PER ORDERS PT STARTED ON LEVOPHED GTT STARTED AT 5MCG/MIN WITH GOAL TO TITRATE SBP ABOVE 90.
--- NOTE | 2017-07-01 05:13 | NUR ---
PATTERN ASSEMBLER DF PT LEVOPHED GTT INCREASED TO 15MCG PT BP OF 76/40 WITH MANUAL CUFF 66/34 WITH AUTOMATIC CUFF. WILL MONITOR FOR EFFECT.
[2017-07-01] MEDS: FAMOTIDINE (20 MG) 20 MG TABLET PO SCH (05:16)
--- NOTE | 2017-07-01 05:18 | NUR ---
AN EMPLOYEE SPONSOR OR ADVOCATE AND DF LEVOPHED TITRATED TO 20 MCG.ORDER RECEIVED FOR 250 ML BOLUS. BP OF 75/34.
[2017-07-01 05:30] LABS: EOSINOPHILS % (AUTO) 0.2 % (0.0-6.0); HEMATOCRIT 22 % (33-45); HEMOGLOBIN 7.2 g/dL (11.5-14.8); LYMPHOCYTES # (AUTO) 0.7 /CMM (0.8-4.8); LYMPHOCYTES % (AUTO) 4.3 % (20.0-44.0); MEAN CORPUSCULAR HEMOGLOBIN 27 PG (26.0-33.0); MEAN CORPUSCULAR HGB CONC 33 g/dl (31.0-36.0); MEAN CORPUSCULAR VOLUME 84 fL (82-100); MONOCYTES # (AUTO) 0.5 /CMM (0.1-1.30); MONOCYTES % (AUTO) 3.3 % (2.0-12.0); NEUTROPHILS % (AUTO) 92.2 % (43.0-81.0); PLATELET COUNT (AUTO) 349 /CMM (150-450); RDW COEFFICIENT OF VARIATION 19.7 (11.5-15.0); RED BLOOD CELL COUNT(AUTO) 2.64 MIL/uL (4.0-5.2); WHITE BLOOD COUNT (AUTO) 16.3 K/uL (4.3-11.0)
[2017-07-01] MEDS ORDERED: IV NS 0.9% 250 ML IV ONE (05:30)
[2017-07-01 05:39] LABS: CALCIUM, SERUM 9.6 mg/dL (8.5-10.1); MAGNESIUM 2.1 mg/dL (1.8-2.4); PHOSPHORUS 3.7 mg/dL (2.5-4.9); POTASSIUM 5.4 mmol/L (3.5-5.1)
[2017-07-01 05:57] LABS: CREATININE 7.6 mg/dL (0.6-1.3)
--- NOTE | 2017-07-01 06:00 | NUR ---
PT HAD CHANGE OF STATUS. PLACED ON VENT ON NOTED SETTINGS. ABG OBTAINED. NO DITRESS NOTED POST PLACING ON VENT. WILL CONT. TO MONITOR. Addendum: 07/01/17 at 0606 by THEO NOWAK RT Amended: Links added.
[2017-07-01 06:26] LABS: BAND % (MANUAL) 5 % (0.0-5.0); LYMPHOCYTES % (MANUAL) 4 % (16-48); MONOCYTES % (MANUAL) 4 % (0-11.0); NEUTROPHILS % (MANUAL) 87 (42-76)
--- NOTE | 2017-07-01 07:30 | NUR ---
ICU/RN - Notes Mechanical vent disconnected, pt placed back on cool aerosol @ 2lpm via trach collar by RT Ezra. Pt in acute respiratory distress. Alert and oriented x3. No s/s of pain or discomfort. On tele reading ST 100s. IV patent and intact. Safety and comfort measures in place. Will continue to monitor pt closely.
[2017-07-01] MEDS: BLOOD SUGAR DIAGNOSTIC 1 EACH STRIP IN SCH ×4 (08:31→22:26)
[2017-07-01] MEDS: MEROPENEM 500 MG in IV NS 0.9% 50 ML IV SCH ×2 (08:35→22:17)
[2017-07-01] MEDS: ASPIRIN 81 MG TAB.CHEW GT SCH (08:41)
[2017-07-01] MEDS: Z GUARD REMEDY 2 OZ OINT TP SCH (08:41)
[2017-07-01] MEDS: HYDROGEL DRESSING 90 GM TUBE TP SCH (08:41)
[2017-07-01] MEDS: hydrALAZINE HCL 25 MG TABLET PO SCH ×2 (08:44→16:03)
[2017-07-01] MEDS: PANTOPRAZOLE 40 MG VIAL IV SCH (08:50)
[2017-07-01] MEDS: LORATADINE 10 MG TABLET PO SCH (08:50)
[2017-07-01] MEDS: CALCIUM ACETATE 667 MG TABLET PO SCH ×3 (08:50→16:03)
[2017-07-01] MEDS: VIT B CMPLX 3/FA/VIT C/BIOTIN 1 TAB TABLET PO SCH (08:50)
[2017-07-01] MEDS: LACTOBACILLUS RHAMNOSUS GG 1 EACH CAP.SPRINK PO SCH ×2 (08:50→16:03)
[2017-07-01] MEDS ORDERED: ALBUMIN 25% 25 GM in PREMIX 1 EA IV PRN (09:00)
[2017-07-01] MEDS ORDERED: HYDROCODONE/APAP 5/325MG 1 EACH TABLET GT SCH (09:00)
--- NOTE | 2017-07-01 09:00 | NUR ---
ICU/RN - Notes Levophed titrated off. Blood pressure optimal. Will continue to monitor.
[2017-07-01] MEDS ORDERED: EPOETIN ALFA (10,000 UNIT) 10,000 UNIT/ML VIAL SQ ONE (10:00)
[2017-07-01] MEDS: MIDODRINE HCL (5MG) 5 MG TABLET PO SCH ×2 (11:00→22:40)
--- NOTE | 2017-07-01 14:30 | NUR ---
ICU/RN - Notes Hemodialysis completed with 1500 mL output. Vital signs stable.
[2017-07-01] MEDS ORDERED: VANCOMYCIN 1 GM in IV D5W 250 ML IV ONE (17:00)
--- NOTE | 2017-07-01 19:00 | NUR ---
CERTIFIED DIABETES EDUCATOR NOTES Received patient awake,alert,with tracheostomy on Trache collar 35% (8 liters O2) Breathing regular and non labored..Able to talk even with trache,converse,coherent and appropriate.New PICC line inserted today via LADAN with good blood return.Old G tube site leaking with creamy colored drainage.Comfort vcare done,needs attended.
[2017-07-01] MEDS: HYDROCODONE/APAP 5/325MG 1 EACH TABLET PO PRN (19:31)
[2017-07-01] MEDS: INSULIN GLARGINE, 100 UNIT/ML CARTRIDGE SQ SCH (22:00)
--- NOTE | 2017-07-01 22:00 | NUR ---
GARBAGE DEPOT WORKER NOTES Lantus dose held,FS=92 mg/dl .and patient is not on tube feeding and is just on Puree diet and is not yet eating much. 2230 PM bath given,tolerated turning and flat position.Sacral debub care done.
[2017-07-02] VITALS (34 sets, daily range): BP systolic 84–118; BP diastolic 38–94
--- NOTE | 2017-07-02 | NUR ---
PROCESS PLANT OPERATOR NOTES Asleep ,stable,awakens at times and ask to be suctioned via trache,obtaining thick bloodtinged secretions.
[2017-07-02] MEDS: IPRATROPIUM NEB FS 0.5 MG/2.5 ML AMPUL.NEB NEB SCH ×4 (01:36→19:51)
[2017-07-02] MEDS: ALBUTEROL FS 2.5 MG/3 ML VIAL.NEB NEB SCH ×4 (01:36→19:51)
--- NOTE | 2017-07-02 04:00 | NUR ---
TELECOMMUNICATIONS SUPPORT nOTES 0400 Stable ,awake,alert,states she's comfortable and clean ,she does not want to Have another bath.Not in distress ,tolerating Trache colar 35%.
[2017-07-02 05:07] LABS: EOSINOPHILS # (AUTO) 0.1 /CMM (0.0-0.7); EOSINOPHILS % (AUTO) 0.8 % (0.0-6.0); HEMATOCRIT 21 % (33-45); LYMPHOCYTES # (AUTO) 1.6 /CMM (0.8-4.8); LYMPHOCYTES % (AUTO) 10.2 % (20.0-44.0); MEAN CORPUSCULAR HEMOGLOBIN 26 PG (26.0-33.0); MEAN CORPUSCULAR HGB CONC 32 g/dl (31.0-36.0); MEAN CORPUSCULAR VOLUME 84 fL (82-100); MONOCYTES # (AUTO) 0.9 /CMM (0.1-1.30); PLATELET COUNT (AUTO) 349 /CMM (150-450); RDW COEFFICIENT OF VARIATION 19.4 (11.5-15.0); RED BLOOD CELL COUNT(AUTO) 2.53 MIL/uL (4.0-5.2); WHITE BLOOD COUNT (AUTO) 15.6 K/uL (4.3-11.0)
[2017-07-02 05:08] LABS: CALCIUM, SERUM 9.7 mg/dL (8.5-10.1); CREATININE 6.5 mg/dL (0.6-1.3); PHOSPHORUS 2.1 mg/dL (2.5-4.9); POTASSIUM 4.9 mmol/L (3.5-5.1)
[2017-07-02 05:34] LABS: HEMOGLOBIN 6.7 g/dL (11.5-14.8)
[2017-07-02 05:45] LABS: BAND % (MANUAL) 1 % (0.0-5.0); LYMPHOCYTES % (MANUAL) 12 % (16-48); MONOCYTES % (MANUAL) 5 % (0-11.0); NEUTROPHILS % (MANUAL) 82 (42-76)
[2017-07-02] MEDS: FAMOTIDINE (20 MG) 20 MG TABLET PO SCH (06:02)
--- NOTE | 2017-07-02 07:05 | NUR ---
JAVA SUPPORT ENGINEER NOTES called back.,relayed low HGB=6.7.Ordered to transfuse 1 unit PRBC now.
--- NOTE | 2017-07-02 07:10 | NUR ---
ALUMINUM POURER INITIAL NOTES: REC'D PT AWAKE ON BED, NOT IN ANY DISTRESS, A/O X 3, ABLE TO MAKE NEEDS KNOWN. ON COOL AEROSOL VIA TRACH, SATING AT 100%. ON TELEMONITOR, ST W/ HR 102 BPM. HAS 3 IV LINE ACCESS: LADAN PICC LINE TLC, R AC G20 SL, L SHOULDER G20 SL - ALL FLUSHING WELL, NO S/SX OF INFECTION/INFILTRATION NOTED. HAS R CW HD CATH IN PLACE. GT SITE COVERED W/ C/D/I DRESSING. PROVIDED COMFORT & SAFETY MEASURES. BED KEPT LOW & IN LOCKED POS. CALL LIGHT PLACED W/IN REACH. WILL CONTINUE TO MONITOR AND ATTEND PT NEEDS. PT FOR BT OF 1 UNIT PRBC D/T H/H 6.7.
[2017-07-02] MEDS: BLOOD SUGAR DIAGNOSTIC 1 EACH STRIP IN SCH ×4 (08:09→22:09)
[2017-07-02] MEDS: INSULIN REGULAR, HUMAN 100 UNIT/ML 3 ML VIAL SQ PRN ×3 (08:10→17:43)
[2017-07-02] MEDS: HYDROGEL DRESSING 90 GM TUBE TP SCH (08:13)
[2017-07-02] MEDS: Z GUARD REMEDY 2 OZ OINT TP SCH (08:13)
[2017-07-02] MEDS: PANTOPRAZOLE 40 MG VIAL IV SCH (08:29)
[2017-07-02] MEDS: VIT B CMPLX 3/FA/VIT C/BIOTIN 1 TAB TABLET PO SCH (08:29)
[2017-07-02] MEDS: MEROPENEM 500 MG in IV NS 0.9% 50 ML IV SCH ×2 (08:29→21:12)
[2017-07-02] MEDS: CALCIUM ACETATE 667 MG TABLET PO SCH (08:30)
[2017-07-02] MEDS: hydrALAZINE HCL 25 MG TABLET PO SCH ×2 (08:30→17:00)
[2017-07-02] MEDS: LORATADINE 10 MG TABLET PO SCH (08:30)
[2017-07-02] MEDS: LACTOBACILLUS RHAMNOSUS GG 1 EACH CAP.SPRINK PO SCH ×2 (08:30→17:37)
[2017-07-02] MEDS: ASPIRIN 81 MG TAB.CHEW GT SCH (09:00)
--- NOTE | 2017-07-02 09:35 | NUR ---
RN NOTES: PT SEEN & EXAMINED BY DR. PHILLIPS.
--- NOTE | 2017-07-02 11:11 | NUR ---
RN NOTES: CONSENT FOR BLOOD TRANSFUSION SIGNED BY PT USING HER R FOOT. PT IS A/O X 3, VERBALIZED UNDERSTANDING ABOUT BLOOD TRANSFUSION.
[2017-07-02] MEDS: MIDODRINE HCL (5MG) 5 MG TABLET PO SCH ×2 (11:40→22:09)
--- NOTE | 2017-07-02 17:54 | NUR ---
RN NOTES: CLARIFIED W/ CLAYTON, FLORIST MANAGER RE: ASPIRIN IF OKAY TO GIVE. PER FLORIST MANAGER, HOLD ASA FOR NOW UNTIL PT IS CLEARED IF NO BLEEDING (GI).
--- NOTE | 2017-07-02 18:49 | NUR ---
HECTOR RN CLOSING NOTES: PT TRANSFERRED TO HECTOR RM 120/1 VIA BED (ACLS PROTOCOL), NOT IN ANY DISTRESS. PT TOLERATED COOL AEROSOL VIA TRACH, NO SOB. SECRETIONS SUCTIONED. ON TELEMONITOR, SR. 3 IV LINE ACCESSES KEPT PATENT & INTACT W/ NO S/SX OF INFECTION/INFILTRATION NOTED: LADAN PICC LINE TLC, R AC G20 SL, L SHOULDER G20 SL. R CW HD CATH KEPT IN PLACE. GT SITE KEPT CLEAN W/ C/D/I DRESSING. KEPT WELL RESTED. NEEDS ATTENDED. BED KEPT LOW & IN LOCKED POS. CALL LIGHT PLACED W/IN REACH. WILL ENDORSE TO PM RN FOR RICA.
[2017-07-02] MEDS: INSULIN GLARGINE, 100 UNIT/ML CARTRIDGE SQ SCH (22:00)
[2017-07-02] MEDS: HYDROCODONE/APAP 5/325MG 1 EACH TABLET PO PRN (22:10)
[2017-07-03] VITALS (7 sets, daily range): BP systolic 108–130; BP diastolic 60–75
[2017-07-03] MEDS: ALBUTEROL FS 2.5 MG/3 ML VIAL.NEB NEB SCH ×4 (01:56→19:41)
[2017-07-03] MEDS: IPRATROPIUM NEB FS 0.5 MG/2.5 ML AMPUL.NEB NEB SCH ×4 (01:56→19:41)
[2017-07-03] MEDS: LORAZEPAM 0.5 MG TABLET PO PRN (05:09)
[2017-07-03] MEDS: HYDROCODONE/APAP 5/325MG 1 EACH TABLET PO PRN ×2 (05:10→14:45)
[2017-07-03] MEDS: FAMOTIDINE (20 MG) 20 MG TABLET PO SCH (05:54)
[2017-07-03 07:04] LABS: BASOPHILS % (AUTO) 0.1 % (0.0-2.0); EOSINOPHILS # (AUTO) 0.3 /CMM (0.0-0.7); HEMATOCRIT 23 % (33-45); HEMOGLOBIN 7.5 g/dL (11.5-14.8); LYMPHOCYTES # (AUTO) 1.3 /CMM (0.8-4.8); LYMPHOCYTES % (AUTO) 9.1 % (20.0-44.0); MEAN CORPUSCULAR HEMOGLOBIN 28 PG (26.0-33.0); MEAN CORPUSCULAR HGB CONC 33 g/dl (31.0-36.0); MEAN CORPUSCULAR VOLUME 84 fL (82-100); MONOCYTES # (AUTO) 1.1 /CMM (0.1-1.30); MONOCYTES % (AUTO) 7.6 % (2.0-12.0); NEUTROPHILS # (AUTO) 11.4 /CMM (1.8-8.9); NEUTROPHILS % (AUTO) 81.2 % (43.0-81.0); PLATELET COUNT (AUTO) 358 /CMM (150-450); RDW COEFFICIENT OF VARIATION 19.4 (11.5-15.0); RED BLOOD CELL COUNT(AUTO) 2.72 MIL/uL (4.0-5.2); WHITE BLOOD COUNT (AUTO) 14.1 K/uL (4.3-11.0)
[2017-07-03 07:15] LABS: CALCIUM, SERUM 9.7 mg/dL (8.5-10.1); CREATININE 7.3 mg/dL (0.6-1.3); MAGNESIUM 2.3 mg/dL (1.8-2.4); PHOSPHORUS 2.9 mg/dL (2.5-4.9); POTASSIUM 4.8 mmol/L (3.5-5.1)
[2017-07-03] MEDS: BLOOD SUGAR DIAGNOSTIC 1 EACH STRIP IN SCH ×4 (07:38→22:30)
--- NOTE | 2017-07-03 08:00 | NUR ---
INITIAL RN NOTE PT STABLE HOLDING ASP PER GI AND HYDRALAZINE DUE TO HD TODAY.
[2017-07-03] MEDS: MEROPENEM 500 MG in IV NS 0.9% 50 ML IV SCH ×2 (08:07→20:33)
[2017-07-03] MEDS: VIT B CMPLX 3/FA/VIT C/BIOTIN 1 TAB TABLET PO SCH (08:07)
[2017-07-03] MEDS: PANTOPRAZOLE 40 MG VIAL IV SCH (08:07)
[2017-07-03] MEDS: LORATADINE 10 MG TABLET PO SCH (08:07)
[2017-07-03] MEDS: LACTOBACILLUS RHAMNOSUS GG 1 EACH CAP.SPRINK PO SCH ×2 (08:07→16:43)
[2017-07-03] MEDS: Z GUARD REMEDY 2 OZ OINT TP SCH (08:08)
[2017-07-03] MEDS: HYDROGEL DRESSING 90 GM TUBE TP SCH (08:08)
[2017-07-03] MEDS: ASPIRIN 81 MG TAB.CHEW GT SCH (08:09)
[2017-07-03] MEDS: hydrALAZINE HCL 25 MG TABLET PO SCH ×2 (08:09→16:43)
[2017-07-03 08:11] LABS: IRON, SERUM 18 ug/dl (50-175); TOTAL IRON BINDING CAPACITY 103 ug/dl (250-450)
[2017-07-03 10:07] LABS: FERRITIN 835 ng/mL (8-388)
[2017-07-03 10:55] LABS: BAND % (MANUAL) 1 % (0.0-5.0); EOSINOPHILS % (MANUAL) 2 % (0-4); LYMPHOCYTES % (MANUAL) 13 % (16-48); MONOCYTES % (MANUAL) 16 % (0-11.0); NEUTROPHILS % (MANUAL) 68 (42-76)
[2017-07-03] MEDS: MIDODRINE HCL (5MG) 5 MG TABLET PO SCH ×2 (11:00→22:40)
[2017-07-03] MEDS ORDERED: EPOETIN ALFA (10,000 UNIT) 10,000 UNIT/ML VIAL SQ ONE (11:00)
--- NOTE | 2017-07-03 11:54 | NUR ---
RN NOTE DID NOT GIVEN MIDODRINE B/P 126/74.
--- NOTE | 2017-07-03 18:00 | NUR ---
MS RN NOTES HYDRALAZINE NOT GIVE, BEC PT GOING HD.
--- NOTE | 2017-07-03 19:02 | NUR ---
MS RN NOTES NO ACUTE CHANGES NOTED DURING THE SHIFT. ON GOING HD. NEEDS PROVIDED. DUE MEDS GIVEN. PROVIDED COMFORT AND SAFETY. WILL ENDORSE TO THE PM NURSE FOR RICA.
[2017-07-03] MEDS: INSULIN GLARGINE, 100 UNIT/ML CARTRIDGE SQ SCH (22:00)
--- NOTE | 2017-07-03 22:31 | NUR ---
RN NOTE LANTUS NOT ADMINISTERED D/T BLOOD SUGAR @ 86MG/DL. WILL CONTINUE TO MONITOR PT.
[2017-07-04] MEDS ORDERED: POLYETHYLENE GLYCOL 3350 17 GM POWD.PACK PO PRN
[2017-07-04] MEDS ORDERED: BISACODYL SUPP (10 MG) 10 MG/SUPP.RECT SUPP.RECT RC PRN
[2017-07-04] MEDS: IPRATROPIUM NEB FS 0.5 MG/2.5 ML AMPUL.NEB NEB SCH ×4 (01:29→19:54)
[2017-07-04] MEDS: ALBUTEROL FS 2.5 MG/3 ML VIAL.NEB NEB SCH ×4 (01:29→19:54)
--- NOTE | 2017-07-04 06:28 | NUR ---
RN CLOSING NOTE PATIENT IN BED, ALERT AND ORIENTED, VERBALLY RESPONSIVE, NOTED WITH NO SOB, BREATHING EVEN AND UNLABORED, NOTED WITH NO C/O PAIN IN NO ACUTE DISTRESS. ALL PATIENT'S NEEDS ATTENDED TO AT THIS TIME, KEPT PT SAFE AND DRY, CLEAN AND COMFORTABLE. WILL ENDORSE TO AM SHIFT FOR CONTINUITY OF CARE.
[2017-07-04] MEDS: FAMOTIDINE (20 MG) 20 MG TABLET PO SCH (06:30)
[2017-07-04 07:37] LABS: CALCIUM, SERUM 9.4 mg/dL (8.5-10.1); CREATININE 6.6 mg/dL (0.6-1.3); POTASSIUM 4.8 mmol/L (3.5-5.1)
--- NOTE | 2017-07-04 07:44 | NUR ---
MS/RN Patient received Patient received from shift production supervisor. NPO at this time, for possible EGD later this morning. Consent forms in chart and signed. All needs attended at this time. Denies any pain or discomfort. Will continue to monitor and ensure safety.
[2017-07-04] MEDS: PANTOPRAZOLE 40 MG VIAL IV SCH (08:41)
[2017-07-04] MEDS: ASPIRIN 81 MG TAB.CHEW GT SCH (08:41)
[2017-07-04] MEDS: MEROPENEM 500 MG in IV NS 0.9% 50 ML IV SCH ×2 (08:41→20:51)
[2017-07-04] MEDS: hydrALAZINE HCL 25 MG TABLET PO SCH ×2 (08:41→17:16)
[2017-07-04] MEDS: BLOOD SUGAR DIAGNOSTIC 1 EACH STRIP IN SCH ×4 (08:41→22:43)
[2017-07-04] MEDS: LORATADINE 10 MG TABLET PO SCH (08:42)
[2017-07-04] MEDS: LACTOBACILLUS RHAMNOSUS GG 1 EACH CAP.SPRINK PO SCH ×2 (08:42→17:15)
[2017-07-04] MEDS: VIT B CMPLX 3/FA/VIT C/BIOTIN 1 TAB TABLET PO SCH (08:42)
[2017-07-04] MEDS: Z GUARD REMEDY 2 OZ OINT TP SCH (08:43)
[2017-07-04] MEDS: HYDROGEL DRESSING 90 GM TUBE TP SCH (08:44)
[2017-07-04 08:54] VITALS: BP 112/66
--- NOTE | 2017-07-04 10:28 | NUR ---
MS/RN EGD Call received from operating room, patient is scheduled for EGD at 12 noon. Consents signed via verbal consent and placed in front of chart. Pre op check list completed.
[2017-07-04] MEDS: MIDODRINE HCL (5MG) 5 MG TABLET PO SCH ×2 (11:00→23:00)
[2017-07-04] MEDS ORDERED: ANESTHESIA TRAY IN PYXIS 1 EA TRAY MC ONE ×2 (12:04→13:36)
[2017-07-04 13:57] VITALS: BP 136/69
--- NOTE | 2017-07-04 14:03 | NUR ---
MS/RN EGD result EGD resulted as gastritis, biopsy taken.
[2017-07-04] MEDS: HYDROCODONE/APAP 5/325MG 1 EACH TABLET PO PRN (14:25)
[2017-07-04 16:01] VITALS: BP 126/67
--- NOTE | 2017-07-04 16:11 | NUR ---
MS/RN Rounds Remains in stable condition since return from EGD. All needs attended, will continue to monitor.
--- NOTE | 2017-07-04 17:17 | NUR ---
MS/RN Blood sugar Blood sugar 78, apple juice given.
--- NOTE | 2017-07-04 18:35 | NUR ---
MS/RN End note No changes at this time, remains in stable condition. Suctioned at regular intervals by RT, saturation >95% all day. All needs attended, will endorse to night coordinator.
--- NOTE | 2017-07-04 19:30 | NUR ---
MS RN OPENING NOTES: PATIENT IN BED, AOX3, WITH O2 VIA TRACHE PORTEX #6, CONNECTED TO COOL AEROSOL, BREATHING EVEN AND UNLABORED, APPEARS CALM AND IN NO DISTRESS. PIV OVER RAC G 20 NOTED TO HAVE RESISTANCE TO FLUSH. LADAN PICC LINE ALSO RESISTANT TO FLUSH, ON ALL 3 PORTS. PATIENT HAS RCW HD CATHETER WITH CLEAN AND INTACT DRESSING. PROVIDED FOR COMFORT AND SAFETY. HOB ELEVATED, IN LOWEST AND LOCKED POSITION, SIDERAILS UP X3, CALL LIGHT WITHIN REACH. WILL CONT TO MONITOR.
--- NOTE | 2017-07-04 21:30 | NUR ---
RN NOTES: LADAN PICC LINE DIFFICULT TO FLUSH, NO BLOOD RETURN AT THIS TIME ON ALL PORTS. NIFORMED LARGE SHEETFED PRESS OPERATOR, JUD, WHO INFORMED TIRE FABRIC IMPREGNATING RANGE TENDER, SHANKAR. PICC LINE BALJIT LUGO NOTIFIED.
[2017-07-04] MEDS: INSULIN GLARGINE, 100 UNIT/ML CARTRIDGE SQ SCH (22:00)
--- NOTE | 2017-07-04 23:14 | NUR ---
RN NOTES: BP CHECKED AT 112/59, HR: 82, MIDODRINE HELD.
[2017-07-05] MEDS: HYDROCODONE/APAP 5/325MG 1 EACH TABLET PO PRN ×4 (00:02→18:18)
--- NOTE | 2017-07-05 00:03 | NUR ---
RN NOTES: PATIENT GIVEN NORCO 5-325 FOR ABDOMINAL PAIN SCALED AT 7/10.
[2017-07-05] MEDS ORDERED: HYDROCODONE/APAP 5/325MG 1 EACH TABLET ONE (00:14)
--- NOTE | 2017-07-05 01:20 | NUR ---
RN NOTES: MIDLINE G 18 INSERTED OVER LEFT UPPER ARM. WITH GOOD BLOOD RETURN,
[2017-07-05] MEDS: LORAZEPAM 0.5 MG TABLET PO PRN ×2 (01:39→19:13)
[2017-07-05] MEDS: IPRATROPIUM NEB FS 0.5 MG/2.5 ML AMPUL.NEB NEB SCH ×4 (01:52→19:18)
[2017-07-05] MEDS: ALBUTEROL FS 2.5 MG/3 ML VIAL.NEB NEB SCH ×4 (01:52→19:18)
[2017-07-05 04:00] VITALS: BP_SYST 67
[2017-07-05] MEDS: FAMOTIDINE (20 MG) 20 MG TABLET PO SCH (05:59)
--- NOTE | 2017-07-05 06:42 | NUR ---
MS RN CLOSING NOTES: PATIENT IN BED, AOX3, ON O2 VIA TRACHE TO COOL AEROSOL AT 12 LPM, O2 SAT AT 98-100%. BREATHING EVEN AND UNLABORED. APPEARS CALM AND IN NO DISTRESS. RCW HD CATH WITH CLEAN AND INTACT DRESSING, WITH PLAN FOR HD LATER. MACI MIDLINE INTACT AND PATENT TO FLUSH. MORNING CARE RENDERED. PROVIDED FOR COMFORT AND SAFETY. BED IN LOWEST AND LOCKED POSITION, HOB MAINTAINED ELEVATED, WITH ASPIRATION PREC OBSERVED. MORNING CARE RENDERED. WILL ENDORSE TO AM RN FOR RICA.
[2017-07-05] MEDS: BLOOD SUGAR DIAGNOSTIC 1 EACH STRIP IN SCH ×4 (07:30→22:26)
[2017-07-05 07:43] LABS: BASOPHILS % (AUTO) 0.3 % (0.0-2.0); EOSINOPHILS # (AUTO) 0.1 /CMM (0.0-0.7); HEMATOCRIT 24 % (33-45); HEMOGLOBIN 7.6 g/dL (11.5-14.8); LYMPHOCYTES # (AUTO) 1.7 /CMM (0.8-4.8); LYMPHOCYTES % (AUTO) 11.9 % (20.0-44.0); MEAN CORPUSCULAR HEMOGLOBIN 27 PG (26.0-33.0); MEAN CORPUSCULAR HGB CONC 32 g/dl (31.0-36.0); MEAN CORPUSCULAR VOLUME 84 fL (82-100); MONOCYTES # (AUTO) 1.1 /CMM (0.1-1.30); MONOCYTES % (AUTO) 7.9 % (2.0-12.0); NEUTROPHILS % (AUTO) 78.9 % (43.0-81.0); PLATELET COUNT (AUTO) 375 /CMM (150-450); RDW COEFFICIENT OF VARIATION 19.5 (11.5-15.0)
[2017-07-05 07:51] LABS: ALBUMIN 1.9 g/dL (3.4-5.0); BILIRUBIN,TOTAL 0.4 mg/dL (0.2-1.0); CALCIUM, SERUM 9.9 mg/dL (8.5-10.1); MAGNESIUM 2.2 mg/dL (1.8-2.4); POTASSIUM 4.7 mmol/L (3.5-5.1); TOTAL PROTEIN, SERUM 6.7 g/dL (6.4-8.2)
[2017-07-05 07:53] LABS: CREATININE 7.6 mg/dL (0.6-1.3)
[2017-07-05] MEDS: hydrALAZINE HCL 25 MG TABLET PO SCH ×2 (09:00→17:00)
[2017-07-05 09:15] VITALS: BP 104/56
[2017-07-05] MEDS: MEROPENEM 500 MG in IV NS 0.9% 50 ML IV SCH ×2 (09:45→22:26)
[2017-07-05] MEDS: LACTOBACILLUS RHAMNOSUS GG 1 EACH CAP.SPRINK PO SCH ×2 (09:45→17:29)
[2017-07-05] MEDS: PANTOPRAZOLE 40 MG VIAL IV SCH (09:45)
[2017-07-05] MEDS: LORATADINE 10 MG TABLET PO SCH (09:45)
[2017-07-05] MEDS: ASPIRIN 81 MG TAB.CHEW GT SCH (09:46)
[2017-07-05] MEDS: Z GUARD REMEDY 2 OZ OINT TP SCH (09:47)
[2017-07-05] MEDS: VIT B CMPLX 3/FA/VIT C/BIOTIN 1 TAB TABLET PO SCH (09:47)
[2017-07-05] MEDS: HYDROGEL DRESSING 90 GM TUBE TP SCH (09:47)
[2017-07-05] MEDS: MIDODRINE HCL (5MG) 5 MG TABLET PO SCH ×2 (11:29→22:52)
[2017-07-05 16:49] VITALS: BP 109/57
--- NOTE | 2017-07-05 19:14 | NUR ---
Patient refused the straight catheter at this time. She verbalized understanding MD is checking for urinary infection. Does not want to complete procedure regardless.
[2017-07-05] MEDS: INSULIN GLARGINE, 100 UNIT/ML CARTRIDGE SQ SCH (22:00)
[2017-07-06] MEDS: ALBUTEROL FS 2.5 MG/3 ML VIAL.NEB NEB SCH ×3 (01:51→14:03)
[2017-07-06] MEDS: IPRATROPIUM NEB FS 0.5 MG/2.5 ML AMPUL.NEB NEB SCH ×3 (01:51→14:03)
[2017-07-06 05:38] VITALS: BP 113/48
[2017-07-06] MEDS: FAMOTIDINE (20 MG) 20 MG TABLET PO SCH (06:16)
--- NOTE | 2017-07-06 07:44 | NUR ---
MS RN OPENING NOTES: PATIENT IN BED, AOX3, WITH O2 VIA TRACH PORTEX #6, CONNECTED TO COOL AEROSOL, PT BREATHING EVEN AND UNLABORED, APPEARS CALM AND IN NO DISTRESS. PT HAS RIGHT AC G 20 NOTED , LADAN PICC LINE NOTED, PATIENT HAS RIGHT CHEST WALL HD CATHETER WITH CLEAN AND INTACT DRESSING. COMFORT AND SAFETY MEASURES IN PLACE. HOB ELEVATED, IN LOWEST AND LOCKED POSITION, SIDE RAILS UP X3, CALL LIGHT WITHIN REACH.RN WILL CONTINUE TO MONITOR THROUGHOUT THE DAY .
[2017-07-06 08:00] VITALS: BP 109/55
--- NOTE | 2017-07-06 08:05 | NUR ---
RN NOTE PT REMAINS IN NO ACUTE DISTRESS IN BED. PT DID NOT HAVE ANY SIGNIFICANT CHANGE IN CONDITION DURING SHIFT. ALL NEEDS MET, ALL ORDERS CARRIED OUT. WILL ENDORSE CARE TO AM RN FOR CONTINUITY OF CARE.
[2017-07-06] MEDS: BLOOD SUGAR DIAGNOSTIC 1 EACH STRIP IN SCH ×2 (08:49→12:49)
[2017-07-06] MEDS: ASPIRIN 81 MG TAB.CHEW GT SCH (08:49)
[2017-07-06] MEDS: MIDODRINE HCL (5MG) 5 MG TABLET PO SCH (08:50)
[2017-07-06] MEDS: VIT B CMPLX 3/FA/VIT C/BIOTIN 1 TAB TABLET PO SCH (08:50)
[2017-07-06 08:51] VITALS: BP 109/55
[2017-07-06] MEDS: HYDROCODONE/APAP 5/325MG 1 EACH TABLET PO PRN ×2 (08:51→16:20)
[2017-07-06] MEDS: hydrALAZINE HCL 25 MG TABLET PO SCH (08:51)
[2017-07-06] MEDS: PANTOPRAZOLE 40 MG VIAL IV SCH (08:52)
[2017-07-06] MEDS: LACTOBACILLUS RHAMNOSUS GG 1 EACH CAP.SPRINK PO SCH (08:52)
[2017-07-06] MEDS: LORATADINE 10 MG TABLET PO SCH (08:52)
[2017-07-06] MEDS: Z GUARD REMEDY 2 OZ OINT TP SCH (09:01)
[2017-07-06] MEDS: HYDROGEL DRESSING 90 GM TUBE TP SCH (09:02)
[2017-07-06] MEDS: MEROPENEM 500 MG in IV NS 0.9% 50 ML IV SCH (09:14)
[2017-07-06] MEDS ORDERED: VANC500F2 IV (09:18)
[2017-07-06] MEDS ORDERED: Hydrogel Dressing TP (09:18)
[2017-07-06] MEDS ORDERED: Midodrine Hcl (5MG) PO (09:18)
[2017-07-06] MEDS ORDERED: MERO500V IV (09:18)
[2017-07-06] MEDS ORDERED: ALBUT2 NEB (09:18)
[2017-07-06] MEDS ORDERED: ALLA266C2 TP (09:18)
[2017-07-06] MEDS ORDERED: LACT1CAP72 PO (09:18)
--- NOTE | 2017-07-06 09:28 | NUR ---
RN NOTE PATIENT REQUESTING RT ASSISTANCE RT RIOS NOTIFIED AND ASSESSED PATIENT AT BEDSIDE, RN WILL CONTINUE TO FOLLOW
--- NOTE | 2017-07-06 14:32 | NUR ---
RN NOTE RN CONTACTED DON AT [facility] FOR REPORT. ALEXANDER [facility] SALVAGE WINDER SPOKE WITH RN AND HELENWED ON PLAN OF CARE RN AWAITING RETURN PHONE CALL
--- NOTE | 2017-07-06 16:52 | NUR ---
RN NOTE PATIENT CONTACTED [facility] IN REGARDS TO THE PATIENT DISCHARGE PLAN AND SPOKE WITH BRANDEN ENCARNACION, ACKNOWLEDGED PATIENT RETURN AND PLAN OF CARE , RN REPORTED TO EMS PATIENT LEFT HECTOR WITHOUT ANY ISSUES AT THIS TIME
[2017-07-07] MEDS ORDERED: MEROPENEM 500 MG in IV NS 0.9% 50 ML IV SCH (09:00)
== END 2017-07-06 17:08 | DRG 951 ==
LOC: ER 13:18 → TELE 18:04 → ICU 06-30 07:38 → TELE-TD 07-02 16:15 → MEDSG1 07-03 11:22
PROVIDERS: ADMIT Internal Medicine; ATTEND Internal Medicine Nephrology
PROC: 5A1D70Z Performance of Urinary Filtration, Intermittent, Less than 6 Hours Per Day (ICD-10-PCS; principal; 2017-07-01)
PROC: 02HV33Z Insertion of Infusion Device into Superior Vena Cava, Percutaneous Approach (ICD-10-PCS; principal; 2017-07-01)
PROC: 30233N1 Transfusion of Nonautologous Red Blood Cells into Peripheral Vein, Percutaneous Approach (ICD-10-PCS; 2017-07-02)
PROC: 0KBN0ZZ Excision of Right Hip Muscle, Open Approach (ICD-10-PCS; 2017-07-03)
PROC: 5A1D70Z Performance of Urinary Filtration, Intermittent, Less than 6 Hours Per Day (ICD-10-PCS; 2017-07-03)
PROC: 0KBP0ZZ Excision of Left Hip Muscle, Open Approach (ICD-10-PCS; 2017-07-03)
PROC: 0DD68ZX Extraction of Stomach, Via Natural or Artificial Opening Endoscopic, Diagnostic (ICD-10-PCS; 2017-07-04)
PROC: B546ZZA Ultrasonography of Right Subclavian Vein, Guidance (ICD-10-PCS; 2017-07-05)
PROC: 5A1D70Z Performance of Urinary Filtration, Intermittent, Less than 6 Hours Per Day (ICD-10-PCS; 2017-07-05)
PROC: 05H533Z Insertion of Infusion Device into Right Subclavian Vein, Percutaneous Approach (ICD-10-PCS; 2017-07-05)
DX: K94.23 Gastrostomy malfunction (principal); R65.21 Severe sepsis with septic shock; A41.9 Sepsis, unspecified organism; J96.10 Chronic respiratory failure, unspecified whether with hypoxia or hypercapnia; L89.154 Pressure ulcer of sacral region, stage 4; E46 Unspecified protein-calorie malnutrition; N18.6 End stage renal disease; I12.0 Hypertensive chronic kidney disease with stage 5 chronic kidney disease or end stage renal disease; D68.59 Other primary thrombophilia; E11.22 Type 2 diabetes mellitus with diabetic chronic kidney disease; R13.10 Dysphagia, unspecified; Z99.2 Dependence on renal dialysis; L03.311 Cellulitis of abdominal wall; Z86.73 Personal history of transient ischemic attack (TIA), and cerebral infarction without residual deficits; Z79.899 Other long term (current) drug therapy; Z79.82 Long term (current) use of aspirin; Z79.4 Long term (current) use of insulin; Y83.3 Surgical operation with formation of external stoma as the cause of abnormal reaction of the patient, or of later complication, without mention of misadventure at the time of the procedure; Y82.9 Unspecified medical devices associated with adverse incidents; Y92.129 Unspecified place in nursing home as the place of occurrence of the external cause; D63.8 Anemia in other chronic diseases classified elsewhere; E44.1 Mild protein-calorie malnutrition; D25.9 Leiomyoma of uterus, unspecified; M85.9 Disorder of bone density and structure, unspecified; E87.5 Hyperkalemia; K29.70 Gastritis, unspecified, without bleeding; F41.9 Anxiety disorder, unspecified; E66.01 Morbid (severe) obesity due to excess calories; Z68.41 Body mass index [BMI] 40.0-44.9, adult; T79.7XXA Traumatic subcutaneous emphysema, initial encounter
CPT/HCPCS: 31720; 36415; 36600; 71045-TC; 76882; 80048-TC; 80053-TC; 80076-TC; 80202-TC; 82728-TC; 82803-TC; 82962-TC; 83540-TC; 83605-TC; 83690-TC; 83735-TC; 84100-TC; 84484-TC; 85025-TC; 85730-TC; 86850-TC; 86921-TC; 87040-TC; 87081-TC; 90935-TC; 92526; 92611-TC; 94002-TC; 94640-TC; A4216; A4606; A4623; A4624; A6248; A6253; A6402; A6403; C9113; J0885; J1815; J2185; J2405; J2543; J3370; J7030; J7040; J7050; J7060; P9016-BL; P9047; Q0163; Z7610

== ENCOUNTER 2017-08-10 18:59 | Inpatient (IN) | payer OTHER ==
[~2017-08-10] VITALS: Ht 180.3 cm; Wt 122.0 kg
[~2017-08-10 18:59] MED LIST changes: -AMIN30LI4 GT; -BLOO-668 IN; +CALC667T2 GT; +DIPH25CA6 PO; -FAMO-131 GT; +FAMO-131 PO; -FERR300L GT; -FOLI0.8T23 GT; +FOLI0.8T23 PO; -HYDR-3326 GT; +HYDR-3974 GT; -HYDR-4076 GT; +HYDR-4076 PO; +Hydrogel Dressing TP; -INSU100V3 SQ; +LACT1CAP72 PO; -LORA0.5T GT; -LORA10TA68 GT; +LORA10TA68 PO; -LOSA25TA3 GT; +MERO500V IV; -METO5SOL2 GT; +Midodrine Hcl (5MG) PO; -NUT.237L67 GT; -RXVAN XX; -Renal Novasource GT; +VANC500F2 IV; -ZINC220C8 GT
[2017-08-10] MEDS: PANTOPRAZOLE 40 MG VIAL IV ONE ×2 (20:01→20:40)
[2017-08-10 20:08] LABS: BASOPHILS % (AUTO) 0.1 % (0.0-2.0); EOSINOPHILS # (AUTO) 0.2 /CMM (0.0-0.7); EOSINOPHILS % (AUTO) 0.7 % (0.0-6.0); LYMPHOCYTES # (AUTO) 3.1 /CMM (0.8-4.8); LYMPHOCYTES % (AUTO) 14.5 % (20.0-44.0); MEAN CORPUSCULAR HEMOGLOBIN 25 PG (26.0-33.0); MEAN CORPUSCULAR HGB CONC 32 g/dl (31.0-36.0); MEAN CORPUSCULAR VOLUME 78 fL (82-100); MONOCYTES % (AUTO) 4.7 % (2.0-12.0); NEUTROPHILS # (AUTO) 17.3 /CMM (1.8-8.9); PLATELET COUNT (AUTO) 780 /CMM (150-450); RDW COEFFICIENT OF VARIATION 19.5 (11.5-15.0); RED BLOOD CELL COUNT(AUTO) 2.53 MIL/uL (4.0-5.2); WHITE BLOOD COUNT (AUTO) 21.6 K/uL (4.3-11.0)
[2017-08-10 20:10] LABS: HEMATOCRIT 20 % (33-45); HEMOGLOBIN 6.3 g/dL (11.5-14.8)
[2017-08-10 20:11] LABS: CALCIUM, SERUM 10.6 mg/dL (8.5-10.1); CREATININE 6.5 mg/dL (0.6-1.3)
[2017-08-10 20:15] LABS: INR 1.08 (0.85-1.15)
[2017-08-10 20:17] LABS: ALBUMIN 1.8 g/dL (3.4-5.0); BILIRUBIN,DIRECT 0.1 mg/dL (0.0-0.2); BILIRUBIN,TOTAL 0.2 mg/dL (0.2-1.0); TOTAL PROTEIN, SERUM 6.9 g/dL (6.4-8.2)
[2017-08-10] MEDS ORDERED: PIPERACILLIN /TAZOBACTAM 3.375 G in IV D5W 50 ML IV ONE (20:30)
[2017-08-10] MEDS ORDERED: PANTOPRAZOLE 40 MG VIAL ONE (20:36)
[2017-08-10] MEDS ORDERED: WATER FOR INJECTION,STERILE 10 ML ONE (20:36)
[2017-08-10] MEDS ORDERED: PIPERACILLIN /TAZOBACTAM 3.375 G VIAL IV ONE (20:49)
[2017-08-10 20:52] LABS: BAND % (MANUAL) 21 % (0.0-5.0); EOSINOPHILS % (MANUAL) 2 % (0-4); LYMPHOCYTES % (MANUAL) 17 % (16-48); MONOCYTES % (MANUAL) 9 % (0-11.0); NEUTROPHILS % (MANUAL) 51 (42-76)
[2017-08-10 21:45] VITALS: BP 115/57
[2017-08-10] MEDS: PANTOPRAZOLE 40 MG VIAL IV SCH (22:30)
[2017-08-10] MEDS: IV D5/ 0.9% NACL 1,000 ML IV SCH (22:37)
[2017-08-10 23:40] VITALS: BP 111/56
[2017-08-10 23:45] VITALS: BP 110/62
[2017-08-11] VITALS (18 sets, daily range): BP systolic 95–149; BP diastolic 51–90
[2017-08-11 07:50] LABS: CALCIUM, SERUM 9.6 mg/dL (8.5-10.1); CREATININE 6.3 mg/dL (0.6-1.3); POTASSIUM 4.2 mmol/L (3.5-5.1)
[2017-08-11] MEDS ORDERED: MIDO5TAB PO (08:24)
[2017-08-11] MEDS ORDERED: ASPI-1169 PO (08:24)
[2017-08-11] MEDS ORDERED: ZINC220C8 PO (08:24)
[2017-08-11] MEDS ORDERED: LACT1CAP72 PO (08:24)
[2017-08-11] MEDS ORDERED: ARGI1POW13 PO (08:24)
[2017-08-11] MEDS ORDERED: SEVE0.8P PO (08:30)
[2017-08-11] MEDS ORDERED: AMIN30LI4 PO (08:30)
[2017-08-11] MEDS ORDERED: FERR300L PO (08:30)
[2017-08-11 08:39] LABS: HEMOGLOBIN 7.1 g/dL (11.5-14.8)
[2017-08-11] MEDS ORDERED: INSU100V3 SQ (08:40)
[2017-08-11] MEDS ORDERED: BLOO-668 IN (08:40)
[2017-08-11] MEDS: PANTOPRAZOLE 40 MG VIAL IV SCH ×2 (09:09→17:03)
[2017-08-11] MEDS ORDERED: MORPHINE SULFATE INJ 4 MG/ML DISP.SYRIN IV PRN (13:00)
[2017-08-11] MEDS: IV D5/ 0.9% NACL 1,000 ML IV SCH (14:47)
[2017-08-11] MEDS: ALBUTEROL FS 2.5 MG/0.5 ML VIAL.NEB NEB SCH ×2 (15:30→19:48)
[2017-08-11] MEDS ORDERED: INSULIN REGULAR, HUMAN 100 UNIT/ML 3 ML VIAL SQ PRN (15:30)
[2017-08-11] MEDS ORDERED: diphenhydrAMINE HCL 25 MG CAPSULE PO PRN (15:30)
[2017-08-11] MEDS ORDERED: Z GUARD REMEDY 2 OZ OINT TP PRN (15:30)
[2017-08-11] MEDS: IPRATROPIUM NEB FS 0.5 MG/2.5 ML AMPUL.NEB NEB SCH ×2 (15:30→19:48)
[2017-08-11] MEDS ORDERED: IPRATROPIUM NEB FS 0.5 MG/2.5 ML AMPUL.NEB NEB PRN (16:00)
[2017-08-11] MEDS ORDERED: ALBUTEROL FS 2.5 MG/0.5 ML VIAL.NEB NEB PRN (16:00)
[2017-08-11] MEDS: hydrALAZINE HCL 25 MG TABLET PO SCH (16:55)
[2017-08-11] MEDS: LACTOBACILLUS RHAMNOSUS GG 1 EACH CAP.SPRINK PO SCH (16:56)
[2017-08-11] MEDS ORDERED: POLYETHYLENE GLYCOL 3350 17 GM POWD.PACK PO PRN (17:00)
[2017-08-11] MEDS: SEVELAMER CARBONATE 0.8 GM POWD.PACK PO SCH (17:03)
[2017-08-11] MEDS: MIDODRINE HCL (5MG) 5 MG TABLET PO SCH (21:00)
[2017-08-11] MEDS: INSULIN GLARGINE, 100 UNIT/ML CARTRIDGE SQ SCH (22:00)
[2017-08-11] MEDS: HYDROCODONE/APAP 5/325MG 1 EACH TABLET PO PRN (23:36)
[2017-08-12] VITALS: BP 160/70
[2017-08-12] MEDS: ALBUTEROL FS 2.5 MG/0.5 ML VIAL.NEB NEB SCH ×4 (01:16→19:32)
[2017-08-12] MEDS: IPRATROPIUM NEB FS 0.5 MG/2.5 ML AMPUL.NEB NEB SCH ×4 (01:16→19:32)
[2017-08-12 04:00] VITALS: BP 120/59
[2017-08-12] MEDS: IV D5/ 0.9% NACL 1,000 ML IV SCH (05:18)
[2017-08-12] MEDS: ACETAMINOPHEN 650 MG/20.3 ML UDC GT PRN (05:28)
[2017-08-12] MEDS: FAMOTIDINE (20 MG) 20 MG TABLET PO SCH (06:13)
[2017-08-12 08:00] VITALS: BP 102/56
[2017-08-12] MEDS: DOCUSATE SODIUM 250 MG CAPSULE PO SCH (08:28)
[2017-08-12] MEDS: VIT B CMPLX 3/FA/VIT C/BIOTIN 1 TAB TABLET PO SCH (08:28)
[2017-08-12] MEDS: ASPIRIN 81 MG TAB.CHEW PO SCH (08:28)
[2017-08-12] MEDS: SEVELAMER CARBONATE 0.8 GM POWD.PACK PO SCH ×3 (08:28→17:18)
[2017-08-12] MEDS: LACTOBACILLUS RHAMNOSUS GG 1 EACH CAP.SPRINK PO SCH ×2 (08:28→17:20)
[2017-08-12] MEDS: ZINC SULFATE 220 MG CAPSULE PO SCH (08:28)
[2017-08-12] MEDS: PANTOPRAZOLE 40 MG VIAL IV SCH (08:29)
[2017-08-12] MEDS: LORATADINE 10 MG TABLET PO SCH (08:29)
[2017-08-12] MEDS: hydrALAZINE HCL 25 MG TABLET PO SCH ×2 (08:30→17:19)
[2017-08-12] MEDS: MIDODRINE HCL (5MG) 5 MG TABLET PO SCH ×2 (08:31→22:59)
[2017-08-12] MEDS: PROSOURCE / PROSTAT (PYXIS) 30 ML UDC GT SCH ×2 (08:34→17:18)
[2017-08-12] MEDS: FERROUS SULFATE UDC 300 MG/5 ML UDC PO SCH (08:34)
[2017-08-12] MEDS: HYDROCODONE/APAP 5/325MG 1 EACH TABLET GT SCH (08:34)
[2017-08-12] MEDS: BLOOD SUGAR DIAGNOSTIC 1 EACH STRIP IN SCH (08:54)
[2017-08-12] MEDS: Z GUARD REMEDY 2 OZ OINT TP SCH (08:55)
[2017-08-12] MEDS ORDERED: IV D5/ 0.9% NACL 1,000 ML IV PRN (11:30)
[2017-08-12 13:15] LABS: OCCULT BLOOD STOOL NEGATIVE (NEGATIVE)
[2017-08-12] MEDS: HYDROCODONE/APAP 5/325MG 1 EACH TABLET PO PRN (15:20)
[2017-08-12 16:00] VITALS: BP 132/67
[2017-08-12] MEDS ORDERED: SILVER NITRATE APPLICATOR 1 EA BOX TP ONE (16:00)
[2017-08-12] MEDS ORDERED: LIDOCAINE 1%-EPI 1:100,000 20 ML VIAL TP ONE (16:00)
[2017-08-12] MEDS: PANTOPRAZOLE 40 MG TABLET.DR PO SCH (17:19)
[2017-08-12] MEDS: HYDROGEL DRESSING 90 GM TUBE TP SCH (17:22)
[2017-08-12 20:00] VITALS: BP 130/67
[2017-08-12] MEDS: INSULIN GLARGINE, 100 UNIT/ML CARTRIDGE SQ SCH (23:00)
[2017-08-13] MEDS: IPRATROPIUM NEB FS 0.5 MG/2.5 ML AMPUL.NEB NEB SCH ×4 (00:36→19:44)
[2017-08-13] MEDS: ALBUTEROL FS 2.5 MG/0.5 ML VIAL.NEB NEB SCH ×4 (00:36→19:44)
[2017-08-13] MEDS: HYDROCODONE/APAP 5/325MG 1 EACH TABLET PO PRN ×3 (00:49→17:34)
[2017-08-13] MEDS: HYDROGEL DRESSING 90 GM TUBE TP SCH ×2 (04:00→10:58)
[2017-08-13] MEDS: FAMOTIDINE (20 MG) 20 MG TABLET PO SCH (06:40)
[2017-08-13 08:00] VITALS: BP 113/63
[2017-08-13] MEDS: hydrALAZINE HCL 25 MG TABLET PO SCH ×2 (09:00→17:23)
[2017-08-13] MEDS: MIDODRINE HCL (5MG) 5 MG TABLET PO SCH ×2 (09:00→22:32)
[2017-08-13 10:30] LABS: HEMOGLOBIN 7.1 g/dL (11.5-14.8); MEAN CORPUSCULAR HEMOGLOBIN 25 PG (26.0-33.0); MEAN CORPUSCULAR HGB CONC 31 g/dl (31.0-36.0); RED BLOOD CELL COUNT(AUTO) 2.81 MIL/uL (4.0-5.2)
[2017-08-13 10:37] LABS: HEMATOCRIT 23 % (33-45); MEAN CORPUSCULAR VOLUME 81 fL (82-100); PLATELET COUNT (AUTO) 453 /CMM (150-450); WHITE BLOOD COUNT (AUTO) 24.9 K/uL (4.3-11.0)
[2017-08-13] MEDS: HYDROCODONE/APAP 5/325MG 1 EACH TABLET GT SCH (10:40)
[2017-08-13] MEDS: LACTOBACILLUS RHAMNOSUS GG 1 EACH CAP.SPRINK PO SCH ×2 (10:40→17:22)
[2017-08-13] MEDS: ZINC SULFATE 220 MG CAPSULE PO SCH (10:40)
[2017-08-13] MEDS: DOCUSATE SODIUM 250 MG CAPSULE PO SCH (10:40)
[2017-08-13] MEDS: SEVELAMER CARBONATE 0.8 GM POWD.PACK PO SCH ×3 (10:40→17:22)
[2017-08-13] MEDS: PANTOPRAZOLE 40 MG TABLET.DR PO SCH ×2 (10:40→17:22)
[2017-08-13] MEDS: LORATADINE 10 MG TABLET PO SCH (10:41)
[2017-08-13] MEDS: ASPIRIN 81 MG TAB.CHEW PO SCH (10:41)
[2017-08-13] MEDS: VIT B CMPLX 3/FA/VIT C/BIOTIN 1 TAB TABLET PO SCH (10:41)
[2017-08-13 10:44] LABS: CALCIUM, SERUM 9.2 mg/dL (8.5-10.1); CREATININE 3.9 mg/dL (0.6-1.3); MAGNESIUM 1.9 mg/dL (1.8-2.4); PHOSPHORUS 2.3 mg/dL (2.5-4.9); POTASSIUM 3.5 mmol/L (3.5-5.1)
[2017-08-13 10:50] LABS: BAND % (MANUAL) 5 % (0.0-5.0); EOSINOPHILS % (MANUAL) 3 % (0-4); LYMPHOCYTES % (MANUAL) 13 % (16-48); MONOCYTES % (MANUAL) 4 % (0-11.0); NEUTROPHILS % (MANUAL) 75 (42-76)
[2017-08-13] MEDS: PROSOURCE / PROSTAT (PYXIS) 30 ML UDC GT SCH ×2 (10:57→17:25)
[2017-08-13] MEDS: FERROUS SULFATE UDC 300 MG/5 ML UDC PO SCH (10:57)
[2017-08-13] MEDS: Z GUARD REMEDY 2 OZ OINT TP SCH (10:58)
[2017-08-13] MEDS: BLOOD SUGAR DIAGNOSTIC 1 EACH STRIP IN SCH (11:01)
[2017-08-13] MEDS ORDERED: EPOETIN ALFA (10,000 UNIT) 10,000 UNIT/ML VIAL SQ ONE (12:00)
[2017-08-13 16:00] VITALS: BP 129/69
[2017-08-13 20:00] VITALS: BP 137/71
[2017-08-13 20:04] VITALS: BP 137/71
[2017-08-13] MEDS: PIPERACILLIN /TAZOBACTAM 2.25 G in IV NS 0.9% 50 ML IV SCH (21:00)
[2017-08-13] MEDS ORDERED: PIPERACILLIN /TAZOBACTAM 2.25 G VIAL IV ONE (21:57)
[2017-08-13] MEDS ORDERED: VANCOMYCIN IV ONE (22:00)
[2017-08-13] MEDS: INSULIN GLARGINE, 100 UNIT/ML CARTRIDGE SQ SCH (22:00)
[2017-08-13] MEDS ORDERED: D5W IV ONE (22:00)
[2017-08-13] MEDS ORDERED: VANCOMYCIN 1 GM VIAL ONE (22:23)
[2017-08-14] MEDS: ALBUTEROL FS 2.5 MG/0.5 ML VIAL.NEB NEB SCH ×4 (01:28→19:50)
[2017-08-14] MEDS: IPRATROPIUM NEB FS 0.5 MG/2.5 ML AMPUL.NEB NEB SCH ×4 (01:28→19:49)
[2017-08-14] MEDS ORDERED: PIPERACILLIN /TAZOBACTAM 2.25 G VIAL IV ONE (04:07)
[2017-08-14] MEDS: PIPERACILLIN /TAZOBACTAM 2.25 G in IV NS 0.9% 50 ML IV SCH ×3 (04:26→21:57)
[2017-08-14] MEDS: HYDROGEL DRESSING 90 GM TUBE TP SCH ×2 (04:27→18:16)
[2017-08-14] MEDS: FAMOTIDINE (20 MG) 20 MG TABLET PO SCH (07:01)
[2017-08-14] MEDS: HYDROCODONE/APAP 5/325MG 1 EACH TABLET PO PRN ×3 (07:13→21:59)
[2017-08-14 08:00] VITALS: BP 116/64
[2017-08-14] MEDS ORDERED: FEE PK DOSING 1 MIN EA MC ONE (08:03)
[2017-08-14] MEDS: SEVELAMER CARBONATE 0.8 GM POWD.PACK PO SCH ×3 (08:29→18:15)
[2017-08-14] MEDS: ZINC SULFATE 220 MG CAPSULE PO SCH (08:29)
[2017-08-14] MEDS: PANTOPRAZOLE 40 MG TABLET.DR PO SCH ×2 (08:29→18:15)
[2017-08-14] MEDS: MIDODRINE HCL (5MG) 5 MG TABLET PO SCH ×2 (08:30→21:57)
[2017-08-14] MEDS: FERROUS SULFATE UDC 300 MG/5 ML UDC PO SCH (08:30)
[2017-08-14] MEDS: LACTOBACILLUS RHAMNOSUS GG 1 EACH CAP.SPRINK PO SCH ×2 (08:30→18:15)
[2017-08-14] MEDS: LORATADINE 10 MG TABLET PO SCH (08:30)
[2017-08-14] MEDS: DOCUSATE SODIUM 250 MG CAPSULE PO SCH (08:30)
[2017-08-14] MEDS: VIT B CMPLX 3/FA/VIT C/BIOTIN 1 TAB TABLET PO SCH (08:30)
[2017-08-14] MEDS: ASPIRIN 81 MG TAB.CHEW PO SCH (08:30)
[2017-08-14] MEDS: PROSOURCE / PROSTAT (PYXIS) 30 ML UDC GT SCH ×2 (08:40→18:15)
[2017-08-14] MEDS: BLOOD SUGAR DIAGNOSTIC 1 EACH STRIP IN SCH (08:43)
[2017-08-14] MEDS: hydrALAZINE HCL 25 MG TABLET PO SCH ×2 (09:00→17:00)
[2017-08-14] MEDS: HYDROCODONE/APAP 5/325MG 1 EACH TABLET GT SCH (09:00)
[2017-08-14] MEDS: Z GUARD REMEDY 2 OZ OINT TP SCH (12:44)
[2017-08-14] MEDS ORDERED: ANESTHESIA TRAY IN PYXIS 1 EA TRAY MC ONE (15:21)
[2017-08-14 16:00] VITALS: BP 105/58
[2017-08-14] MEDS ORDERED: HEMOSTATIC MATRIX 10 ML 1 EACH PAD MC ONE (16:47)
[2017-08-14] MEDS ORDERED: FENTANYL PF 100MCG/2ML AMPUL ONE (17:03)
[2017-08-14 17:30] VITALS: BP 104/64
[2017-08-14 20:00] VITALS: BP 111/65
[2017-08-14] MEDS: INSULIN GLARGINE, 100 UNIT/ML CARTRIDGE SQ SCH (21:58)
[2017-08-15] VITALS (7 sets, daily range): BP systolic 102–142; BP diastolic 52–75
[2017-08-15] MEDS: IPRATROPIUM NEB FS 0.5 MG/2.5 ML AMPUL.NEB NEB SCH ×4 (01:43→19:34)
[2017-08-15] MEDS: ALBUTEROL FS 2.5 MG/0.5 ML VIAL.NEB NEB SCH ×4 (01:43→19:34)
[2017-08-15] MEDS: HYDROGEL DRESSING 90 GM TUBE TP SCH ×2 (04:49→17:41)
[2017-08-15] MEDS: FAMOTIDINE (20 MG) 20 MG TABLET PO SCH (05:49)
[2017-08-15] MEDS: PIPERACILLIN /TAZOBACTAM 2.25 G in IV NS 0.9% 50 ML IV SCH ×3 (05:49→21:53)
[2017-08-15] MEDS: HYDROCODONE/APAP 5/325MG 1 EACH TABLET PO PRN ×3 (06:42→18:14)
[2017-08-15 08:31] LABS: EOSINOPHILS % (AUTO) 0.1 % (0.0-6.0); HEMATOCRIT 21 % (33-45); LYMPHOCYTES # (AUTO) 2.7 /CMM (0.8-4.8); LYMPHOCYTES % (AUTO) 12.3 % (20.0-44.0); MEAN CORPUSCULAR HEMOGLOBIN 25 PG (26.0-33.0); MEAN CORPUSCULAR HGB CONC 31 g/dl (31.0-36.0); MEAN CORPUSCULAR VOLUME 82 fL (82-100); MONOCYTES # (AUTO) 0.2 /CMM (0.1-1.30); MONOCYTES % (AUTO) 1.1 % (2.0-12.0); NEUTROPHILS # (AUTO) 18.6 /CMM (1.8-8.9); NEUTROPHILS % (AUTO) 86.5 % (43.0-81.0); PLATELET COUNT (AUTO) 625 /CMM (150-450); RDW COEFFICIENT OF VARIATION 20.4 (11.5-15.0); RED BLOOD CELL COUNT(AUTO) 2.55 MIL/uL (4.0-5.2); WHITE BLOOD COUNT (AUTO) 21.5 K/uL (4.3-11.0)
[2017-08-15 08:40] LABS: HEMOGLOBIN 6.5 g/dL (11.5-14.8)
[2017-08-15 08:46] LABS: CALCIUM, SERUM 9.6 mg/dL (8.5-10.1); CREATININE 6.2 mg/dL (0.6-1.3); MAGNESIUM 2.3 mg/dL (1.8-2.4); PHOSPHORUS 3.8 mg/dL (2.5-4.9); POTASSIUM 5.3 mmol/L (3.5-5.1)
[2017-08-15] MEDS: HYDROCODONE/APAP 5/325MG 1 EACH TABLET GT SCH (09:00)
[2017-08-15] MEDS: hydrALAZINE HCL 25 MG TABLET PO SCH ×2 (09:00→17:00)
[2017-08-15] MEDS: FERROUS SULFATE UDC 300 MG/5 ML UDC PO SCH (09:37)
[2017-08-15] MEDS: BLOOD SUGAR DIAGNOSTIC 1 EACH STRIP IN SCH (09:37)
[2017-08-15] MEDS: PANTOPRAZOLE 40 MG TABLET.DR PO SCH ×2 (09:38→17:40)
[2017-08-15] MEDS: VIT B CMPLX 3/FA/VIT C/BIOTIN 1 TAB TABLET PO SCH (09:38)
[2017-08-15] MEDS: ZINC SULFATE 220 MG CAPSULE PO SCH (09:38)
[2017-08-15] MEDS: MIDODRINE HCL (5MG) 5 MG TABLET PO SCH ×2 (09:38→21:56)
[2017-08-15] MEDS: LORATADINE 10 MG TABLET PO SCH (09:38)
[2017-08-15] MEDS: LACTOBACILLUS RHAMNOSUS GG 1 EACH CAP.SPRINK PO SCH ×2 (09:38→17:40)
[2017-08-15] MEDS: ASPIRIN 81 MG TAB.CHEW PO SCH (09:38)
[2017-08-15] MEDS: DOCUSATE SODIUM 250 MG CAPSULE PO SCH (09:38)
[2017-08-15] MEDS: SEVELAMER CARBONATE 0.8 GM POWD.PACK PO SCH ×3 (09:38→17:40)
[2017-08-15] MEDS: PROSOURCE / PROSTAT (PYXIS) 30 ML UDC GT SCH ×2 (09:39→17:42)
[2017-08-15] MEDS: Z GUARD REMEDY 2 OZ OINT TP SCH (09:41)
[2017-08-15 10:17] LABS: THYROID STIMULATING HORMONE 0.677 uIU/mL (0.358-3.74); URIC ACID 6.8 mg/dL (2.6-7.2)
[2017-08-15] MEDS ORDERED: EPOETIN ALFA (10,000 UNIT) 10,000 UNIT/ML VIAL SQ ONE (10:30)
[2017-08-15 12:19] LABS: BAND % (MANUAL) 4 % (0.0-5.0); LYMPHOCYTES % (MANUAL) 14 % (16-48); METAMYELOCYTES % 1 % (0-0); MONOCYTES % (MANUAL) 1 % (0-11.0); MYELOCYTES % 1 % (0-0); NEUTROPHILS % (MANUAL) 79 (42-76)
[2017-08-15] MEDS: VANCOMYCIN 500 MG in IV NS 0.9% 100 ML IV PRN (14:16)
[2017-08-15] MEDS: DAKINS QUARTER STRENGTH (0.125%) 480 ML BOTTLE TOP SCH (19:22)
[2017-08-15] MEDS: INSULIN GLARGINE, 100 UNIT/ML CARTRIDGE SQ SCH (21:54)
[2017-08-16] VITALS (11 sets, daily range): BP systolic 100–124; BP diastolic 56–77
[2017-08-16] MEDS: ALBUTEROL FS 2.5 MG/0.5 ML VIAL.NEB NEB SCH ×4 (00:56→20:05)
[2017-08-16] MEDS: IPRATROPIUM NEB FS 0.5 MG/2.5 ML AMPUL.NEB NEB SCH ×4 (00:56→20:05)
[2017-08-16] MEDS: HYDROCODONE/APAP 5/325MG 1 EACH TABLET PO PRN ×3 (01:14→16:21)
[2017-08-16] MEDS: PIPERACILLIN /TAZOBACTAM 2.25 G in IV NS 0.9% 50 ML IV SCH ×3 (04:55→21:21)
[2017-08-16] MEDS: HYDROGEL DRESSING 90 GM TUBE TP SCH ×2 (04:56→16:15)
[2017-08-16] MEDS: FAMOTIDINE (20 MG) 20 MG TABLET PO SCH (06:34)
[2017-08-16] MEDS: LACTOBACILLUS RHAMNOSUS GG 1 EACH CAP.SPRINK PO SCH ×2 (08:41→16:18)
[2017-08-16] MEDS: FERROUS SULFATE UDC 300 MG/5 ML UDC PO SCH (08:41)
[2017-08-16] MEDS: VIT B CMPLX 3/FA/VIT C/BIOTIN 1 TAB TABLET PO SCH (08:41)
[2017-08-16] MEDS: MIDODRINE HCL (5MG) 5 MG TABLET PO SCH ×2 (08:41→21:01)
[2017-08-16] MEDS: SEVELAMER CARBONATE 0.8 GM POWD.PACK PO SCH ×3 (08:41→17:30)
[2017-08-16] MEDS: ZINC SULFATE 220 MG CAPSULE PO SCH (08:42)
[2017-08-16] MEDS: PANTOPRAZOLE 40 MG TABLET.DR PO SCH ×2 (08:42→16:18)
[2017-08-16] MEDS: DOCUSATE SODIUM 250 MG CAPSULE PO SCH (08:42)
[2017-08-16] MEDS: ASPIRIN 81 MG TAB.CHEW PO SCH (08:42)
[2017-08-16] MEDS: LORATADINE 10 MG TABLET PO SCH (08:44)
[2017-08-16] MEDS: hydrALAZINE HCL 25 MG TABLET PO SCH ×2 (08:44→17:30)
[2017-08-16] MEDS: HYDROCODONE/APAP 5/325MG 1 EACH TABLET GT SCH (08:44)
[2017-08-16] MEDS: PROSOURCE / PROSTAT (PYXIS) 30 ML UDC GT SCH ×2 (08:55→17:32)
[2017-08-16] MEDS: BLOOD SUGAR DIAGNOSTIC 1 EACH STRIP IN SCH (09:10)
[2017-08-16] MEDS: Z GUARD REMEDY 2 OZ OINT TP SCH (09:14)
[2017-08-16] MEDS: DAKINS QUARTER STRENGTH (0.125%) 480 ML BOTTLE TOP SCH ×2 (09:15→16:23)
[2017-08-16] MEDS ORDERED: DEXTROSE 50%-WATER 50 ML DISP.SYRIN IV PRN (11:00)
[2017-08-16 11:56] LABS: EOSINOPHILS # (AUTO) 0.1 /CMM (0.0-0.7); EOSINOPHILS % (AUTO) 0.7 % (0.0-6.0); HEMATOCRIT 22 % (33-45); LYMPHOCYTES # (AUTO) 3.6 /CMM (0.8-4.8); LYMPHOCYTES % (AUTO) 18.2 % (20.0-44.0); MEAN CORPUSCULAR HEMOGLOBIN 26 PG (26.0-33.0); MEAN CORPUSCULAR HGB CONC 32 g/dl (31.0-36.0); MEAN CORPUSCULAR VOLUME 83 fL (82-100); MONOCYTES # (AUTO) 1.1 /CMM (0.1-1.30); MONOCYTES % (AUTO) 5.4 % (2.0-12.0); NEUTROPHILS # (AUTO) 14.9 /CMM (1.8-8.9); NEUTROPHILS % (AUTO) 75.7 % (43.0-81.0); PLATELET COUNT (AUTO) 658 /CMM (150-450); RDW COEFFICIENT OF VARIATION 19.4 (11.5-15.0); RED BLOOD CELL COUNT(AUTO) 2.61 MIL/uL (4.0-5.2); WHITE BLOOD COUNT (AUTO) 19.6 K/uL (4.3-11.0)
[2017-08-16] MEDS ORDERED: EPOETIN ALFA (10,000 UNIT) 10,000 UNIT/ML VIAL IV ONE (12:00)
[2017-08-16 12:01] LABS: CALCIUM, SERUM 8.8 mg/dL (8.5-10.1); CREATININE 5.3 mg/dL (0.6-1.3); POTASSIUM 4.4 mmol/L (3.5-5.1)
[2017-08-16 12:19] LABS: HEMOGLOBIN 6.8 g/dL (11.5-14.8)
[2017-08-16 12:37] LABS: EOSINOPHILS % (MANUAL) 1 % (0-4); LYMPHOCYTES % (MANUAL) 15 % (16-48); MONOCYTES % (MANUAL) 5 % (0-11.0); NEUTROPHILS % (MANUAL) 79 (42-76)
[2017-08-16] MEDS: VANCOMYCIN 500 MG in IV NS 0.9% 100 ML IV PRN (20:04)
[2017-08-16] MEDS: ACETAMINOPHEN 650 MG/20.3 ML UDC GT PRN (20:31)
[2017-08-16] MEDS: INSULIN GLARGINE, 100 UNIT/ML CARTRIDGE SQ SCH (22:00)
[2017-08-17] VITALS (9 sets, daily range): BP systolic 109–137; BP diastolic 63–77
[2017-08-17] MEDS: ALBUTEROL FS 2.5 MG/0.5 ML VIAL.NEB NEB SCH ×4 (00:32→20:14)
[2017-08-17] MEDS: IPRATROPIUM NEB FS 0.5 MG/2.5 ML AMPUL.NEB NEB SCH ×4 (00:32→20:14)
[2017-08-17 01:14] LABS: ERYTHROPOIETIN 164.4 mIU/mL (2.6-18.5)
[2017-08-17] MEDS: HYDROCODONE/APAP 5/325MG 1 EACH TABLET PO PRN ×3 (01:52→22:13)
[2017-08-17] MEDS: PIPERACILLIN /TAZOBACTAM 2.25 G in IV NS 0.9% 50 ML IV SCH ×2 (04:47→12:12)
[2017-08-17] MEDS: HYDROGEL DRESSING 90 GM TUBE TP SCH ×2 (04:47→16:30)
[2017-08-17] MEDS: FAMOTIDINE (20 MG) 20 MG TABLET PO SCH (06:36)
[2017-08-17] MEDS ORDERED: INSULIN REGULAR, HUMAN 100 UNIT/ML 3 ML VIAL SQ SCH (07:30)
[2017-08-17] MEDS ORDERED: BLOOD SUGAR DIAGNOSTIC 1 EACH STRIP IN SCH (07:30)
[2017-08-17] MEDS: SEVELAMER CARBONATE 0.8 GM POWD.PACK PO SCH ×3 (08:59→17:19)
[2017-08-17] MEDS: MIDODRINE HCL (5MG) 5 MG TABLET PO SCH ×2 (09:05→21:38)
[2017-08-17] MEDS: hydrALAZINE HCL 25 MG TABLET PO SCH ×2 (09:05→17:20)
[2017-08-17] MEDS: DOCUSATE SODIUM 250 MG CAPSULE PO SCH (09:05)
[2017-08-17] MEDS: HYDROCODONE/APAP 5/325MG 1 EACH TABLET GT SCH (09:05)
[2017-08-17] MEDS: FERROUS SULFATE UDC 300 MG/5 ML UDC PO SCH (09:05)
[2017-08-17] MEDS: PANTOPRAZOLE 40 MG TABLET.DR PO SCH ×2 (09:06→17:19)
[2017-08-17] MEDS: ZINC SULFATE 220 MG CAPSULE PO SCH (09:06)
[2017-08-17] MEDS: ASPIRIN 81 MG TAB.CHEW PO SCH (09:06)
[2017-08-17] MEDS: PROSOURCE / PROSTAT (PYXIS) 30 ML UDC GT SCH ×2 (09:06→17:19)
[2017-08-17] MEDS: VIT B CMPLX 3/FA/VIT C/BIOTIN 1 TAB TABLET PO SCH (09:06)
[2017-08-17] MEDS: LORATADINE 10 MG TABLET PO SCH (09:06)
[2017-08-17] MEDS: LACTOBACILLUS RHAMNOSUS GG 1 EACH CAP.SPRINK PO SCH ×2 (09:06→17:19)
[2017-08-17 10:48] LABS: CALCIUM, SERUM 8.8 mg/dL (8.5-10.1); CREATININE 4.9 mg/dL (0.6-1.3); POTASSIUM 4.6 mmol/L (3.5-5.1)
[2017-08-17] MEDS: Z GUARD REMEDY 2 OZ OINT TP SCH (11:10)
[2017-08-17] MEDS: DAKINS QUARTER STRENGTH (0.125%) 480 ML BOTTLE TOP SCH ×2 (11:10→17:24)
[2017-08-17 11:12] LABS: EOSINOPHILS # (AUTO) 0.4 /CMM (0.0-0.7); EOSINOPHILS % (AUTO) 2.6 % (0.0-6.0); HEMATOCRIT 29 % (33-45); HEMOGLOBIN 9.4 g/dL (11.5-14.8); LYMPHOCYTES # (AUTO) 3.3 /CMM (0.8-4.8); LYMPHOCYTES % (AUTO) 19.1 % (20.0-44.0); MEAN CORPUSCULAR HEMOGLOBIN 27 PG (26.0-33.0); MEAN CORPUSCULAR HGB CONC 32 g/dl (31.0-36.0); MEAN CORPUSCULAR VOLUME 84 fL (82-100); MONOCYTES # (AUTO) 0.9 /CMM (0.1-1.30); MONOCYTES % (AUTO) 5.3 % (2.0-12.0); NEUTROPHILS # (AUTO) 12.5 /CMM (1.8-8.9); PLATELET COUNT (AUTO) 649 /CMM (150-450); RDW COEFFICIENT OF VARIATION 18.4 (11.5-15.0); RED BLOOD CELL COUNT(AUTO) 3.48 MIL/uL (4.0-5.2); WHITE BLOOD COUNT (AUTO) 17.1 K/uL (4.3-11.0)
[2017-08-17] MEDS ORDERED: DOCU250C14 PO (13:21)
[2017-08-17] MEDS ORDERED: RXVAN XX (13:21)
[2017-08-17] MEDS ORDERED: VANC500F2 IV (13:21)
[2017-08-17] MEDS ORDERED: PIPE2.254 IV (13:21)
[2017-08-17] MEDS ORDERED: MERO500V IV (13:28)
[2017-08-17 19:09] LABS: OCCULT BLOOD STOOL NEGATIVE (NEGATIVE)
[2017-08-17] MEDS ORDERED: MEROPENEM 500 MG in IV NS 0.9% 50 ML IV SCH (21:00)
[2017-08-17] MEDS: INSULIN GLARGINE, 100 UNIT/ML CARTRIDGE SQ SCH (21:39)
== END 2017-08-17 23:19 | DRG 229 ==
LOC: ER 19:03 → TELE 21:07 → MED 08-12 10:41
PROVIDERS: ADMIT Internal Medicine Nephrology; ATTEND Internal Medicine Nephrology
PROC: 5A1D70Z Performance of Urinary Filtration, Intermittent, Less than 6 Hours Per Day (ICD-10-PCS; 2017-08-11)
PROC: 5A1D70Z Performance of Urinary Filtration, Intermittent, Less than 6 Hours Per Day (ICD-10-PCS; 2017-08-13)
PROC: 0KBN0ZZ Excision of Right Hip Muscle, Open Approach (ICD-10-PCS; principal; 2017-08-14 15:30)
PROC: 0KBP0ZZ Excision of Left Hip Muscle, Open Approach (ICD-10-PCS; principal; 2017-08-14 15:30)
PROC: 0W9F0ZZ Drainage of Abdominal Wall, Open Approach (ICD-10-PCS; principal; 2017-08-14 15:30)
PROC: 0JB80ZZ Excision of Abdomen Subcutaneous Tissue and Fascia, Open Approach (ICD-10-PCS; principal; 2017-08-14 15:30)
PROC: 5A1D70Z Performance of Urinary Filtration, Intermittent, Less than 6 Hours Per Day (ICD-10-PCS; 2017-08-15)
PROC: 30233N1 Transfusion of Nonautologous Red Blood Cells into Peripheral Vein, Percutaneous Approach (ICD-10-PCS; 2017-08-15)
PROC: 5A1D70Z Performance of Urinary Filtration, Intermittent, Less than 6 Hours Per Day (ICD-10-PCS; 2017-08-16)
DX: K94.22 Gastrostomy infection (principal); E43 Unspecified severe protein-calorie malnutrition; J96.11 Chronic respiratory failure with hypoxia; J90 Pleural effusion, not elsewhere classified; L89.154 Pressure ulcer of sacral region, stage 4; K31.6 Fistula of stomach and duodenum; N18.6 End stage renal disease; K92.2 Gastrointestinal hemorrhage, unspecified; E11.22 Type 2 diabetes mellitus with diabetic chronic kidney disease; D63.1 Anemia in chronic kidney disease; G47.33 Obstructive sleep apnea (adult) (pediatric); I13.11 Hypertensive heart and chronic kidney disease without heart failure, with stage 5 chronic kidney disease, or end stage renal disease; J98.11 Atelectasis; L02.211 Cutaneous abscess of abdominal wall; Z79.82 Long term (current) use of aspirin; Z79.4 Long term (current) use of insulin; Z79.899 Other long term (current) drug therapy; E66.01 Morbid (severe) obesity due to excess calories; Z99.2 Dependence on renal dialysis; Z86.73 Personal history of transient ischemic attack (TIA), and cerebral infarction without residual deficits; R18.8 Other ascites; K21.9 Gastro-esophageal reflux disease without esophagitis; K59.00 Constipation, unspecified; M85.9 Disorder of bone density and structure, unspecified; Y83.3 Surgical operation with formation of external stoma as the cause of abnormal reaction of the patient, or of later complication, without mention of misadventure at the time of the procedure; Y82.9 Unspecified medical devices associated with adverse incidents; Y92.129 Unspecified place in nursing home as the place of occurrence of the external cause; M87.9 Osteonecrosis, unspecified; D25.9 Leiomyoma of uterus, unspecified; G89.29 Other chronic pain
CPT/HCPCS: 31720; 36415; 71045-TC; 73100-TC; 76700-TC; 80048-TC; 80076-TC; 80202-TC; 82272-TC; 82306; 82668; 82728-TC; 82746; 82962-TC; 83010; 83615-TC; 83735-TC; 84100-TC; 84443-TC; 84550-TC; 85025-TC; 85027-TC; 85730-TC; 86850-TC; 86921-TC; 87040-TC; 87070-TC; 87075-TC; 87081-TC; 87186-TC; 88304-TC; 88305-TC; 88312-TC; 90935-TC; 94640-TC; 94760-TC; 94762-TC; A4216; A4217; A4606; A4623; A6248; A6253; A6402; A6403; C9113; J0885; J1815; J2185; J2270; J2543; J2704; J3010; J3370; J3490; J7030; J7040; J7042; J7050; J7060; P9016-BL; Z7610

== ENCOUNTER 2018-02-20 10:54 | Inpatient (IN) | payer OTHER ==
[~2018-02-20] VITALS: Ht 175.3 cm; Wt 105.7 kg
[~2018-02-20 10:54] MED LIST changes: -ALBUT2 NEB; +AMIN30LI4 PO; +ARGI1POW13 PO; -ASPI-1169 GT; +ASPI-1169 PO; +BLOO-668 IN; -CALC667T2 GT; +DOCU250C14 PO; +FERR300L PO; -Hydrogel Dressing TP; +INSU100V3 SQ; -IPRA3AMP IH; +IPRA3AMP23 IH; +MIDO5TAB PO; -Midodrine Hcl (5MG) PO; +SEVE0.8P PO; -VANC500F2 IV; +ZINC220C8 PO
--- NOTE | 2018-02-20 11:10 | NUR ---
BIB EMS [facility] FOR AV SHUNT PLACEMENT, NAD NOTED, VSS, RESP EVEN AND UNLABORED, PT WAS PUT ON MONITOR, WAITING FOR MD CAPELLAN.
[2018-02-20] MEDS ORDERED: MORPHINE SULFATE INJ 4 MG/ML DISP.SYRIN ONE (11:38)
[2018-02-20] MEDS ORDERED: MORPHINE SULFATE INJ 2 MG/ML DISP.SYRIN IV ONE (12:00)
[2018-02-20] MEDS ORDERED: ONDANSETRON HCL/PF 4 MG/2 ML VIAL IV ONE (12:00)
[2018-02-20] MEDS ORDERED: ONDANSETRON HCL/PF 4 MG/2 ML VIAL ONE (12:06)
[2018-02-20 12:12] LABS: BASOPHILS # (AUTO) 0.1 /CMM (0.0-0.2); BASOPHILS % (AUTO) 0.9 % (0.0-2.0); EOSINOPHILS % (AUTO) 1.8 % (0.0-6.0); HEMATOCRIT 39 % (33-45); HEMOGLOBIN 12.3 g/dL (11.5-14.8); LYMPHOCYTES # (AUTO) 2.3 /CMM (0.8-4.8); LYMPHOCYTES % (AUTO) 27.2 % (20.0-44.0); MEAN CORPUSCULAR HEMOGLOBIN 26 PG (26.0-33.0); MEAN CORPUSCULAR HGB CONC 31 g/dl (31.0-36.0); MEAN CORPUSCULAR VOLUME 84 fL (82-100); MONOCYTES # (AUTO) 0.5 /CMM (0.1-1.30); MONOCYTES % (AUTO) 5.5 % (2.0-12.0); NEUTROPHILS # (AUTO) 5.4 /CMM (1.8-8.9); NEUTROPHILS % (AUTO) 64.6 % (43.0-81.0); PLATELET COUNT (AUTO) 379 /CMM (150-450); RDW COEFFICIENT OF VARIATION 20.8 (11.5-15.0); RED BLOOD CELL COUNT(AUTO) 4.65 MIL/uL (4.0-5.2); WHITE BLOOD COUNT (AUTO) 8.5 K/uL (4.3-11.0)
[2018-02-20 13:10] LABS: CALCIUM, SERUM 8.9 mg/dL (8.5-10.1); CREATININE 4.4 mg/dL (0.6-1.3); POTASSIUM 3.8 mmol/L (3.5-5.1)
--- NOTE | 2018-02-20 13:54 | NUR ---
CALLED [facility] SHANK PIECE TACKER WAS PAGED.
[2018-02-20] MEDS ORDERED: MELA3TAB PO (14:40)
[2018-02-20] MEDS ORDERED: DOCU250C14 PO (14:40)
[2018-02-20] MEDS ORDERED: SERT50TA PO (14:40)
[2018-02-20 15:00] VITALS: BP 93/63
--- NOTE | 2018-02-20 15:00 | NUR ---
OFFICE COPY SELECTORBOXING PROMOTER NOTE PT ARRIVED VIA GURNEY IN STABLE CONDITION ACCOMPANIED BY 2 ER STAFF. PT IS A/O X4, AFEBRILE. RESPIRATIONS ARE EVEN AND LABORED, NOT IN ANY ACUTE DISTRESS NOTED. PUPILS ARE REACTIVE TO LIGHT. PT IS ON COOL AEROSOL 4-5L/MIN, VIA TRACH, SATURATING AT 100%. PT DENIES ANY CHEST PAIN, N/V, SOB. ABDOMEN IS SOFT AND NONDISTENDED. BOWEL SOUNDS ARE PRESENT IN ALL 4 QUADRANTS UPON AUSCULTATION. DENIES ANY BLADDER DISCOMFORT. PT IS ANURIC D/T HD. PERMA CATH TO RIGHT CHEST WALL USED FOR HD. SACRAL ULCER NOTED WITH PHOTOS TAKEN. IV ACCESS TO RIGHT HAND G20, NO INFILTRATION NOTED. DRESSING KEPT CLEAN AND DRY. DR. PHILLIPS NOTIFIED OF ADMISSION WITH ORDERS NOTED AND CARRIED OUT. WILL CONTINUE TO MONITOR THROUGHOUT SHIFT FOR CONTINUITY OF CARE.
[2018-02-20] MEDS ORDERED: DEXTROSE 50%-WATER 50 ML DISP.SYRIN IV PRN (15:30)
[2018-02-20] MEDS ORDERED: ACETAMINOPHEN 650 MG/20.3 ML UDC GT PRN (15:30)
[2018-02-20] MEDS ORDERED: INSULIN REGULAR, HUMAN 100 UNIT/ML 3 ML VIAL SQ PRN ×2 (15:30)
[2018-02-20] MEDS ORDERED: ONDANSETRON HCL/PF 4 MG/2 ML VIAL IV PRN (15:30)
[2018-02-20] MEDS ORDERED: MIDODRINE HCL (5MG) 5 MG TABLET PO PRN (15:30)
[2018-02-20] MEDS ORDERED: IPRATROPIUM NEB FS 0.5 MG/2.5 ML AMPUL.NEB NEB PRN (16:00)
[2018-02-20] MEDS: hydrALAZINE HCL 25 MG TABLET PO SCH (17:00)
[2018-02-20] MEDS: LACTOBACILLUS RHAMNOSUS GG 1 EACH CAP.SPRINK PO SCH ×2 (17:00→17:23)
[2018-02-20] MEDS: DOCUSATE SODIUM 250 MG CAPSULE PO SCH (17:23)
[2018-02-20] MEDS: SEVELAMER CARBONATE 0.8 GM POWD.PACK PO SCH (17:24)
[2018-02-20] MEDS: BLOOD SUGAR DIAGNOSTIC 1 EACH STRIP IN SCH ×2 (17:24→22:03)
--- NOTE | 2018-02-20 18:41 | NUR ---
INTERNATIONAL TRADE COMPLIANCE MANAGER CLOSING NOTES ALL DUE MEDS GIVEN, NEEDS MET AND RENDERED. PT IS A/O X3, AFEBRILE. RESPIRATIONS ARE EVEN AND UNLABORED, NOT IN ANY ACUTE DISTRESS NOTED. PT DENIES ANY PAIN AT THIS TIME. NO C/O SOB, N/V. IV SITE INTACT, NO INFILTRATION NOTED. DRESSING KEPT CLEAN AND DRY. SAFETY MEASURES ARE IN PLACE. REMINDED PT TO USE CALL LIGHT WHEN ASSISTANCE IS NEEDED, CALL LIGHT IS LEFT WITHIN REACH. WILL ENDORSE TO NEXT SHIFT FOR CONTINUITY OF CARE.
--- NOTE | 2018-02-20 19:15 | NUR ---
RN OPENING NOTES RECEIVED PATIENT IN BED, ALERT AND ORIENTED X 3, NO SOB, TRACH ON COOL AEROSOL IN PLACE. PT IN NO DISTRESS, VERBALLY RESPONSIVE AND ABLE TO MAKE NEEDS KNOWN. ALL PATIENT'S NEEDS ATTENDED TO AT THIS TIME, PLACED CALL LIGHT WITHIN EASY REACH. BED IN LOW POSITION AND LOCKED IN PLACE. WILL CONTINUE TO MONITOR PATIENT, ON TELE NOTED WITH SR 60s.
[2018-02-20 20:37] VITALS: BP 93/65
[2018-02-20] MEDS: IPRATROPIUM NEB FS 0.5 MG/2.5 ML AMPUL.NEB NEB SCH (20:39)
[2018-02-20] MEDS: HEPARIN SODIUM, PORCINE 5000 UNITS/1 ML VIAL SQ SCH ×2 (20:59→21:00)
[2018-02-20] MEDS: MIDODRINE HCL (5MG) 5 MG TABLET PO SCH (21:58)
[2018-02-20] MEDS: INSULIN GLARGINE, 100 UNIT/ML CARTRIDGE SQ SCH (22:00)
[2018-02-20] MEDS: diphenhydrAMINE HCL 25 MG CAPSULE PO PRN (22:03)
[2018-02-21] VITALS: BP 104/67
[2018-02-21] MEDS: HYDROCODONE/APAP 5/325MG 1 EACH TABLET PO PRN ×4 (00:59→21:20)
[2018-02-21] MEDS: IPRATROPIUM NEB FS 0.5 MG/2.5 ML AMPUL.NEB NEB SCH ×4 (01:30→19:19)
[2018-02-21] MEDS ORDERED: MELA3TAB PO (02:02)
[2018-02-21 04:00] VITALS: BP 100/60
--- NOTE | 2018-02-21 06:58 | NUR ---
RN CLOSING NOTES PATIENT IN BED, ASLEEP BUT EASILY AROUSABLE, IN NO ACUTE DISTRESS, NO SOB NOTED, RECEIVING O2 @ 4LPM WITH COOL AEROSOL VIA TRACH COLLAR . DENIES ANY PAIN, NO DISTRESS THROUGHOUT THE SHIFT, ALL DUE MEDICATION GIVEN. KEPT PT SAFE AND DRY, CLEAN AND COMFORTABLE. PLACED CALL LIGHT WITHIN EASY REACH AND BED IN LOW POSITION AND LOCKED IN PLACE. ON TELE WITH SR @ 60s. PATIENT REFUSED ACCU-CHECK. PER PATIENT, HER ACCU-CHECK IS ONLY ONCE A WEEK. WILL ENDORSE TO AM SHIFT NURSE FOR CONTINUITY OF CARE
[2018-02-21] MEDS: BLOOD SUGAR DIAGNOSTIC 1 EACH STRIP IN SCH ×4 (07:00→22:00)
[2018-02-21 07:36] LABS: BASOPHILS % (AUTO) 0.2 % (0.0-2.0); HEMATOCRIT 36 % (33-45); HEMOGLOBIN 11.6 g/dL (11.5-14.8); LYMPHOCYTES # (AUTO) 2.9 /CMM (0.8-4.8); LYMPHOCYTES % (AUTO) 30.9 % (20.0-44.0); MEAN CORPUSCULAR HEMOGLOBIN 28 PG (26.0-33.0); MEAN CORPUSCULAR HGB CONC 32 g/dl (31.0-36.0); MEAN CORPUSCULAR VOLUME 85 fL (82-100); MONOCYTES # (AUTO) 0.6 /CMM (0.1-1.30); MONOCYTES % (AUTO) 6.2 % (2.0-12.0); NEUTROPHILS # (AUTO) 5.9 /CMM (1.8-8.9); NEUTROPHILS % (AUTO) 61.7 % (43.0-81.0); PLATELET COUNT (AUTO) 346 /CMM (150-450); RED BLOOD CELL COUNT(AUTO) 4.22 MIL/uL (4.0-5.2); WHITE BLOOD COUNT (AUTO) 9.5 K/uL (4.3-11.0)
[2018-02-21 07:43] LABS: CALCIUM, SERUM 9.8 mg/dL (8.5-10.1); CREATININE 5.8 mg/dL (0.6-1.3); MAGNESIUM 2.6 mg/dL (1.8-2.4); PHOSPHORUS 5.6 mg/dL (2.5-4.9); POTASSIUM 4.4 mmol/L (3.5-5.1)
[2018-02-21 08:00] VITALS: BP_SYST 100; BP_SYST 101; BP_DIAS 60; BP_DIAS 71
[2018-02-21] MEDS: SEVELAMER CARBONATE 0.8 GM POWD.PACK PO SCH ×3 (08:26→17:29)
[2018-02-21] MEDS: ASPIRIN 81 MG TAB.CHEW PO SCH (08:30)
[2018-02-21] MEDS: VIT B CMPLX 3/FA/VIT C/BIOTIN 1 TAB TABLET PO SCH (08:30)
[2018-02-21] MEDS: LORATADINE 10 MG TABLET PO SCH (08:30)
[2018-02-21] MEDS: DOCUSATE SODIUM 250 MG CAPSULE PO SCH ×2 (08:30→17:28)
[2018-02-21] MEDS: LACTOBACILLUS RHAMNOSUS GG 1 EACH CAP.SPRINK PO SCH ×2 (08:30→17:28)
[2018-02-21] MEDS: ZINC SULFATE 220 MG CAPSULE PO SCH (08:30)
[2018-02-21] MEDS: SERTRALINE HCL 50 MG TABLET PO SCH (08:31)
[2018-02-21] MEDS: HEPARIN SODIUM, PORCINE 5000 UNITS/1 ML VIAL SQ SCH ×2 (08:33→21:00)
[2018-02-21] MEDS: MIDODRINE HCL (5MG) 5 MG TABLET PO SCH ×2 (08:37→21:00)
[2018-02-21] MEDS: hydrALAZINE HCL 25 MG TABLET PO SCH ×2 (08:44→17:28)
[2018-02-21] MEDS ORDERED: HYDROCODONE/APAP 5/325MG 1 EACH TABLET GT SCH (09:00)
[2018-02-21] MEDS ORDERED: BLOOD SUGAR DIAGNOSTIC 1 EACH STRIP IN SCH (09:00)
[2018-02-21] MEDS: FERROUS SULFATE UDC 300 MG/5 ML UDC PO SCH (10:59)
[2018-02-21] MEDS: PROSOURCE / PROSTAT (PYXIS) 30 ML UDC GT SCH ×2 (11:00→17:00)
[2018-02-21 16:00] VITALS: BP 128/73
--- NOTE | 2018-02-21 19:15 | NUR ---
RN NOTES RECEIVED PT IN BED, ALERT AND ORIENTED X 4, IN NO DISTRESS, VERBALLY RESPONSIVE, DENIES PAIN AT THIS TIME. ALL PATIENT'S NEEDS ATTENDED TO. RT IN PT'S RM. PLACED CALL LIGHT WITHIN EASY REACH. BED IN LOW POSITION AND LOCKED IN PLACE.WILL CONTINUE TO MONITOR PT.
[2018-02-21 20:00] VITALS: BP 129/79
[2018-02-21] MEDS: diphenhydrAMINE HCL 25 MG CAPSULE PO PRN (21:21)
[2018-02-21] MEDS: INSULIN GLARGINE, 100 UNIT/ML CARTRIDGE SQ SCH (22:00)
--- NOTE | 2018-02-21 22:06 | NUR ---
RN NOTES PATIENT REFUSED ACCUCHECK, NO S/S OF HYPO OR HYPERGLYCEMIA. PATIENT ALREADY CONSUMED 2 PUDDINGS. WILL CONTINUE TO MONITOR.
[2018-02-22] MEDS: IPRATROPIUM NEB FS 0.5 MG/2.5 ML AMPUL.NEB NEB SCH ×3 (01:34→14:17)
--- NOTE | 2018-02-22 07:00 | NUR ---
RN CLOSING NOTES PATIENT IN BED, AWAKE, ALERT AND ORIENTED X 4, DENIES PAIN AT THIS TIME, NO SOB AND IN NO DISTRESS. PATIENT NPO FOR SURGERY TODAY. LEMON SWABS GIVEN TO PATIENT AND LEFT AT BEDSIDE TABLE. PT IS AWARE AND COMPLIANT. TURNED AND REPOSITIONED Q2H. PLACED CALL LIGHT WITHIN EASY REACH. PLACED BED IN LOW POSITION AND LOCKED IN PLACE. WILL ENDORSE TO AM SHIFT NURSE FOR CONTINUITY OF CARE.
[2018-02-22 07:06] LABS: BASOPHILS % (AUTO) 0.5 % (0.0-2.0); EOSINOPHILS % (AUTO) 1.8 % (0.0-6.0); HEMATOCRIT 38 % (33-45); HEMOGLOBIN 11.7 g/dL (11.5-14.8); LYMPHOCYTES # (AUTO) 2.6 /CMM (0.8-4.8); LYMPHOCYTES % (AUTO) 28.7 % (20.0-44.0); MEAN CORPUSCULAR HEMOGLOBIN 27 PG (26.0-33.0); MEAN CORPUSCULAR HGB CONC 31 g/dl (31.0-36.0); MEAN CORPUSCULAR VOLUME 87 fL (82-100); MONOCYTES # (AUTO) 0.6 /CMM (0.1-1.30); NEUTROPHILS # (AUTO) 5.7 /CMM (1.8-8.9); PLATELET COUNT (AUTO) 328 /CMM (150-450); RDW COEFFICIENT OF VARIATION 22.9 (11.5-15.0); RED BLOOD CELL COUNT(AUTO) 4.33 MIL/uL (4.0-5.2); WHITE BLOOD COUNT (AUTO) 9.1 K/uL (4.3-11.0)
[2018-02-22 07:11] LABS: INR 0.94 (0.87-1.13)
[2018-02-22 07:19] LABS: CREATININE 6.8 mg/dL (0.6-1.3); POTASSIUM 4.2 mmol/L (3.5-5.1)
[2018-02-22] MEDS: BLOOD SUGAR DIAGNOSTIC 1 EACH STRIP IN SCH ×2 (07:30→11:41)
--- NOTE | 2018-02-22 07:40 | NUR ---
RN OPENING NOTES PATIENT RECEIVED RESTING COMFORTABLY IN BED, EASILY AROUSABLE DURING CARE, ABLE TO MAKE NEEDS KNOWN. RESPIRATIONS EVEN AND UNLABORED, DENIES ANY PAIN OR DISCOMFORT AT THIS TIME. IV ACCESS TO R HAND 20G PATENT AND INTACT NO REDNESS OR INFILTRATION NOTED.SAFETY MEASURES IN PLACE KEPT CLEAN DRY AND COMFORTABLE WILL CONTINUE TO MONITOR. PT NPO AT THIS TIME FOR PROCEDURE, VERBALIZES UNDERSTANDING
[2018-02-22] MEDS: SEVELAMER CARBONATE 0.8 GM POWD.PACK PO SCH ×2 (08:00→12:28)
[2018-02-22 08:18] VITALS: BP 114/50
--- NOTE | 2018-02-22 08:50 | NUR ---
RN NOTES/MEDICATION PT REQUESTING TO HAVE PAIN MEDICATION WHEN NEEDED BEFORE PROCEDURE, PT DOES NOT HAVE IV PAIN MEDICATION CALLED AIR TESTER TERESITA PER RN SMALL SIP OF WATER WITH MEDICATION IS ACCEPTABLE, RELAYED TO PT WILL ADMINISTER WHEN NEEDED
[2018-02-22] MEDS: ASPIRIN 81 MG TAB.CHEW PO SCH (08:55)
[2018-02-22] MEDS: hydrALAZINE HCL 25 MG TABLET PO SCH (08:55)
[2018-02-22] MEDS: PROSOURCE / PROSTAT (PYXIS) 30 ML UDC GT SCH (08:55)
[2018-02-22] MEDS: LORATADINE 10 MG TABLET PO SCH (08:55)
[2018-02-22] MEDS: VIT B CMPLX 3/FA/VIT C/BIOTIN 1 TAB TABLET PO SCH (08:56)
[2018-02-22] MEDS: LACTOBACILLUS RHAMNOSUS GG 1 EACH CAP.SPRINK PO SCH (08:56)
[2018-02-22] MEDS: FERROUS SULFATE UDC 300 MG/5 ML UDC PO SCH (08:56)
[2018-02-22] MEDS: MIDODRINE HCL (5MG) 5 MG TABLET PO SCH ×2 (08:56→09:10)
[2018-02-22] MEDS: DOCUSATE SODIUM 250 MG CAPSULE PO SCH (08:56)
[2018-02-22] MEDS: ZINC SULFATE 220 MG CAPSULE PO SCH (08:57)
[2018-02-22] MEDS: HEPARIN SODIUM, PORCINE 5000 UNITS/1 ML VIAL SQ SCH (08:57)
[2018-02-22] MEDS: SERTRALINE HCL 50 MG TABLET PO SCH (08:57)
--- NOTE | 2018-02-22 09:00 | NUR ---
RN NOTES PATIENT NPO FOR AV FISTULA PLACEMENT WILL CONTINUE TO MONITOR
[2018-02-22 09:10] VITALS: BP 107/56
[2018-02-22] MEDS: HYDROCODONE/APAP 5/325MG 1 EACH TABLET PO PRN (09:11)
--- NOTE | 2018-02-22 13:00 | NUR ---
RN NOTES PT NPO FOR PROCEDURE MEDICATIONS NON ADMINISTERED ORDERED, WILL CONTINUE TO MONITOR
[2018-02-22] MEDS ORDERED: MUPIROCIN OINT 2% 22 GM TUBE SCH (14:30)
--- NOTE | 2018-02-22 14:35 | NUR ---
RN NOTES/PROCEDURE CANCELLED RECEIVED NOTICE FROM DR. MARILUZ PHILLIPS, PER MD PROCEDURE IS CANCELLED DR. SCHAFER HAS AN EMERGENCY, PT TO BE DISCHARGED BACK TO [facility]
--- NOTE | 2018-02-22 15:37 | NUR ---
RN CLOSING/ DISCHARGE NOTES PATIENT AWAKE ALERT, ABLE TO MAKE NEEDS KNOWN. RESPIRATIONS EVEN AND UNLABORED, DENIES ANY PAIN OR DISCOMFORT AT THIS TIME. IV ACCESS TO R HAND AND ID BAND WITH NO ASE NOTED.PT REFUSING TO TAKE PICTURES OF SKIN, PT WITH HEALING SACRAL ULCER AND OLD GT SITE SCARRING NO CHANGES NOTED FROM ADMISSION PICTURES. ALL DISCHARGE INSTRUCTIONS REVIEWED WITH PT, FAMILY, AND BALJIT THOMAS FROM [facility] WITH NOTED VERBAL UNDERSTANDING. REPORT GIVEN TO EMT FOR CONTINUITY OF CARE, DISCHARGED IN STABLE CONDITION
== END 2018-02-22 15:30 | DRG 466 ==
LOC: ER 10:56 → TELE 12:27 → MED 02-21 09:46
PROVIDERS: ADMIT Internal Medicine Nephrology; ATTEND Internal Medicine Nephrology
PROC: 5A1D70Z Performance of Urinary Filtration, Intermittent, Less than 6 Hours Per Day (ICD-10-PCS; principal; 2018-02-22)
DX: T82.41XA Breakdown (mechanical) of vascular dialysis catheter, initial encounter (principal); I12.0 Hypertensive chronic kidney disease with stage 5 chronic kidney disease or end stage renal disease; J96.11 Chronic respiratory failure with hypoxia; Z93.0 Tracheostomy status; E11.22 Type 2 diabetes mellitus with diabetic chronic kidney disease; D63.1 Anemia in chronic kidney disease; N18.6 End stage renal disease; Y83.9 Surgical procedure, unspecified as the cause of abnormal reaction of the patient, or of later complication, without mention of misadventure at the time of the procedure; Y92.89 Other specified places as the place of occurrence of the external cause; Z99.2 Dependence on renal dialysis; Z86.73 Personal history of transient ischemic attack (TIA), and cerebral infarction without residual deficits; I25.10 Atherosclerotic heart disease of native coronary artery without angina pectoris; E87.70 Fluid overload, unspecified
CPT/HCPCS: 31720; 36415; 71045-TC; 80048-TC; 82962-TC; 83735-TC; 84100-TC; 85025-TC; 85610-TC; 85730-TC; 86850-TC; 87081-TC; 90935-TC; 94799-TC; A4606; A4623; J1644; J1815; J2270; J2405; Q0163; Z7610